=== PATIENT | male | born 1935 | race Caucasian/White ===

== ENCOUNTER 2019-08-18 08:14 | Outpatient (CLI) | payer MEDICARE, SELFPAY ==
[2019-08-18 08:49] LABS: Hematocrit 40.5 % (42.0-52.0); Hemoglobin 13.4 g/dL (14.0-18.0); Mean Corpuscular HGB Conc 33.1 g/dl (32-36); Mean Corpuscular Hemoglobin 30.9 pg (26-34); Mean Corpuscular Volume 93.3 fl (80-100); Mean Platelet Volume 9.8 fl (7.4-10.4); Platelet Count Result 173 k/mm3 (150-375); Red Blood Count 4.34 M/mm3 (4.6-6.20); Red Cell Distribution Width 12.5 % (11.5-14.5); White Blood Count 5.7 K/mm3 (4.5-10.0)
[2019-08-18 09:02] LABS: Alanine Aminotransferase 25 U/L (4-50); Albumin Level 4.2 g/dL (3.5-5.1); Alkaline Phosphatase 59 U/L (38-126); Aspartate Amino Transferase 33 U/L (17-59); Bilirubin,Total 1.5 mg/dL (0.2-1.3); Blood Urea Nitrogen 20 mg/dL (9-20); Calcium 8.8 mg/dL (8.4-10.2); Carbon Dioxide 26 mmol/L (22-30); Chloride 101 mmol/L (98-107); Cholesterol 141 mg/dL (0-200); Estimated Glomerular Filt Rate > 60; Glucose 104 mg/dL (75-110); HDL Direct 60 mg/dL; Potassium 4.1 mmol/L (3.4-5.0); Sodium 141 mmol/L (137-145); Triglycerides 92 mg/dL (<150)
[2019-08-18 09:12] LABS: LDL Cholesterol Direct 68 mg/dL
[2019-08-18 09:17] LABS: Iron 63 ug/dL (49-181)
[2019-08-18 09:27] LABS: Percent Iron Saturation 20 % (20-50)
== END 2019-08-18 08:15 | disposition home or self-care (01) ==
PROVIDERS: PCP Family Medicine; Visit Provider Family Medicine
DX: D50.9 Iron deficiency anemia, unspecified (principal); G25.81 Restless legs syndrome; I10 Essential (primary) hypertension; E78.5 Hyperlipidemia, unspecified
CPT/HCPCS: 36415; 80053; 80061; 82728; 83540; 83550; 85027

== ENCOUNTER 2020-05-15 09:40 | Outpatient (CLI) | payer MEDICARE, SELFPAY ==
--- NOTE | ~2020-05-15 | US_ITS ---
EXAMINATION: US venous doppler LE EXAM DATE: 05/15/2020 10:17 INDICATION: R60.0 - Localized edema. TECHNIQUE: Multiple grayscale, color flow and Doppler images of the lower extremity deep venous syste ms bilaterally were obtained and reviewed. There is no prior study for comparison. FINDINGS: Right side: The right common femoral, femoral and profunda veins demonstrate normal color flow, respi ratory variation, augmentation and compressibility. Compressibility, color flow confirmed within the right popliteal, posterior tibial, peroneal, and greater saphenous veins. Left side: The left common femoral, femoral and profunda veins demonstrate normal color flow, respira tory variation, augmentation and compressibility. Compressibility, color flow confirmed within the l eft popliteal, posterior tibial, peroneal, and greater saphenous veins. IMPRESSION: 1. No lower extremity deep venous thrombosis bilaterally. Reviewed, dictated and finalized at location A. NICAL ASSOCIATE
== END 2020-05-15 09:41 | disposition home or self-care (01) ==
PROVIDERS: PCP Family Medicine; Visit Provider Family Medicine
DX: R60.0 Localized edema (principal)
CPT/HCPCS: 93970

== ENCOUNTER 2021-02-02 02:13 | Day surgery (SDC) | payer MEDICARE, SELFPAY ==
[2021-02-01 14:40] VITALS: BMI 29.9
[2021-02-02] VITALS (18 sets, daily range): BP systolic 99–145; BP diastolic 58–76; PULSE 47–57; RESP 14–20; TEMP 36–36.4; O2SAT 92–96; BMI 29.4
--- NOTE | 2021-02-02 07:15 | SUR.PREOP ---
ARRIVES AMBULATORY TO [facility] W/ AT SIDE FOR SCHEDULED R/LHC W/ DR. MOSER. STEADY GAIT. DENIES CP OR SOB. ORIENTED TO ROOM, PLAN OF CARE, PROCEDURE, ORDERS. QUESTIONS ANSWERED. IV STARTED, LABS SENT, VS OBTAINED, SKIN PREPPED, PULSES MARKED, CONSENT OBTAINED. WILL CONTINUE TO MONITOR.
[2021-02-02 07:34] LABS: Basophils Percent Auto 0.6 % (0.2-1.2); Eosinophils Absolute Auto 0.3 K/mm3 (0-0.3); Eosinophils Percent Auto 3.9 % (0-4.4); Hematocrit 43.2 % (42.0-52.0); Hemoglobin 14.1 g/dL (14.0-18.0); Immature Granulocyte Absolute 0.03 K/mm3 (0.00-0.031); Immature Granulocyte Percent A 0.4 % (0-0.5); Lymphocytes Absolute Auto 2.54 K/mm3 (0.9-3.2); Mean Corpuscular HGB Conc 32.6 g/dl (32-36); Mean Platelet Volume 9.1 fl (7.4-10.4); Monocytes Absolute Auto 0.7 K/mm3 (0.1-0.6); Monocytes Percent Auto 9.8 % (2.6-8.5); Neutrophils Absolute Auto 3.3 K/mm3 (1.3-6.7); Neutrophils Percent Auto 48.3 % (45.5-73.1); Platelet Count Result 172 k/mm3 (150-375); Red Blood Count 4.41 M/mm3 (4.6-6.20); Red Cell Distribution Width 13.2 % (11.5-14.5); White Blood Count 6.9 K/mm3 (4.5-10.0)
[2021-02-02 07:47] LABS: INR 0.9; Prothrombin Time 11.9 Seconds (11.1-14.7)
[2021-02-02] MEDS: SODIUM CHLORIDE 0.9% IV 500 ML 100 ML IV CONT (07:50)
[2021-02-02 08:19] LABS: Anion Gap 5 mmol/L (8-16); Blood Urea Nitrogen 21 mg/dL (9-20); Calcium 9.1 mg/dL (8.4-10.2); Carbon Dioxide 29 mmol/L (22-30); Chloride 105 mmol/L (98-107); Estimated CRCL calculation 70 ml/min; Estimated Glomerular Filt Rate > 60; Glucose 93 mg/dL (65-110); Potassium 4.2 mmol/L (3.4-5.0); Sodium 139 mmol/L (137-145)
--- NOTE | 2021-02-02 09:14 | WPDMODSED ---
Moderate Sedation Note-Pt Data Patient Data Diagnosis: coronary artery disease with previous PCI symptomatic aortic stenosis Present Complaint: KENDRICK Procedure to be performed/Plan: right and left heart catheterization Allergies Allergy/AdvReac Type Severity Reaction Status Date / Time talc Allergy Intermediate rash Verified 02/02/21 08:18 latex Allergy Mild Hives Verified 02/02/21 08:18 Home Medications Medication Instructions Recorded Confirmed Type aspirin 81 mg tablet,delayed 81 mg PO DAILY 08/17/19 02/01/21 History release atenolol 25 mg tablet 12.5 mg PO DAILY tablet 08/17/19 02/01/21 History atorvastatin 80 mg tablet 40 mg PO DAILY tablet 08/17/19 02/01/21 History ezetimibe 10 mg tablet 10 mg PO DAILY 08/17/19 02/01/21 History ibuprofen 200 mg tablet 200 mg PO Q6H PRN 08/17/19 02/01/21 History lisinopril 5 mg tablet 5 mg PO DAILY 08/17/19 02/01/21 History tszjbwnxpxxv-fcz-adisn acid-vit 1 tablet PO DAILY 08/17/19 02/01/21 History K-lycop 400 mcg-20 mcg-370 mcg tablet omega-3 fatty acids-fish oil 360 1 cap PO DAILY 08/17/19 02/01/21 History mg-1,200 mg capsule saw palmetto 450 mg capsule 80 mg PO DAILY cap 08/17/19 02/01/21 History alendronate 70 mg tablet 70 mg PO WEEKLY #12 tablet 06/12/20 02/01/21 Rx pantoprazole 40 mg tablet,delayed 40 mg PO QAM #90 tablet 06/12/20 02/01/21 Rx release ropinirole 0.5 mg tablet 0.5 mg PO .1-3hrs prior to bed #90 06/12/20 02/01/21 Rx tablet loratadine 10 mg tablet 10 mg PO DAILY #90 tablet 10/05/20 02/01/21 Rx memantine 10 mg tablet 10 mg PO BID #60 tablet 12/15/20 02/01/21 Rx nitroglycerin 0.4 mg sublingual 0.4 mg SUBLINGUAL Q5M PRN 12/15/20 02/01/21 History tablet clotrimazole-betamethasone 1 1 applic TOPICAL BID 28 Days #45 g 01/17/21 02/01/21 Rx %-0.05 % topical cream fluoxetine 20 mg PO DAILY 02/01/21 02/01/21 History garlic 1 tablet PO DAILY 02/01/21 02/01/21 History Current Medications: Active Medications Sodium Chloride (Normal Saline Iv) 500 mls @ 100 mls/hr IV CONT .Q5H [facility] Last Admin: 02/02/21 07:50 Dose: 100 mls/hr Documented by: Sedation/Anesthesia: No previous sedation/anesthesia problems (including family history). [facility] Past Medical History Medical History Cardiac murmur Chronic depression Chronic knee pain Controlled restless legs syndrome GERD without esophagitis Hyperlipidemia Hypertension Microcytic anemia Normal colonoscopy Osteopenia Seasonal rhinitis Venous insufficiency (chronic) (peripheral) Surgical History Surgical History History of appendectomy History of cholecystectomy History of heart artery stent History of tonsillectomy History of total bilateral knee replacement (TKR) Family History Family History Father Patient's father is Acute myocardial infarction Mother Family history of atrial fibrillation Social History Social History (Updated 12/15/20 @ 09:58 by Jasmina Parikh) Social History: Smoking status: Former smoker Second hand tobacco smoke exposure: No Alcohol intake: current Drinks per week: 3 Alcohol use details: OCCASIONAL Substance use: never Substance use type: does not use Last use: 06/30/1960 Living arrangements: with family Gender identity (if verbalized by the patient): Male Sexual Orientation (if Verbalized by the Patient): Straight or Heterosexual Spiritual care concerns: No Agree to blood products: Yes Mod Sed Physical Exam Physical Exam Pre Procedural Exam: Normal: Appearance, Neck, Throat, Airway, Lungs, Heart Size, Heart Rate, Heart Rhythm, Neuro Exam and Extremities Hours since solid foods: 12 Hours since liquid intake: 12 Mallampati Classification: class II Internal Medicine - PN: Obj Da Vital Signs Vital Signs: Vital Signs - 24 hr
--- NOTE | 2021-02-02 10:28 | WPDCARDPROC ---
Cardiac Cath Procedure Note Date of procedure:: 02/02/21 Performing physician:: Ricardo Alegria MD Brief clinical history:: This is an 85-year-old man with coronary disease and previous percutaneous revascularization elsewhere. He also is known to have aortic valve stenosis which has been followed a as an outpatient. He is now reporting symptoms of worsening exertional dyspnea. Echocardiogram suggests that aortic valve stenosis has become severe. In this setting right and left heart catheterization has been recommended. Procedure Procedure performed:: Right and left heart catheterization Sedation/Medication given:: fentanyl 25 mg Versed 2 mg case start time 937 a.m. case end time 10:18 a.m. sedation provided by Dany Verdugo RN trained observer Access site:: right femoral artery, right femoral vein Estimated blood loss:: 20 cc Procedure note:: patient was brought to the cardiac catheterization lab in the postabsorptive state the right femoral triangle was prepared and draped in the normal fashion. Anesthesia was provided with 1% lidocaine infiltrated locally. Using the modified Seldinger technique a long 6 Nigerian 45 cm sheath was placed into the femoral artery and into the descending aorta. Following this a 7 Nigerian sheath was placed into the femoral vein. Right heart catheterization was then carried out using a balloon tip Armona-Brenna catheter measuring right-sided hemodynamics and sampling av O2 difference as well as measuring thermodilution cardiac outputs. Armona-Brenna catheter was then removed. Following this I used a 5 Nigerian angled pigtail catheter through the sheath and Simultaneous is pressures were measured in the aorta from the catheter at the side arm of the sheath. following this the stenotic aortic valve was probed using a straight wire and the left ventricle was entered. The catheter was advanced over the wire into the LV. Both catheters were flushed copiously and were reason a road and simultaneous pressure was measured across the stenotic aortic valve and aortic valve area was calculated. Following this a left ventriculogram was done in the DOS SANTOS projection using the same catheter. A pullback was then documented across the stenotic valve. The pigtail catheter was then withdrawn. I then used a 5 Nigerian FL4 coronary diagnostic catheter to engage and inject the left coronary artery in multiple projections. After this a 5 Nigerian JR4 catheter was used to engage and inject the right coronary artery in several projections. After this the case was terminated angiogram was done of the femoral artery through the sheath it was determined that the sheath should be removed tract manual compression. He left the labels molder in stable condition with no evidence of a groin hematoma and no other procedural complication. Findings:: Hemodynamics: Right atrial pressure is 8 mmHg right ventricle 26 over 5 end-diastolic pressure 12. Pulmonary artery 27 over 80 pulmonary capillary wedge pressure is 8. Left ventricle was 1 50 over 0 end-diastolic pressure 16 central aorta 118 over 58 thermodilution cardiac output was 4.5 liters/minute giving an index of 2.1. Aortic valve area calculates to 0.93 cm2. Mean aortic valve gradient is 34.7 mmHg. Left ventricle: The LV is mildly dilated there is moderate global systolic hypokinesia noted the ejection fraction visually estimated to be 35%. The left main coronary artery is medium in caliber there is mild plaquing at the left main ostium which is not flow-limiting. Remainder of the left main looks free of disease. Left anterior descending is a moderate caliber artery extending down to and around the apex. The proximal half of the LAD is covered by previously deployed stent material. There is very mild loss of lumen in the proximal area where the stent material is located in no view was there any lesion that appears to be flow limiting. Circumflex is a moderate caliber artery giving rise to margin
[2021-02-02] MEDS: SODIUM CHLORIDE 0.9% IV 1,000 ML 125 ML IV CONT (12:00)
--- NOTE | 2021-02-02 18:45 | SUR.PHASEII ---
REVIEWED ALL DISCHARGE INSTRUCTIONS WITH PT AND . QUESTIONS ANSWERED. VOICED UNDERSTANDING OF ALL INSTRUCTIONS. PROCEDURE DISK GIVEN TO TAKE TO FOLLOW UP APPOINTMENT. R. GROIN SITE REMAINS SOFT, NONTENDER. NO BLEEDING OR HEMATOMA NOTED. GAUZE AND TEGADERM DRESSING C/D/I. R. PEDAL PULSE PALP EASILY. DISCHARGED HOME, OUT VIA WC TO GRANDDAUGHTER'S WAITING CAR, WITH ALL PERSONAL BELONGINGS AND DISCHARGE PACKET. VOICES NO C/O. NO DISTRESS NOTED.
== END 2021-02-02 18:45 | disposition home or self-care (01) ==
PROVIDERS: PCP Family Medicine; Visit Provider Specialist
PROC: 4A023N8 Measurement of Cardiac Sampling and Pressure, Bilateral, Percutaneous Approach (ICD-10-PCS; CPT 93453; principal; 2021-02-02 08:30)
DX: I35.0 Nonrheumatic aortic (valve) stenosis (principal); R93.1 Abnormal findings on diagnostic imaging of heart and coronary circulation; R06.09 Other forms of dyspnea; I25.10 Atherosclerotic heart disease of native coronary artery without angina pectoris; Z95.5 Presence of coronary angioplasty implant and graft; I11.9 Hypertensive heart disease without heart failure; E78.5 Hyperlipidemia, unspecified; F32.9 Major depressive disorder, single episode, unspecified; K21.9 Gastro-esophageal reflux disease without esophagitis; D64.9 Anemia, unspecified; I87.2 Venous insufficiency (chronic) (peripheral); M85.80 Other specified disorders of bone density and structure, unspecified site; Z79.82 Long term (current) use of aspirin
CPT/HCPCS: 36415; 80048; 85025; 85610; 93460; C1769; C1887; C1894; J0461; J1644; J2250; J3010; J7030; J7040

== ENCOUNTER 2021-06-06 13:30 | Outpatient (RCR) | payer MEDICARE, SELFPAY ==
[2021-05-11 15:36] VITALS: PULSE 62
--- NOTE | 2021-06-04 10:37 | PCCPR ---
Absent due to illness Rich called states not feeling well and is congested.
--- NOTE | 2021-07-26 15:13 | PCCPR ---
Pt DC due to hip pains that do not allow him to tolerate exercise.
== END 2021-07-27 09:04 | disposition home or self-care (01) ==
LOC: ANHCPREHAB 13:30
PROVIDERS: PCP Family Medicine; Visit Provider Internal Medicine Cardiovascular Disease
DX: Z95.2 Presence of prosthetic heart valve (principal)
CPT/HCPCS: 93798

== ENCOUNTER 2021-07-30 09:09 | Outpatient (CLI) | payer MEDICARE, SELFPAY ==
--- NOTE | ~2021-07-30 | US_ITS ---
EXAMINATION: US renal BI DATE: 07/30/2021 09:56 INDICATION: Unspecified abdominal pain TECHNIQUE: Multiple grayscale and Doppler ultrasound images of the kidneys were obtained. COMPARISON: None. FINDINGS: The right kidney measures 10.8 x 5.5 x 5.5 cm. The left kidney measures 11.6 x 5.3 x 5.9 cm . The kidneys demonstrate normal parenchymal echogenicity. There is no hydronephrosis. The bladder is normal. IMPRESSION: 1. Normal kidneys without hydronephrosis. Reviewed, dictated and finalized at location B. TECHNICIAN
[2021-07-30 10:20] LABS: Add Urine Microscopic? NO; Appearance Urine Clear (Clear); Bilirubin Urine Negative (Negative); Blood Urine Negative (Negative); Color Urine Straw (Yellow); Glucose Urine UA Negative (Negative); Ketones Urine Negative (Negative); Leukocyte Esterase Ur Negative LEU/UL (Negative); Nitrate Urine Negative (Negative); Protein Urine Negative (Negative); Urobilinogen Urine Negative mg/dL (<2.0)
[2021-07-30 11:00] LABS: Specific Grav Ur 1.003 (1.001-1.035)
== END 2021-07-30 09:10 | disposition home or self-care (01) ==
PROVIDERS: PCP Family Medicine; Visit Provider Family Medicine
DX: R10.9 Unspecified abdominal pain (principal)
CPT/HCPCS: 76775; 81003

== ENCOUNTER 2022-05-28 13:16 | Emergency (ER) | payer MEDICARE, SELFPAY ==
[2022-05-28 13:44] VITALS: BP 109/66; PULSE 69; RESP 16; TEMP 37.3; O2SAT 97
--- NOTE | 2022-05-28 14:55 | ED.URI ---
HPI - URI/Sore Throat General Chief Complaint: Upper Respiratory Infection Stated Complaint: fever/sore throat Time Seen by Provider: 05/28/22 14:55 Source: patient and RN notes reviewed Mode of arrival: ambulatory Limitations: no limitations History of Present Illness HPI Narrative: 86 y/o male presented for c/o cough, sore throat, runny nose, temp 100.9. Endorses mild bodyaches and headache. Onset 2 days. Endorses exposure to sick contacts 5 days ago. Denies sob, wheezing, n/v/d. Took Tylenol today. Hx HTN, CAD, pacemaker (2020), s/p TAVR MD elicited complaint: cough Related Data Home Medications Medication Instructions Recorded Confirmed aspirin 81 mg tablet,delayed 81 mg PO DAILY 08/17/19 05/28/22 release (Adult Low Dose Aspirin) atorvastatin 80 mg tablet 40 mg PO DAILY 08/17/19 05/28/22 ezetimibe 10 mg tablet 10 mg PO DAILY 08/17/19 05/28/22 oohwhoqefkfu-hmx-wfexp acid-vit 1 tablet PO DAILY 08/17/19 05/28/22 K-lycop 400 mcg-20 mcg-370 mcg tablet (Men's 50 Plus Multivitamin) nitroglycerin 0.4 mg sublingual 0.4 mg sublingual Q5M PRN Chest 12/15/20 05/28/22 tablet (Nitrostat) Pain garlic 1 tablet PO DAILY 02/01/21 05/28/22 acetaminophen 325 mg tablet 650 mg PO Q4H PRN Cramps 03/27/21 05/28/22 (Tylenol) latanoprost 0.005 % eye drops 1 drp LEFT EYE QPM 03/27/21 05/28/22 Allergies Allergy/AdvReac Type Severity Reaction Status Date / Time talc Allergy Intermediate rash Verified 05/28/22 14:25 latex Allergy Mild Hives Verified 05/28/22 14:25 Review of Systems Review of Systems: ROS per HPI [facility] Past Medical History Medical History Cardiac murmur Chronic depression Chronic knee pain Controlled restless legs syndrome GERD without esophagitis Hyperlipidemia Hypertension Microcytic anemia Normal colonoscopy Osteopenia Seasonal rhinitis Venous insufficiency (chronic) (peripheral) Surgical History Surgical History History of appendectomy History of cholecystectomy History of heart artery stent History of tonsillectomy History of total bilateral knee replacement (TKR) Family History Family History Father Acute myocardial infarction Patient's father is Hypercholesteremia Hypertension Mother Family history of atrial fibrillation Sibling Hypercholesteremia Hypertension Social History Social History Social History: Smoking status: Never smoker Second hand tobacco smoke exposure: No Alcohol intake: current Alcohol use details: OCCASIONALLY Substance use: never Substance use type: does not use Last use: 06/30/1960 Gender identity (if verbalized by the patient): Male Sexual Orientation (if Verbalized by the Patient): Straight or Heterosexual Spiritual care concerns: No Agree to blood products: Yes Exam Narrative: GENERAL:well-appearing EYES: PERRLA, conjunctivae clear ENT: Mucous membranes moist. Right TM pearly ward with dull light reflex; no tragal tenderness. Oropharynx erythematous without lesions or exudate, no drooling, no hoarseness, no trismus, uvula midline. CHEST: Clear to auscultation, breath sounds equal. No wheezing, rhonchi, rales, or stridor. HEART: Regular rate and rhythm. No murmur heard. SKIN: Warm, dry, no rash. NEURO: Alert and oriented x3. PSYCH: Normal mood and affect Course Course Emergency Course: Patient is aware of diagnosis, understands and agrees to treatment plan. Anticipatory guidance given. Patient agrees to follow-up as directed and is aware of reasons to seek care at the emergency department. Portions of this record may have been created with voice recognition software Level of Care: Express Care Visit Vital Signs Vital signs: Vital Signs Temperature 99.2 F 05/28/22 1
== END 2022-05-28 15:15 | disposition home or self-care (01) ==
PROVIDERS: Emergency Provider Nurse Practitioner Family; PCP Family Medicine
DX: U07.1 COVID-19 (principal); I10 Essential (primary) hypertension; I25.10 Atherosclerotic heart disease of native coronary artery without angina pectoris; E78.5 Hyperlipidemia, unspecified; Z95.0 Presence of cardiac pacemaker
CPT/HCPCS: 87426; 87804; 99213; C9803; G0463

== ENCOUNTER 2022-09-01 13:44 | Emergency (ER) | payer MEDICARE, SELFPAY ==
[2022-09-01 14:07] VITALS: BP 130/82; PULSE 85; RESP 15; TEMP 36.6; O2SAT 98
--- NOTE | 2022-09-01 14:25 | ED.EAR ---
HPI - Ear Problem General Chief complaint: Ear Stated complaint: forgein body to ear Time Seen by Provider: 09/01/22 14:12 History of Present Illness HPI Narrative: 86-year-old male here for evaluation of foreign body to ear for the past week. Patient states that when he removed his hearing aid a piece of the hearing aid got stuck in the ear. Has been unable to remove it. Reports decreased hearing to the ear but no pain. Related Data Home Medications Medication Instructions Recorded Confirmed aspirin 81 mg tablet,delayed 81 mg PO DAILY 08/17/19 06/06/22 release (Adult Low Dose Aspirin) atorvastatin 80 mg tablet 40 mg PO DAILY 08/17/19 06/06/22 ezetimibe 10 mg tablet 10 mg PO DAILY 08/17/19 06/06/22 lmcaxlywqmbb-iuw-fyzag acid-vit 1 tablet PO DAILY 08/17/19 06/06/22 K-lycop 400 mcg-20 mcg-370 mcg tablet (Men's 50 Plus Multivitamin) nitroglycerin 0.4 mg sublingual 0.4 mg sublingual Q5M PRN Chest 12/15/20 06/06/22 tablet (Nitrostat) Pain garlic 1 tablet PO DAILY 02/01/21 06/06/22 acetaminophen 325 mg tablet 650 mg PO Q4H PRN Cramps 03/27/21 06/06/22 (Tylenol) latanoprost 0.005 % eye drops 1 drp LEFT EYE QPM 03/27/21 06/06/22 tiotropium bromide 2.5 2 inh inhalation QAM 06/06/22 06/06/22 mcg/actuation mist for inhalation (Spiriva Respimat) Allergies Allergy/AdvReac Type Severity Reaction Status Date / Time talc Allergy Intermediate rash Verified 09/01/22 14:09 latex Allergy Mild Hives Verified 09/01/22 14:09 Review of Systems Review of Systems: Gen.: Denies fevers or chills Eyes: Denies eye pain or visual change ENT: Reports foreign body to right ear Respiratory: Denies shortness of breath or cough CV: Denies chest pain or palpitations GI: Denies abdominal pain nausea, emesis or diarrhea denies burning, urgency, frequency or hematuria Musculoskeletal: Denies back pain or muscle pain Neuro: Denies numbness, tingling, weakness or focal weakness Skin: Denies rash Except as documented, all other systems reviewed and negative [facility] Past Medical History Medical History Cardiac murmur Chronic depression Chronic knee pain Controlled restless legs syndrome GERD without esophagitis Hyperlipidemia Hypertension Microcytic anemia Normal colonoscopy Osteopenia Seasonal rhinitis Venous insufficiency (chronic) (peripheral) Surgical History Surgical History History of appendectomy History of cholecystectomy History of heart artery stent History of tonsillectomy History of total bilateral knee replacement (TKR) Family History Family History Father Acute myocardial infarction Patient's father is Hypercholesteremia Hypertension Mother Family history of atrial fibrillation Sibling Hypercholesteremia Hypertension Social History Social History (Updated 06/06/22 @ 13:47 by Jasmina Parikh) Social History: Smoking status: Never smoker Second hand tobacco smoke exposure: No Alcohol intake: current Alcohol use details: OCCASIONALLY Substance use: never Substance use type: does not use Last use: 06/30/1961 Living arrangements: with family Occupation/Education: retired Gender identity (if verbalized by the patient): Male Sexual Orientation (if Verbalized by the Patient): Straight or Heterosexual Spiritual care concerns: No Agree to blood products: Yes Exam Narrative: Gen: Alert, oriented, no acute disease Eyes: EOMI, no icterus ENT: Foreign body obscures the right TM Pulm: Respirations even and unlabored, symmetric thorax expansion, no audible stridor or visible cyanosis CV: Regular rate per telemetry GI: No distension, no voluntary/involuntary guarding Neuro: AOx4, moves all extremities without apparent difficulty or weakness, follows commands Skin: No jaundice, no vis
[2022-09-01 14:32] VITALS: PULSE 80; RESP 14; O2SAT 100
== END 2022-09-01 14:33 | disposition home or self-care (01) ==
LOC: ANHED 14:26
PROVIDERS: Emergency Provider Physician Assistant; PCP Family Medicine
DX: T16.1XXA Foreign body in right ear, initial encounter (principal); K21.9 Gastro-esophageal reflux disease without esophagitis; G89.29 Other chronic pain; E78.5 Hyperlipidemia, unspecified; I10 Essential (primary) hypertension; F32.A Depression, unspecified; Y29.XXXA Contact with blunt object, undetermined intent, initial encounter
CPT/HCPCS: 69200; 99282

== ENCOUNTER 2023-06-25 08:54 | Outpatient (CLI) | payer MEDICARE, SELFPAY ==
[2023-06-25 10:19] LABS: Basophils Percent Auto 0.7 % (0.2-1.2); Eosinophils Absolute Auto 0.3 K/mm3 (0-0.3); Eosinophils Percent Auto 4.5 % (0-4.4); Hematocrit 43.9 % (42.0-52.0); Hemoglobin 14.2 g/dL (14.0-18.0); Immature Granulocyte Absolute 0.01 K/mm3 (0.00-0.031); Immature Granulocyte Percent A 0.2 % (0-0.5); Lymphocytes Absolute Auto 2.02 K/mm3 (0.9-3.2); Lymphocytes Percent Auto 35.1 % (18.3-44.2); Mean Corpuscular HGB Conc 32.3 g/dl (32-36); Mean Corpuscular Hemoglobin 30.9 pg (26-34); Mean Corpuscular Volume 95.6 fl (80-100); Monocytes Absolute Auto 0.5 K/mm3 (0.1-0.6); Monocytes Percent Auto 8.3 % (2.6-8.5); Neutrophils Absolute Auto 2.9 K/mm3 (1.3-6.7); Neutrophils Percent Auto 51.2 % (45.5-73.1); Platelet Count Result 167 k/mm3 (150-375); Red Blood Count 4.59 M/mm3 (4.6-6.20); Red Cell Distribution Width 13.2 % (11.5-14.5); White Blood Count 5.8 K/mm3 (4.5-10.0)
[2023-06-25 12:18] LABS: Alanine Aminotransferase 36 U/L (6-50); Alkaline Phosphatase 58 U/L (38-126); Anion Gap 9 mmol/L (8-16); Aspartate Amino Transferase 38 U/L (17-59); Bilirubin,Total 1.7 mg/dL (0.2-1.3); Blood Urea Nitrogen 24 mg/dL (9-20); Calcium 9.1 mg/dL (8.4-10.2); Carbon Dioxide 29 mmol/L (22-30); Chloride 103 mmol/L (98-107); Cholesterol 132 mg/dL (0-200); Estimated Glomerular Filt Rate > 60; Glucose 122 mg/dL (65-110); HDL Direct 59 mg/dL; Potassium 3.7 mmol/L (3.4-5.0); Sodium 141 mmol/L (137-145); Triglycerides 199 mg/dL (<150)
[2023-06-25 12:28] LABS: LDL Cholesterol Direct 51 mg/dL
== END 2023-06-25 08:55 | disposition home or self-care (01) ==
PROVIDERS: PCP Family Medicine; Visit Provider Physician Assistant
DX: E78.2 Mixed hyperlipidemia (principal); I10 Essential (primary) hypertension; I25.10 Atherosclerotic heart disease of native coronary artery without angina pectoris
CPT/HCPCS: 36415; 80053; 80061; 85025

== ENCOUNTER 2023-07-30 12:13 | Outpatient (CLI) | payer MEDICARE, SELFPAY ==
[2023-07-30 13:06] LABS: Alanine Aminotransferase 39 U/L (6-50); Albumin Level 3.9 g/dL (3.5-5.1); Alkaline Phosphatase 57 U/L (38-126); Anion Gap 6 mmol/L (8-16); Aspartate Amino Transferase 40 U/L (17-59); Bilirubin,Total 1.6 mg/dL (0.2-1.3); Blood Urea Nitrogen 27 mg/dL (9-20); Calcium 8.9 mg/dL (8.4-10.2); Carbon Dioxide 30 mmol/L (22-30); Chloride 102 mmol/L (98-107); Estimated Glomerular Filt Rate > 60; Glucose 104 mg/dL (65-110); Potassium 4.1 mmol/L (3.4-5.0); Sodium 138 mmol/L (137-145)
== END 2023-07-30 12:14 | disposition home or self-care (01) ==
PROVIDERS: PCP Family Medicine; Visit Provider Physician Assistant
DX: R17 Unspecified jaundice (principal)
CPT/HCPCS: 36415; 80053

== ENCOUNTER 2024-02-26 13:54 | Emergency (ER) | payer MEDICARE, SELFPAY ==
--- NOTE | ~2024-02-26 | XR_ITS ---
EXAMINATION: XR wrist RT min 3V DATE: 02/26/2024 15:19 INDICATION: Right wrist pain post fall TECHNIQUE: Posteroanterior, ulnar deviation, oblique, and lateral views of the right wrist were obtai capo. COMPARISON: none FINDINGS: Alignment is normal. No fracture. 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 Polyarticular osteoarthritis, severe at the triscaphe and first and second metaca rpophalangeal joints, moderate severity at the distal radioulnar, first and second carpometacarpal, t hird metacarpophalangeal and first interphalangeal joints and mild at the wrist, midcarpal and fifth metacarpophalangeal joints. IMPRESSION: 1. 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 No acute osseous dimitry opathy. Reviewed, dictated and finalized at location A. IMPRESSION: 1. 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 No acute osseous adenopathy.
--- NOTE | ~2024-02-26 | XR_ITS ---
EXAMINATION: XR chest 2V DATE: 02/26/2024 14:59 INDICATION: Fall. TECHNIQUE: Frontal and lateral views of the chest were obtained. COMPARISON: Chest 2 views 06/16/2013 FINDINGS: There is mild atelectasis at right lung base. Calcified left lung nodule and calcified left hilar lymph nodes are consistent with old granulomatous disease. There is mild scarring at the lung apices. No pleural effusion or pneumothorax. Cardiomegaly is noted. There are changes of aortic valve replacement. There is a left chest wall pacer with leads in the right atrium and right ventricle. Stone rgical clips in the right upper quadrant are likely from cholecystectomy. IMPRESSION: 1. Mild atelectasis at right lung base and mild scarring at the lung apices. 2. Cardiomegaly. Reviewed, dictated and finalized at location A.
--- NOTE | ~2024-02-26 | CT_ITS ---
EXAMINATION: CT facial & cervical spine wo DATE: 02/26/2024 14:48 INDICATION: Head injury. TECHNIQUE: Computed tomography (CT) of the maxillofacial region and cervical spine was performed with out intravenous contrast. Automated exposure control and iterative reconstruction technique were empl oyed. The dose-length product was 472.74 mGy-cm. COMPARISON: CT 06/01/2018 FINDINGS: MAXILLOFACIAL CT: There is right-sided scalp soft tissue swelling. There are likely changes of ocular lens replacement surgeries. There is leftward deviation of the nasal septum. There is mucosal thickening in the parana jimena sinuses and right nasal cavity. CERVICAL SPINE CT: There is mild scarring at the lung apices. There is mild kyphosis of cervical spine. There is 2 mm an terolisthesis of C7 on T1. Vertebral body heights are normal. There is moderately decreased disc heig ht at C3-C4 and severely decreased disc height from C4-C5 through C6-C7. The following disc levels ar e specifically discussed: C2-C3: There is mild right and severe left uncovertebral joint osteoarthritis. There is severe bilate ral facet joint osteoarthritis. There is mild right and moderate left neural foraminal stenosis. Ther e is mild central canal stenosis. C3-C4: There is severe bilateral uncovertebral joint osteoarthritis. There is moderate right and loraine re left facet joint osteoarthritis. There is mild right and severe left neural foraminal stenosis. Th ere is mild central canal stenosis. C4-C5: There is severe bilateral uncovertebral joint osteoarthritis. There is severe right and mild l eft facet joint osteoarthritis. There is moderate right and mild left neural foraminal stenosis. Ther e is mild central canal stenosis. C5-C6: There is severe bilateral uncovertebral joint osteoarthritis. There is moderate right and loraine re left facet joint osteoarthritis. There is moderate bilateral neural foraminal stenosis. There is m oderate central canal stenosis. C6-C7: There is severe bilateral uncovertebral joint osteoarthritis. There is severe bilateral facet joint osteoarthritis. There is moderate bilateral neural foraminal stenosis. There is moderate centra l canal stenosis. C7-T1: There is mild bilateral uncovertebral joint osteoarthritis. There is severe bilateral facet nevaeh int osteoarthritis. There is mild right and moderate left neural foraminal stenosis. There is no cent ral canal stenosis. IMPRESSION: 1. No fracture 2. Severe cervical spondylosis. Reviewed, dictated and finalized at location A.
--- NOTE | ~2024-02-26 | CT_ITS ---
EXAMINATION: CT brain wo con DATE: 02/26/2024 14:48 INDICATION: Head injury TECHNIQUE: Computed tomography (CT) of the head was performed without intravenous contrast. Sagittal and coronal reconstructions were performed. The mA was adjusted according to patient size. Iterative reconstruction technique was employed. The dose-length product was 605.33 mGy-cm. COMPARISON: head CT dated 05/02/2018 FINDINGS: Moderate-sized right frontal scalp hematoma. No calvarial fracture. No acute intracranial hemorrhage, acute infarction or abnormal extra axial fluid collection. There is mild scattered white matter hypo attenuation consistent with chronic small vessel ischemic disease. Symmetric prominence of the sulci consistent with mild age-appropriate diffuse cerebral volume loss. Ventricles are normal and symmetri c. No mass/mass effect. There is a nodular soft tissue density, possibly a nasal polyp at the anterio r aspect of the right nasal cavity. The orbits, paranasal sinuses and mastoid air cells are normal. IMPRESSION: 1. Normal aging brain. No fracture or acute intracranial process. 2. Nodular soft tissue density, possibly a nasal polyp at the anterior aspect of the right nasal cavi ty. Reviewed, dictated and finalized at location A. IMPRESSION: 1. Normal aging brain. No fracture or acute intracranial process. 2. Nodular soft tissue density, possibly a nasal polyp at the anterior aspect o f the right nasal cavity.
--- NOTE | ~2024-02-26 | XR_ITS ---
EXAMINATION: XR pelvis 1-2V DATE: 02/26/2024 14:59 INDICATION: Fall. TECHNIQUE: An anteroposterior view of the pelvis was obtained on 2 radiographs. COMPARISON: None. FINDINGS: Alignment is normal. No fracture. There is mild osteoarthritis of the hips. There is severe lumbar spondylosis. IMPRESSION: 1. Mild osteoarthritis of the hips. Reviewed, dictated and finalized at location A.
[2024-02-26 13:59] VITALS: BP 128/69; PULSE 88; RESP 18; TEMP 36.6; O2SAT 98
--- NOTE | 2024-02-26 14:10 | ED.FALL ---
HPI - Fall General Chief Complaint: Fall Stated Complaint: fall, head injury Time Seen by Provider: 02/26/24 14:10 Source: patient Mode of arrival: wheelchair Limitations: no limitations History of Present Illness HPI Narrative: this is an 88-year-old male that presents to the emergency department after a fall today with head injury. Reports he was using the leaf blower. Accidentally tripped over it. Hit his head. He does not believe he lost consciousness. He does take a blood thinner. Denies vomiting, focal numbness or weakness. Related Data Home Medications Medication Instructions Recorded Confirmed aspirin 81 mg tablet,delayed 81 mg PO DAILY 08/17/19 02/04/23 release (Adult Low Dose Aspirin) ezetimibe 10 mg tablet 10 mg PO DAILY 08/17/19 02/04/23 lwtjanpvtdyt-imm-kbcbj acid-vit 1 tablet PO DAILY 08/17/19 02/04/23 K-lycop 400 mcg-20 mcg-370 mcg tablet (Men's 50 Plus Multivitamin) nitroglycerin 0.4 mg sublingual 0.4 mg sublingual Q5M PRN Chest 12/15/20 02/04/23 tablet (Nitrostat) Pain garlic 1 tablet PO DAILY 02/01/21 02/04/23 acetaminophen 325 mg tablet 650 mg PO Q4H PRN Cramps 03/27/21 02/04/23 (Tylenol) latanoprost 0.005 % eye drops 1 drp LEFT EYE QPM 03/27/21 02/04/23 tiotropium bromide 2.5 2 inh inhalation QAM 06/06/22 02/04/23 mcg/actuation mist for inhalation (Spiriva Respimat) Allergies Allergy/AdvReac Type Severity Reaction Status Date / Time talc Allergy Intermediate rash Verified 02/04/23 13:51 latex Allergy Mild Hives Verified 02/04/23 13:51 Review of Systems Review of Systems: CONSTITUTIONAL: Denies fever EYES: Denies visual changes GASTROINTESTINAL: Denies vomiting NEUROLOGIC: Denies numbness, or weakness. All systems reviewed & are unremarkable except as noted in HPI and below [facility] Past Medical History Medical History (Updated 02/26/24 @ 17:10 by Norma Duque PA-C) Acute sore throat Cardiac murmur Chronic depression Chronic knee pain Controlled restless legs syndrome COVID-19 Flank pain Flank pain GERD without esophagitis Hyperlipidemia Hypertension Microcytic anemia Normal colonoscopy Osteopenia Pneumonia due to 2019 novel coronavirus Seasonal rhinitis Tinea cruris Trochanteric bursitis of both hips Venous insufficiency (chronic) (peripheral) Wheezing Surgical History Surgical History (Updated 02/09/23 @ 01:42 by Montserrat Sal MD) History of appendectomy History of cholecystectomy History of heart artery stent History of tonsillectomy 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) Family History Family History Father Acute myocardial infarction Patient's father is Hypercholesteremia Hypertension Mother Family history of atrial fibrillation Sibling Hypercholesteremia Hypertension Social History Social History Social History: Smoking status: Never smoker Second hand tobacco smoke exposure: No Alcohol intake: current Alcohol use details: OCCASIONALLY Substance use: never Substance use type: does not use Last use: 06/30/1960 Lack of Transportation: No Lack of Food: Never True Current Housing: I Have Housing Concerned About Future Housing: No Difficulty Paying Gas/Electric Bills: No Difficulty Paying for Meds: No Currently Unemployed: YES Education: Decline to Answer Difficulty w/ Childcare or Family Care: No Living arrangements: with family Occupation/Education: retired Gender identity (if verbalized by the patient): Male Sexual Orientation (if Verbalized by the Patient): Straight or Heterosexual Spiritual care concerns: No Agree to blood products: Yes Exam Narrative: GENERAL: Well-appearing, well-nourished, and in no acute distress. HEAD: Normocephalic. Hematoma to the right forehead EYES:
[2024-02-26 14:31] VITALS: BP 113/75; PULSE 84; RESP 23; O2SAT 92
[2024-02-26 15:27] VITALS: BP 121/81; O2SAT 95
[2024-02-26 15:31] VITALS: BP 113/72; O2SAT 93
[2024-02-26 17:29] VITALS: BP 127/69; PULSE 85; RESP 16; O2SAT 95
== END 2024-02-26 17:32 | disposition home or self-care (01) ==
PROVIDERS: Emergency Provider Physician Assistant; PCP Family Medicine
DX: S00.83XA Contusion of other part of head, initial encounter (principal); J33.9 Nasal polyp, unspecified; I10 Essential (primary) hypertension; I87.2 Venous insufficiency (chronic) (peripheral); E78.5 Hyperlipidemia, unspecified; D50.9 Iron deficiency anemia, unspecified; K21.9 Gastro-esophageal reflux disease without esophagitis; M85.80 Other specified disorders of bone density and structure, unspecified site; G25.81 Restless legs syndrome; Z86.16 Personal history of COVID-19; Z87.01 Personal history of pneumonia (recurrent); Y93.H2 Activity, gardening and landscaping; M47.812 Spondylosis without myelopathy or radiculopathy, cervical region; M16.0 Bilateral primary osteoarthritis of hip; M19.031 Primary osteoarthritis, right wrist; M18.9 Osteoarthritis of first carpometacarpal joint, unspecified; M19.041 Primary osteoarthritis, right hand; W18.09XA Striking against other object with subsequent fall, initial encounter
CPT/HCPCS: 70450; 70486; 71046; 72125; 72170; 73110; 99284

== ENCOUNTER 2024-10-08 11:40 | Outpatient (CLI) | payer MEDICARE, SELFPAY ==
--- NOTE | ~2024-10-08 | XR_ITS ---
XR ribs BI 3V w CXR 2V Ordering provider: Jasmina Wyatt PA-C History: 88 years Male with . W19.XXXA - Unspecified fall, initial encounter X YESTERDAY . Comparison: None. FINDINGS: MEDIASTINUM: The cardiac silhouette is not enlarged. Left bipolar pacemaker. Valve prosthesis is seen in the aorta. Highly suggestive fracture of the right seventh rib LUNGS: No infiltrates, effusions or pneumothorax. OTHER: No free air under the diaphragm. Air is seen adjacent to the ribs in the lower thoracic area Degenerative changes of the spine. IMPRESSION: Fracture of the right seventh rib. Right apical pneumothorax of about 20% is seen Subcutaneous Air seen adjacent to the lower thoracic area. I called the office of the physician high school assistant principal Jasmina with no success and cold also been number of t he physician event specialist food demonstrator and it was disconnected. I called the technologist of radiology to handle the is kerry. Reviewed, dictated and finalized at location A. IMPRESSION: Fracture of the right seventh rib. Right apical pneumothorax of about 20% is seen Subcutaneous Air seen adjacent to the lower thoracic area. I called the office of the physician high school assistant principal Jasmina with no success and cold also been number of the physician event specialist food demonstrator and it was disconnected. I called [facility] technologist of radiology to handle the issue.
--- NOTE | ~2024-10-08 | XR_ITS ---
EXAM/ PROCEDURE: XR shoulder LT min 2V - 10/08/2024 12:00 CDT HISTORY: 88 years old Male with W19.XXXA - Unspecified fall, initial encounter X YESTERDAY COMPARISON: None available TECHNIQUE: Four view(s) FINDINGS/ IMPRESSION: There are no fractures or dislocations.Joint space narrowing, subchondral sclerosis, subchondral cyst formation and osteophyte formation, compatible with moderate osteoarthritis. Battery of the AICD/pacemaker is seen obscuring some subjacent anatomy. Reviewed, dictated and finalized at location A.
--- NOTE | ~2024-10-08 | XR_ITS ---
EXAM/ PROCEDURE: XR humerus LT - 10/08/2024 12:00 CDT HISTORY: 88 years old Male with W19.XXXA - Unspecified fall, initial encounter X YESTERDAY COMPARISON: None available TECHNIQUE: Three view(s) FINDINGS/ IMPRESSION: There are no fractures or dislocations.Joint space narrowing, subchondral sclerosis, subchondral cyst formation and osteophyte formation, compatible with moderate osteoarthritis. Reviewed, dictated and finalized at location A.
--- NOTE | ~2024-10-08 | XR_ITS ---
EXAM/ PROCEDURE: XR shoulder RT min 2V - 10/08/2024 12:00 CDT HISTORY: 88 years old Male with W19.XXXA - Unspecified fall, initial encounter X YESTERDAY COMPARISON: None available TECHNIQUE: Four view(s) FINDINGS/ IMPRESSION: There are no fractures or dislocations.Joint space narrowing, subchondral sclerosis, subchondral cyst formation and osteophyte formation, compatible with moderate osteoarthritis. Reviewed, dictated and finalized at location A.
== END 2024-10-08 11:41 | disposition home or self-care (01) ==
PROVIDERS: PCP Family Medicine; Visit Provider Physician Assistant Medical
DX: M25.511 Pain in right shoulder (principal); M25.512 Pain in left shoulder; M54.6 Pain in thoracic spine; R07.81 Pleurodynia; M79.622 Pain in left upper arm; J93.9 Pneumothorax, unspecified; S22.41XA Multiple fractures of ribs, right side, initial encounter for closed fracture; X58.XXXA Exposure to other specified factors, initial encounter
CPT/HCPCS: 71046; 71110; 73030; 73060

== ENCOUNTER 2024-10-08 22:18 | Emergency (ER) | payer MEDICARE, SELFPAY ==
[2024-10-08] VITALS (10 sets, daily range): BP systolic 133–161; BP diastolic 73–95; PULSE 82–98; RESP 17–22; TEMP 36.6; O2SAT 91–99
--- NOTE | ~2024-10-08 | CT_ITS ---
EXAM: CT chest abdomen pelvis w con - 10/08/2024 23:30 CDT HISTORY: 88 years old Male with Chest trauma TECHNIQUE: Multidetector CT of the chest, abdomen and pelvis was performed with intravenous contrast Coronal and sagittal reformats were also provided for review. Automatic exposure control was used for this study. CONTRAST: 100 cc of Optiray 350 was used for this study COMPARISON: None available FINDINGS: CHEST: VISUALIZED LOWER NECK: Thyroid gland appears normal. No supraclavicular lymphadenopathy. AIRWAYS: Patent centrally. LUNGS and PLEURA: Mild to moderate right pneumothorax. Trace right pleural effusion. Bibasilar atelec tasis. MEDIASTINUM and RAJINDER: No evidence of mediastinal hematoma. No lymphadenopathy. HEART AND PERICARDIUM: Mild cardiomegaly and severe coronary calcification. No pericardial effusion. CHEST WALL: No axillary lymphadenopathy. Chest wall appears normal. Pacing device in place. VASCULATURE: Mildly calcified and nondilated aorta. Transcatheter aortic valvoplasty. AICD in place. No aneurysm or dissection. ABDOMEN and PELVIS: LIVER: Within normal limits. GALLBLADDER: Postcholecystectomy. BILE DUCTS: Normal caliber. SPLEEN: Within normal limits. PANCREAS: Within normal limits. ADRENAL GLANDS: Within normal limits. KIDNEYS and URETERS: No hydronephrosis or hydroureter. No evidence for nephroureterolithiasis. URINARY BLADDER: Within normal limits. STOMACH and BOWEL: Mild to moderate stool burden, likely constipation. REPRODUCTIVE ORGANS: Within normal limits. MESENTERY/PERITONEAL CAVITY: No free fluid or pneumoperitoneum. LYMPH NODES: No abdominal or pelvic lymphadenopathy. ABDOMINAL WALL: Subcutaneous emphysema and edema over the right flank. VASCULATURE: Within normal limits. MUSCULOSKELETAL, THORACIC AND LUMBAR SPINE: Fractures of right posterior ninth and 10th ribs. Multile tomy degenerative changes are seen in the spine. IMPRESSION: 1. No evidence of solid organ injury or pneumoperitoneum in abdomen or pelvis. 2. Pfzr-cj-nsapbuti right pneumothorax. 3. Right ninth and 10th rib fractures with overlying soft tissue injury and right flank. Reviewed, dictated and finalized at location A. IMPRESSION: 1. No evidence of solid organ injury or pneumoperitoneum in abdomen or pelvis. 2. Gjfj-cy-wtwmphmi right pneumothorax. 3. Right ninth and 10th rib fractures with overlying soft tissue injury and ri ght flank.
--- NOTE | ~2024-10-08 | CT_ITS ---
CT brain wo con Ordering provider: Flako Stevens MD History: 88 years Male with . Head injury . Comparison: None. Technique: CT of the head without contrast. Radiation reduction technique utilized.The dose-length pr oduct was 681 mGy-cm. FINDINGS: BRAIN PARENCHYMA AND CSF SPACES: Mild leukoaraiosis and diffuse cortical atrophy. Mild atheromatous d isease. 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 No midline shift, mass effect or hemorrhage. The brain pa renchyma and CSF spaces are otherwise normal. VISUALIZED PARANASAL SINUSES: Left maxillary sinus disease. Right nasal polyp is noted. Clinical stephy elation advised. Otherwise, Well aerated. MASTOIDS: Well aerated. BONES: The bones appear intact. SOFT TISSUES: Visualized nasopharynx is normal. Superficial soft tissues are normal. IMPRESSION: No acute intracranial findings. Reviewed, dictated and finalized at location A.
--- NOTE | ~2024-10-08 | CT_ITS ---
EXAM: CT cervical spine wo con - 10/08/2024 23:30 CDT History: 88 years old Male with Neck pain status post fall COMPARISON: None available. PROCEDURE: CT of the cervical spine without contrast. Axial, sagittal and coronal reformatted plane s were evaluated. Automatic exposure control was used for this study. FINDINGS: No acute fracture or subluxation. Straightening of cervical lordosis, likely positional or may be rel ated to muscle spasm. Multilevel moderate to severe degenerative changes of the cervical spine includ e varying degrees of disk space narrowing, endplate osteophytosis as well as facet and uncal arthropa thy. Erosive changes at C1-2 level.Prevertebral soft tissues are within normal limits. Right apical pneumothorax and subcutaneous emphysema seen. IMPRESSION: 1. No evidence for cervical spine fracture or traumatic subluxation. 2. Multilevel degenerative changes of the cervical spine. 3. Right apical pneumothorax and subcutaneous emphysema. Reviewed, dictated and finalized at location A.
--- NOTE | 2024-10-08 22:38 | ECG_ITS ---
Test Date: 2024-10-08 22:50:52 Measurements Intervals [place] Rate: 83 P: 51 NV: 229 QRS: -52 QRSD: 148 T: 54 QT: 425 QTc: 501 Interpretive Statements SINUS RHYTHM WITH FIRST DEGREE AV BLOCK RIGHT BUNDLE BRANCH BLOCK LEFT ANTERIOR FASCICULAR BLOCK BASELINE ARTIFACT- I, III ABNORMAL ECG No previous ECG available for comparison Electronically Signed On 10-09-2024 06:44:13 CDT by Eze Zuleta D.O.
--- OUTSIDE RECORDS SUMMARY | 2024-10-08 22:47 | XMS_ITS | Clinical Summary ---
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 Medications multivitamin tablet tablet take 1 tablet by oral route every day with food 0 2 Active Additional Information Patient taking differently: 1 tablet oral Every morning, Indications: Vitamin Deficiency Prevention, Reported on 09/15/2024 alendronate (FOSAMAX) 70 mg tablet take 1 tablet by oral route every week in the morning, at least 30 min before first food, beverage, or medication of day 0 0 4 Active Additional Information Patient taking differently:70 mgoral Every 7 days, Every morning., Reported on 09/15/2024 nitroglycerin (NITROSTAT) 0.[address] 1 tablet by buccal route at the first sign of an attack; no more than 3 tabs are recommended within a 15 minute period. 25 1 2 Active rOPINIRole (REQUIP) 0.5 mg tablet take 1 tablet by oral route every day [address] (PROTONIX) 40 mg EC tablet take 1 tablet by oral route every day 0 0 6 Active garlic capsuleIndicati ons:supplement Take 1 capsule by mouth every morning Active loratadine (CLARITIN) 10 mg tabletIndicatio ns:Allergic Rhinitis Take 1 tablet (10 mg total) by mouth every morning 3 9 Active FLUoxetine (PROzac) 10 mg tablet/capsuleI ndications:Anxi ety with Depression Take 2 tablet/capsule (20 mg total) by mouth nightly Active clotrimazole-be tamethasone (LOTRISONE) creamIndication s:rash Apply 1 application topically 2 (two) times a day 1 Active memantine (NAMENDA) 10 mg tabletIndicatio ns:Moderate to Severe Alzheimer's Type Dementia Take 1 tablet (10 mg total) by mouth 2 (two) times a day 1 Active latanoprost (XALATAN) 0.005 % ophthalmic solutionIndicat ions:open angle glaucoma Administer 1 drop into the left eye nightly 1 Active acetaminophen (TYLENOL) 325 mg tabletIndicatio ns:Fever,Pain Take 2 tablets (650 mg total) by mouth every 4 (four) hours as needed for pain 30 tablet 1 Active aspirin 81 mg chewable tabletIndicatio ns:prevention of thrombosis Take 1 tablet (81 mg total) by mouth nightly 0 1 Active UNABLE TO FIND Med Name: Apoaequorin Active atorvastatin (LIPITOR) 80 mg tablet TAKE ONE-HALF TABLET BY MOUTH DAILY 45 tablet 1 2 Active Eliquis 5 mg tablet TAKE 1 TABLET BY MOUTH EVERY 12 HOURS 180 tablet 3 4 Active ezetimibe (ZETIA) 10 mg tablet TAKE 1 TABLET BY MOUTH DAILY 90 tablet 3 4 Active Active Problems Problem Noted Date Diagnosed Date Pacemaker 10/25/2021 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 Complete heart block 03/19/2021 Overview (03/19/2021): Added automatically from request for surgery [id number] Dementia 03/15/2021 Assessment & Plan (03/15/2021 11:05 AM CDT): Continue home namenda BID -delirium precautions -promote sleep hygiene HTN (hypertension) 03/15/2021 Assessment & Plan (03/15/2021 11:05 AM CDT): Home medications regimen: lisinopril 5mg, atenolol 12.5mg -keep SBP < 160 post-operatively -no beta blockers due to risk of CHB post-TAVR -hold RAHEEM and ARBs due to renal toxicity following TAVR during which contrast is given -currently BP well controlled -> will use hydralazine for BP control if needed Chronic diastolic heart failure 02/26/2021 Assessment & Plan (03/15/2021 11:02 AM CDT): EF 58%, mild MR -holding lasix for immediate post-operative period -holding betablocker for immediate post-operative period given risk of CHB -holding RAHEEM/ARBs for immediate post-operative period given contrast load and renal toxicity -monitor fluid volume status Obesity 02/26/2021 Assessment & Plan (03/15/2021 11:04 AM CDT): BMI 29.27 Coronary artery disease invo lving kas[place] coronary artery of [place] heart without angina pectoris 04/09/2017 Assessment & Plan (03/15/2021 11:04 AM CDT): Hx of Bare metal stents placed to the RCA and LAD in [place] in 1999 in the setting of [place] followed by re-intervention to the LAD in 2012 at [place], [place] -continue asa -continue statin and zetia -start plavix for TAVR History of coronary artery stent placement 04/09 Aortic stenosis 04/09/2017 Assessment & Plan (03/15/2021 11:00 AM CDT): TTE: Mild AR, moderate-severe , AV Area: 0.9 cm2 AV Pressure Gradient (mmHg): Mean: 27, Peak:46 -groin precautions -start asa and plavix -telemetry -PT/OT Heart murmur 04/09/2016 Overview (10/05/2016): Murmur Encounters Date Type Department Care Team Description 09/15/2024 1:00 PM CDT Office Visit [facility] Cardiology [address] [place] [address] 8th [place] [address] [place] [address] Sheron Madden NP S/P TAVR (transcatheter aortic valve replacement) (Primary Dx); Pacemaker; Complete heart block (HCC) 09/15/2024 12:30 PM CDT Ancillary Procedure [address] [place] [address] [place] [address] Complete heart block (HCC) (Primary Dx); Fitting or adjustment of cardiac pacemaker 08/16/2024 Orders Only [address] [place] [address] [place] [address] Eddie James MD 07/12/2024 2:45 PM SITE IDENTIFICATION SPECIALIST Office Visit [facility] Cardiology [address] [facility] [address] [place] [address] Ricardo Alegria MD S/P TAVR (transcatheter aortic valve replacement) (Primary Dx); Pacemaker; History of coronary artery stent placement from Last 3 Months Immunizations Immunization Administration Dates Next Due Moderna SARS-CoV-2 Monovalent Vaccination (12+ Y RS) 08/29/2020 Medical History Medical History Date Comments Hypertension Hypertension Hx Other Medical dyslipidemia Family History Medical History Relation Name Comments Heart attack Father Myocardial Infa rction; Heart disease Mother Heart disease Sister Heart disease Son Relation Name Status Comments Father Alive Mother Sister Son Social History Tobacco Use Types Packs/Day Years Used Date Smoking Tobacco: Never Smokeless Tobacco: Never Tobacco Cessation:Counseling Given: Not Answered Alcohol Use Standard Drinks/Week Comments Yes 0 (1 standard drink = 0.6 oz pur e alcohol) AUDIT-C Answer Date Recorded Q1: How often do you have a drink containing alcohol? 4 or more times a week 03/08/2021 Q2: How many drinks containi ng alcohol do you have on a typical day when you are drinking? 1 or 2 Q3: How often do you have si x or more drinks on one occasion? Never 03/08/2021 Sex and Gender Information Value Date Recorded Sex Assigned at Not on file Legal Sex Male 2:03 AM SITE IDENTIFICATION SPECIALIST Gender Identity Male 02/27/2021 9:36 AM CDT Sexual Orientation Not on file Obstetrics History Last Filed Vital Signs Vital Sign Reading Time Taken Comments Blood Pressure 113/71 09/15/2024 12:25 PM CDT Pulse 66 09/15/2024 12:25 PM CDT Temperature 36.8 C (98.3 F) 04/23/2021 2:51 PM CDT Respiratory Rate 16 03/21/2021 12:30 PM CDT Oxygen Saturation 94% 09/15/2024 12:25 PM CDT Inhaled Oxygen Concentration - - Weight 94.8 kg (209 lb) 09/15/2024 12:25 PM CDT Height 177.8 cm (5' 10 ) 09/15/2024 12:25 PM CDT Body Mass Index 29.99 09/15/2024 12:25 PM CDT Plan of Treatment Health Maintenance Due Date Last Done Comments Depression Screening 1935 Hepatitis B Screening 1953 Well Visit 65+ 12/15/1999 Zoster Vaccine (2 of 2) 07/18/2018 05/23/2018 Fall Risk Assessment 03/21/2022 03/21/2021 DTaP/Tdap/Td Vaccine (2 - Td or Tdap) 08/29/2023 08/28/2013, 03/15/2009, 06/30/1999 Covid-19 Vaccine (3 - 2023-2 5 season) 2024 08/29/2020, 07/27/2020 Influenza Vaccine (#1) 2024 0, 04/07/2019, 03/15/2018, Additional history exists Pneumococcal vaccine 65+ Completed 03/17/2015, 06/2002 Medical Devices Implanted Type Area Medical Field Representative Device Identifier Shelf Expiration Date Model / Serial / Lot [employer] Shira 7842 Lead 7842 Endocardial Pacing Mr Is-1 Bipolar Connection - [id number] - [id number] Implanted:Qty: 1 on 03/20/2021 by Eddie James MD at [facility] Lead Left: Heart [employer] Shira 01/09/2023 [id number] / [id number] / [employer] Shira 4470 Fineline Ii Sterox Ez 1.7mm 52cm Bipolar Active Fixation Screw - [id number] - [id number] Implanted:Qty: 1 on 03/20/2021 by Eddie James MD at [facility] Lead Left: Heart [employer] Shira 12/20/2022 4470 / [id number] / [employer] [id number] Perclose 6fr Suture Mediate Knot Push Vascular Device Closure - [id number] Implanted:Qty: 1 on 03/15/2021 by Peng Lozada MD at [facility] Other - see comments Right: Arterial [employer] [id number] / / Description:Perclose for rig ht femoral artery [employer] C.R.M. L111 Essentio 4.45x5.02cm 2 Chamber Is1 Connector .75cm Pacemaker 13.7 - [id number] - [id number] Implanted:Qty: 1 on 03/20/2021 by Eddie James MD at [facility] Pacemaker Left: Heart [employer] C.R.M. 02/05/2023 [id number] / [id number] / Stent N/A: Heart [employer] [id number] Valve Heart 26mm Chace 3 Transcatheter - [id number] - [id number] Implanted:Qty: 1 on 03/15/2021 by Peng Lozada MD at [facility] N/A: Heart [employer] 11/20/2022 [id number] / [id number] / Daig Shira/[employer] [id number] Angio-Seal Evolution 6fr .035in Guidewire Bypass Tube Suture - [id number] Implanted:Qty: 1 on 03/15/2021 by Peng Lozada MD at [facility] Right: Arterial [employer] Shira 09/27/2021 [id number] / / [id number] Procedures Procedure Name Priority Date/Time Associated Diagnosis Comments DEVICE CHECK - IN OFFICE Routine 09/15/2024 12:11 PM CDT Fitting or adjustment of cardiac pacemaker Complete heart block (HCC) DEVICE CHECK - REMOTE Routine 08/16/2024 6:11 AM SITE IDENTIFICATION SPECIALIST from Last 3 Months Results * DEVICE CHECK - IN OFFICE (09/15/2024 12:11 PM CDT) Anatomical Region Laterality Modality Other 09/15/2024 2:00 AM CDT Narrative 09/19/2024 8:20 PM CDT Interpretation Summary: Battery and Leads (BL) Normal parameters noted on battery and lead(s) --- Estimated battery longevity 5.5 years Presenting Rhythm (MA) Atrial Sensing-Ventricular Sensing (-VS) --- NSR 70 bpm. Anticoagulation (AC) Patient prescribed Apixaban (Eliquis) Patient on anticoagulant therapy Transmission Information (TI) Device Summary Report Procedure Note Duran Chase MD PhD - 09/19/2024 Interpretation Summary: Battery and Leads (BL) Normal parameters noted on battery and lead(s) --- Estimated batterylongevity 5.5 years Presenting Rhythm (MA) Atrial Sensing-Ventricular Sensing (-VS) --- NSR 70 bpm. Anticoagulation (AC) Patient prescribed Apixaban (Eliquis) Patient on anticoagulant therapy Transmission Information (TI) Device Summary Report Eddie James MD [facility] PROCEDURES Final Result * DEVICE CHECK - REMOTE (08/16/2024 6:11 AM SITE IDENTIFICATION SPECIALIST) Anatomical Region Laterality Modality Other 08/16/2024 6:11 AM SITE IDENTIFICATION SPECIALIST Narrative 08/17/2024 9:27 PM SITE IDENTIFICATION SPECIALIST Interpretation Summary: Battery and Leads (BL) Normal parameters noted on battery and lead(s) --- 5.5 years remaining (this is an estimate based on prior usage) Presenting Rhythm (MA) Atrial Pacing-Ventricular Sensing (AP-VS) --- rate 60 Arrhythmic events (AE) 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 Longest: 94 seconds Anticoagulation (AC) Patient on anticoagulant therapy Patient prescribed Apixaban (Eliquis) Transmission Information (TI) Device Summary Report Procedure Note Eddie James MD - 08/17/2024 Interpretation Summary: Battery and Leads (BL) Normal parameters noted on battery and lead(s) --- 5.5 years remaining(this is an estimate based on prior usage) Presenting Rhythm (MA) Atrial Pacing-Ventricular Sensing (AP-VS) --- rate 60 Arrhythmic events (AE) 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 Longest: 94seconds Anticoagulation (AC) Patient on anticoagulant therapy Patient prescribed Apixaban (Eliquis) Transmission Information (TI) Device Summary Report Eddie James MD [facility] PROCEDURES Final Result from Last 3 Months Insurance UHC MEDICARE ADVANTAGE [facility] MEDICARE ADVANTAGE Advance Directives For more information, please contact: [phone] * Full Code (Latest Code Status on File) Date Activated Date Inactivated Comments 03/19/2021 2:35 PM 03/21/2021 8:52 PM * Full Code Date Activated Date Inactivated Comments 03/15/2021 9:47 AM 03/16/2021 7:41 PM Care Teams Order Editor Relationship Specialty Start Date End Date Montserrat Sal MD [address] [facility] [address] [place] [address] PCP - General Family Medicine 10/19/20 Ricardo Alegria MD [address] [place] [address] Referring Physician Cardiology 02/02/21 Peng Lozada MD [address] [facility] [id number] [place] [address] Consulting Physician Cardiothoracic Surgery 03/16/21 Alphonso Tran MD [address] [facility] [id number] [place] [address] Referring Physician Cardiology 03/16/21
--- OUTSIDE RECORDS SUMMARY | 2024-10-08 22:47 | XMS_ITS | Encounter Summary ---
Author Organization [facility] Address [address] [place] [address] Phone Care Team Providers Care Embossing Machine Operator Name Role Phone Montserrat Sal MD Primary Care Provider Ricardo Alegria MD Unavailable [phone] Peng Lozada MD Unavailable Alphonso Tran MD Unavailable [phone] Encounter Details Date Type Department Care Team (Late st Contact Info) Description 03/31/2023 Telephone [facility] Cardiology [address] [facility] 8th [place] [address] [place] [address] Alphonso Tran MD [address] [facility] [address] [place] [address] Social History Tobacco Use Types Packs/Day Years Used Date Smoking Tobacco: Never Smokeless Tobacco: Never Alcohol Use Standard Drinks/Week Comments Yes 0 [...] on file Legal Sex Male 2:03 AM APPIAN BPM DEVELOPER Gender Identity Male 02/27/2021 9:36 AM CDT Sexual Orientation Not on file documented as of this encounter Plan of Treatment Not on file documented as of this encounter Visit Diagnoses Not on filedocumented in this encounter Care Teams Embossing Machine Operator Relationship Specialty Start Date End Date Montserrat Sal MD [address] [place] [address] PCP - General Family Medicine 10/19/20 Ricardo Alegria MD [address] [place] [address] Referring Physician Cardiology 02/02/21 Peng Lozada MD [address] [facility] [id number] [place] [address] Consulting Physician Cardiothoracic Surgery 03/16/21 Alphonso Tran MD [address] [facility] [id number] [place] [address] Referring Physician Cardiology 03/16/21 documented as of this encounter
--- OUTSIDE RECORDS SUMMARY | 2024-10-08 22:47 | XMS_ITS | Referral Summary ---
Author Organization [facility] [place] [address] [place] [address] [address] [place] [address] Care Team Providers Care Panel Gluer Name Role Phone Montserrat Sal MD Primary Care Provider Ricardo Alegria MD Unavailable [phone] Peng Lozada MD Unavailable [phone] Alphonso Tran MD Unavailable [phone] Encounters Date Type Department Care Team Description 09/15/2024 1:00 PM CDT Office Visit [facility] Cardiology [address] [place] [address] 8th [place] [address] [place] [address] Sheron Madden NP S/P TAVR (transcatheter aortic valve replacement) (Primary Dx); Pacemaker; Complete heart block (HCC) 09/15/2024 12:30 PM CDT Ancillary Procedure [facility] Cardiology [address] [place] [address] 8th [place] [address] [place] [address] Complete heart block (HCC) (Primary Dx); Fitting or adjustment of cardiac pacemaker 08/16/2024 Orders Only [facility] Cardiology [address] [place] [address] 8th [place] [address] [place] [address] Eddie James MD 07/12/2024 2:45 PM CABIN SERVICE AGENT Office Visit [facility] Cardiology [address] [place] [address] Ricardo Alegria MD S/P TAVR (transcatheter aortic valve replacement) (Primary Dx); Pacemaker; History of coronary artery stent placement from Last 3 Months Allergies Active Allergy Reactions Criticality Noted Date [...] (03/19/2021): Added automatically from request for surgery [id number] Dementia 03/15/2021 Assessment & Plan (03/15/2021 11:05 [...] BMI 29.27 Coronary artery disease invo lving hamilton coronary artery of hamilton heart without angina pectoris 04/09/2017 Assessment & Plan (03/15/2021 11:04 AM CDT): Hx of Bare metal stents placed to the RCA and LAD in [place] in 1998 in the setting of [place] followed by re-intervention to the LAD in 2012 at [place], [place] -continue asa -continue statin and zetia -start plavix for TAVR History of coronary artery stent placement 04/09 Aortic stenosis 04/09/2017 Assessment & Plan (03/15/2021 11:00 AM CDT): TTE: Mild AR, moderate-severe , AV Area: 0.9 cm2 AV Pressure Gradient (mmHg): Mean: 27, Peak:46 -groin precautions -start asa and plavix -telemetry -PT/OT Heart murmur 04/09/2016 Overview (10/05/2016): Murmur Immunizations Immunization Administration Dates Next Due Moderna SARS-CoV-2 Monovalent Vaccination (12+ Y RS) 08/29/2020 Social History Tobacco Use Types Packs/Day Years [...] on file Legal Sex Male 2:03 AM CABIN SERVICE AGENT Gender Identity Male 02/27/2021 9:36 AM CDT Sexual Orientation Not on file Last Filed Vital Signs Vital Sign Reading [...] 09/15/2024 12:25 PM CDT Plan of Treatment Not on file Medical Devices Implanted Type Area Merchant Miller Device Identifier Shelf Expiration Date Model / Serial / Lot [employer] Shira 7842 Lead 7842 Endocardial Pacing Mr Is-1 Bipolar Connection - [id number] - [id number] Implanted:Qty: 1 on 03/20/2021 by Eddie James MD at [facility] Lead Left: Heart [employer] Shira 01/09/2023 7842 / [id number] / [employer] Shira 4470 Fineline Ii Sterox Ez 1.7mm 52cm Bipolar Active Fixation Screw - [id number] - [id number] Implanted:Qty: 1 on 03/20/2021 by Eddie James MD at [facility] Lead Left: Heart [employer] Shira 12/20/2022 4470 / [id number] / [employer] 36030-16 Perclose 6fr Suture Mediate Knot Push Vascular Device Closure - [id number] Implanted:Qty: 1 on 03/15/2021 by Peng Lozada MD at [facility] Other - see comments Right: Arterial [employer] [id number] / / Description:Perclose for rig ht femoral artery [employer] C.R.M. L111 Essentio 4.45x5.02cm 2 Chamber Is1 Connector .75cm Pacemaker 13.7 - [id number] - [id number] Implanted:Qty: 1 on 03/20/2021 by Eddie James MD at [facility] Pacemaker Left: Heart [employer] C.R.M. 02/05/2023 L111 / [id number] / Stent N/A: Heart May [employer] [id number] Valve Heart 26mm Chcae 3 Transcatheter - [id number] - [id number] Implanted:Qty: 1 on 03/15/2021 by Peng Lozada MD at [facility] N/A: Heart [employer] 11/20/2022 [id number] / [id number] / Daig Shira/[employer] [id number] Angio-Seal Evolution 6fr .035in Guidewire Bypass Tube Suture - [id number] Implanted:Qty: 1 on 03/15/2021 by Peng Lozada MD at [facility] Right: Arterial [employer] Shira 09/27/2021 [id number] / / [id number] Procedures Procedure Name Priority Date/Time Associated Diagnosis Comments DEVICE CHECK - IN OFFICE Routine 09/15/2024 12:11 PM CDT Fitting or adjustment of cardiac pacemaker Complete heart block (HCC) DEVICE CHECK - REMOTE Routine 08/16/2024 6:11 AM CABIN SERVICE AGENT from Last 3 Months Results * DEVICE CHECK - IN OFFICE (09/15/2024 12:11 PM CDT) Anatomical Region Laterality Modality Other 09/15/2024 2:00 AM CDT Narrative 09/19/2024 8:20 PM CDT Interpretation Summary: Battery and Leads (BL) Normal parameters noted on battery and lead(s) --- Estimated battery longevity 5.5 years Presenting Rhythm (VA) Atrial Sensing-Ventricular Sensing (-VS) --- NSR 70 bpm. Anticoagulation (AC) Patient prescribed Apixaban (Eliquis) Patient on anticoagulant therapy Transmission Information (TI) Device Summary Report Procedure Note Duran Chase MD PhD - 09/19/2024 Interpretation Summary: Battery and Leads (BL) Normal parameters noted on battery and lead(s) --- Estimated batterylongevity 5.5 years Presenting Rhythm (VA) Atrial Sensing-Ventricular Sensing (-VS) --- NSR 70 bpm. Anticoagulation (AC) Patient prescribed Apixaban (Eliquis) Patient on anticoagulant therapy Transmission Information (TI) Device Summary Report Eddie James MD [facility] PROCEDURES Final Result * DEVICE CHECK - REMOTE (08/16/2024 6:11 AM CABIN SERVICE AGENT) Anatomical Region Laterality Modality Other 08/16/2024 6:11 AM CABIN SERVICE AGENT Narrative 08/17/2024 9:27 PM CABIN SERVICE AGENT Interpretation Summary: Battery and Leads (BL) Normal parameters noted on battery and lead(s) --- 5.5 years remaining (this is an estimate based on prior usage) Presenting Rhythm (VA) Atrial Pacing-Ventricular Sensing (AP-VS) --- rate 60 [...] estimate based on prior usage) Presenting Rhythm (VA) Atrial Pacing-Ventricular Sensing (AP-VS) --- rate 60 Arrhythmic events (AE) 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 Longest: 94seconds Anticoagulation (AC) Patient on anticoagulant therapy Patient prescribed Apixaban (Eliquis) Transmission Information (TI) Device Summary Report Eddie James MD [facility] PROCEDURES Final Result from Last 3 Months Insurance [facility] ADV[facility]AGE [facility] Address: [address] [place] [phone] [facility] Address: [address] [address] [employer] MEDICARE ADVANTAGE [facility] Address: [address] [address] Advance Directives For more information, please contact: [phone] * Full Code (Latest Code Status on File) Date Activated Date Inactivated Comments 03/19/2021 2:35 PM 03/21/2021 8:52 PM * Full Code Date Activated Date Inactivated Comments 03/15/2021 9:47 AM 03/16/2021 7:41 PM Care Teams Panel Gluer Relationship Specialty Start Date End Date Montserrat Sal MD [address] [place] [address] PCP - General Family Medicine 10/19/20 Ricardo Alegria MD [address] [place] [address] Referring Physician Cardiology 02/02/21 Peng Lozada MD [id number] [place] [address] Consulting Physician Cardiothoracic Surgery 03/16/21 Alphonso Tran MD [id number] [place] [address] Referring Physician Cardiology 03/16/21
[2024-10-08 22:49] LABS: Basophils Percent Auto 0.4 % (0.2-1.2); Eosinophils Absolute Auto 0.2 K/mm3 (0-0.3); Eosinophils Percent Auto 1.7 % (0-4.4); Hematocrit 38.2 % (42.0-52.0); Hemoglobin 12.4 g/dL (14.0-18.0); Immature Granulocyte Absolute 0.02 K/mm3 (0.00-0.031); Immature Granulocyte Percent A 0.2 % (0-0.5); Lymphocytes Absolute Auto 2.33 K/mm3 (0.9-3.2); Lymphocytes Percent Auto 25.5 % (18.3-44.2); Mean Corpuscular HGB Conc 32.5 g/dl (32-36); Mean Corpuscular Hemoglobin 31.2 pg (26-34); Mean Platelet Volume 9.8 fl (7.4-10.4); Monocytes Percent Auto 11.4 % (2.6-8.5); Neutrophils Absolute Auto 5.6 K/mm3 (1.3-6.7); Neutrophils Percent Auto 60.8 % (45.5-73.1); Platelet Count Result 141 k/mm3 (150-375); Red Blood Count 3.98 M/mm3 (4.6-6.20); Red Cell Distribution Width 13.2 % (11.5-14.5); White Blood Count 9.2 K/mm3 (4.5-10.0)
[2024-10-08] MEDS: MORPHINE SULFATE (*CRX) 4 MG/ML INJ IV PUSH (22:59)
[2024-10-08 23:02] LABS: INR 1.3; Partial Thromboplastin Time 30.3 Seconds (22.3-36.8); Prothrombin Time 16.3 Seconds (11.1-14.7)
[2024-10-08 23:05] LABS: Alanine Aminotransferase 39 U/L (6-50); Albumin Level 4.2 g/dL (3.5-5.1); Alkaline Phosphatase 55 U/L (38-126); Anion Gap 9 mmol/L (4-12); Aspartate Amino Transferase 41 U/L (17-59); Bilirubin,Total 2.5 mg/dL (0.2-1.3); Blood Urea Nitrogen 30 mg/dL (9-20); Calcium 9.1 mg/dL (8.4-10.2); Carbon Dioxide 27 mmol/L (22-30); Chloride 102 mmol/L (98-107); Estimated CRCL calculation 74 ml/min; Estimated Glomerular Filt Rate > 60; Glucose 132 mg/dL (65-110); Potassium 4.2 mmol/L (3.4-5.0); Sodium 138 mmol/L (137-145)
[2024-10-09] VITALS (22 sets, daily range): BP systolic 112–128; BP diastolic 69–80; PULSE 78–85; RESP 15–20; TEMP 36.5; O2SAT 90–100
--- NOTE | 2024-10-09 00:35 | ED_ITS ---
HPI - General Adult General Chief complaint: Shortness of Breath/Dyspnea Stated complaint: Fx rib, shortness of breath Time Seen by Provider: 10/08/24 22:31 History of Present Illness HPI narrative: Patient is a 88-year-old gentleman who presents emergency department with chief complaint of rib fracture and pneumothorax. Patient reports that yesterday he was in his workshop lost his balance fell backwards and struck his back against the wall the patient is on a blood thinner reports that he has bruising present to his right flank area patient had outpatient x-rays ordered by his primary care provider that showed him to have approximately 20% pneumothorax and a 7th rib fracture. Related Data Home Medications ?Medication ?Instructions ?Recorded ?Confirmed ?Last Taken ?Type aspirin 81 mg tablet,delayed 81 mg PO DAILY 08/17/19 10/08/24 02/01/21 History release (Adult Low Dose Aspirin) nitroglycerin 0.4 mg sublingual 0.4 mg sublingual Q5M PRN Chest 12/15/20 10/08/24 Unknown History tablet (Nitrostat) Pain garlic 1 tablet PO DAILY 02/01/21 10/08/24 02/01/21 History latanoprost 0.005 % eye drops 1 drp EACH EYE QPM 09/07/24 10/08/24 Unknown History Allergies Allergy/AdvReac Type Severity Reaction Status Date / Time talc Allergy Intermediate rash Verified 10/08/24 10:49 latex Allergy Mild Hives Verified 10/08/24 10:49 Review of Systems 2 Review of Systems: A 10 system review of systems was completed on the patient and is negative except for what is stated in the HPI. Nursing and ancillary documentation was reviewed. 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) History of tonsillectomy History of cholecystectomy History of appendectomy History of heart artery stent Family History Family History Father Acute myocardial infarction Patient's father is Hypercholesteremia Hypertension Mother Family history of atrial fibrillation Sibling Hypercholesteremia Hypertension Social History Social History Social History: Smoking status: Never smoker Second hand tobacco smoke exposure: No Alcohol intake: current Alcohol use details: OCCASIONALLY Substance use: never Substance use type: does not use Last use: 06/30/1960 Lack of Transportation: No Lack of Food: Never True Current Housing: I Have Housing Concerned About Future Housing: No Difficulty Paying Gas/Electric Bills: No Difficulty Paying for Meds: No Currently Unemployed: YES Education: Decline to Answer Difficulty w/ Childcare or Family Care: No Living arrangements: with family Occupation/Education: retired Gender identity (if verbalized by the patient): Male Sexual Orientation (if Verbalized by the Patient): Straight or Heterosexual Spiritual care concerns: No Agree to blood products: Yes Exam 2 Narrative: GENERAL: Well-appearing, well-nourished, and in no acute distress. HEAD: Normocephalic, atraumatic. EYES: PERRLA and EOMI. ENT: Nares clear, no rhinorrhea or epistaxis. Mucous membranes moist. NECK: Supple. CHEST: Clear to auscultation. No respiratory distress. There is bruising present to the right posterior thorax HEART: Regular rate and rhythm. No murmur heard. Normal peripheral pulses. ABDOMEN: Soft, nontender, nondistended, normal active bowel sounds. EXTREMITIES: Normal range of motion. No edema. SKIN: Warm, dry, no rash. NEURO: No focal deficits. Alert and oriented x3. GCS 15 PSYCH: Normal mood and affect. Course Vital Signs Vital signs: Vital Signs Temperature 36.6 C 10/08/24 22:22 Pulse Rate 89 10/08/24 22:22 Respiratory Rate 18 10/08/24 22:22 Blood Pressure 147/88 H 10/08/24 22:22 Pulse Oximetry 97 10/08/24 22:22 Oxygen Delivery Room Air 10/08/24 22:22 Temperature 36.5 C 10/09/24 01:47 Pulse Rate 80 10/09/24 03:31 Respiratory Rate 20 10/09/24 03:31 Blood Pressure 120/77 10/09/24 03:30 Pulse Oximetry 95 10/09/24 03:31 Oxygen Delivery Room Air 10/08/24 22:33 Medical Decision Making MDM Narrative Medical decision making narrative: The patient was found to have posterior 9th and 10th rib fractures with subcu emphysema and a 20% pneumothorax. Since the patient's injury occurred yesterday and the pneumothorax is only 20% at this time a chest tube was not placed. Given the patient is on anticoagulants and has multiple posterior rib fractures the case was discussed with the trauma center at [place] and the patient was accepted the [place] ER by Dr. Quesada Vital Signs Vital Signs: Vital Signs Temperature 36.6 C 10/08/24 22:22 Pulse Rate 89 10/08/24 22:22 Respiratory Rate 18 10/08/24 22:22 Blood Pressure 147/88 H 10/08/24 22:22 Pulse Oximetry 97 10/08/24 22:22 Oxygen Delivery Room Air 10/08/24 22:22 Temperature 36.5 C 10/09/24 01:47 Pulse Rate 80 10/09/24 03:31 Respiratory Rate 20 10/09/24 03:31 Blood Pressure 120/77 10/09/24 03:30 Pulse Oximetry 95 10/09/24 03:31 Oxygen Delivery Room Air 10/08/24 22:33 Lab Data 10/08/24 22:39 10/08/24 22:39 Labs: Lab Results 10/08/24 10/08/24 Range/Units 22:39 22:58 WBC 9.2 (4.5-10.0) K/mm3 RBC 3.98 L (4.6-6.20) M/mm3 Hgb 12.4 L (14.0-18.0) g/dL Hct 38.2 L (42.0-52.0) % MCV 96.0 (80-100) fl MCH 31.2 (26-34) pg MCHC 32.5 (32-36) g/dl RDW 13.2 (11.5-14.5) % Plt Count 141 L (150-375) k/mm3 MPV 9.8 (7.4-10.4) fl Immature Gran % (Auto) 0.2 (0-0.5) % Neut % (Auto) 60.8 (45.5-73.1) % Lymph % (Auto) 25.5 (18.3-44.2) % [place] % (Auto) 11.4 H (2.6-8.5) % Eos % (Auto) 1.7 (0-4.4) % Baso % (Auto) 0.4 (0.2-1.2) % Lymph # (Auto) 2.33 (0.9-3.2) K/mm3 [place] # (Auto) 1.0 H (0.1-0.6) K/mm3 Eos # (Auto) 0.2 (0-0.3) K/mm3 Baso # (Auto) 0.0 (0.0-0.1) K/mm3 Abs Immat Gran (auto) 0.02 (0.00-0.031) K/mm3 Absolute Neuts (auto) 5.6 (1.3-6.7) K/mm3 Absolute Nucleated RBC 0.000 (0.0-0.012) K/mm3 Nucleated RBC % 0.0 (0.0-0.2) % PT 16.3 H (11.1-14.7) Seconds INR 1.3 APTT 30.3 (22.3-36.8) Seconds Sodium 138 (137-145) mmol/L Potassium 4.2 (3.4-5.0) mmol/L Chloride 102 (98-107) mmol/L Carbon Dioxide 27 (22-30) mmol/L Anion Gap 9 (4-12) mmol/L BUN 30 H (9-20) mg/dL Creatinine 0.67 L (0.7-1.3) mg/dL Estim Creat Clear Calc 74 ml/min Estimated GFR > 60 (59 - ) Glucose 132 H (65-110) mg/dL Calcium 9.1 (8.4-10.2) mg/dL Total Bilirubin 2.5 H (0.2-1.3) mg/dL AST 41 (17-59) U/L ALT 39 (6-50) U/L Alkaline Phosphatase 55 (38-126) U/L Total Protein 7.0 (6.3-8.2) g/dL Albumin 4.2 (3.5-5.1) g/dL Blood Type A Positive Antibody Screen Negative Critical Care Time Critical Care Time Critical Care Time: Yes Total Critical Care Time: 35 Discharge Plan Discharge Clinical Impression: Pneumothorax, Closed rib fracture, Fall from ground level Patient Disposition: Acute Care Hospital Condition: Stable Patient Language: Maltese Prescriptions: No Action nitroglycerin [Nitrostat] 0.4 mg tablet, sublingual 0.4 mg sublingual Q5M PRN (Reason: Chest Pain) Rx Instructions: do not exceed 3 doses per episode meclizine 25 mg tablet 25 mg PO TID PRN (Reason: dizziness) Qty: 90 2RF fluticasone propionate 50 mcg/actuation spray,suspension 2 spray intranasal DAILY Qty: 16 3RF Rx Instructions: administer into each nostril diclofenac sodium [Voltaren Arthritis Pain] 1 % gel 2 g topical QID Qty: 100 2RF Rx Instructions: apply to single elbow, wrist or hand; for hand includes palm/fingers/back of hand acetaminophen [Tylenol Arthritis Pain] 650 mg tablet extended release 650 mg PO Q8H Qty: 90 0RF aspirin [Adult Low Dose Aspirin] 81 mg tablet,delayed release (DR/EC) 81 mg PO DAILY garlic Tablet 1 tablet PO DAILY Eliquis 5 mg tablet 5 mg PO BID Qty: 60 4RF clotrimazole-betamethasone 1-0.05 % cream See Rx Instructions .ROUTE .COMPLEX Qty: 45 0RF Dose Instruction: APPLY TOPICALLY TO THE AFFECTED AREA TWICE DAILY FOR 4 WEEKS Rx Instructions: APPLY TOPICALLY TO THE AFFECTED AREA TWICE DAILY FOR 4 WEEKS pantoprazole 40 mg tablet,delayed release (DR/EC) See Rx Instructions .ROUTE .COMPLEX Qty: 90 1RF Dose Instruction: TAKE 1 TABLET BY MOUTH IN THE MORNING Rx Instructions: TAKE 1 TABLET BY MOUTH IN THE MORNING fluoxetine 20 mg capsule See Rx Instructions .ROUTE .COMPLEX Qty: 90 3RF Dose Instruction: TAKE 1 CAPSULE BY MOUTH DAILY Rx Instructions: TAKE 1 CAPSULE BY MOUTH DAILY alendronate 70 mg tablet See Rx Instructions .ROUTE .COMPLEX Qty: 12 3RF Dose Instruction: TAKE 1 TABLET BY MOUTH WEEKLY WITH 8 OZ OF PLAIN WATER 30 MINUTES BEFORE FIRST FOOD, DRINK OR MEDS. STAY UPRIGHT FOR 30 MINS Rx Instructions: TAKE 1 TABLET BY MOUTH WEEKLY WITH 8 OZ OF PLAIN WATER 30 MINUTES BEFORE FIRST FOOD, DRINK OR MEDS. STAY UPRIGHT FOR 30 MINS memantine 10 mg tablet See Rx Instructions .ROUTE .COMPLEX Qty: 180 3RF Dose Instruction: TAKE 1 TABLET BY MOUTH TWICE DAILY Rx Instructions: TAKE 1 TABLET BY MOUTH TWICE DAILY latanoprost 0.005 % drops 1 drp EACH EYE QPM ropinirole 1 mg tablet See Rx Instructions .ROUTE .COMPLEX Qty: 90 1RF Dose Instruction: TAKE 1 TABLET BY MOUTH EVERY DAY AT BEDTIME Rx Instructions: TAKE 1 TABLET BY MOUTH EVERY DAY AT BEDTIME atorvastatin 80 mg tablet See Rx Instructions .ROUTE .COMPLEX Qty: 45 3RF Dose Instruction: TAKE ONE-HALF TABLET BY MOUTH DAILY Rx Instructions: TAKE ONE-HALF TABLET BY MOUTH DAILY Follow-up/Referrals: Jony Sepulveda MD [Primary Care Provider] -
--- NOTE | 2024-10-09 03:34 | PC.NURSE ---
4mg morphine aiden cat prior to ems ride.
[2024-10-09] MEDS: MORPHINE SULFATE (*CRX) 4 MG/ML INJ IV PUSH (03:35)
== END 2024-10-09 03:47 | disposition short-term general hospital (02) ==
LOC: ANHED 22:45
PROVIDERS: Emergency Provider Emergency Medicine; PCP Family Medicine
DX: S22.41XA Multiple fractures of ribs, right side, initial encounter for closed fracture (principal); S27.0XXA Traumatic pneumothorax, initial encounter; I87.2 Venous insufficiency (chronic) (peripheral); I10 Essential (primary) hypertension; E78.5 Hyperlipidemia, unspecified; D50.9 Iron deficiency anemia, unspecified; K21.9 Gastro-esophageal reflux disease without esophagitis; M85.80 Other specified disorders of bone density and structure, unspecified site; G25.81 Restless legs syndrome; F32.A Depression, unspecified; Z95.5 Presence of coronary angioplasty implant and graft; Z95.2 Presence of prosthetic heart valve; Z96.653 Presence of artificial knee joint, bilateral; Z87.01 Personal history of pneumonia (recurrent); Z86.16 Personal history of COVID-19; Z90.49 Acquired absence of other specified parts of digestive tract; Z79.82 Long term (current) use of aspirin; Z79.899 Other long term (current) drug therapy; Z79.01 Long term (current) use of anticoagulants; T79.7XXA Traumatic subcutaneous emphysema, initial encounter; I44.0 Atrioventricular block, first degree; I45.2 Bifascicular block; W01.198A Fall on same level from slipping, tripping and stumbling with subsequent striking against other object, initial encounter
CPT/HCPCS: 36415; 70450; 71260; 72125; 74177; 80053; 85025; 85610; 85730; 86850; 86900; 86901; 93005; 96374; 96376; 99291; J2270; Q9967

== ENCOUNTER 2024-10-18 12:04 | Outpatient (CLI) | payer MEDICARE, SELFPAY ==
--- NOTE | ~2024-10-18 | XR_ITS ---
Clinical Indication: Pneumothorax PA and lateral views of the chest: Comparison: 10/08/2024 Findings: Small right pleural effusion present. Left lung clear. No definite pneumothorax seen. Card iomediastinal silhouette is stable, with pacemaker device. Bones and soft tissues are unremarkable. Impression: No definite pneumothorax evident. Small right pleural effusion. Reviewed, dictated and finalized at [facility]. Impression: No definite pneumothorax evident. Small right pleural effusion.
--- OUTSIDE RECORDS SUMMARY | 2024-10-18 13:42 | XMS_ITS | Referral Summary ---
Author Organization [facility] [address] Address [address] [place] [address] Care Team Providers Care Payroll Representative Name Role Phone Montserrat Sal MD Primary Care Provider Ricardo Alegria MD Unavailable [phone] Peng Lozada MD Unavailable Alphonso Tran MD Unavailable [phone] Encounters Date Type Department Care Team Description 10/09/2024 4:21 AM CDT - 10/11/2024 2:25 PM CDT Hospital Encounter [facility] [address] [place] [address] Karl Quesada MD Staszak, Jessica Kathryn, MD Eswaran, Vidya, MD Traumatic pneumothorax, initial encounter (Primary Dx); Closed fracture of multiple ribs of right side, initial encounter; Fall, subsequent encounter Discharge Disposition: Discharge to home or self care 09/15/2024 1:00 PM CDT Office Visit [facility] [address] [place] [address] 8th [place] [address] [place] [phone] Sheron Madden NP S/P TAVR (transcatheter aortic valve replacement) (Primary Dx); Pacemaker; Complete heart block (HCC) 09/15/2024 12:30 PM CDT Ancillary Procedure [facility] [address] [place] [address] 8th [place] [address] [place] [address] Complete heart block (HCC) (Primary Dx); Fitting or adjustment of cardiac pacemaker 08/16/2024 Orders Only [facility] [address] [facility] 8th [place] [address] [place] [phone] Eddie James MD from Last 3 Months Allergies Active Allergy [...] MOUTH DAILY 90 tablet 3 4 Active lidocaine (LIDODERM) 5 % Place 2 patches on the skin daily for 12 hours Remove & discard patch within 12 hours or as directed by MD. 5 patch 5 11/12/19 25 Active oxyCODONE (ROXICODONE) 5 mg immediate release tabletIndicatio ns:Pain Take 0.5 tablets (2.5 mg total) by mouth every 4 (four) hours as needed for pain 10 tablet 5 Active polyethylene glycol (MIRALAX) 17 gram/dose bulk powderIndicatio ns:constipation Take 17 g by mouth daily 238 g 5 Active Active Problems Problem Noted Date Diagnosed Date Acute pain 10/10/2024 Assessment & Plan (10/10/2024 2:22 PM CDT): Current regimen: APAP scheduled, oxycodone 5mg q4 PRN, lidocaine patches Dementia 10/10/2024 Assessment & Plan (10/10/2024 2:22 PM CDT): -Will continue home memantine, ropinirole -Delirium precautions MDD (major depressive disorder) 10/10/2024 Assessment & Plan (10/10/2024 2:23 PM CDT): Continue home fluoxetine 20mg Osteoporosis 10/10/2024 Assessment & Plan (10/10/2024 2:24 PM CDT): - Hold home alendronate Discharge planning issues 10/10/2024 Assessment & Plan (10/11/2024 1:50 PM CDT): 10/10 transferred to floor 10/11 PT/OT cleared for DC home, will establish outpatient therapy through PCP Traumatic pneumothorax, initial encounter 2024 Assessment & Plan (10/11/2024 1:52 PM CDT): R 9th and 10th rib fx, R PTX - Weaned off O2 10/11 AM - pulm toilet - IS 1500 10/11 - Multimodal pain control - PA and lateral CXR this AM with stable PTX - Plan outpatient CXR in 2w at f/u Pacemaker 10/25/2021 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 Per patient, manages medications. Believes last took medications yesterday. - Hold home ASA/Eliquis - OK to restart eliquis on DC Complete heart block 03/19/2021 Overview (03/19/2021): Added automatically from request for surgery [id number] Dementia 03/15/2021 Assessment & Plan (03/15/2021 11:05 [...] BMI 29.27 Coronary artery disease invo lving ruby coronary artery of ruby heart without angina pectoris 04/09/2017 Assessment & Plan (03/15/2021 11:04 AM CDT): Hx of Bare metal stents placed to the RCA and LAD in [place] in 1998 in the setting of [place] followed by re-intervention to the LAD in 2012 at [place], [place] -continue asa -continue statin and zetia [...] more drinks on one occasion? Never 03/08/2021 Personal Safety Answer Date Recorded Have you ever been in or are you currently in a harmful physical or emotional relationship or is someone making you feel afraid or unsafe? 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 Gender Identity Male 02/27/2021 9:36 AM CDT Sexual Orientation Not on file Last Filed Vital Signs Vital Sign Reading Time Taken Comments Blood Pressure 114/75 10/11/2024 12:38 PM CDT Pulse 76 10/11/2024 12:38 PM CDT Temperature 36.5 C (97.7 F) 10/11/2024 9:13 AM CDT Respiratory Rate 20 10/11/2024 12:38 PM CDT Oxygen Saturation 95% 10/11/2024 12:38 PM CDT Inhaled Oxygen Concentration - - Weight 94.8 kg (209 lb) 09/15/2024 12:25 PM CDT Height 177.8 cm (5' 10 ) 09/15/2024 12:25 PM CDT Body Mass Index 29.99 09/15/2024 12:25 PM CDT Plan of Treatment Not on file Medical Devices Implanted Type Area Quencher Operator Device Identifier Shelf Expiration Date Model / Serial / Lot [employer] Shira [id number] Lead 7842 Endocardial Pacing Mr Is-1 Bipolar Connection - [id number] - [id number] Implanted:Qty: 1 on 03/20/2021 by Eddie James MD at [facility] Lead Left: Heart [employer] Shira 01/09/2023 [id number] / [id number] / [employer] Shira 4470 Fineline Ii Sterox Ez 1.7mm 52cm Bipolar Active Fixation Screw - [id number] - [id number] Implanted:Qty: 1 on 03/20/2021 by Eddie James MD at [facility] Lead Left: Heart [employer] Shira 12/20/2022 4470 / [id number] / [employer] [id number] Perclose 6fr Suture Mediate Knot Push Vascular Device Closure - [id number] Implanted:Qty: 1 on 03/15/2021 by Peng Lozada MD at [facility] Other - see comments Right: Arterial [employer] [id number] / / Description:Perclose for rig ht femoral artery [employer] C[employer]M. L111 Essentio 4.45x5.02cm 2 Chamber Is1 Connector .75cm Pacemaker 13.7 - [id number] - [id number] Implanted:Qty: 1 on 03/20/2021 by Eddie James MD at [facility] Pacemaker Left: Heart [employer] C.R.M. 02/05/2023 [id number] / [id number] / Stent N/A: Heart [employer] [id number] Valve Heart 26mm Chace 3 Transcatheter - [id number] - [id number] Implanted:Qty: 1 on 03/15/2021 by Peng Lozada MD at [facility] N/A: Heart [employer] 11/20/2022 [id number] / [id number] / Daig Shira[employer] [id number] Angio-Seal Evolution 6fr .035in Guidewire Bypass Tube Suture - [id number] Implanted:Qty: 1 on 03/15/2021 by Peng Lozada MD at [facility] Right: Arterial [employer] Shira 09/27/2021 [id number] / / [id number] Procedures Procedure Name Priority Date/Time Associated Diagnosis Comments XR CHEST PA LATERAL 2 VIEWS Timed 10/11/2024 9:01 AM CDT EGFR Timed 10/10/2024 7:46 PM CDT BASIC METABOLIC PANEL Timed 10/10/2024 7:46 PM CDT PHOSPHORUS Timed 10/10/2024 7:46 PM CDT MAGNESIUM Timed 10/10/2024 7:46 PM CDT CBC WITHOUT DIFFERENTIAL Timed 10/10/2024 7:46 PM CDT CRITICAL CARE Routine 10/10/2024 7:12 PM CDT Traumatic pneumothorax, initial encounter CRITICAL CARE Routine 10/10/2024 6:25 PM CDT Traumatic pneumothorax, initial encounter POCT GLUCOSE DEVICE Routine 10/10/2024 6 :00 PM CDT POCT GLUCOSE DEVICE Routine 10/10/2024 1 1:39 AM CDT POCT GLUCOSE DEVICE Routine 10/10/2024 7 :34 AM CDT XR CHEST 1 VIEW ED Urgent/IP Urgent 10/10/2024 7:08 AM CDT POCT GLUCOSE DEVICE Routine 10/09/2024 8 :54 PM CDT LIPID PANEL Timed 10/09/2024 8:54 PM CDT EGFR Timed 10/09/2024 8:54 PM CDT PHOSPHORUS Timed 10/09/2024 8:54 PM CDT MAGNESIUM Timed 10/09/2024 8:54 PM CDT COMPREHENSIVE METABOLIC PANEL Timed 10/09/2024 8:54 PM CDT CBC WITHOUT DIFFERENTIAL Timed 10/09/2024 8:54 PM CDT CRITICAL CARE Routine 10/09/2024 7:53 PM CDT Traumatic pneumothorax, initial encounter POCT GLUCOSE DEVICE Routine 10/09/2024 6 :09 PM CDT CRITICAL CARE Routine 10/09/2024 5:49 PM CDT Traumatic pneumothorax, initial encounter XR CHEST 1 VIEW IP Routine 10/09/2024 5:44 PM CDT POCT GLUCOSE DEVICE Routine 10/09/2024 2 :58 PM CDT POCT GLUCOSE DEVICE Routine 10/09/2024 1 1:21 AM CDT POCT GLUCOSE DEVICE Routine 10/09/2024 8 :23 AM CDT XR TRANSFER OF OUTSIDE FILMS Routine 10/09/2024 4:56 AM CDT XR TRANSFER OF OUTSIDE FILMS Routine 10/09/2024 4:[address] OUTSIDE CONSULT Routine 10/09/2024 4:52 AM CDT EGFR Routine 10/09/2024 4:51 AM CDT DIFFERENTIAL AUTO STAT 10/09/2024 4:5 1 AM CDT PROTIME-INR Routine 10/09/2024 4:51 AM CDT APTT Routine 10/09/2024 4:51 AM CDT BASIC METABOLIC PANEL Routine 10/09/2024 4:51 AM CDT CBC WITH AUTO DIFFERENTIAL STAT 10/09/2024 4:[address] OUTSIDE CONSULT Routine 10/09/2024 4:49 AM CDT XR CHEST 1 VIEW ED 10/09/2024 4:[address] BODY OUTSIDE CONSULT Routine 10/09/2024 4:46 AM CDT XR TRANSFER OF OUTSIDE FILMS Routine 10/09/2024 4:44 AM CDT NV CRITICAL CARE ILL/INJURED PATIENT INIT 30-74 MIN Routine 10/09/2024 4:42 AM CDT XR TRANSFER OF OUTSIDE FILMS Routine 10/09/2024 4:41 AM CDT DEVICE CHECK - IN OFFICE Routine 09/15/2024 12:11 PM CDT Fitting or adjustment of cardiac pacemaker Complete heart block (HCC) DEVICE CHECK - REMOTE Routine 08/16/2024 6:11 AM 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 A pacemaker is unchanged in position. There is replaced aortic valve. There is a small right hydropneumothorax, not substantially changed in size compared to the prior examination. Trace left effusion with left basilar atelectasis. Unchanged right-sided subcutaneous gas. Stable heart size. Electronically signed by: Miguel A Adkins M.D. Narrative 10/11/2024 9:37 AM CDT EXAMINATION: 2 view chest radiograph Procedure Note Miguel A Adkins MD - 10/11/2024 EXAMINATION: 2 view chest radiograph IMPRESSION: Comparison is made to 10/10/2024. A pacemaker is unchanged in position. There is replaced aortic valve. There is a small right hydropneumothorax, not substantially changed in size compared to the prior examination. Trace left effusion with left basilar atelectasis. Unchanged right-sided subcutaneous gas. Stable heart size. Electronically signed by: Miguel A Adkins M.D. Jasmina Mendoza MD IMG XR PROCEDURES Fin al Result * eGFR (10/10/2024 7:46 PM CDT) [facility] eGFR 90 >=60 mL/min/1. 73 m2 Comment: Interpretive Data Reference Interval Normal >/= 90 mL/min/1.73m2 Mildly decreased* 60 - 89 mL/min/1.73m2 Mildly to moderately decreased 45 - 59 mL/min/1.73m2 Moderately to severely decreased 30 - 44 mL/min/1.73m2 Severely decreased 15 - 29 mL/min/1.73m2 Kidney Failure < 15 mL/min/1.73m2 *Relative to young adult level Estimated glomerular filtration rate is determined by the 2020 CKD-EPI equation recommended by the National Kidney Foundation (A Unifying Approach to GFR Estimation: Recommendations of the NKF-ASK Task Force on Reassessing the Inclusion of Race in Diagnosing Kidney Disease, JASN 2020). The CKD-EPI equation should not be used for patients with unstable renal function and has not been validated in children and those over 70. Current interpretive data was last reviewed 2021. Blood 10/10/2024 7:46 PM CDT 10/10/2024 8:58 PM CDT us Jasmina Mendoza MD LAB BLOOD ORDERABLES Final Result [facility] Department [place] [address] * (ABNORMAL) CBC without differential (10/10/2024 7:46 PM CDT) [facility] WBC 7.44 3.80 - 9.90 K/cumm Hgb 11.2(L) 13.0 - 17.5 g/dL [facility] Hct 34.3(L) 38.9 - 50.3 % [facility] Plt 161 150 - 400 K/cumm [facility] MPV 10.4 9.1 - 12.3 fL [facility] RBC 3.67(L) 4.30 - 5.80 M/cumm [facility] MCV 93.5 81.3 - 96.4 fL [facility] MCH 30.5 27.1 - 33.3 pg [facility] MCHC 32.7 32.3 - 35.7 g/dL [facility] RDW CV 13.1 11.1 - 14.9 % [facility] RDW SD 45.1 35.7 - 48.1 fL [facility] NRBC abs 0.00 0.00 - 0.01 K/cumm [facility] Blood 10/10/2024 7:46 PM CDT 10/10/2024 9:03 PM CDT Clarice Pepe MD LAB BLOOD ORDERABLES Final Resu lt Performing Organization Address City/[facility]/ZIP Co de Phone Number [facility] [place] [address] * Phosphorus (10/10/2024 7:46 PM CDT) Phosphorus, pl 3.0 2.3 - 4.5 mg/dL Blood 10/10/2024 7:46 PM CDT 10/10/2024 8:50 PM CDT Clarice Pepe MD LAB BLOOD ORDERABLES Final Resu lt Performing Organization Address [facility] Co de Phone Number [facility] [place] [address] * Magnesium (10/10/2024 7:46 PM CDT) Magnesium 2.2 1.4 - 2.5 mg/dL Blood 10/10/2024 7:46 PM CDT 10/10/2024 8:50 PM CDT us Clarice Pepe MD LAB BLOOD ORDERABLES Final Resu lt [facility] [place] [address] * (ABNORMAL) Basic metabolic panel (10/10/2024 7:46 PM CDT) Sodium 135 135 - 145 mmol/L Potassium, pl 3.8 3.3 - 4.9 mmol/L [facility] Chloride 98 97 - 110 mmol/L [facility] CO2 29 22 - 32 mmol/L [facility] Anion gap 8 2 - 15 mmol/L [facility] BUN 17 6 - 25 mg/dL [facility] Creatinine 0.66(L) 0.80 - 1.30 mg/dL [facility] Glucose 151 70 - 199 mg/dL [facility] Comment: Interpretive Data Fasting glucose >/= 126 mg/dl is diagnostic for diabetes. Fasting is defined as no caloric intake for at least 8 hours. Fasting glucose between 100 mg/dl to 125 mg/dl is diagnostic of prediabetes. In a patient with classic symptoms of hyperglycemia or hyperglycemic crisis, a random glucose >/= 200 mg/dl is diagnostic for diabetes. In the absence of unequivocal hyperglycemia, results should be confirmed by repeat testing. The classification and Diagnosis of Diabetes Diabetes Care 2021; 46: S19-S40. Current interpretive data was last revised 2022. Calcium 8.6 8.5 - 10.3 mg/dL [facility] Blood 10/10/2024 7:46 PM CDT 10/10/2024 8:50 PM CDT us Jasmina Mendoza MD LAB BLOOD ORDERABLES Final Result [facility] Department [place] [address] * Critical Care (10/10/2024 7:12 PM CDT) Narrative Santiago Lambert MD - 10/10/2024 7:12 PM CDT Santiago Lambert MD 10/11/2024 7:28 PM Critical Care Performed by: Santiago Lambert MD Authorized by: Santiago Lambert MD CRITICAL CARE: Team: SICU BLUE Shift: PM Level of Billing: Critical Care My time spent with this patient was 30 minutes: Critical Provider Statement: I have seen and examined the patient on this day of service. I have reviewed and confirmed the history, physical exam, laboratory and radiologic data as documented in the signed ICU note. I have reviewed and discussed my treatment plan with the ICU team and other medical/life skills consultant staff, making frequent assessments and decisions regarding this patient's complex medical care. Critical Care time was exclusive of time spent performing separately billed procedures, treating other patients, and teaching. This time was in addition to and separate from critical care provided by other practitioners in my group on this day of service. Critical Care was necessary to treat or prevent imminent or life-threatening deterioration of the following conditions: us Santiago Lambert MD IN CLINIC/BEDSIDE BAKARI LORENZO Final Result * Critical Care (10/10/2024 6:25 PM CDT) Narrative Jamison Qureshi MD PhD - 10/10/2024 6:25 PM CDT Jamison Qureshi MD PhD 10/10/2024 6:25 PM Critical Care Performed by: Jamison Qureshi MD PhD Authorized by: Jamison Qureshi MD PhD CRITICAL CARE: Team: SICU BLUE Shift: AM Level of Billing: Critical Care My time spent with this patient was 35 minutes: Critical Provider Statement: I have seen and examined the patient on this day of service. I have reviewed and confirmed the history, physical exam, laboratory and radiologic data as documented in the signed ICU note. I have reviewed and discussed my treatment plan with the ICU team and other medical/life skills consultant staff, making frequent assessments and decisions regarding this patient's complex medical care. Critical Care time was exclusive of time spent performing separately billed procedures, treating other patients, and teaching. This time was in addition to and separate from critical care provided by other practitioners in my group on this day of service. Critical Care was necessary to treat or prevent imminent or life-threatening deterioration of the following conditions: us Jamison Qureshi MD PhD IN CLINIC/BEDSIDE ORDERABLES Final Result * POCT glucose (10/10/2024 6:00 PM CDT) Glucose, POC 128 70 - 199 mg/dL Blood 10/10/2024 6:00 PM CDT 10/10/2024 6:00 PM CDT Jasmina Mendoza MD LAB POCT ORDERABLES - DEVICE Final Result Performing Organization Address [facility] de Phone Number [facility] [place] [address] * POCT glucose (10/10/2024 11:39 AM CDT) Glucose, POC 124 70 - 199 mg/dL Blood 10/10/2024 11:3 9 AM CDT 10/10/2024 11:39 AM CDT Jasmina Mendoza MD LAB POCT ORDERABLES - DEVICE Final Result Performing Organization Address [facility] de Phone Number [facility] [place] [address] * POCT glucose (10/10/2024 7:34 AM CDT) Glucose, POC 103 70 - 199 mg/dL Blood 10/10/2024 7:34 AM CDT 10/10/2024 7:34 AM CDT Jasmina Mendoza MD LAB POCT ORDERABLES - DEVICE Final Result Performing Organization Address [facility] [place] [address] * XR Chest 1 View (10/10/2024 7:08 AM CDT) Anatomical Region Laterality Modality Body, Chest N/A Computed Radiogr aphy 10/10/2024 9:49 AM CDT Impressions 10/10/2024 9:49 AM CDT The current study is compared with the prior radiograph dated 10/09/2024. Transcatheter aortic valve replacement is noted. Left chest wall subclavian approach pacemaker with right atrial and right ventricular leads. Stable mild bibasilar atelectasis. Trace right pleural effusion is unchanged. Slightly decreased size of the small right apical pneumothorax. No left pneumothorax. Stable cardiomegaly. Electronically signed by: Yuri Almodovar MD, PHD Narrative 10/10/2024 9:49 AM CDT EXAMINATION: 1 view chest radiograph Procedure Note Yuri Almodovar MD PhD - 10/10/2024 EXAMINATION: 1 view chest radiograph IMPRESSION: The current study is compared with the prior radiograph dated 10/09/2024. Transcatheter aortic valve replacement is noted. Left chest wall subclavian approach pacemaker with right atrial and right ventricular leads. Stable mild bibasilar atelectasis. Trace right pleural effusion is unchanged. Slightly decreased size of the small right apical pneumothorax. No left pneumothorax. Stable cardiomegaly. Electronically signed by: Yuri Almodovar MD, PHD us Jasmina Mendoza MD IMG XR PROCEDURES Fin al Result * eGFR (10/09/2024 8:54 PM CDT) eGFR 86 >=60 mL/min/1. 73 m2 Comment: Interpretive Data Reference Interval Normal >/= 90 mL/min/1.73m2 Mildly decreased* 60 - 89 mL/min/1.73m2 Mildly to moderately decreased 45 - 59 mL/min/1.73m2 Moderately to severely decreased 30 - 44 mL/min/1.73m2 Severely decreased 15 - 29 mL/min/1.73m2 Kidney Failure < 15 mL/min/1.73m2 *Relative to young adult level Estimated glomerular filtration rate is determined by the 2020 CKD-EPI equation recommended by the National Kidney Foundation (A Unifying Approach to GFR Estimation: Recommendations of the NKF-ASK Task Force on Reassessing the Inclusion of Race in Diagnosing Kidney Disease, JASN 2020). The CKD-EPI equation should not be used for patients with unstable renal function and has not been validated in children and those over 70. Current interpretive data was last reviewed 2021. Blood 10/09/2024 8:54 PM CDT 10/09/2024 9:07 PM CDT us Clarice Pepe MD LAB BLOOD ORDERABLES Final Resu lt Performing Organization Address City/[facility]/ZIP Co de Phone Number [facility] [place] [address] * POCT glucose (10/09/2024 8:54 PM CDT) [facility] Glucose, POC 127 70 - 199 mg/dL Blood 10/09/2024 8:54 PM CDT 10/09/2024 8:54 PM CDT us Jasmina Mendoza MD LAB POCT ORDERABLES - DEVICE Final Result Performing Organization Address [facility] Co de Phone Number [facility] Department [place] [address] * (ABNORMAL) CBC without differential (10/09/2024 8:54 PM CDT) [facility] WBC 7.25 3.80 - 9.90 K/cumm Hgb 10.9(L) 13.0 - 17.5 g/dL [facility] Hct 32.9(L) 38.9 - 50.3 % [facility] Plt 122(L) 150 - 400 K/cumm [facility] MPV 9.7 9.1 - 12.3 fL [facility] RBC 3.46(L) 4.30 - 5.80 M/cumm [facility] MCV 95.1 81.3 - 96.4 fL [facility] MCH 31.5 27.1 - 33.3 pg [facility] MCHC 33.1 32.3 - 35.7 g/dL [facility] RDW CV 13.4 11.1 - 14.9 % [facility] RDW SD 46.7 35.7 - 48.1 fL [facility] NRBC abs 0.00 0.00 - 0.01 K/cumm [facility] Blood 10/09/2024 8:54 PM CDT 10/09/2024 9:07 PM CDT us Clarice Pepe MD LAB BLOOD ORDERABLES Final Resu lt Performing Organization Address [facility] Co de Phone Number [facility] [place] [address] * Phosphorus (10/09/2024 8:54 PM CDT) Pathologist [facility] Phosphorus, pl 2.9 2.3 - 4.5 mg/dL Blood 10/09/2024 8:54 PM CDT 10/09/2024 9:07 PM CDT Clarice Pepe MD LAB BLOOD ORDERABLES Final Resu lt Performing Organization Address [facility] de Phone Number [facility] Department [place] [address] * Magnesium (10/09/2024 8:54 PM CDT) Pathologist [facility] Magnesium 2.1 1.4 - 2.5 mg/dL Blood 10/09/2024 8:54 PM CDT 10/09/2024 9:07 PM CDT Clarice Pepe MD LAB BLOOD ORDERABLES Final Resu lt Performing Organization Address [facility] de Phone Number [facility] [place] [address] * Lipid panel (10/09/2024 8:54 PM CDT) Pathologist [facility] Cholesterol 98 30 - 199 mg/dL Comment: Interpretive Data Ages < or = 19 years Acceptable: <170 mg/dL Borderline high: 170-199 mg/dL High: >or= 200 mg/dL Ages > or = 20 years Desirable: <200 mg/dL Borderline high: 200-239 mg/dL High: >or= 240 mg/dL Literature References: 1. Expert Panel on Integrated Guidelines for Cardiovascular Health and Risk Reduction in Children and Adolescents. Pediatrics 2011;128:S213 2. NCEP Expert Panel. Circulation 2004;110:227 Current Interpretive Data was last revised on 2018. Triglycerides 122 <=149 mg/dL [facility] Comment: Interpretive Data Ages < or = 9 years Acceptable: <75 mg/dL Borderline high: 75-99 mg/dL High: >or= 100 mg/dL Ages 10 to 20 years Acceptable: <90 mg/dL Borderline high: 90-129 mg/dL High: >or= 130 mg/dL Ages > or = 20 years Desirable: <150 mg/dL Borderline high: 150-199 mg/dL High: 200-499 mg/dL Very high: >or= 499 mg/dL Literature References: 1. Expert Panel on Integrated Guidelines for Cardiovascular Health and Risk Reduction in Children and Adolescents. Pediatrics 2011;128:S213 2. NCEP Expert Panel. Circulation 2004;110:227 Current Interpretive Data was last revised on 2018. HDL 52 >=40 mg/dL [facility] Comment: Interpretive Data Ages < or = 19 years Acceptable: >45 mg/dL Borderline low: 40-45 mg/dL Low: <40 mg/dL Ages > or = 20 years Desirable: >or= 60 mg/dL Low: <40 mg/dL Literature References: 1. Expert Panel on Integrated Guidelines for Cardiovascular Health and Risk Reduction in Children and Adolescents. Pediatrics 2011;128:S213 2. NCEP Expert Panel. Circulation 2004;110:227 Current Interpretive Data was last revised on 2018. LDL, calculated 24 <=129 mg/dL [facility] Comment: Interpretive Data Ages < or = 19 years Acceptable: <110 mg/dL Borderline high: 110-129 mg/dL High: >or= 130 mg/dL Ages > or = 20 years Optimal: <100 mg/dL Near optimal: 100-129 mg/dL Borderline high: 130-159 mg/dL High: >160 mg/dL Calculated using the Pichardo LDL-C estimating equation. This equation was implemented on 2024. Prior to this date LDL-C was estimated using the Friedewald equation. Literature References: 1. Expert Panel on Integrated Guidelines for Cardiovascular Health and Risk Reduction in Children and Adolescents. Pediatrics 2011;128:S213 2. NCEP Expert Panel. Circulation 2004;110:227 3. Marino M et al. CELESTE Cardiol. 2020 October 28;5(5):540-548. doi: 10.1001/[email or web address] Current Interpretive Data was last revised on 2024. Non-HDL Cholesterol 46 mg/dL [facility] Comment: Interpretive Data Ages < or = 19 years Acceptable: <120 mg/dL Borderline high: 120-144 mg/dL High: >145 mg/dL Ages > or = 20 years When triglycerides are >200 mg/dL, Non-HDL cholesterol is a secondary target of therapy with treatment goals that are 30 mg/dL greater than the LDL cholesterol target. Literature References: 1. Expert Panel on Integrated Guidelines for Cardiovascular Health and Risk Reduction in Children and Adolescents. Pediatrics 2011;128:S213 2. NCEP Expert Panel. Circulation 2004;110:227 Current Interpretive Data was last revised on 2018. Chol/HDL ratio 2 [facility] Blood 10/09/2024 8:54 PM CDT 10/09/2024 9:07 PM CDT Jasmina Mendoza MD LAB BLOOD ORDERABLES Final Result [facility] Department [place] [address] * (ABNORMAL) Comprehensive metabolic panel (10/09/2024 8:54 PM CDT) Sodium 139 135 - 145 mmol/L Potassium, pl 4.3 3.3 - 4.9 mmol/L [facility] Chloride 105 97 - 110 mmol/L [facility] CO2 28 22 - 32 mmol/L [facility] Anion gap 6 2 - 15 mmol/L [facility] BUN 21 6 - 25 mg/dL [facility] Creatinine 0.75(L) 0.80 - 1.30 mg/dL [facility] Glucose 122 70 - 199 mg/dL [facility] Comment: Interpretive Data Fasting glucose >/= 126 mg/dl is diagnostic for diabetes. Fasting is defined as no caloric intake for at least 8 hours. Fasting glucose between 100 mg/dl to 125 mg/dl is diagnostic of prediabetes. In a patient with classic symptoms of hyperglycemia or hyperglycemic crisis, a random glucose >/= 200 mg/dl is diagnostic for diabetes. In the absence of unequivocal hyperglycemia, results should be confirmed by repeat testing. The classification and Diagnosis of Diabetes Diabetes Care 2021; 46: S19-S40. Current interpretive data was last revised 2022. Calcium 8.5 8.5 - 10.3 mg/dL [facility] Bilirubin, total 1.8(H) 0.1 - 1.2 mg/dL [facility] Protein, pl 6.1(L) 6.5 - 8.5 g/dL [facility] Albumin 3.5 3.5 - 5.0 g/dL [facility] Alk phos 52 40 - 130 Units/L [facility] ALT 33 7 - 55 Units/L [facility] AST 40 10 - 50 Units/L [facility] Blood 10/09/2024 8:54 PM CDT 10/09/2024 9:07 PM CDT us Clarice Pepe MD LAB BLOOD ORDERABLES Final Resu lt [facility] Department [place] [address] * Critical Care (10/09/2024 7:53 PM CDT) Narrative Santiago Lambert MD - 10/09/2024 7:53 PM CDT Santiago Lambert MD 10/10/2024 6:21 AM Critical Care Performed by: Santiago Lambert MD Authorized by: Santiago Lambert MD CRITICAL CARE: Team: SICU BLUE Shift: PM Level of Billing: Critical Care My time spent with this patient was 30 minutes: Critical Provider Statement: I have seen and examined the patient on this day of service. I have reviewed and confirmed the history, physical exam, laboratory and radiologic data as documented in the signed ICU note. I have reviewed and discussed my treatment plan with the ICU team and other medical/life skills consultant staff, making frequent assessments and decisions regarding this patient's complex medical care. Critical Care time was exclusive of time spent performing separately billed procedures, treating other patients, and teaching. This time was in addition to and separate from critical care provided by other practitioners in my group on this day of service. Critical Care was necessary to treat or prevent imminent or life-threatening deterioration of the following conditions: us Santiago Lambert MD IN CLINIC/BEDSIDE [facility]I LORENZO Final Result * POCT glucose (10/09/2024 6:09 PM CDT) Glucose, POC 116 70 - 199 mg/dL Blood 10/09/2024 6:09 PM CDT 10/09/2024 6:09 PM CDT us Jasmina Mendoza MD LAB POCT ORDERABLES - DEVICE Final Result [facility] Department [place] [address] * Critical Care (10/09/2024 5:49 PM CDT) Narrative Jamison Qureshi MD PhD - 10/09/2024 5:49 PM CDT Jamison Qureshi MD PhD 10/09/2024 5:50 PM Critical Care Performed by: Jamison Qureshi MD PhD Authorized by: Jamison Qureshi MD PhD CRITICAL CARE: Team: SICU BLUE Shift: AM Level of Billing: Critical Care My time spent with this patient was 45 minutes: Critical Provider Statement: I have seen and examined the patient on this day of service. I have reviewed and confirmed the history, physical exam, laboratory and radiologic data as documented in the signed ICU note. I have reviewed and discussed my treatment plan with the ICU team and other medical/life skills consultant staff, making frequent assessments and decisions regarding this patient's complex medical care. Critical Care time was exclusive of time spent performing separately billed procedures, treating other patients, and teaching. This time was in addition to and separate from critical care provided by other practitioners in my group on this day of service. Critical Care was necessary to treat or prevent imminent or life-threatening deterioration of the following conditions: Acute pain/acute postoperative pain Acute respiratory insufficiency Multiple rib fractures This time was spent by me doing the following: Acute pain control and Epidural catheter management Active and frequent reassessment of respiratory status and oxygen requirements and Incentive spirometry, pulmonary toilet Active and frequent monitoring of intake/output and volumen status I spent time reviewing and interpreting data from bedside monitors, laboratory results, and imaging, I spent time discussing the management of this critically ill patient with consultants and the medical staff and I spent time documenting in the medical record us Jamison Qureshi MD PhD IN CLINIC/BEDSIDE ORDERABLES Final Result * XR Chest 1 View (10/09/2024 5:44 PM CDT) Anatomical Region Laterality Modality Body, Chest N/A Computed Radiogr aphy 10/09/2024 10:2 1 PM CDT Impressions 10/09/2024 10:21 PM CDT Comparison is made to prior examination from 10/09/2024. There is a small right pneumothorax which is increase in size in the interval. There is a tiny amount of right-sided pleural fluid. Mild left basilar and retrocardiac atelectasis is noted. The heart size is stable. The pacemaker device is unchanged in position. Electronically signed by: Miguel A Adkins M.D. Narrative 10/09/2024 10:21 PM CDT EXAMINATION: 1 view chest radiograph Procedure Note Miguel A Adkins MD - 10/09/2024 EXAMINATION: 1 view chest radiograph IMPRESSION: Comparison is made to prior examination from 10/09/2024. There is a small right pneumothorax which is increase in size in the interval. There is a tiny amount of right-sided pleural fluid. Mild left basilar and retrocardiac atelectasis is noted. The heart size is stable. The pacemaker device is unchanged in position. Electronically signed by: Miguel A Adkins M.D. us Clarice Pepe MD IMG XR PROCEDURES Final Result * POCT glucose (10/09/2024 2:58 PM CDT) Glucose, POC 146 70 - 199 mg/dL Blood 10/09/2024 2:58 PM CDT 10/09/2024 2:58 PM CDT us Jasmina Mendoza MD LAB POCT ORDERABLES - DEVICE Final Result [facility] [place] [address] * POCT glucose (10/09/2024 11:21 AM CDT) Glucose, POC 108 70 - 199 mg/dL Blood 10/09/2024 11:2 1 AM CDT 10/09/2024 11:21 AM CDT Jasmina Mendoza MD LAB POCT ORDERABLES - DEVICE Final Result Performing Organization Address City/[facility]/ZIP Co de Phone Number [facility] [place] [address] * POCT glucose (10/09/2024 8:23 AM CDT) Glucose, POC 105 70 - 199 mg/dL Blood 10/09/2024 8:23 AM CDT 10/09/2024 8:23 AM CDT Clarice Pepe MD LAB POCT ORDERABLES - DEVICE Fi nal Result Performing Organization Address City/[facility]/ZIP Co de Phone Number [facility] [place] [address] * XR Outside Reference (10/09/2024 4:56 AM CDT) Impressions [facility] - 10/09/2024 4:56 AM CDT These images are for Reference purposes only and have not been reviewed by [facility]. There will be no report generated by a [facility] Radiologist. Narrative [facility]_PACS[facility] - 10/09/2024 4:56 AM CDT EXAMINATION: Images For Reference Purposes Only Debo Sweeney MD IMG XR PROCEDURES Fi nal Result Performing Organization Address [facility] Co de Phone Number [email or web address] * XR Outside Reference (10/09/2024 4:54 AM CDT) Impressions [facility] - 10/09/2024 4:54 AM CDT These images are for Reference purposes only and have not been reviewed by [facility]. There will be no report generated by a [facility] Radiologist. Narrative [facility] - 10/09/2024 4:54 AM CDT EXAMINATION: Images For Reference Purposes Only Debo Sweeney MD IMG XR PROCEDURES Fi nal Result Performing Organization Address [facility] de Phone Number [email or web address] * Neuro CT Outside Consult (10/09/2024 4:52 AM CDT) Anatomical Region Laterality Modality N/A Computed Tomogra phy 10/09/2024 5:09 AM CDT Impressions 10/09/2024 8:20 AM CDT 1. No acute intracranial process. 2. No evidence of acute fracture in the cervical spine. 3. Severe degenerative changes in the cervical spine detail above. 4. Small right apical pneumothorax and soft tissue gas throughout the right neck which is tracking superiorly from the right chest wall and better evaluated on same-day CT chest. The findings, conclusions and recommendations within this report do not replace the initial findings, conclusions and recommendations made at the facility where the study was performed based upon the imaging and clinical condition at that time. Comparison with the prior report and clinical history is necessary. The provided images may or may not represent the ruby source data set and thus may contain changes that may lower the accuracy of this second-opinion interpretation. Dictated by: Abelardo Fatima MD The radiology attending physician has personally reviewed this study, and had reviewed and/or edited this written report and agrees with it. Electronically signed by: Elroy Stinson M.D. Narrative 10/09/2024 8:20 AM CDT EXAMINATION: RADIOLOGY CONSULTATION ON OUTSIDE IMAGING STUDY STUDY INITIALLY PERFORMED: 10/08/2024 at [facility]. TYPE OF STUDY: Multiple CT images of the head and cervical spine without contrast are provided at the time of this interpretation. CONTRAST ROUTE: No contrast was administered. The protocol was adequate to address the clinical question. The outside final report was not available at the time of this second opinion interpretation. TYPE OF CONSULTATION: Consult on outside imaging study with images submitted through Outside Image Sharing Service DATE OF CONSULTATION: 10/09/2024 5:00 AM HISTORY: Fall COMPARISON: None available. FINDINGS: HEAD: There is no acute intracranial hemorrhage. Ventricles are of normal size and morphology. No mass effect or midline shift is present. The ward-white matter differentiation is normal. Scattered ill-defined hypodensities in the periventricular and subcortical white matter are nonspecific, likely on the basis of chronic small vessel ischemic change. There is parenchymal volume loss with mild ex vacuo dilation of the ventricles. There are atherosclerotic calcifications of the intracranial vessels. Bilateral lens replacements. The visualized portions of the mastoids are normal. Mucus retention cyst in the bilateral maxillary sinuses. Polypoid density in the right anterior nasal cavity may represent sinonasal polyp. No fractures are identified. CERVICAL SPINE: Straightening of the normal cervical lordosis. No cervical spine listhesis. There is no acute fracture. Vertebral bodies are normal in height without compression fractures. 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 Severe degenerative changes at C1-C2 with degenerative pannus at the craniocervical junction and erosions of the dens. Limited views of the skull base appear normal. The sphenoid sinus is well aerated. Carotid vascular calcifications. Small right apical pneumothorax and soft tissue gas throughout the right neck which is tracking superiorly from the right chest wall and better evaluated on same-day CT chest. Small multilevel posterior disc osteophyte complexes. There is severe multilevel facet arthropathy. 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 There is severe neuroforaminal stenosis bilaterally, more pronounced on the left, from C2-C7. There is varying degrees of spinal canal stenosis which is most pronounced and moderate at C5-C6 and C6-C7. Procedure Note Elroy Stinson MD - 10/09/2024 EXAMINATION: RADIOLOGY CONSULTATION ON OUTSIDE IMAGING STUDY STUDY INITIALLY PERFORMED: 10/08/2024 at [facility]. TYPE OF STUDY: Multiple CT images of the head and cervical spine without contrast are provided at the time of this interpretation. CONTRAST ROUTE: No contrast was administered. The protocol was adequate to address the clinical question. The outside final report was not available at the time of this second opinion interpretation. TYPE OF CONSULTATION: Consult on outside imaging study with images submitted through Outside Image Sharing [facility] DATE OF CONSULTATION: 10/09/2024 5:00 AM HISTORY: Fall COMPARISON: None available. FINDINGS: HEAD: There is no acute intracranial hemorrhage. Ventricles are of normal size and morphology. No mass effect or midline shift is present. The ward-white matter differentiation is normal. Scattered ill-defined hypodensities in the periventricular and subcortical white matter are nonspecific, likely on the basis of chronic small vessel ischemic change. There is parenchymal volume loss with mild ex vacuo dilation of the ventricles. There are atherosclerotic calcifications of the intracranial vessels. Bilateral lens replacements. The visualized portions of the mastoids are normal. Mucus retention cyst in the bilateral maxillary sinuses. Polypoid density in the right anterior nasal cavity may represent sinonasal polyp. No fractures are identified. CERVICAL SPINE: Straightening of the normal cervical lordosis. No cervical spine listhesis. There is no acute fracture. Vertebral bodies are normal in height without compression fractures. 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 Severe degenerative changes at C1-C2 with degenerative pannus at the craniocervical junction and erosions of the dens. Limited views of the skull base appear normal. The sphenoid sinus is well aerated. Carotid vascular calcifications. Small right apical pneumothorax and soft tissue gas throughout the right neck which is tracking superiorly from the right chest wall and better evaluated on same-day CT chest. Small multilevel posterior disc osteophyte complexes. There is severe multilevel facet arthropathy. 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 There is severe neuroforaminal stenosis bilaterally, more pronounced on the left, from C2-C7. There is varying degrees of spinal canal stenosis which is most pronounced and moderate at C5-C6 and C6-C7. IMPRESSION: 1. No acute intracranial process. 2. No evidence of acute fracture in the cervical spine. 3. Severe degenerative changes in the cervical spine detail above. 4. Small right apical pneumothorax and soft tissue gas throughout the right neck which is tracking superiorly from the right chest wall and better evaluated on same-day CT chest. The findings, conclusions and recommendations within this report do not replace the initial findings, conclusions and recommendations made at the facility where the study was performed based upon the imaging and clinical condition at that time. Comparison with the prior report and clinical history is necessary. The provided images may or may not represent the ruby source data set and thus may contain changes that may lower the accuracy of this second-opinion interpretation. Dictated by: Abelardo Fatima MD The radiology attending physician has personally reviewed this study, and had reviewed and/or edited this written report and agrees with it. Electronically signed by: Elroy Stinson M.D. Debo Sweeney MD IMG CT PROCEDURES Fi nal Result * eGFR (10/09/2024 4:51 AM CDT) eGFR >90 >=60 mL/min/1. 73 m2 Comment: Interpretive Data Reference Interval Normal >/= 90 mL/min/1.73m2 Mildly decreased* 60 - 89 mL/min/1.73m2 Mildly to moderately decreased 45 - 59 mL/min/1.73m2 Moderately to severely decreased 30 - 44 mL/min/1.73m2 Severely decreased 15 - 29 mL/min/1.73m2 Kidney Failure < 15 mL/min/1.73m2 *Relative to young adult level Estimated glomerular filtration rate is determined by the 2020 CKD-EPI equation recommended by the National Kidney Foundation (A Unifying Approach to GFR Estimation: Recommendations of the NKF-ASK Task Force on Reassessing the Inclusion of Race in Diagnosing Kidney Disease, JASN 202). The CKD-EPI equation should not be used for patients with unstable renal function and has not been validated in children and those over 70. Current interpretive data was last reviewed 2021. Blood 10/09/2024 4:51 AM CDT 10/09/2024 5:00 AM CDT us Debo Sweeney MD LAB BLOOD ORDERABLES Final Result [facility] Department [place] [address] * Differential, auto (10/09/2024 4:51 AM CDT) Neutrophil abs 4.47 1.50 - 6.50 K/cumm Imm gran abs 0.03 0.00 - 0.10 K/cumm [facility] Lymphocyte abs 1.82 0.80 - 3.30 K/cumm [facility] Monocyte abs 0.73 0.20 - 0.80 K/cumm [facility] Eosinophil abs 0.19 0.00 - 0.50 K/cumm [facility] Basophil abs 0.02 0.00 - 0.10 K/cumm [facility] Neutrophil pct 61.5 % [facility] Comment: Interpretive Data Percent cell count reference ranges are not reported, since discordance with absolute values may lead to misinterpretation of CBC data. Current Interpretive Data was last revised on 2017. Imm gran pct 0.4 % [facility] Comment: Interpretive Data Percent cell count reference ranges are not reported, since discordance with absolute values may lead to misinterpretation of CBC data. Current Interpretive Data was last revised on 2017. Lymphocyte pct 25.1 % [facility] Comment: Interpretive Data Percent cell count reference ranges are not reported, since discordance with absolute values may lead to misinterpretation of CBC data. Current Interpretive Data was last revised on 2017. Monocyte pct 10.1 % [facility] Comment: Interpretive Data Percent cell count reference ranges are not reported, since discordance with absolute values may lead to misinterpretation of CBC data. Current Interpretive Data was last revised on 2017. Eosinophil pct 2.6 % [facility] Comment: Interpretive Data Percent cell count reference ranges are not reported, since discordance with absolute values may lead to misinterpretation of CBC data. Current Interpretive Data was last revised on 2017. Basophil pct 0.3 % [facility] Comment: Interpretive Data Percent cell count reference ranges are not reported, since discordance with absolute values may lead to misinterpretation of CBC data. Current Interpretive Data was last revised on 2017. Blood 10/09/2024 4:51 AM CDT 10/09/2024 5:00 AM CDT Debo Sweeney MD LAB BLOOD ORDERABLES Final Result Performing Organization Address [facility]/ZIP Co de Phone Number [facility] Department [place] [address] * (ABNORMAL) CBC with auto differential (10/09/2024 4:51 AM CDT) WBC 7.26 3.80 - 9.90 K/cumm Hgb 11.8(L) 13.0 - 17.5 g/dL [facility] Hct 35.1(L) 38.9 - 50.3 % [facility] Plt 119(L) 150 - 400 K/cumm [facility] MPV 9.8 9.1 - 12.3 fL [facility] RBC 3.75(L) 4.30 - 5.80 M/cumm [facility] MCV 93.6 81.3 - 96.4 fL [facility] MCH 31.5 27.1 - 33.3 pg [facility] MCHC 33.6 32.3 - 35.7 g/dL [facility] RDW CV 13.3 11.1 - 14.9 % [facility] RDW SD 45.4 35.7 - 48.1 fL [facility] NRBC abs 0.00 0.00 - 0.01 K/cumm [facility] Blood 10/09/2024 4:51 AM CDT 10/09/2024 5:00 AM CDT Debo Sweeney MD LAB BLOOD ORDERABLES Final Result Performing Organization Address [facility]/ZIP Co de Phone Number [facility] [place] [address] * (ABNORMAL) aPTT (10/09/2024 4:51 AM CDT) aPTT 27(L) 28 - 38 sec Comment: Interpretive Data Heparin therapeutic range: 66.0 - 100.0 seconds. Range based on correlation with therapeutic heparin activity range of 0.3 - 0.7 Units/mL. Current interpretive data was last revised on 2023. Blood 10/09/2024 4:51 AM CDT 10/09/2024 5:06 AM CDT Debo Sweeney MD LAB BLOOD ORDERABLES Final Result Performing Organization Address City/[facility] Co de Phone Number [facility] [place] [address] * (ABNORMAL) Protime-INR (10/09/2024 4:51 AM CDT) Pathologist [facility] PT 14.9(H) 9.7 - 13.0 sec INR 1.37(H) 0.90 - 1.20 [facility] Comment: Interpretive data Oral anticoagulant therapeutic ranges: Venous thromboembolism prophylaxis or treatment: 2.0-3.0 CARDIOLOGY Standard range: 2.0-3.0 High-intensity range: 2.5-3.5 Refer to indication-specific guidelines for appropriate target ranges for prosthetic heart valve replacement. Current interpretive data was last revised on 2019. Blood 10/09/2024 4:51 AM CDT 10/09/2024 5:06 AM CDT Debo Sweeney MD LAB BLOOD ORDERABLES Final Result [facility] [place] [address] * (ABNORMAL) Basic metabolic panel (10/09/2024 4:51 AM CDT) Sodium 141 135 - 145 mmol/L Potassium, pl 4.1 3.3 - 4.9 mmol/L [facility] Chloride 105 97 - 110 mmol/L [facility] CO2 29 22 - 32 mmol/L [facility] Anion gap 7 2 - 15 mmol/L [facility] BUN 22 6 - 25 mg/dL [facility] Creatinine 0.62(L) 0.80 - 1.30 mg/dL [facility] Glucose 118 70 - 199 mg/dL [facility] Comment: Interpretive Data Fasting glucose >/= 126 mg/dl is diagnostic for diabetes. Fasting is defined as no caloric intake for at least 8 hours. Fasting glucose between 100 mg/dl to 125 mg/dl is diagnostic of prediabetes. In a patient with classic symptoms of hyperglycemia or hyperglycemic crisis, a random glucose >/= 200 mg/dl is diagnostic for diabetes. In the absence of unequivocal hyperglycemia, results should be confirmed by repeat testing. The classification and Diagnosis of Diabetes Diabetes Care 2021; 46: S19-S40. Current interpretive data was last revised 2022. Calcium 8.5 8.5 - 10.3 mg/dL [facility] Blood 10/09/2024 4:51 AM CDT 10/09/2024 5:00 AM CDT Debo Sweeney MD LAB BLOOD ORDERABLES Final Result Performing Organization Address City/State/[facility] Co de Phone Number [facility] Department [place] [address] * Neuro CT Outside Consult (10/09/2024 4:49 AM CDT) Anatomical Region Laterality Modality N/A Computed Tomogra phy 10/09/2024 5:09 AM CDT Impressions 10/09/2024 8:20 AM CDT 1. No acute intracranial process. 2. No evidence of acute fracture in the cervical spine. 3. Severe degenerative changes in the cervical spine detail above. 4. Small right apical pneumothorax and soft tissue gas throughout the right neck which is tracking superiorly from the right chest wall and better evaluated on same-day CT chest. The findings, conclusions and recommendations within this report do not replace the initial findings, conclusions and recommendations made at the facility where the study was performed based upon the imaging and clinical condition at that time. Comparison with the prior report and clinical history is necessary. The provided images may or may not represent the ruby source data set and thus may contain changes that may lower the accuracy of this second-opinion interpretation. Dictated by: Abelardo Fatima MD The radiology attending physician has personally reviewed this study, and had reviewed and/or edited this written report and agrees with it. Electronically signed by: Elroy Stinson M.D. Narrative 10/09/2024 8:20 AM CDT EXAMINATION: RADIOLOGY CONSULTATION ON OUTSIDE IMAGING STUDY STUDY INITIALLY PERFORMED: 10/08/2024 at [facility]. TYPE OF STUDY: Multiple CT images of the head and cervical spine without contrast are provided at the time of this interpretation. CONTRAST ROUTE: No contrast was administered. The protocol was adequate to address the clinical question. The outside final report was not available at the time of this second opinion interpretation. TYPE OF CONSULTATION: Consult on outside imaging study with images submitted through Outside Image Sharing Service DATE OF CONSULTATION: 10/09/2024 5:00 AM HISTORY: Fall COMPARISON: None available. FINDINGS: HEAD: There is no acute intracranial hemorrhage. Ventricles are of normal size and morphology. No mass effect or midline shift is present. The ward-white matter differentiation is normal. Scattered ill-defined hypodensities in the periventricular and subcortical white matter are nonspecific, likely on the basis of chronic small vessel ischemic change. There is parenchymal volume loss with mild ex vacuo dilation of the ventricles. There are atherosclerotic calcifications of the intracranial vessels. Bilateral lens replacements. The visualized portions of the mastoids are normal. Mucus retention cyst in the bilateral maxillary sinuses. Polypoid density in the right anterior nasal cavity may represent sinonasal polyp. No fractures are identified. CERVICAL SPINE: Straightening of the normal cervical lordosis. No cervical spine listhesis. There is no acute fracture. Vertebral bodies are normal in height without compression fractures. 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 Severe degenerative changes at C1-C2 with degenerative pannus at the craniocervical junction and erosions of the dens. Limited views of the skull base appear normal. The sphenoid sinus is well aerated. Carotid vascular calcifications. Small right apical pneumothorax and soft tissue gas throughout the right neck which is tracking superiorly from the right chest wall and better evaluated on same-day CT chest. Small multilevel posterior disc osteophyte complexes. There is severe multilevel facet arthropathy. 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 There is severe neuroforaminal stenosis bilaterally, more pronounced on the left, from C2-C7. There is varying degrees of spinal canal stenosis which is most pronounced and moderate at C5-C6 and C6-C7. Procedure Note Elroy Stinson MD - 10/09/2024 EXAMINATION: RADIOLOGY CONSULTATION ON OUTSIDE IMAGING STUDY STUDY INITIALLY PERFORMED: 10/08/2024 at [facility]. TYPE OF STUDY: Multiple CT images of the head and cervical spine without contrast are provided at the time of this interpretation. CONTRAST ROUTE: No contrast was administered. The protocol was adequate to address the clinical question. The outside final report was not available at the time of this second opinion interpretation. TYPE OF CONSULTATION: Consult on outside imaging study with images submitted through Outside Image Sharing Service DATE OF CONSULTATION: 10/09/2024 5:00 AM HISTORY: Fall COMPARISON: None available. FINDINGS: HEAD: There is no acute intracranial hemorrhage. Ventricles are of normal size and morphology. No mass effect or midline shift is present. The ward-white matter differentiation is normal. Scattered ill-defined hypodensities in the periventricular and subcortical white matter are nonspecific, likely on the basis of chronic small vessel ischemic change. There is parenchymal volume loss with mild ex vacuo dilation of the ventricles. There are atherosclerotic calcifications of the intracranial vessels. Bilateral lens replacements. The visualized portions of the mastoids are normal. Mucus retention cyst in the bilateral maxillary sinuses. Polypoid density in the right anterior nasal cavity may represent sinonasal polyp. No fractures are identified. CERVICAL SPINE: Straightening of the normal cervical lordosis. No cervical spine listhesis. There is no acute fracture. Vertebral bodies are normal in height without compression fractures. 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 Severe degenerative changes at C1-C2 with degenerative pannus at the craniocervical junction and erosions of the dens. Limited views of the skull base appear normal. The sphenoid sinus is well aerated. Carotid vascular calcifications. Small right apical pneumothorax and soft tissue gas throughout the right neck which is tracking superiorly from the right chest wall and better evaluated on same-day CT chest. Small multilevel posterior disc osteophyte complexes. There is severe multilevel facet arthropathy. 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 There is severe neuroforaminal stenosis bilaterally, more pronounced on the left, from C2-C7. There is varying degrees of spinal canal stenosis which is most pronounced and moderate at C5-C6 and C6-C7. IMPRESSION: 1. No acute intracranial process. 2. No evidence of acute fracture in the cervical spine. 3. Severe degenerative changes in the cervical spine detail above. 4. Small right apical pneumothorax and soft tissue gas throughout the right neck which is tracking superiorly from the right chest wall and better evaluated on same-day CT chest. The findings, conclusions and recommendations within this report do not replace the initial findings, conclusions and recommendations made at the facility where the study was performed based upon the imaging and clinical condition at that time. Comparison with the prior report and clinical history is necessary. The provided images may or may not represent the ruby source data set and thus may contain changes that may lower the accuracy of this second-opinion interpretation. Dictated by: Abelardo Fatima MD The radiology attending physician has personally reviewed this study, and had reviewed and/or edited this written report and agrees with it. Electronically signed by: Elroy Stinson M.D. Debo Sweeney MD IMG CT PROCEDURES Fi nal Result * XR Chest 1 View (10/09/2024 4:47 AM CDT) Anatomical Region Laterality Modality Body, Chest N/A Computed Radiogr aphy 10/09/2024 5:45 AM CDT Impressions 10/09/2024 9:31 AM CDT Comparison is made to same day CT Left subclavian approach pacemaker leads overlie the right atrium and right ventricle. Transcatheter aortic valve replacement. Small lung volumes with basilar predominant opacities which compared to prior CT is favored to represent atelectasis and/or contusion. Cardiomediastinal silhouette is normal. Small right pneumothorax. No left pneumothorax. Subcutaneous gas along the right chest wall. Dictated by: Tushar Mota MD The radiology attending physician has personally reviewed this study, and had reviewed and/or edited this written report and agrees with it. Electronically signed by: Karl Costello MD Narrative 10/09/2024 9:31 AM CDT EXAMINATION: 1 view chest radiograph Procedure Note Karl Costello MD - 10/09/2024 EXAMINATION: 1 view chest radiograph IMPRESSION: Comparison is made to same day CT Left subclavian approach pacemaker leads overlie the right atrium and right ventricle. Transcatheter aortic valve replacement. Small lung volumes with basilar predominant opacities which compared to prior CT is favored to represent atelectasis and/or contusion. Cardiomediastinal silhouette is normal. Small right pneumothorax. No left pneumothorax. Subcutaneous gas along the right chest wall. Dictated by: Tushar Mota MD The radiology attending physician has personally reviewed this study, and had reviewed and/or edited this written report and agrees with it. Electronically signed by: Karl Costello MD Debo Sweeney MD IMG XR PROCEDURES Fi nal Result * CT Body Outside Consult (10/09/2024 4:46 AM CDT) Anatomical Region Laterality Modality Body N/A Computed Tomogra phy 10/09/2024 5:37 AM CDT Impressions 10/09/2024 9:32 AM CDT 1. Mildly displaced right 9th and 10th posterior rib fractures with associated small right hemopneumothorax. Extensive subcutaneous gas throughout the right back and flank which extends superiorly into the right neck outside the [id number]. 2. Bilateral basilar predominant groundglass and consolidation which is favored to represent a combination of atelectasis and/or pulmonary contusion. 3. No acute finding in the abdomen or pelvis. The findings, conclusions and recommendations within this report do not replace the initial findings, conclusions and recommendations made at the facility where the study was performed based upon the imaging and clinical condition at that time. Comparison with the prior report and clinical history is necessary. The provided images may or may not represent the ruby source data set and thus may contain changes that may lower the accuracy of this second-opinion interpretation. Dictated by: Tushar Mota MD The radiology attending physician has personally reviewed this study, and had reviewed and/or edited this written report and agrees with it. Electronically signed by: Karl Costello MD Narrative 10/09/2024 9:32 AM CDT EXAMINATION: RADIOLOGY CONSULTATION ON OUTSIDE IMAGING STUDY STUDY INITIALLY PERFORMED: 10/08/2024 at [facility]. TYPE OF STUDY: Multiple CT images of the chest, abdomen, and pelvis with intravenous contrast are provided at the time of this interpretation. CONTRAST ROUTE: Contrast was administered via the intravenous route. The protocol was adequate to address the clinical question. The outside final report was not available at the time of this second opinion interpretation. TYPE OF CONSULTATION: Consult on outside imaging study with images submitted through Outside Image Sharing Service DATE OF CONSULTATION: 10/09/2024 5:24 AM HISTORY: Ground-level fall, right pneumothorax and rib fractures COMPARISON: CT from 02/26/2021 FINDINGS: Small right pneumothorax. No left pneumothorax. Groundglass opacities and consolidation in the bilateral lower lungs, right greater than left. Small right pleural effusion which is higher attenuation than simple fluid. No pulmonary nodule. There is extensive subcutaneous gas throughout the right flank and back which extends into the right neck and outside the field of view. Mildly displaced fractures of the right posterior 9th and 10th ribs. Left subclavian approach pacemaker leads terminate in the right atrium and right ventricle. Aortic valve replacement. Multivessel coronary artery calculus. Heart size is mildly enlarged. No pericardial effusion. Thoracic aorta and main pulmonary artery normal in caliber. No suspicious thoracic lymphadenopathy. No suspicious hepatic lesion. Status post cholecystectomy. Spleen, pancreas, and adrenal glands are normal. Kidneys enhance symmetrically with multiple bilateral simple renal cysts. Urinary bladder is normal. No thickened or distended loops of small or large bowel. No free fluid or gas. Abdominal aorta is normal in caliber with moderate atherosclerotic calcifications. No abdominal or pelvic lymphadenopathy. No suspicious osseous lesion. Procedure Note Karl Costello MD - 10/09/2024 EXAMINATION: RADIOLOGY CONSULTATION ON OUTSIDE IMAGING STUDY STUDY INITIALLY PERFORMED: 10/08/2024 at [facility]. TYPE OF STUDY: Multiple CT images of the chest, abdomen, and pelvis with intravenous contrast are provided at the time of this interpretation. CONTRAST ROUTE: Contrast was administered via the intravenous route. The protocol was adequate to address the clinical question. The outside final report was not available at the time of this second opinion interpretation. TYPE OF CONSULTATION: Consult on outside imaging study with images submitted through Outside Image Sharing Service DATE OF CONSULTATION: 10/09/2024 5:24 AM HISTORY: Ground-level fall, right pneumothorax and rib fractures COMPARISON: CT from 02/26/2021 FINDINGS: Small right pneumothorax. No left pneumothorax. Groundglass opacities and consolidation in the bilateral lower lungs, right greater than left. Small right pleural effusion which is higher attenuation than simple fluid. No pulmonary nodule. There is extensive subcutaneous gas throughout the right flank and back which extends into the right neck and outside the field of view. Mildly displaced fractures of the right posterior 9th and 10th ribs. Left subclavian approach pacemaker leads terminate in the right atrium and right ventricle. Aortic valve replacement. Multivessel coronary artery calculus. Heart size is mildly enlarged. No pericardial effusion. Thoracic aorta and main pulmonary artery normal in caliber. No suspicious thoracic lymphadenopathy. No suspicious hepatic lesion. Status post cholecystectomy. Spleen, pancreas, and adrenal glands are normal. Kidneys enhance symmetrically with multiple bilateral simple renal cysts. Urinary bladder is normal. No thickened or distended loops of small or large bowel. No free fluid or gas. Abdominal aorta is normal in caliber with moderate atherosclerotic calcifications. No abdominal or pelvic lymphadenopathy. No suspicious osseous lesion. IMPRESSION: 1. Mildly displaced right 9th and 10th posterior rib fractures with associated small right hemopneumothorax. Extensive subcutaneous gas throughout the right back and flank which extends superiorly into the right neck outside the [id number]. 2. Bilateral basilar predominant groundglass and consolidation which is favored to represent a combination of atelectasis and/or pulmonary contusion. 3. No acute finding in the abdomen or pelvis. The findings, conclusions and recommendations within this report do not replace the initial findings, conclusions and recommendations made at the facility where the study was performed based upon the imaging and clinical condition at that time. Comparison with the prior report and clinical history is necessary. The provided images may or may not represent the ruby source data set and thus may contain changes that may lower the accuracy of this second-opinion interpretation. Dictated by: Tushar Mota MD The radiology attending physician has personally reviewed this study, and had reviewed and/or edited this written report and agrees with it. Electronically signed by: Karl Costello MD Debo Sweeney MD IMG CT PROCEDURES Fi nal Result * XR Outside Reference (10/09/2024 4:44 AM CDT) Impressions [facility] - 10/09/2024 4:44 AM CDT These images are for Reference purposes only and have not been reviewed by [facility]. There will be no report generated by a [facility]iologist. Narrative [facility] - 10/09/2024 4:44 AM CDT EXAMINATION: Images For Reference Purposes Only us Debo Sweeney MD IMG XR PROCEDURES Fi nal Result [facility] * NV CRITICAL CARE ILL/INJURED PATIENT INIT 30-74 MIN (10/09/2024 4:42 AM CDT) Narrative Karl Quesada MD - 10/09/2024 4:42 AM CDT Karl Quesada MD 10/09/2024 5:30 AM Critical Care Performed by: Karl Quesada MD Authorized by: Karl Quesada MD Critical care provider statement: As reflected in the history, physical exam, orders, notes, and/or MDM, I was personally present while the patient was critically ill and provided critical care services for 35 minutes, excluding time involved in separately billable procedures. Critical care was necessary to treat or prevent imminent or life-threatening deterioration of the following condition(s): hypoxic respiratory failure hemo/pneumothorax, multiple rib fractures and severe traumatic condition Critical care was time spent by me providing the following: continuous telemetry, continuous pulse oximetry and serial bedside patient exams supplemental oxygen initiation, monitoring, and/or titration of anticoagulants acute pain control I provided emergent necessary critical care medicine services to this patient. I ordered and reviewed test results and/or imaging studies. I spent time discussing the management of this critically ill patient with consultants and the medical staff. I spent time discussing the management and therapeutic options for this critically ill patient with the patient themselves or with the appropriate designated surrogate decision-maker. I spent time documenting in the medical record. I admitted this patient to an Intensive Care unit (ICU) and discussed management with the admitting team. I admitted this patient to a continuous cardiac monitored bed. us Karl Quesada MD IN CLINIC/BEDSIDE ORDERAB LES Final Result * XR Outside Reference (10/09/2024 4:41 AM CDT) Impressions [facility] - 10/09/2024 4:41 AM CDT These images are for Reference purposes only and have not been reviewed by [facility]. There will be no report generated by a [facility] Radiologist. Narrative [facility] - 10/09/2024 4:41 AM CDT EXAMINATION: Images For Reference Purposes Only Debo Sweeney MD IMG XR PROCEDURES Fi nal Result [facility] * DEVICE CHECK - IN OFFICE (09/15/2024 12:11 PM CDT) Anatomical Region Laterality Modality Other 09/15/2024 2:00 AM CDT Narrative 09/19/2024 8:20 PM CDT Interpretation Summary: Battery and Leads (BL) Normal parameters noted on battery and lead(s) --- Estimated battery longevity 5.5 years Presenting Rhythm (NV) Atrial Sensing-Ventricular Sensing (-VS) --- NSR 70 bpm. Anticoagulation (AC) Patient prescribed Apixaban (Eliquis) Patient on anticoagulant therapy Transmission Information (TI) Device Summary Report Procedure Note Duran Chase MD PhD - 09/19/2024 Interpretation Summary: Battery and Leads (BL) Normal parameters noted on battery and lead(s) --- Estimated batterylongevity 5.5 years Presenting Rhythm (NV) Atrial Sensing-Ventricular Sensing (-VS) --- NSR 70 bpm. Anticoagulation (AC) Patient prescribed Apixaban (Eliquis) Patient on anticoagulant therapy Transmission Information (TI) Device Summary Report Result [facility] Eddie James MD CV CARDIAC SERVICES PROCEDURES Final Result * DEVICE CHECK - REMOTE (08/16/2024 6:11 AM FURNACE OPERATOR) Anatomical Region Laterality Modality Other 08/16/2024 6:11 AM FURNACE OPERATOR Narrative 08/17/2024 9:27 PM FURNACE OPERATOR Interpretation Summary: Battery and Leads (BL) Normal parameters noted on battery and lead(s) --- 5.5 years remaining (this is an estimate based on prior usage) Presenting Rhythm (NV) Atrial Pacing-Ventricular Sensing (AP-VS) --- rate 60 [...] estimate based on prior usage) Presenting Rhythm (NV) Atrial Pacing-Ventricular Sensing (AP-VS) --- rate 60 Arrhythmic events (AE) 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 Longest: 94seconds Anticoagulation (AC) Patient on anticoagulant therapy Patient prescribed Apixaban (Eliquis) Transmission Information (TI) Device Summary Report Eddie James MD CV CARDIAC SERVICES PROCEDURES Final Result from Last 3 Months Insurance [facility] MEDICARE ADVANTAGE [facility] MEDICARE Address: [facility] [address] [place] [address] [facility] MEDICARE ADVANTAGE [facility] MEDICARE ADVANTAGE [facility] MEDICARE Address: [address] [address] [place] [address] Advance Directives For more information, please contact: [phone] * Full Code (Latest Code Status on File) Date Activated Date Inactivated Comments 10/09/2024 8:37 AM 10/11/2024 6:34 PM * Full Code Date Activated Date Inactivated Comments 03/19/2021 2:35 PM 03/21/2021 8:52 PM * Full Code Date Activated Date Inactivated Comments 03/15/2021 9:47 AM 03/16/2021 7:41 PM Care Teams Payroll Representative Relationship Specialty Start Date End Date Motnserrat Sal MD [address] [facility] [address] [place] [address] PCP - General Family Medicine 10/19/20 Ricardo Alegria MD [address] [facility] [address] [place] [address] Referring Physician Cardiology 02/02/21 Peng Lozada MD [id number] [place] [address] Consulting Physician Cardiothoracic Surgery 03/16/21 Alphonso Tran MD [id number] [place] [address] Referring Physician Cardiology 03/16/21
--- OUTSIDE RECORDS SUMMARY | 2024-10-18 13:42 | XMS_ITS | Encounter Summary ---
Author Organization [facility] Address [address] [place] [address] Phone Care Team Providers Care Bow Tacker Name Role Phone Montserrat Sal MD Primary Care Provider Ricardo Alegria MD Unavailable [phone] Peng Lozada MD Unavailable [phone] Alphonso Tran MD Unavailable [phone] Encounter Details Date Type Department Care Team (Late st Contact Info) Description 03/31/2023 Telephone [facility] Cardiology [address] [facility] Advanced Medicine 8th [place] [address] [place] [address] Alphonso Tran MD [address] [facility] [address] [place], [place] [id number] Social History Tobacco Use Types Packs/Day Years [...] on file 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 Gender Identity Male 02/27/2021 9:36 AM CDT Sexual Orientation Not on file documented as of this encounter Plan of Treatment Not on file documented as of this encounter Visit Diagnoses Not on filedocumented in this encounter Care Teams Bow Tacker Relationship Specialty Start Date End Date Montserrat Sal MD [address] [place] [address] PCP - General Family Medicine 10/19/20 Ricardo Alegria MD [address] [place] [address] Referring Physician Cardiology 02/02/21 Peng Lozada MD [id number] [place] [address] Consulting Physician Cardiothoracic Surgery 03/16/21 Alphonso Tran MD [address] [facility] [id number] [place] [address] Referring Physician Cardiology 03/16/21 documented as of this encounter
--- OUTSIDE RECORDS SUMMARY | 2024-10-18 13:42 | XMS_ITS | Clinical Summary ---
Author Organization [facility] [address] [place] [address] Care Team Providers Care Filament Shaper Name Role Phone Montserrat Sal MD Primary Care Provider Ricardo Alegria MD Unavailable [phone] Peng Lozada MD Unavailable [phone] Alphonso Tran MD Unavailable [phone] Allergies Active Allergy Reactions Criticality Noted [...] within 12 hours or as directed by . 5 patch 5 11/12/19 25 Active oxyCODONE (ROXICODONE) 5 mg immediate release tabletIndicatio ns:Pain Take 0.5 tablets (2.5 mg total) by mouth every 4 (four) hours as needed for pain 10 tablet 5 Active polyethylene glycol (MIRALAX) 17 gram/dose bulk powderIndicatio ns:constipation Take 17 g by mouth daily 238 g Active Active Problems Problem Noted Date Diagnosed [...] block s/p pacemaker - [facility] On [facility]/Eliquis. Per patient, manages medications. Believes last took medications yesterday. 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 04/09/2017 Assessment & Plan (03/15/2021 11:04 AM CDT): Hx of Bare metal stents placed to the RCA and LAD in [place] in 1998 in the setting of [place] followed by re-intervention to the LAD in 2012 at [place], [place] -continue asa -continue statin and zetia [...] - 10/11/2024 2:25 PM CDT Hospital Encounter [facility] [address] [place] [address] Karl Quesada MD Staszak, MD Afshin Porter Vidya, MD Traumatic pneumothorax, initial encounter (Primary Dx); Closed fracture of multiple ribs of right side, initial encounter; Fall, subsequent encounter Discharge Disposition: Discharge to home or self care 09/15/2024 1:00 PM CDT Office Visit [facility] [address] [place] [address] 8th [place] [address] [place] [address] Sheron Madden NP S/P TAVR (transcatheter aortic valve replacement) (Primary Dx); Pacemaker; Complete heart block (HCC) 09/15/2024 12:30 PM CDT Ancillary Procedure [facility] [address] [place] [address] 8th [place] [address] [place] [address] Complete heart block (HCC) (Primary Dx); Fitting or adjustment of cardiac pacemaker 08/16/2024 Orders Only [facility] [address] [place] [address] 8th [place] [address] [place] [address] Eddie James MD from Last 3 Months Immunizations Immunization Administration [...] on file Legal Sex Male 2:03 AM RENEWALS REPRESENTATIVE Gender Identity Male 02/27/2021 9:36 AM CDT [...] Zoster Vaccine (2 of 2) 07/18/2018 05/23/2018 DTaP/Tdap/Td Vaccine (2 - Td or Tdap) 08/29/2023 08/28/2013, 03/15/2009, 06/30/1999 Covid-19 Vaccine (3 - 2023-2 5 season) 2024 08/29/2020, 07/27/2020 Influenza Vaccine (Season Ended) 2025 03/15/2020, 04/07/2019, 03/15/2018, Additional history exists Fall Risk Assessment 10/11/2025 10/11/2024 Pneumococcal vaccine 65+ Completed 03/17/2015, 06/2002 Medical Devices Implanted Type Area Stock Hanger Device Identifier Shelf Expiration Date Model / Serial / Lot [employer] Shira 7842 Lead 7842 Endocardial Pacing Mr Is-1 Bipolar Connection - [id number] - [id number] Implanted:Qty: 1 on 03/20/2021 by Eddie James MD at [facility] Lead Left: Heart [employer] Shira 01/09/2023 [id number] / [id number] / [employer] Shira 4470 Fineline Ii Sterox Ez 1.7mm 52cm Bipolar Active Fixation Screw - [id number] - [id number] Implanted:Qty: 1 on 03/20/2021 by Eddie James MD at [facility] Lead Left: Heart [employer] Shira 12/20/2022 4470 / [id number] / [employer] [id number] Perclose 6fr Suture Mediate Knot Push Vascular Device Closure - [id number] Implanted:Qty: 1 on 03/15/2021 by Peng Lozada MD at [facility] Other - see comments Right: Arterial [employer] [id number] / / Description:Perclose for rig ht femoral artery [employer] C.R.M. L111 Essentio 4.45x5.02cm 2 Chamber Is1 Connector .75cm Pacemaker 13.7 - [id number] - [id number] Implanted:Qty: 1 on 03/20/2021 by Eddie James MD at [facility] Pacemaker Left: Heart [employer] C.R.M. 02/05/2023 [id number] / [id number] / Stent N/A: Heart May [employer] [id number] Valve Heart 26mm Chace 3 Transcatheter - [id number] - [id number] Implanted:Qty: 1 on 03/15/2021 by Peng Lozada MD at [facility] N/A: Heart May [employer] 11/20/2022 [id number] / [id number] / Daig Shira/[employer] [id number] Angio-Seal Evolution 6fr .035in Guidewire Bypass Tube Suture - [id number] Implanted:Qty: 1 on 03/15/2021 by Peng Lozada MD at [facility] Right: Arterial [employer] Shira 09/27/2021 [id number] / / [id number] Procedures Procedure Name Priority Date/Time Associated Diagnosis [...] OUTSIDE FILMS Routine 10/09/2024 4:44 AM CDT [place] CRITICAL CARE ILL/INJURED PATIENT INIT 30-74 MIN Routine 10/09/2024 4:42 AM CDT XR TRANSFER OF OUTSIDE FILMS Routine 10/09/2024 4:41 AM CDT DEVICE CHECK - IN OFFICE Routine 09/15/2024 12:11 PM CDT Fitting or adjustment of cardiac pacemaker Complete heart block (HCC) DEVICE CHECK - REMOTE Routine 08/16/2024 6:11 AM RENEWALS REPRESENTATIVE from Last 3 Months Results * XR [...] signed by: Miguel A Adkins M.D. us Jasmina Mendoza MD IMG XR PROCEDURES Fin al Result * eGFR (10/10/2024 7:46 PM CDT) eGFR 90 >=60 mL/min/1. 73 m2 Comment: [...] Mendoza MD LAB BLOOD ORDERABLES Final Result Performing Organization Address City/[facility]/ZIP Co de Phone Number [facility] Department [place] [address] * (ABNORMAL) CBC without differential (10/10/2024 7:46 PM CDT) [facility] WBC 7.44 3.80 - 9.90 K/cumm Hgb 11.2(L) 13.0 - 17.5 g/dL [facility] Hct 34.3(L) 38.9 - 50.3 % [facility] Plt 161 150 - 400 K/cumm [facility] MPV 10.4 9.1 - 12.3 fL [facility] RBC 3.67(L) 4.30 - 5.80 M/cumm [facility] MCV 93.5 81.3 - 96.4 fL [facility] MCH 30.5 27.1 - 33.3 pg [facility] MCHC 32.7 32.3 - 35.7 g/dL [facility] RDW CV 13.1 11.1 - 14.9 % [facility] RDW SD 45.1 35.7 - 48.1 fL [facility] NRBC abs 0.00 0.00 - 0.01 K/cumm [facility] Blood 10/10/2024 7:46 PM CDT 10/10/2024 9:03 PM CDT Clarice Pepe MD LAB BLOOD ORDERABLES Final Resu lt [facility] Department [place] [address] * Phosphorus (10/10/2024 7:46 PM CDT) Pathologist [facility] Phosphorus, pl 3.0 2.3 - 4.5 mg/dL Blood 10/10/2024 7:46 PM CDT 10/10/2024 8:50 PM CDT Clarice Pepe MD LAB BLOOD ORDERABLES Final Resu lt [facility] Department [place] [address] * Magnesium (10/10/2024 7:46 PM CDT) Pathologist [facility] Magnesium 2.2 1.4 - 2.5 mg/dL Blood 10/10/2024 7:46 PM CDT 10/10/2024 8:50 PM CDT Clarice Pepe MD LAB BLOOD ORDERABLES Final Resu lt Performing Organization Address [facility] Co de Phone Number [facility] Department [place] [address] * (ABNORMAL) Basic metabolic panel (10/10/2024 7:46 PM CDT) [facility] Sodium 135 135 - 145 mmol/L Potassium, pl 3.8 3.3 - 4.9 mmol/L [facility] Chloride 98 97 - 110 mmol/L [facility] CO2 29 22 - 32 mmol/L [facility] Anion gap 8 2 - 15 mmol/L [facility] BUN 17 6 - 25 mg/dL [facility] Creatinine 0.66(L) 0.80 - 1.30 mg/dL [facility] Glucose 151 70 - 199 mg/dL [facility] Comment: Interpretive Data Fasting glucose >/= 126 [...] 2022. Calcium 8.6 8.5 - 10.3 mg/dL [facility] Blood 10/10/2024 7:46 PM CDT 10/10/2024 8:50 PM CDT Jasmina Mendoza MD LAB BLOOD ORDERABLES Final Result [facility] Department [place] [address] * Critical Care (10/10/2024 7:12 PM CDT) [...] plan with the ICU team and other medical/physician practice consultant staff, making frequent assessments and decisions [...] plan with the ICU team and other medical/physician practice consultant staff, making frequent assessments and decisions [...] or life-threatening deterioration of the following conditions: Result [facility] Jamison Qureshi MD PhD IN CLINIC/BEDSIDE ORDERABLES Final Result * POCT glucose (10/10/2024 6:00 PM CDT) Glucose, POC 128 70 - 199 mg/dL Blood 10/10/2024 6:00 PM CDT 10/10/2024 6:00 PM CDT Result [facility] Jasmina Mendoza MD LAB POCT ORDERABLES - DEVICE Final Result Performing Organization Address City/[facility]/ZIP Co de Phone Number [facility] [place] [address] * POCT glucose (10/10/2024 11:39 AM CDT) Glucose, POC 124 70 - 199 mg/dL Blood 10/10/2024 11:3 9 AM CDT 10/10/2024 11:39 AM CDT Result [facility] Jasmina Mendoza MD LAB POCT ORDERABLES - DEVICE Final Result Performing Organization Address [facility]/ZIP Co de Phone Number [facility] Department [place] [address] * POCT glucose (10/10/2024 7:34 AM CDT) Glucose, POC 103 70 - 199 mg/dL Blood 10/10/2024 7:34 AM CDT 10/10/2024 7:34 AM CDT us Jasmina Mendoza MD LAB POCT ORDERABLES - DEVICE Final Result Performing Organization Address City/State/[facility] Co de Phone Number [facility] Department [place] [address] * XR Chest 1 View (10/10/2024 7:08 [...] ORDERABLES Final Resu lt Performing Organization Address City/[facility]/ZIP Co de Phone Number [facility] [place] [address] * POCT glucose (10/09/2024 8:54 PM CDT) Glucose, POC 127 70 - 199 mg/dL Blood 10/09/2024 8:54 PM CDT 10/09/2024 8:54 PM CDT us Jasmina Mendoza MD LAB POCT ORDERABLES - DEVICE Final Result Performing Organization Address [facility] Co de Phone Number [facility] Department [place] [address] * (ABNORMAL) CBC without differential (10/09/2024 8:54 PM CDT) [facility] WBC 7.25 3.80 - 9.90 K/cumm Hgb 10.9(L) 13.0 - 17.5 g/dL [facility] Hct 32.9(L) 38.9 - 50.3 % [facility] Plt 122(L) 150 - 400 K/cumm [facility] MPV 9.7 9.1 - 12.3 fL [facility] RBC 3.46(L) 4.30 - 5.80 M/cumm [facility] MCV 95.1 81.3 - 96.4 fL [facility] MCH 31.5 27.1 - 33.3 pg [facility] MCHC 33.1 32.3 - 35.7 g/dL [facility] RDW CV 13.4 11.1 - 14.9 % [facility] RDW SD 46.7 35.7 - 48.1 fL [facility] NRBC abs 0.00 0.00 - 0.01 K/cumm [facility] Blood 10/09/2024 8:54 PM CDT 10/09/2024 9:07 PM CDT Clarice Pepe MD LAB BLOOD ORDERABLES Final Resu lt Performing Organization Address City/[facility] Co de Phone Number [facility] [place] [address] * Phosphorus (10/09/2024 8:54 PM CDT) [facility] Phosphorus, pl 2.9 2.3 - 4.5 mg/dL Blood 10/09/2024 8:54 PM CDT 10/09/2024 9:07 PM CDT Clarice Pepe MD LAB BLOOD ORDERABLES Final Resu lt Performing Organization Address [facility] Co de Phone Number [facility] [place] [address] * Magnesium (10/09/2024 8:54 PM CDT) Magnesium 2.1 1.4 - 2.5 mg/dL Blood 10/09/2024 8:54 PM CDT 10/09/2024 9:07 PM CDT us Clarice Pepe MD LAB BLOOD ORDERABLES Final Resu lt [facility] Department [place] [address] * Lipid panel (10/09/2024 8:54 PM CDT) Cholesterol 98 30 - 199 mg/dL Comment: [...] revised on 2018. Triglycerides 122 <=149 mg/dL [facility] Comment: Interpretive Data Ages < or = [...] revised on 2018. HDL 52 >=40 mg/dL [facility] Comment: Interpretive Data Ages < or = [...] on 2018. LDL, calculated 24 <=129 mg/dL [facility] Comment: Interpretive Data Ages < or = 19 years Acceptable: <110 mg/dL Borderline high: 110-129 mg/dL High: >or= 130 mg/dL Ages > or = 20 years Optimal: <100 mg/dL Near optimal: 100-129 mg/dL Borderline high: 130-159 mg/dL High: >160 mg/dL Calculated using the Marino LDL-C estimating equation. This equation was implemented on 2024. Prior to this date LDL-C was estimated using the Friedewald equation. Literature References: 1. Expert Panel on Integrated Guidelines for Cardiovascular Health and Risk Reduction in Children and Adolescents. Pediatrics 2011;128:S213 2. NCEP Expert Panel. Circulation 2004;110:227 3. Marino M et al. CELESTE Cardiol. 2019October 28;5(5):540-548. doi: 10.1001/jamacardio.2020.0013 Current Interpretive Data was last revised on 2024. Non-HDL Cholesterol 46 mg/dL [facility] Comment: Interpretive Data Ages < or = [...] last revised on 2018. Chol/HDL ratio 2 [facility] Blood 10/09/2024 8:54 PM CDT 10/09/2024 9:07 PM CDT us Jasmina Mendoza MD LAB BLOOD ORDERABLES Final Result [facility] Department [place] [address] * (ABNORMAL) Comprehensive metabolic panel (10/09/2024 8:54 PM CDT) Sodium 139 135 - 145 mmol/L Potassium, pl 4.3 3.3 - 4.9 mmol/L [facility] Chloride 105 97 - 110 mmol/L [facility] CO2 28 22 - 32 mmol/L [facility] Anion gap 6 2 - 15 mmol/L [facility] BUN 21 6 - 25 mg/dL [facility] Creatinine 0.75(L) 0.80 - 1.30 mg/dL [facility] Glucose 122 70 - 199 mg/dL [facility] Comment: Interpretive Data Fasting glucose >/= 126 [...] Calcium 8.5 8.5 - 10.3 mg/dL [facility] Bilirubin, total 1.8(H) 0.1 - 1.2 mg/dL [facility] Protein, pl 6.1(L) 6.5 - 8.5 g/dL [facility] Albumin 3.5 3.5 - 5.0 g/dL [facility] Alk phos 52 40 - 130 Units/L [facility] ALT 33 7 - 55 Units/L [facility] AST 40 10 - 50 Units/L [facility] Blood 10/09/2024 8:54 PM CDT 10/09/2024 9:07 PM CDT us Clarice Pepe MD LAB BLOOD ORDERABLES Final Resu lt [facility] [place] [address] * Critical Care (10/09/2024 7:53 PM CDT) [...] plan with the ICU team and other medical/physician practice consultant staff, making frequent assessments and decisions [...] - DEVICE Final Result Performing Organization Address City/[facility]/ZIP Co de Phone Number [facility] Department [place] [address] * Critical Care (10/09/2024 5:49 PM CDT) [...] plan with the ICU team and other medical/physician practice consultant staff, making frequent assessments and decisions [...] Electronically signed by: Miguel A Adkins M.D. Clarice Pepe MD IMG XR PROCEDURES Final Result * POCT glucose (10/09/2024 2:58 PM CDT) Glucose, POC 146 70 - 199 mg/dL Blood 10/09/2024 2:58 PM CDT 10/09/2024 2:58 PM CDT Jasmina Mendoza MD LAB POCT ORDERABLES - DEVICE Final Result Performing Organization Address City/State/[facility] Co de Phone Number [facility] [place] [address] * POCT glucose (10/09/2024 11:21 AM CDT) Glucose, POC 108 70 - 199 mg/dL Blood 10/09/2024 11:2 1 AM CDT 10/09/2024 11:21 AM CDT Jasmina Mendoza MD LAB POCT ORDERABLES - DEVICE Final Result Performing Organization Address [facility] Co de Phone Number [facility] Department [place] [address] * POCT glucose (10/09/2024 8:23 AM CDT) Glucose, POC 105 70 - 199 mg/dL Blood 10/09/2024 8:23 AM CDT 10/09/2024 8:23 AM CDT Clarice Pepe MD LAB POCT ORDERABLES - DEVICE Fi nal Result Performing Organization Address [facility] de Phone Number [facility] [place] [address] * XR Outside Reference (10/09/2024 4:56 AM CDT) Impressions [facility] - 10/09/2024 4:56 AM CDT These images are for Reference purposes only and have not been reviewed by [facility]. There will be no report generated by a [facility] Radiologist. Narrative RAD_PACS[facility] - 10/09/2024 4:56 AM CDT EXAMINATION: Images For Reference Purposes Only Debo Sweeney MD IMG XR PROCEDURES Fi nal Result Performing Organization Address [facility] Co de Phone Number [email or web address] * XR Outside Reference (10/09/2024 4:54 AM CDT) Impressions [facility] - 10/09/2024 4:54 AM CDT These images are for Reference purposes only and have not been reviewed by [facility]. There will be no report generated by a [facility] Radiologist. Narrative [facility]_P[facility] - 10/09/2024 4:54 AM CDT EXAMINATION: Images For Reference Purposes Only Debo Sweeney MD IMG XR PROCEDURES Fi nal Result [email or web address] * Neuro CT Outside Consult (10/09/2024 [...] images may or may not represent the [place] source data set and thus may contain [...] IMAGING STUDY STUDY INITIALLY PERFORMED: 10/08/2024 at [facility]. TYPE OF STUDY: Multiple CT images of [...] IMAGING STUDY STUDY INITIALLY PERFORMED: 10/08/2024 at [facility]. TYPE OF STUDY: Multiple CT images of [...] images may or may not represent the [place] source data set and thus may contain [...] Sweeney MD LAB BLOOD ORDERABLES Final Result [facility] Department [place] [address] * Differential, auto (10/09/2024 4:51 AM CDT) Neutrophil abs 4.47 1.50 - 6.50 K/cumm Imm gran abs 0.03 0.00 - 0.10 K/cumm [facility] Lymphocyte abs 1.82 0.80 - 3.30 K/cumm [facility] Monocyte abs 0.73 0.20 - 0.80 K/cumm [facility] Eosinophil abs 0.19 0.00 - 0.50 K/cumm [facility] Basophil abs 0.02 0.00 - 0.10 K/cumm [facility] Neutrophil pct 61.5 % [facility] Comment: Interpretive Data Percent cell count reference ranges are not reported, since discordance with absolute values may lead to misinterpretation of CBC data. Current Interpretive Data was last revised on 2017. Imm gran pct 0.4 % [facility] Comment: Interpretive Data Percent cell count reference ranges are not reported, since discordance with absolute values may lead to misinterpretation of CBC data. Current Interpretive Data was last revised on 2017. Lymphocyte pct 25.1 % [facility] Comment: Interpretive Data Percent cell count reference ranges are not reported, since discordance with absolute values may lead to misinterpretation of CBC data. Current Interpretive Data was last revised on 2017. Monocyte pct 10.1 % [facility] Comment: Interpretive Data Percent cell count reference ranges are not reported, since discordance with absolute values may lead to misinterpretation of CBC data. Current Interpretive Data was last revised on 2017. Eosinophil pct 2.6 % [facility] Comment: Interpretive Data Percent cell count reference ranges are not reported, since discordance with absolute values may lead to misinterpretation of CBC data. Current Interpretive Data was last revised on 2017. Basophil pct 0.3 % [facility] Comment: Interpretive Data Percent cell count reference ranges are not reported, since discordance with absolute values may lead to misinterpretation of CBC data. Current Interpretive Data was last revised on 2017. Blood 10/09/2024 4:51 AM CDT 10/09/2024 5:00 AM CDT us Debo Sweeney MD LAB BLOOD ORDERABLES Final Result [facility] Department [place] [address] * (ABNORMAL) CBC with auto differential (10/09/2024 4:51 AM CDT) WBC 7.26 3.80 - 9.90 K/cumm Hgb 11.8(L) 13.0 - 17.5 g/dL [facility] Hct 35.1(L) 38.9 - 50.3 % [facility] Plt 119(L) 150 - 400 K/cumm [facility] MPV 9.8 9.1 - 12.3 fL [facility] RBC 3.75(L) 4.30 - 5.80 M/cumm [facility] MCV 93.6 81.3 - 96.4 fL [facility] MCH 31.5 27.1 - 33.3 pg [facility] MCHC 33.6 32.3 - 35.7 g/dL [facility] RDW CV 13.3 11.1 - 14.9 % [facility] RDW SD 45.4 35.7 - 48.1 fL [facility] NRBC abs 0.00 0.00 - 0.01 K/cumm [facility] Blood 10/09/2024 4:51 AM CDT 10/09/2024 5:00 AM CDT Debo Sweeney MD LAB BLOOD ORDERABLES Final Result Performing Organization Address [facility] Co de Phone Number [facility] [place] [address] * (ABNORMAL) aPTT (10/09/2024 4:51 AM CDT) [...] BLOOD ORDERABLES Final Result Performing Organization Address City/[facility]/ZIP Co de Phone Number [facility] [place] [address] * (ABNORMAL) Protime-INR (10/09/2024 4:51 AM CDT) PT 14.9(H) 9.7 - 13.0 sec INR 1.37(H) 0.90 - 1.20 [facility] Comment: Interpretive data Oral anticoagulant therapeutic ranges: Venous thromboembolism prophylaxis or treatment: 2.0-3.0 CARDIOLOGY Standard range: 2.0-3.0 High-intensity range: 2.5-3.5 Refer to indication-specific guidelines for appropriate target ranges for prosthetic heart valve replacement. Current interpretive data was last revised on 2019. Blood 10/09/2024 4:51 AM CDT 10/09/2024 5:06 AM CDT Deob Sweeney MD LAB BLOOD ORDERABLES Final Result [facility] Department [place] [address] * (ABNORMAL) Basic metabolic panel (10/09/2024 4:51 AM CDT) Sodium 141 135 - 145 mmol/L Potassium, pl 4.1 3.3 - 4.9 mmol/L [facility] Chloride 105 97 - 110 mmol/L [facility] CO2 29 22 - 32 mmol/L [facility] Anion gap 7 2 - 15 mmol/L [facility] BUN 22 6 - 25 mg/dL [facility] Creatinine 0.62(L) 0.80 - 1.30 mg/dL [facility] Glucose 118 70 - 199 mg/dL [facility] Comment: Interpretive Data Fasting glucose >/= 126 [...] 2022. Calcium 8.5 8.5 - 10.3 mg/dL [facility] Blood 10/09/2024 4:51 AM CDT 10/09/2024 5:00 AM CDT Debo Sweeney MD LAB BLOOD ORDERABLES Final Result [facility] Department [place] [address] * Neuro CT Outside Consult (10/09/2024 4:49 [...] images may or may not represent the [place] source data set and thus may contain [...] IMAGING STUDY STUDY INITIALLY PERFORMED: 10/08/2024 at [facility]. TYPE OF STUDY: Multiple CT images of [...] IMAGING STUDY STUDY INITIALLY PERFORMED: 10/08/2024 at [facility]. TYPE OF STUDY: Multiple CT images of [...] images may or may not represent the [place] source data set and thus may contain [...] superiorly into the right neck outside the [id number]. 2. Bilateral basilar predominant groundglass and consolidation [...] images may or may not represent the [place] source data set and thus may contain changes that may lower the accuracy of this second-opinion interpretation. Dictated by: Tushar Mota MD The radiology attending physician has personally reviewed this study, and had reviewed and/or edited this written report and agrees with it. Electronically signed by: MD Anika Riddle 10/09/2024 9:32 AM CDT EXAMINATION: RADIOLOGY CONSULTATION ON OUTSIDE IMAGING STUDY STUDY INITIALLY PERFORMED: 10/08/2024 at [facility]. TYPE OF STUDY: Multiple CT images of [...] IMAGING STUDY STUDY INITIALLY PERFORMED: 10/08/2024 at [facility]. TYPE OF STUDY: Multiple CT images of [...] superiorly into the right neck outside the [id number]. 2. Bilateral basilar predominant groundglass and consolidation [...] images may or may not represent the [place] source data set and thus may contain [...] only and have not been reviewed by [facility]. There will be no report generated by a [facility]iologist. Narrative [facility] - 10/09/2024 4:44 AM CDT EXAMINATION: Images For Reference Purposes Only Debo Sweeney MD IMG XR PROCEDURES Fi nal Result [facility] * AL CRITICAL CARE ILL/INJURED PATIENT INIT 30-74 MIN [...] Outside Reference (10/09/2024 4:41 AM CDT) Impressions [facility] - 10/09/2024 4:41 AM CDT These images are for Reference purposes only and have not been reviewed by [facility]. There will be no report generated by a [facility] Radiologist. Narrative [facility] - 10/09/2024 4:41 AM [...] Estimated battery longevity 5.5 years Presenting Rhythm (AL) Atrial Sensing-Ventricular Sensing (-VS) --- NSR 70 bpm. Anticoagulation (AC) Patient prescribed Apixaban (Eliquis) Patient on anticoagulant therapy Transmission Information (TI) Device Summary Report Procedure Note Duran Chase MD PhD - 09/19/2024 Interpretation Summary: Battery and Leads (BL) Normal parameters noted on battery and lead(s) --- Estimated batterylongevity 5.5 years Presenting Rhythm (AL) Atrial Sensing-Ventricular Sensing (-VS) --- NSR 70 bpm. Anticoagulation (AC) Patient prescribed Apixaban (Eliquis) Patient on anticoagulant therapy Transmission Information (TI) Device Summary Report Eddie James MD [facility] PROCEDURES Final Result * DEVICE CHECK - REMOTE (08/16/2024 6:11 AM RENEWALS REPRESENTATIVE) Anatomical Region Laterality Modality Other 08/16/2024 6:11 AM RENEWALS REPRESENTATIVE Narrative 08/17/2024 9:27 PM RENEWALS REPRESENTATIVE Interpretation Summary: Battery and Leads (BL) Normal parameters noted on battery and lead(s) --- 5.5 years remaining (this is an estimate based on prior usage) Presenting Rhythm (AL) Atrial Pacing-Ventricular Sensing (AP-VS) --- rate 60 [...] estimate based on prior usage) Presenting Rhythm (AL) Atrial Pacing-Ventricular Sensing (AP-VS) --- rate 60 Arrhythmic events (AE) 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 Longest: 94seconds Anticoagulation (AC) Patient on anticoagulant therapy Patient prescribed Apixaban (Eliquis) Transmission Information (TI) Device Summary Report Eddie James MD [facility] PROCEDURES Final Result from Last 3 Months Insurance [facility] MEDIC[facility] Address: [place] [id number] [facility] MED[facility] ADVANTAGE [facility] Address: [place] [address] [facility] MEDICARE ADVANTAGE [facility] Address: [facility] [address] [place] [address] Advance Directives For more information, please contact: [phone] * Full Code (Latest Code Status on File) Date Activated Date Inactivated Comments 10/09/2024 8:37 AM 10/11/2024 6:34 PM * Full Code Date Activated Date Inactivated Comments 03/19/2021 2:35 PM 03/21/2021 8:52 PM * Full Code Date Activated Date Inactivated Comments 03/15/2021 9:47 AM 03/16/2021 7:41 PM Care Teams Filament Shaper Relationship Specialty Start Date End Date Montserrat Sal MD [address] [facility] [address] [place] [address] PCP - General Family Medicine 10/19/20 iRcardo Alegria MD [address] [facility] [address] [place] [address] Referring Physician Cardiology 02/02/21 Peng Lozada MD [address] [facility] [id number] [place] [address] Consulting Physician Cardiothoracic Surgery 03/16/21 Alphonso Tran MD [address] [facility] [id number] [place] [address] Referring Physician Cardiology 03/16/21
== END 2024-10-18 12:05 | disposition home or self-care (01) ==
LOC: ANHIMG 12:06
PROVIDERS: PCP Family Medicine; Visit Provider Family Medicine
DX: J90 Pleural effusion, not elsewhere classified (principal); J93.9 Pneumothorax, unspecified
CPT/HCPCS: 71046

== ENCOUNTER 2024-11-25 13:04 | Emergency (ER) | payer MEDICARE, SELFPAY ==
[2024-11-25] VITALS (22 sets, daily range): BP systolic 115–178; BP diastolic 76–114; PULSE 82–149; RESP 13–29; TEMP 36.8–36.9; O2SAT 93–100
--- NOTE | ~2024-11-25 | CT_ITS ---
CLINICAL INDICATION: Fall. Back pain COMPARISON: 10/08/2024. TECHNIQUE: Multiple contiguous axial images of the chest, abdomen and pelvis were performed without t he administration of intravenous contrast The dose-length product (DLP) was 579.44 mGy-cm. Automated exposure control and iterative reconstruction technique were employed. FINDINGS/OBSERVATIONS: LUNG: Large right-sided pleural effusion of increased attenuation for which hemothorax is suspected. No evidence of pulmonary contusion or residual/recurrent pneumothorax. MEDIASTINUM: Limited evaluation without intravenous contrast. HEART: The heart is enlarged, without pericardial effusion. Prosthetic valve in the aortic position. SOFT TISSUES OF THE CHEST: Unremarkable. BONES OF THE CHEST: Subacute minimally displaced fractures of the posterior lateral margin of the rig ht ninth and 10th ribs. Liver: The liver demonstrates homogeneous attenuation and is borderline enlarged measuring 18 cm in longitud inal dimension. No perihepatic fluid to suggest acute traumatic injury. Gallbladder and biliary system: The gallbladder is surgically absent. Pancreas: Limited evaluation of the pancreas secondary to the lack of intravenous contrast. No peripancreatic fluid is identified to suggest acute traumatic injury. Spleen: The spleen demonstrates homogeneous attenuation and is enlarged measuring 14 cm in longitudinal dimen nahid. No perisplenic fluid is identified to suggest acute traumatic injury. Kidneys: The bilateral kidneys are unremarkable, without hydronephrosis or renal calculi. No perirenal fluid is identified to suggest acute traumatic injury. Adrenal glands: Unremarkable. Gastrointestinal tract: Fecal stasis within the colon. No free fluid within the abdomen or pelvis. Vasculature: Densely calcified atherosclerotic disease. Lymph nodes: Limited evaluation without intravenous contrast. Pelvic structures: The bladder is distended, and otherwise unremarkable. The prostate gland is minimally enlarged although not for patient of this age. Body wall and musculoskeletal: No umbilical hernia. Acute compression fracture of the superior endplate of the L1 is identified, an interval change from previous examination. This possibly represents a burst fracture with the fracture lines traversing both the anterior and po sterior columns. No retropulsion of fracture fragments into the spinal canal is appreciated. The T12 vertebral body is preserved. The superior segment of the L2 vertebral body demonstrates an acute fracture of the lateral margin of the L2 vertebral body. No additional acute fractures are appreciated. No acute rib fractures. No acute sternal fracture. IMPRESSION: Acute burst fracture of the L1 vertebral body without retropulsion of fracture fragments into the spi nal canal. Fracture of the lateral margin of the L2 vertebral body is also noted. Interval development of a moderate right-sided pleural effusion of increased density for which a larg e pneumothorax is suspected. Redemonstration of the minimally displaced fractures of the posterior lateral margin of the left nint h and 10th ribs, likely the source of the right-sided hemothorax. Reviewed, dictated and finalized at location A. IMPRESSION: Acute burst fracture of the L1 vertebral body without retropulsion of fracture fragments into the spinal canal. Fracture of the lateral margin of the L2 verte bral body is also noted. Interval development of a moderate right-sided pleural effusion of increased de nsity for which a large pneumothorax is suspected. Redemonstration of the minimally displaced fractures of the posterior lateral m argin of the left ninth and 10th ribs, likely the source of the right-sided hem othorax.
--- NOTE | ~2024-11-25 | CT_ITS ---
Noncontrast CT scan of the cervical spine Technique: Multiple contiguous axial [address] images of the cervical spine were obtained and rec onstructed in 2D sagittal and coronal planes on the acquisition scanner. Dose reduction technique was used on this scan by utilizing automated exposure control, adjustment of the mA and/or kV according to patient size. The dose-length product (DLP) was 396.25 mGy-cm. Clinical History: Pain COMPARISON: 10/08/2024 Findings: No fractures or dislocations. Stable osseous alignment from prior exam. Stable advanced de generative disc disease and extensive facet arthropathy throughout the cervical spine. Multilevel sev ere neural foraminal narrowing is stable from prior exam. There is moderate to severe canal stenosis at C5-C6. There is moderate to severe canal stenosis at C6-C7. Large right pleural effusion partially imaged. No prevertebral soft tissue swelling. Impression: No fracture or subluxation of the cervical spine. Stable severe degenerative spondylosis. Large right pleural effusion partially imaged. Reviewed, dictated and finalized at [facility]. Impression: No fracture or subluxation of the cervical spine. Stable severe degenerative spondylosis. Large right pleural effusion partially imaged.
--- NOTE | ~2024-11-25 | CT_ITS ---
Non-contrast Head CT History: Status post fall COMPARISON: 10/08/2024 Technique: Axial non-contrast imaging of the brain was performed. Dose reduction technique was used on this scan by utilizing automated exposure control and iterative reconstruction technique. The dose -length product (DLP) was 605.33 mGy-cm. Findings: There is no evidence of intracranial hemorrhage, mass lesion, or acute infarct. Brain par enchyma appears normal. The ventricles and subarachnoid spaces are normal in size. The calvarium ap pears normal. The visualized paranasal sinuses and mastoid air cells are clear. Impression: No significant abnormality seen. Reviewed, dictated and finalized at location . Impression: No significant abnormality seen.
--- NOTE | ~2024-11-25 | XR_ITS ---
CHEST RADIOGRAPH, PA AND LATERAL CLINICAL HISTORY: recent punctured lung . COMPARISON: 10/18/2024 TECHNIQUE: PA and lateral views of the chest. FINDINGS The left mid lung is partially obscured due to pacemaker generator. Wires project over the right atrium and right ventricle. The remainder of the cardiomediastinal silhouette is otherwise unremarkable. No pneumothorax is identified. Interval increase in the right-sided pleural effusion, now large in quantity. The remainder of the lungs are clear. IMPRESSION: Large right-sided pleural effusion. No pneumothorax is appreciated. Reviewed, dictated and finalized at location A.
--- NOTE | ~2024-11-25 | XR_ITS ---
XR chest-chest tube insert/pos Ordering provider: Darnell Lira MD History: 88 years Male with . chest tube placement . Comparison: November 25, 2024 FINDINGS: MEDIASTINUM: The cardiac silhouette is moderately enlarged. Congestive ghazal. Left bipolar pacemaker. Valve Prosthesis is seen. Right chest tube is noted. LUNGS: No pneumothorax. Bilateral basal opacification. bilateral interstitial opacification suggestiv e of pulmonary edema versus pneumonitis. Possible minimal right pleural effusion. OTHER: No free air under the diaphragm. IMPRESSION: Cardiomegaly with cardiac decompensation and pulmonary edema. Bibasilar atelectasis versus pneumonia. Possible minimal right pleural effusion. Reviewed, dictated and finalized at location A. IMPRESSION: Cardiomegaly with cardiac decompensation and pulmonary edema. Bibasilar atelectasis versus pneumonia. Possible minimal right pleural effusion .
--- NOTE | ~2024-11-25 | XR_ITS ---
EXAMINATION: XR elbow LT min 3V DATE: 11/25/2024 13:34 INDICATION: Left elbow injury post fall TECHNIQUE: Anteroposterior, two oblique and lateral views of the left elbow were obtained. COMPARISON: None. FINDINGS: Alignment is normal. No fracture or joint effusion. Mild osteoarthritis at the left elbow with mild n onuniform joint space narrowing and tiny marginal osteophytes. Small olecranon spur. Soft tissues are unremarkable. IMPRESSION: 1. Mild osteoarthritis at the left elbow. No joint effusion or acute osseous abnormality. Reviewed, dictated and finalized at location A. IMPRESSION: 1. Mild osteoarthritis at the left elbow. No joint effusion or acute osseous ab normality.
--- OUTSIDE RECORDS SUMMARY | 2024-11-25 13:07 | XMS_ITS | Clinical Summary ---
Author Organization [facility] [address] Address [address] [place] [address] Care Team Providers Care Loom Overhauler Name Role Phone Montserrat Sal MD Primary Care Provider Ricardo Alegria MD Unavailable [phone] Neville Orellana MD, Peng [facility] Unavailable [phone] Alphonso Tran MD Unavailable [phone] Allergies Active Allergy Reactions Criticality Noted [...] as directed by MD. 5 patch 5 Active oxyCODONE (ROXICODONE) 5 mg immediate release [...] block s/p pacemaker - Patient follows with [facility] cardiology - On ASA/Eliquis. Per patient, manages medications. Believes last took medications yesterday. - Hold home ASA/Eliquis - OK to restart eliquis on DC Complete heart block 03/19/2021 Overview (03/19/2021): Added automatically from request for surgery [id number] Dementia 03/15/2021 Assessment & Plan (03/15/2021 11:05 [...] BMI 29.27 Coronary artery disease invo lving [place] tribe coronary artery of um[place] tribe heart without angina pectoris 04/09/2017 Assessment & Plan (03/15/2021 11:04 AM CDT): Hx of Bare metal stents placed to the RCA and LAD in [place] in 1998 in the setting of [place] followed by re-intervention to the LAD in 2012 at [place], [place] -continue asa -continue statin and zetia [...] Encounters Date Type Department Care Team Description 11/15/2024 Orders Only [facility] Cardiology [address] [place] [address] 8th [place] [address] [place] [address] Eddie James MD 10/09/2024 4:21 AM CDT - 10/11/2024 2:25 PM CDT Hospital Encounter [facility] [address] [place] [address] Karl Quesada MD Staszak, MD Afshin Porter Vidya, MD Traumatic pneumothorax, initial encounter (Primary Dx); Closed fracture of multiple ribs of right side, initial encounter; Fall, subsequent encounter Discharge Disposition: Discharge to home or self care 09/15/2024 1:00 PM CDT Office Visit [facility] Cardiology [address] [place] [address] 8th [place] [address] [place] [address] Sheron Madden NP S/P TAVR (transcatheter aortic valve replacement) (Primary Dx); Pacemaker; Complete heart block (HCC) 09/15/2024 12:30 PM CDT Ancillary Procedure [facility] Cardiology [address] [place] [address] 8th [place] [address] [place] [address] Complete heart block (HCC) (Primary Dx); Fitting or adjustment of cardiac pacemaker from Last 3 Months Immunizations Immunization Administration [...] on file 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 Gender Identity Male 02/27/2021 9:36 AM CDT [...] 03/17/2015, 06/2002 Medical Devices Implanted Type Area Packaging Mechanic Device Identifier Shelf Expiration Date Model / Serial / Lot [employer] Shira 7842 Lead 7842 Endocardial Pacing Mr Is-1 Bipolar Connection - [id number] - [id number] Implanted:Qty: 1 on 03/20/2021 by Eddie James MD at [facility] Lead Left: Heart [employer] Shira 01/09/2023 7842 / [id number] / [employer] Shira 4470 Fineline Ii Sterox Ez 1.7mm 52cm Bipolar Active Fixation Screw - [id number] - [id number] Implanted:Qty: 1 on 03/20/2021 by Eddie James MD at [facility] Lead Left: Heart [employer] Shira 12/20/2022 4470 / [id number] / [employer] [id number] Perclose 6fr Suture Mediate Knot Push Vascular Device Closure - [id number] Implanted:Qty: 1 on 03/15/2021 by Peng Lozada Jr., MD at [facility] Other - see comments Right: Arterial [employer] [id number] / / Description:Perclose for rig ht femoral artery [employer] C.R.M. L111 Essentio 4.45x5.02cm 2 Chamber Is1 Connector .75cm Pacemaker 13.7 - [id number] - [id number] Implanted:Qty: 1 on 03/20/2021 by Eddie James MD at [facility] Pacemaker Left: Heart [employer] C.R.M. 02/05/2023 [id number] / [id number] / Stent N/A: Heart [employer] [id number] Valve Heart 26mm Chace 3 Transcatheter - [id number] - [id number] Implanted:Qty: 1 on 03/15/2021 by Peng Lozada Jr., MD at [facility] N/A: Heart [employer] 11/20/2022 [id number] / [id number] / [employer] Shira/[employer] [id number] Angio-Seal Evolution 6fr .035in Guidewire Bypass Tube Suture - [id number] Implanted:Qty: 1 on 03/15/2021 by Peng Lozada Jr., MD at [facility] Right: Arterial [employer] Shira 09/27/2021 [id number] / / [id number] Procedures Procedure Name Priority Date/Time Associated Diagnosis Comments DEVICE CHECK - REMOTE Routine 11/15/2024 6:11 AM CDT XR CHEST PA LATERAL 2 VIEWS Timed [...] OUTSIDE FILMS Routine 10/09/2024 4:44 AM CDT SD CRITICAL CARE ILL/INJURED PATIENT INIT 30-74 MIN Routine 10/09/2024 4:42 AM CDT XR TRANSFER OF OUTSIDE FILMS Routine 10/09/2024 4:41 AM CDT DEVICE CHECK - IN OFFICE Routine 09/15/2024 12:11 PM CDT Fitting or adjustment of cardiac pacemaker Complete heart block (HCC) from Last 3 Months Results * DEVICE CHECK - REMOTE (11/15/2024 6:11 AM CDT) Anatomical Region Laterality Modality Other 11/15/2024 6:11 AM CDT Narrative 11/15/2024 11:49 AM CDT Interpretation Summary: Battery and Leads (BL) Normal parameters noted on battery and lead(s) --- 5.5 years remaining (this is an estimate based on prior usage) Presenting Rhythm (SD) Atrial Pacing-Ventricular Sensing (AP-VS) --- rate 60 Arrhythmic events (AE) Nonsustained SVT event(s) identified --- Three NS-SVT episodes. Fastest: 170. Longest: 15 seconds Paroxysmal atrial fibrillation and/or flutter --- Nine AT/AF episodes. Longest: 3hrs 53min. V rates 60-110 during AF Anticoagulation (AC) Patient prescribed Apixaban (Eliquis) Patient on anticoagulant therapy Transmission Information (TI) Device Summary Report Procedure Note Eddie James MD - 11/15/2024 Interpretation Summary: Battery and Leads (BL) Normal parameters noted on battery and lead(s) --- 5.5 years remaining(this is an estimate based on prior usage) Presenting Rhythm (SD) Atrial Pacing-Ventricular Sensing (AP-VS) --- rate 60 Arrhythmic events (AE) Nonsustained SVT event(s) identified --- Three NS-SVT episodes. Fastest:170. Longest: 15 seconds Paroxysmal atrial fibrillation and/or flutter --- Nine AT/AF episodes.Longest: 3hrs 53min. V rates 60-110 during AF Anticoagulation (AC) Patient prescribed Apixaban (Eliquis) Patient on anticoagulant therapy Transmission Information (TI) Device Summary Report Eddie James MD [facility] PROCEDURES Final Result * XR Chest Pa Lateral 2 Views [...] data was last reviewed 2021. Blood 10/10/2024 7:4 6 PM CDT 10/10/2024 8:58 PM CDT us Jasmina Mendoza MD LAB BLOOD ORDERABLES Final Result [facility] Department [place] [address] * (ABNORMAL) CBC without differential (10/10/2024 7:46 PM CDT) [facility] WBC 7.44 3.80 - 9.90 K/cumm Hgb 11.2(L) 13.0 - 17.5 g/dL [facility] Hct 34.3(L) 38.9 - 50.3 % [facility] Plt 161 150 - 400 K/cumm [facility] MPV 10.4 9.1 - 12.3 fL [facility] RBC 3.67(L) 4.30 - 5.80 M/cumm [facility] MCV 93.5 81.3 - 96.4 fL [facility] MCH 30.5 27.1 - 33.3 pg [facility] MCHC 32.7 32.3 - 35.7 g/dL [facility] RDW CV 13.1 11.1 - 14.9 % [facility] RDW SD 45.1 35.7 - 48.1 fL [facility] NRBC abs 0.00 0.00 - 0.01 K/cumm [facility] Blood 10/10/2024 7:46 PM CDT 10/10/2024 9:03 PM CDT Clarice Pepe MD LAB BLOOD ORDERABLES Final Resu lt Performing Organization Address City/[facility] Co de Phone Number [facility] [place] [address] * Phosphorus (10/10/2024 7:46 PM CDT) [facility] Phosphorus, pl 3.0 2.3 - 4.5 mg/dL Blood 10/10/2024 7:46 PM CDT 10/10/2024 8:50 PM CDT Clarice Pepe MD LAB BLOOD ORDERABLES Final Resu lt [facility] [place] [address] * Magnesium (10/10/2024 7:46 PM CDT) Pathologist [facility] Magnesium 2.2 1.4 - 2.5 mg/dL Blood 10/10/2024 7:46 PM CDT 10/10/2024 8:50 PM CDT Clarice Pepe MD LAB BLOOD ORDERABLES Final Resu lt [facility] Department [place] [address] * (ABNORMAL) Basic metabolic panel (10/10/2024 7:46 PM CDT) Pathologist [facility] Sodium 135 135 - 145 mmol/L Potassium, pl 3.8 3.3 - 4.9 mmol/L [facility] Chloride 98 97 - 110 mmol/L [facility] CO2 29 22 - 32 mmol/L [facility] Anion gap 8 2 - 15 mmol/L [facility] BUN 17 6 - 25 mg/dL [facility] Creatinine 0.66(L) 0.80 - 1.30 mg/dL [facility] Glucose 151 70 - 199 mg/dL [facility] Comment: Interpretive Data Fasting glucose >/= [...] classification and Diagnosis of Diabetes Diabetes Care 202; 46: S19-S40. Current interpretive data was last revised 2022. Calcium 8.6 8.5 - 10.3 mg/dL [facility] Blood 10/10/2024 7:46 PM CDT 10/10/2024 8:50 PM CDT Jasmina Mendoza MD LAB BLOOD ORDERABLES Final Result [facility] Department [place] [address] * Critical Care (10/10/2024 7:12 PM CDT) Santiago Morales MD - 10/10/2024 7:12 PM CDT Santiago [...] plan with the ICU team and other medical/hospice consultant staff, making frequent assessments and decisions [...] * Critical Care (10/10/2024 6:25 PM CDT) Jamison Munson MD PhD - 10/10/2024 6:25 PM CDT [...] plan with the ICU team and other medical/hospice consultant staff, making frequent assessments and decisions [...] or life-threatening deterioration of the following conditions: Jamison Qureshi MD PhD IN CLINIC/BEDSIDE ORDERABLES Final Result * POCT glucose (10/10/2024 6:00 PM CDT) Glucose, POC 128 70 - 199 mg/dL Blood 10/10/2024 6:00 PM CDT 10/10/2024 6:00 PM CDT Result [facility] Jasmina Mendoza MD LAB POCT ORDERABLES - DEVICE Final Result Performing Organization Address City/[facility]/ZIP Co de Phone Number [facility] [place] [address] * POCT glucose (10/10/2024 11:39 AM CDT) Glucose, POC 124 70 - 199 mg/dL Blood 10/10/2024 11:3 9 AM CDT 10/10/2024 11:39 AM CDT Jasmina Mendoza MD LAB POCT ORDERABLES - DEVICE Final Result [facility] [place] [address] * POCT glucose (10/10/2024 7:34 AM CDT) Glucose, POC 103 70 - 199 mg/dL Blood 10/10/2024 7:34 AM CDT 10/10/2024 7:34 AM CDT us Jasmina Mendoza MD LAB POCT ORDERABLES - DEVICE Final Result [facility] [place] [address] * XR Chest 1 View (10/10/2024 7:08 [...] ORDERABLES Final Resu lt Performing Organization Address City/[facility]/ZIP Co de Phone Number [facility] [place] [address] * POCT glucose (10/09/2024 8:54 PM CDT) [facility] Glucose, POC 127 70 - 199 mg/dL Blood 10/09/2024 8:54 PM CDT 10/09/2024 8:54 PM CDT Jasmina Mendoza MD LAB POCT ORDERABLES - DEVICE Final Result Performing Organization Address City/[facility]/ZIP Co de Phone Number [facility] [place] [address] * (ABNORMAL) CBC without differential (10/09/2024 8:54 PM CDT) [facility] WBC 7.25 3.80 - 9.90 K/cumm Hgb 10.9(L) 13.0 - 17.5 g/dL [facility] Hct 32.9(L) 38.9 - 50.3 % [facility] Plt 122(L) 150 - 400 K/cumm [facility] MPV 9.7 9.1 - 12.3 fL [facility] RBC 3.46(L) 4.30 - 5.80 M/cumm [facility] MCV 95.1 81.3 - 96.4 fL [facility] MCH 31.5 27.1 - 33.3 pg [facility] MCHC 33.1 32.3 - 35.7 g/dL [facility] RDW CV 13.4 11.1 - 14.9 % [facility] RDW SD 46.7 35.7 - 48.1 fL [facility] NRBC abs 0.00 0.00 - 0.01 K/cumm [facility] Blood 10/09/2024 8:54 PM CDT 10/09/2024 9:07 PM CDT Clarice Pepe MD LAB BLOOD ORDERABLES Final Resu lt [facility] [place] [address] * Phosphorus (10/09/2024 8:54 PM CDT) Phosphorus, pl 2.9 2.3 - 4.5 mg/dL Blood 10/09/2024 8:54 PM CDT 10/09/2024 9:07 PM CDT Clarice Pepe MD LAB BLOOD ORDERABLES Final Resu lt [facility] [place] [address] * Magnesium (10/09/2024 8:54 PM CDT) Magnesium 2.1 1.4 - 2.5 mg/dL Blood 10/09/2024 8:54 PM CDT 10/09/2024 9:07 PM CDT us Clarice Pepe MD LAB BLOOD ORDERABLES Final Resu lt [facility] Department [place] [address] * Lipid panel (10/09/2024 8:54 PM CDT) [...] revised on 2018. Triglycerides 122 <=149 mg/dL [facility] Comment: Interpretive Data Ages < or = [...] on 2018. HDL 52 >=40 mg/dL [facility] Comment: Interpretive Data Ages < or = [...] 2018. LDL, calculated 24 <=129 mg/dL [facility] Comment: Interpretive Data Ages < or = [...] NCEP Expert Panel. Circulation 2004;110:227 3. Marino Mendiola et al. CELESTE Cardiol. 2019October 28;5(5):540-548. doi: 10.1001/jamacardio.2020.0013 Current Interpretive Data was last revised on 2024. Non-HDL Cholesterol 46 mg/dL [facility] Comment: Interpretive Data Ages < or = [...] last revised on 2018. Chol/HDL ratio 2 [facility] Blood 10/09/2024 8:54 PM CDT 10/09/2024 9:07 PM CDT Jasmina Mendoza MD LAB BLOOD ORDERABLES Final Result [facility] Department [place] [address] * (ABNORMAL) Comprehensive metabolic panel (10/09/2024 8:54 PM CDT) Sodium 139 135 - 145 mmol/L Potassium, pl 4.3 3.3 - 4.9 mmol/L [facility] Chloride 105 97 - 110 mmol/L [facility] CO2 28 22 - 32 mmol/L [facility] Anion gap 6 2 - 15 mmol/L [facility] BUN 21 6 - 25 mg/dL [facility] Creatinine 0.75(L) 0.80 - 1.30 mg/dL [facility] Glucose 122 70 - 199 mg/dL [facility] Comment: Interpretive Data Fasting glucose >/= [...] 2022. Calcium 8.5 8.5 - 10.3 mg/dL [facility] Bilirubin, total 1.8(H) 0.1 - 1.2 mg/dL [facility] Protein, pl 6.1(L) 6.5 - 8.5 g/dL [facility] Albumin 3.5 3.5 - 5.0 g/dL [facility] Alk phos 52 40 - 130 Units/L [facility] ALT 33 7 - 55 Units/L [facility] AST 40 10 - 50 Units/L [facility] Blood 10/09/2024 8:54 PM CDT 10/09/2024 9:07 PM CDT us Clarice Pepe MD LAB BLOOD ORDERABLES Final Resu lt [facility] Department [place] [address] * Critical Care (10/09/2024 7:53 PM CDT) [...] plan with the ICU team and other medical/hospice consultant staff, making frequent assessments and decisions [...] LAB POCT ORDERABLES - DEVICE Final Result [facility] Department [place] [address] * Critical Care (10/09/2024 5:49 PM CDT) [...] plan with the ICU team and other medical/hospice consultant staff, making frequent assessments and decisions [...] spent time documenting in the medical record Jamison Qureshi MD PhD IN CLINIC/BEDSIDE ORDERABLES [...] - DEVICE Final Result Performing Organization Address City/[facility]/ZIP Co de Phone Number [facility] [place] [address] * POCT glucose (10/09/2024 11:21 AM CDT) Glucose, POC 108 70 - 199 mg/dL Blood 10/09/2024 11:2 1 AM CDT 10/09/2024 11:21 AM CDT Jasmina Mendoza MD LAB POCT ORDERABLES - DEVICE Final Result Performing Organization Address [facility] Co de Phone Number [facility] Department [place] [address] * POCT glucose (10/09/2024 8:23 AM CDT) Glucose, POC 105 70 - 199 mg/dL Blood 10/09/2024 8:23 AM CDT 10/09/2024 8:23 AM CDT Clarice Pepe MD LAB POCT ORDERABLES - DEVICE Fi nal Result Performing Organization Address [facility] Co de Phone Number [facility] Department [place] [address] * XR Outside Reference (10/09/2024 4:56 AM CDT) Impressions [facility] - 10/09/2024 4:56 AM CDT These images are for Reference purposes only and have not been reviewed by [facility] Radiology. There will be no report generated by a [facility] Radiologist. Narrative [facility] - 10/09/2024 4:56 AM CDT EXAMINATION: Images For Reference Purposes Only Debo Sweeney MD IMG XR PROCEDURES Fi nal Result Performing Organization Address [facility] de Phone Number [email or web address] * XR Outside Reference (10/09/2024 4:54 AM CDT) Impressions [email or web address] - 10/09/2024 4:54 AM CDT These images are for Reference purposes only and have not been reviewed by [facility] Radiology. There will be no report generated by a [facility] Radiologist. Narrative [facility] - 10/09/2024 4:54 AM CDT EXAMINATION: Images For Reference Purposes Only Debo Sweeney MD IMG XR PROCEDURES Fi nal Result Performing Organization Address [facility] Co de Phone Number [email or web address] * Neuro CT [...] images may or may not represent the [place] source data set and thus may contain [...] IMAGING STUDY STUDY INITIALLY PERFORMED: 10/08/2024 at [facility]. TYPE OF STUDY: Multiple CT images [...] IMAGING STUDY STUDY INITIALLY PERFORMED: 10/08/2024 at [facility]. TYPE OF STUDY: Multiple CT images [...] images may or may not represent the [place] source data set and thus may contain changes that may lower the accuracy of this second-opinion interpretation. Dictated by: Abelardo Fatima MD The radiology attending physician has personally reviewed this study, and had reviewed and/or edited this written report and agrees with it. Electronically signed by: Elroy Stinson M.D. us Debo Sweeney MD IMG CT PROCEDURES Fi [...] Sweeney MD LAB BLOOD ORDERABLES Final Result [facility] Department [place] [address] * Differential, auto (10/09/2024 4:51 AM CDT) Neutrophil abs 4.47 1.50 - 6.50 K/cumm Imm gran abs 0.03 0.00 - 0.10 K/cumm [facility] Lymphocyte abs 1.82 0.80 - 3.30 K/cumm [facility] Monocyte abs 0.73 0.20 - 0.80 K/cumm [facility] Eosinophil abs 0.19 0.00 - 0.50 K/cumm [facility] Basophil abs 0.02 0.00 - 0.10 K/cumm [facility] Neutrophil pct 61.5 % [facility] Comment: Interpretive Data Percent cell count reference ranges are not reported, since discordance with absolute values may lead to misinterpretation of CBC data. Current Interpretive Data was last revised on 2017. Imm gran pct 0.4 % [facility] Comment: Interpretive Data Percent cell count reference ranges are not reported, since discordance with absolute values may lead to misinterpretation of CBC data. Current Interpretive Data was last revised on 2017. Lymphocyte pct 25.1 % [facility] Comment: Interpretive Data Percent cell count reference ranges are not reported, since discordance with absolute values may lead to misinterpretation of CBC data. Current Interpretive Data was last revised on 2017. Monocyte pct 10.1 % [facility] Comment: Interpretive Data Percent cell count reference ranges are not reported, since discordance with absolute values may lead to misinterpretation of CBC data. Current Interpretive Data was last revised on 2017. Eosinophil pct 2.6 % [facility] Comment: Interpretive Data Percent cell count reference ranges are not reported, since discordance with absolute values may lead to misinterpretation of CBC data. Current Interpretive Data was last revised on 2017. Basophil pct 0.3 % [facility] Comment: Interpretive Data Percent cell count reference ranges are not reported, since discordance with absolute values may lead to misinterpretation of CBC data. Current Interpretive Data was last revised on 2017. Blood 10/09/2024 4:51 AM CDT 10/09/2024 5:00 AM CDT us Debo Sweeney MD LAB BLOOD ORDERABLES Final Result [facility] Department [place] [address] * (ABNORMAL) CBC with auto differential (10/09/2024 4:51 AM CDT) WBC 7.26 3.80 - 9.90 K/cumm Hgb 11.8(L) 13.0 - 17.5 g/dL [facility] Hct 35.1(L) 38.9 - 50.3 % [facility] Plt 119(L) 150 - 400 K/cumm [facility] MPV 9.8 9.1 - 12.3 fL [facility] RBC 3.75(L) 4.30 - 5.80 M/cumm [facility] MCV 93.6 81.3 - 96.4 fL [facility] MCH 31.5 27.1 - 33.3 pg [facility] MCHC 33.6 32.3 - 35.7 g/dL [facility] RDW CV 13.3 11.1 - 14.9 % [facility] RDW SD 45.4 35.7 - 48.1 fL [facility] NRBC abs 0.00 0.00 - 0.01 K/cumm [facility] Blood 10/09/2024 4:51 AM CDT 10/09/2024 5:00 AM CDT Debo Sweeney MD LAB BLOOD ORDERABLES Final Result Performing Organization Address [facility] de Phone Number [facility] [place] [address] * (ABNORMAL) aPTT (10/09/2024 4:51 AM CDT) [...] BLOOD ORDERABLES Final Result Performing Organization Address [facility] de Phone Number [facility] [place] [address] * (ABNORMAL) Protime-INR (10/09/2024 4:51 AM CDT) PT 14.9(H) 9.7 - 13.0 sec INR 1.37(H) 0.90 - 1.20 [facility] Comment: Interpretive data Oral anticoagulant therapeutic ranges: Venous thromboembolism prophylaxis or treatment: 2.0-3.0 CARDIOLOGY Standard range: 2.0-3.0 High-intensity range: 2.5-3.5 Refer to indication-specific guidelines for appropriate target ranges for prosthetic heart valve replacement. Current interpretive data was last revised on 2019. Blood 10/09/2024 4:51 AM CDT 10/09/2024 5:06 AM CDT Debo Sweeney MD LAB BLOOD ORDERABLES Final Result [facility] Department [place] [address] * (ABNORMAL) Basic metabolic panel (10/09/2024 4:51 AM CDT) Pathologist [facility] Sodium 141 135 - 145 mmol/L Potassium, pl 4.1 3.3 - 4.9 mmol/L [facility] Chloride 105 97 - 110 mmol/L [facility] CO2 29 22 - 32 mmol/L [facility] Anion gap 7 2 - 15 mmol/L [facility] BUN 22 6 - 25 mg/dL [facility] Creatinine 0.62(L) 0.80 - 1.30 mg/dL [facility] Glucose 118 70 - 199 mg/dL [facility] Comment: Interpretive Data Fasting glucose >/= [...] 2022. Calcium 8.5 8.5 - 10.3 mg/dL [facility] Blood 10/09/2024 4:51 AM CDT 10/09/2024 5:00 AM CDT Debo Sweeney MD LAB BLOOD ORDERABLES Final Result Performing Organization Address City/[facility]/ZIP Co de Phone Number [facility] Department [place] [address] * Neuro CT Outside Consult (10/09/2024 4:49 [...] images may or may not represent the [place] tribe source data set and thus may contain [...] IMAGING STUDY STUDY INITIALLY PERFORMED: 10/08/2024 at [facility]. TYPE OF STUDY: Multiple CT images [...] IMAGING STUDY STUDY INITIALLY PERFORMED: 10/08/2024 at [facility]. TYPE OF STUDY: Multiple CT images [...] images may or may not represent the umatilla tribe source data set and thus may contain [...] superiorly into the right neck outside the [id number]-[id number]. 2. Bilateral basilar predominant groundglass and consolidation [...] images may or may not represent the umatilla tribe source data set and thus may contain [...] IMAGING STUDY STUDY INITIALLY PERFORMED: 10/08/2024 at [facility]. TYPE OF STUDY: Multiple CT [...] IMAGING STUDY STUDY INITIALLY PERFORMED: 10/08/2024 at [facility]. TYPE OF STUDY: Multiple CT [...] superiorly into the right neck outside the kuhib-ms-ibci. 2. Bilateral basilar predominant groundglass and consolidation [...] images may or may not represent the umatilla tribe source data set and thus may contain [...] Outside Reference (10/09/2024 4:44 AM CDT) Impressions [facility] - 10/09/2024 4:44 AM CDT These images are for Reference purposes only and have not been reviewed by [facility]iology. There will be no report generated by a [facility] Radiologist. Narrative [facility] - 10/09/2024 4:44 AM CDT EXAMINATION: Images For Reference Purposes Only Debo Sweeney MD IMG XR PROCEDURES Fi nal Result [facility] * SD CRITICAL CARE ILL/INJURED PATIENT INIT 30-74 MIN [...] only and have not been reviewed by [facility]. There will be no report generated by a [facility] Radiologist. Narrative [facility] - 10/09/2024 4:41 [...] Estimated battery longevity 5.5 years Presenting Rhythm (SD) Atrial Sensing-Ventricular Sensing (-VS) --- NSR 70 bpm. Anticoagulation (AC) Patient prescribed Apixaban (Eliquis) Patient on anticoagulant therapy Transmission Information (TI) Device Summary Report Procedure Note Duran Chase MD PhD - 09/19/2024 Interpretation Summary: Battery and Leads (BL) Normal parameters noted on battery and lead(s) --- Estimated batterylongevity 5.5 years Presenting Rhythm (SD) Atrial Sensing-Ventricular Sensing (-VS) --- NSR 70 bpm. Anticoagulation (AC) Patient prescribed Apixaban (Eliquis) Patient on anticoagulant therapy Transmission Information (TI) Device Summary Report Eddie James MD CV CARDIAC SERVICES PROCEDURES Final Result from Last 3 Months Insurance [employer] MEDICARE [facility] Address: [address] [address] [employer] MED[employer]ARE [employer] Address: [address] [address] [facility] Address: [facility] [address] [place] [address] Advance Directives For more information, please contact: [phone] * Full Code (Latest Code Status on File) Date Activated Date Inactivated Comments 10/09/2024 8:37 AM 10/11/2024 6:34 PM * Full Code Date Activated Date Inactivated Comments 03/19/2021 2:35 PM 03/21/2021 8:52 PM * Full Code Date Activated Date Inactivated Comments 03/15/2021 9:47 AM 03/16/2021 7:41 PM Care Teams Loom Overhauler Relationship Specialty Start Date End Date Montserrat Sal MD [address] [facility] [address] [place] [address] PCP - General Family Medicine 10/19/20 Ricardo Alegria MD [address] [address] Referring Physician Cardiology 02/02/21 Peng Lozada Jr., MD [address] [address] Consulting Physician Cardiothoracic Surgery 03/16/21 Alphonso Tran MD [address] [facility] [address] [place] [address] Referring Physician Cardiology 03/16/21
--- OUTSIDE RECORDS SUMMARY | 2024-11-25 13:07 | XMS_ITS | Encounter Summary ---
Author Organization [facility] Address [address] [place] [address] Phone Care Team Providers Care Procurement Consultant Name Role Phone Montserrat Sal MD Primary Care Provider Ricarod Alegria MD Unavailable [phone] Neville Orellana MD, Peng Gene Unavailable [phone] Alphonso Tran MD Unavailable [phone] Encounter Details Date Type Department Care Team (Late st Contact Info) Description 03/31/2023 Telephone [facility] Cardiology [address] [facility] Medicine 8th [place] [address] [place] [address] Alphonso Tran MD [address] [place] [address] Social History Tobacco Use Types [...] on file 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 Gender Identity Male 02/27/2021 9:36 AM CDT Sexual Orientation Not on file documented as of this encounter Plan of Treatment Not on file documented as of this encounter Visit Diagnoses Not on filedocumented in this encounter Care Teams Procurement Consultant Relationship Specialty Start Date End Date Montserrat Sal MD [address] [place] [address] PCP - General Family Medicine 10/19/20 Ricardo Alegria MD [address] [place] [address] Referring Physician Cardiology 02/02/21 Peng Lozada Jr., MD [address] [place] [address] Consulting Physician Cardiothoracic Surgery 03/16/21 Alphonso Tran MD [address] [place] [address] Referring Physician Cardiology 03/16/21 documented as of this encounter
--- OUTSIDE RECORDS SUMMARY | 2024-11-25 13:07 | XMS_ITS | Referral Summary ---
Author Organization [facility] [address] Address [address] [place] [address] Care Team Providers Care Assembler Handbags Name Role Phone Montserrat Sal MD Primary Care Provider Ricardo Alegria MD Unavailable [phone] Neville Orellana MD, Peng Gibbons Unavailable [phone] Alphonso Tran MD Unavailable [phone] Encounters Date Type Department Care Team Description 11/15/2024 Orders Only [facility] Cardiology [address] [place] [address] Advanced Medicine 8th [place] [address] [place] [address] Eddie James MD 10/09/2024 4:21 AM CDT - 10/11/2024 2:25 PM CDT Hospital Encounter [facility] [address] [place] [address] Karl Quesada MD Staszak, Jessica Kathryn, MD Eswaran, Vidya, MD Traumatic pneumothorax, initial encounter (Primary Dx); Closed fracture of multiple ribs of right side, initial encounter; Fall, subsequent encounter Discharge Disposition: Discharge to home or self care 09/15/2024 1:00 PM CDT Office Visit [facility] Cardiology [address] [place] [address] Advanced Medicine 8th [place] [address] [place] [address] Sheron Madden NP S/P TAVR (transcatheter aortic valve replacement) (Primary Dx); Pacemaker; Complete heart block (HCC) 09/15/2024 12:30 PM CDT Ancillary Procedure [facility] Cardiology [address] [facility] 8th [place] [address] [place] [address] Complete heart block (HCC) (Primary Dx); Fitting or adjustment of cardiac pacemaker from Last 3 Months Allergies Active Allergy [...] block s/p pacemaker - [facility]. Per patient, manages medications. Believes last took medications yesterday. - Hold home ASA/Eliquis - OK to restart eliquis on DC Complete heart block 03/19/2021 Overview (03/19/2021): Added automatically from request for surgery [id number] Dementia 03/15/2021 Assessment & Plan (03/15/2021 11:05 [...] BMI 29.27 Coronary artery disease invo lving [place] coronary artery of [place] heart without angina pectoris 04/09/2017 Assessment & Plan (03/15/2021 11:04 AM CDT): Hx of Bare metal stents placed to the RCA and LAD in [place] in 1998 in the setting of [place] followed by re-intervention to the LAD in 2012 at [place], [place] -continue asa -continue statin and zetia [...] on file 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 Gender Identity Male 02/27/2021 9:36 AM CDT [...] on file Medical Devices Implanted Type Area Psychological Operations Officer Device Identifier Shelf Expiration Date Model / Serial / Lot [employer] Shira 7842 Lead 7842 Endocardial Pacing Mr Is-1 Bipolar Connection - [id number] - [id number] Implanted:Qty: 1 on 03/20/2021 by Eddie James MD at [facility] Lead Left: Heart [employer] Shira 01/09/2023 7842 / [id number] / [employer] Shira 4470 Fineline Ii Sterox Ez 1.7mm 52cm Bipolar Active Fixation Screw - [id number] - [id number] Implanted:Qty: 1 on 03/20/2021 by Eddie James MD at [facility] Lead Left: Heart [employer] Shira 12/20/2022 4470 / [id number] / [employer] [id number] Perclose 6fr Suture Mediate Knot Push Vascular Device Closure - [id number] Implanted:Qty: 1 on 03/15/2021 by Peng Lozada Jr., MD at [facility] Other - see comments Right: Arterial [employer] [id number] / / Description:Perclose for rig ht femoral artery [employer] C.R.M. L111 Essentio 4.45x5.02cm 2 Chamber Is1 Connector .75cm Pacemaker 13.7 - [id number] - [id number] Implanted:Qty: 1 on 03/20/2021 by Eddie James MD at [facility] Pacemaker Left: Heart [employer] C.R.M. 02/05/2023 L111 / [id number] / Stent N/A: Heart [employer] [id number] Valve Heart 26mm Chace 3 Transcatheter - [id number] - [id number] Implanted:Qty: 1 on 03/15/2021 by Peng Lozada Jr., MD at [facility] N/A: Heart [employer] 11/20/2022 [id number] / [id number] / Daig Shira/[employer] [id number] Angio-Seal Evolution 6fr .035in Guidewire Bypass Tube Suture - [id number] Implanted:Qty: 1 on 03/15/2021 by Peng Lozada Jr., MD at [facility] Right: Arterial [employer] Shira 09/27/2021 [id number] / / [id number] Procedures Procedure Name Priority Date/Time Associated Diagnosis [...] OUTSIDE FILMS Routine 10/09/2024 4:44 AM CDT [facility] CRITICAL CARE ILL/INJURED PATIENT INIT 30-74 MIN [...] estimate based on prior usage) Presenting Rhythm (NH) Atrial Pacing-Ventricular Sensing (AP-VS) --- rate 60 [...] estimate based on prior usage) Presenting Rhythm (NH) Atrial Pacing-Ventricular Sensing (AP-VS) --- rate 60 [...] Mendoza MD LAB BLOOD ORDERABLES Final Result [facility] [place] [address] * (ABNORMAL) CBC without differential (10/10/2024 7:46 PM CDT) WBC 7.44 3.80 - 9.90 K/cumm Hgb 11.2(L) 13.0 - 17.5 g/dL [facility] Hct 34.3(L) 38.9 - 50.3 % [facility] Plt 161 150 - 400 K/cumm [facility] MPV 10.4 9.1 - 12.3 fL [facility] RBC 3.67(L) 4.30 - 5.80 M/cumm [facility] MCV 93.5 81.3 - 96.4 fL [facility] MCH 30.5 27.1 - 33.3 pg [facility] MCHC 32.7 32.3 - 35.7 g/dL [facility] RDW CV 13.1 11.1 - 14.9 % [facility] RDW SD 45.1 35.7 - 48.1 fL [facility] NRBC abs 0.00 0.00 - 0.01 K/cumm [facility] Blood 10/10/2024 7:46 PM CDT 10/10/2024 9:03 PM CDT Clarice Pepe MD LAB BLOOD ORDERABLES Final Resu lt Performing Organization Address City/[facility]/ZIP Co de Phone Number [facility] [place] [employer] [place] [address] * Phosphorus (10/10/2024 7:46 PM CDT) [facility] Phosphorus, pl 3.0 2.3 - 4.5 mg/dL Blood 10/10/2024 7:46 PM CDT 10/10/2024 8:50 PM CDT Clarice Pepe MD LAB BLOOD ORDERABLES Final Resu lt Performing Organization Address [facility] Co de Phone Number [facility] [place] [place] [address] * Magnesium (10/10/2024 7:46 PM CDT) [facility] Magnesium 2.2 1.4 - 2.5 mg/dL Blood 10/10/2024 7:46 PM CDT 10/10/2024 8:50 PM CDT Clarice Pepe MD LAB BLOOD ORDERABLES Final Resu lt Performing Organization Address City/[facility] [place] [address] * (ABNORMAL) Basic metabolic panel (10/10/2024 7:46 PM CDT) [facility] Sodium 135 135 - 145 mmol/L Potassium, pl 3.8 3.3 - 4.9 mmol/L [facility] Chloride 98 97 - 110 mmol/L [facility] CO2 29 22 - 32 mmol/L [facility] Anion gap 8 2 - 15 mmol/L [facility] BUN 17 6 - 25 mg/dL [facility] Creatinine 0.66(L) 0.80 - 1.30 mg/dL [facility] Glucose 151 70 - 199 mg/dL [facility] Comment: Interpretive Data Fasting glucose >/= 126 [...] 2022. Calcium 8.6 8.5 - 10.3 mg/dL [facility] Blood 10/10/2024 7:46 PM CDT 10/10/2024 8:50 PM CDT us Jasmina Mendoza MD LAB BLOOD ORDERABLES Final Result [facility] One [facility] [place] [address] * Critical Care (10/10/2024 7:12 PM CDT) [...] plan with the ICU team and other medical/spa consultant staff, making frequent assessments and decisions [...] or life-threatening deterioration of the following conditions: Santiago Lambert MD IN CLINIC/BEDSIDE JACINTORaquel MAURA Final Result * Critical Care (10/10/2024 6:25 [...] plan with the ICU team and other medical/spa consultant staff, making frequent assessments and decisions [...] POCT ORDERABLES - DEVICE Final Result [facility] Department [place] [address] * POCT glucose (10/10/2024 11:39 AM CDT) Glucose, POC 124 70 - 199 mg/dL Blood 10/10/2024 11:3 9 AM CDT 10/10/2024 11:39 AM CDT us Jasmina Mendoza MD LAB POCT ORDERABLES - DEVICE Final Result Performing Organization Address [facility] Co de Phone Number [facility] [place] [address] * POCT glucose (10/10/2024 7:34 AM CDT) Glucose, POC 103 70 - 199 mg/dL Blood 10/10/2024 7:34 AM CDT 10/10/2024 7:34 AM CDT us Jasmina Mendoza MD LAB POCT ORDERABLES - DEVICE Final Result Performing Organization Address [facility] de Phone Number [facility] Department [place] [address] * XR Chest 1 View (10/10/2024 7:08 [...] ORDERABLES Final Resu lt Performing Organization Address City/[facility]/ZIP Co de Phone Number [facility] [place] [address] * POCT glucose (10/09/2024 8:54 PM CDT) [facility] Glucose, POC 127 70 - 199 mg/dL Blood 10/09/2024 8:54 PM CDT 10/09/2024 8:54 PM CDT us Jasmina Mendoza MD LAB POCT ORDERABLES - DEVICE Final Result Performing Organization Address [facility] Co de Phone Number [facility] [place] [address] * (ABNORMAL) CBC without differential (10/09/2024 8:54 PM CDT) [facility] WBC 7.25 3.80 - 9.90 K/cumm Hgb 10.9(L) 13.0 - 17.5 g/dL [facility] Hct 32.9(L) 38.9 - 50.3 % [facility] Plt 122(L) 150 - 400 K/cumm [facility] MPV 9.7 9.1 - 12.3 fL [facility] RBC 3.46(L) 4.30 - 5.80 M/cumm [facility] MCV 95.1 81.3 - 96.4 fL [facility] MCH 31.5 27.1 - 33.3 pg [facility] MCHC 33.1 32.3 - 35.7 g/dL [facility] RDW CV 13.4 11.1 - 14.9 % [facility] RDW SD 46.7 35.7 - 48.1 fL [facility] NRBC abs 0.00 0.00 - 0.01 K/cumm [facility] Blood 10/09/2024 8:54 PM CDT 10/09/2024 9:07 PM CDT us Clarice Pepe MD LAB BLOOD ORDERABLES Final Resu lt Performing Organization Address [facility] Co de Phone Number [facility] [employer] [place] [address] * Phosphorus (10/09/2024 8:54 PM CDT) Phosphorus, pl 2.9 2.3 - 4.5 mg/dL Blood 10/09/2024 8:54 PM CDT 10/09/2024 9:07 PM CDT Clarice Pepe MD LAB BLOOD ORDERABLES Final Resu lt Performing Organization Address [facility] Co de Phone Number [facility] [place] [place] [address] * Magnesium (10/09/2024 8:54 PM CDT) Magnesium 2.1 1.4 - 2.5 mg/dL Blood 10/09/2024 8:54 PM CDT 10/09/2024 9:07 PM CDT Clarice Pepe MD LAB BLOOD ORDERABLES Final Resu lt Performing Organization Address [facility] Co de Phone Number [facility] [place] [address] * Lipid panel (10/09/2024 8:54 PM CDT) [...] revised on 2018. Triglycerides 122 <=149 mg/dL [facility] Comment: Interpretive Data Ages < or = [...] revised on 2018. HDL 52 >=40 mg/dL [facility] Comment: Interpretive Data Ages < or = [...] on 2018. LDL, calculated 24 <=129 mg/dL [facility] Comment: Interpretive Data Ages < or = [...] 3. Marino Mendiola et al. CELESTE Cardiol. 2020 October 28;5(5):540-548. doi: 10.1001/jamacardio.2020.0013 Current Interpretive Data was last revised on 2024. Non-HDL Cholesterol 46 mg/dL [facility] Comment: Interpretive Data Ages < or = [...] last revised on 2018. Chol/HDL ratio 2 [facility] Blood 10/09/2024 8:54 PM CDT 10/09/2024 9:07 PM CDT Jasmina Mendoza MD LAB BLOOD ORDERABLES Final Result [facility] One [facility] [place] [address] * (ABNORMAL) Comprehensive metabolic panel (10/09/2024 8:54 PM CDT) Sodium 139 135 - 145 mmol/L Potassium, pl 4.3 3.3 - 4.9 mmol/L [facility] Chloride 105 97 - 110 mmol/L [facility] CO2 28 22 - 32 mmol/L [facility] Anion gap 6 2 - 15 mmol/L [facility] BUN 21 6 - 25 mg/dL [facility] Creatinine 0.75(L) 0.80 - 1.30 mg/dL [facility] Glucose 122 70 - 199 mg/dL [facility] Comment: Interpretive Data Fasting glucose >/= 126 [...] Calcium 8.5 8.5 - 10.3 mg/dL [facility] Bilirubin, total 1.8(H) 0.1 - 1.2 mg/dL [facility] Protein, pl 6.1(L) 6.5 - 8.5 g/dL [facility] Albumin 3.5 3.5 - 5.0 g/dL [facility] Alk phos 52 40 - 130 Units/L [facility] ALT 33 7 - 55 Units/L [facility] AST 40 10 - 50 Units/L [facility] Blood 10/09/2024 8:54 PM CDT 10/09/2024 9:07 PM CDT us Clarice Ppee MD LAB BLOOD ORDERABLES Final Resu lt [facility] One [facility] [place] [address] * Critical Care (10/09/2024 7:53 PM CDT) [...] plan with the ICU team and other medical/spa consultant staff, making frequent assessments and decisions [...] LAB POCT ORDERABLES - DEVICE Final Result [facility] One [facility] [place] [address] * Critical Care (10/09/2024 5:49 PM CDT) [...] plan with the ICU team and other medical/spa consultant staff, making frequent assessments and decisions [...] - DEVICE Final Result Performing Organization Address [facility] de Phone Number [facility] [employer] [address] * POCT glucose (10/09/2024 11:21 AM CDT) Glucose, POC 108 70 - 199 mg/dL Blood 10/09/2024 11:2 1 AM CDT 10/09/2024 11:21 AM CDT Jasmina Mendoza MD LAB POCT ORDERABLES - DEVICE Final Result Performing Organization Address [facility] de Phone Number [facility] [place] [address] * POCT glucose (10/09/2024 8:23 AM CDT) Glucose, POC 105 70 - 199 mg/dL Blood 10/09/2024 8:23 AM CDT 10/09/2024 8:23 AM CDT Clarice Pepe MD LAB POCT ORDERABLES - DEVICE Fi nal Result Performing Organization Address [facility] [place] [address] * XR Outside Reference (10/09/2024 4:56 AM CDT) Impressions RAD_PACS_[facility] - 10/09/2024 4:56 AM CDT These images are for Reference purposes only and have not been reviewed by [facility] Radiology. There will be no report generated by a [facility] Radiologist. Narrative RAD_PACS_[facility] - 10/09/2024 4:56 AM CDT EXAMINATION: Images For Reference Purposes Only Debo Sweeney MD IMG XR PROCEDURES Fi nal Result Performing Organization Address City/[facility] Co de Phone Number [email or web address] * XR Outside Reference (10/09/2024 4:54 AM CDT) Impressions [facility] - 10/09/2024 4:54 AM CDT These images are for Reference purposes only and have not been reviewed by [facility] Radiology. There will be no report generated by a [facility] Radiologist. Narrative [facility] - 10/09/2024 4:54 AM CDT EXAMINATION: Images For Reference Purposes Only Debo Sweeney MD IMG XR PROCEDURES Fi nal Result Performing Organization Address [facility] de Phone Number [email or web address] * Neuro CT [...] images may or may not represent the [place] source data set and thus may contain [...] IMAGING STUDY STUDY INITIALLY PERFORMED: 10/08/2024 at [facility]. TYPE OF STUDY: Multiple [...] IMAGING STUDY STUDY INITIALLY PERFORMED: 10/08/2024 at [facility]. TYPE OF STUDY: Multiple [...] images may or may not represent the [place] source data set and thus may contain [...] Sweeney MD LAB BLOOD ORDERABLES Final Result [facility] One [facility] [address] * Differential, auto (10/09/2024 4:51 AM CDT) Neutrophil abs 4.47 1.50 - 6.50 K/cumm Imm gran abs 0.03 0.00 - 0.10 K/cumm [facility] Lymphocyte abs 1.82 0.80 - 3.30 K/cumm [facility] Monocyte abs 0.73 0.20 - 0.80 K/cumm [facility] Eosinophil abs 0.19 0.00 - 0.50 K/cumm [facility] Basophil abs 0.02 0.00 - 0.10 K/cumm [facility] Neutrophil pct 61.5 % [facility] Comment: Interpretive Data Percent cell count reference ranges are not reported, since discordance with absolute values may lead to misinterpretation of CBC data. Current Interpretive Data was last revised on 2017. Imm gran pct 0.4 % [facility] Comment: Interpretive Data Percent cell count reference ranges are not reported, since discordance with absolute values may lead to misinterpretation of CBC data. Current Interpretive Data was last revised on 2017. Lymphocyte pct 25.1 % [facility] Comment: Interpretive Data Percent cell count reference ranges are not reported, since discordance with absolute values may lead to misinterpretation of CBC data. Current Interpretive Data was last revised on 2017. Monocyte pct 10.1 % [facility] Comment: Interpretive Data Percent cell count reference ranges are not reported, since discordance with absolute values may lead to misinterpretation of CBC data. Current Interpretive Data was last revised on 2017. Eosinophil pct 2.6 % [facility] Comment: Interpretive Data Percent cell count reference ranges are not reported, since discordance with absolute values may lead to misinterpretation of CBC data. Current Interpretive Data was last revised on 2017. Basophil pct 0.3 % [facility] Comment: Interpretive Data Percent cell count reference ranges are not reported, since discordance with absolute values may lead to misinterpretation of CBC data. Current Interpretive Data was last revised on 2017. Blood 10/09/2024 4:51 AM CDT 10/09/2024 5:00 AM CDT Debo Sweeney MD LAB BLOOD ORDERABLES Final Result Performing Organization Address City/[facility]/ZIP Co de Phone Number [facility] Department [place] [address] * (ABNORMAL) CBC with auto differential (10/09/2024 4:51 AM CDT) [facility] WBC 7.26 3.80 - 9.90 K/cumm Hgb 11.8(L) 13.0 - 17.5 g/dL [facility] Hct 35.1(L) 38.9 - 50.3 % [facility] Plt 119(L) 150 - 400 K/cumm [facility] MPV 9.8 9.1 - 12.3 fL [facility] RBC 3.75(L) 4.30 - 5.80 M/cumm [facility] MCV 93.6 81.3 - 96.4 fL [facility] MCH 31.5 27.1 - 33.3 pg [facility] MCHC 33.6 32.3 - 35.7 g/dL [facility] RDW CV 13.3 11.1 - 14.9 % [facility] RDW SD 45.4 35.7 - 48.1 fL [facility] NRBC abs 0.00 0.00 - 0.01 K/cumm [facility] Blood 10/09/2024 4:51 AM CDT 10/09/2024 5:00 AM CDT Debo Sweeney MD LAB BLOOD ORDERABLES Final Result [facility] Department [place] [address] * (ABNORMAL) aPTT (10/09/2024 4:51 AM CDT) [facility] aPTT 27(L) 28 - 38 sec Comment: Interpretive Data Heparin therapeutic range: 66.0 - 100.0 seconds. Range based on correlation with therapeutic heparin activity range of 0.3 - 0.7 Units/mL. Current interpretive data was last revised on 2023. Blood 10/09/2024 4:51 AM CDT 10/09/2024 5:06 AM CDT Debo Sweeney MD LAB BLOOD ORDERABLES Final Result Performing Organization Address [facility] de Phone Number [facility] [place] [address] * (ABNORMAL) Protime-INR (10/09/2024 4:51 AM CDT) Pathologist [facility] PT 14.9(H) 9.7 - 13.0 sec INR 1.37(H) 0.90 - 1.20 [facility] Comment: Interpretive data Oral anticoagulant therapeutic ranges: Venous thromboembolism prophylaxis or treatment: 2.0-3.0 CARDIOLOGY Standard range: 2.0-3.0 High-intensity range: 2.5-3.5 Refer to indication-specific guidelines for appropriate target ranges for prosthetic heart valve replacement. Current interpretive data was last revised on 2019. Blood 10/09/2024 4:51 AM CDT 10/09/2024 5:06 AM CDT Debo Sweeney MD LAB BLOOD ORDERABLES Final Result Performing Organization Address [facility] de Phone Number [facility] [place] [address] * (ABNORMAL) Basic metabolic panel (10/09/2024 4:51 AM CDT) Pathologist [facility] Sodium 141 135 - 145 mmol/L Potassium, pl 4.1 3.3 - 4.9 mmol/L [facility] Chloride 105 97 - 110 mmol/L [facility] CO2 29 22 - 32 mmol/L [facility] Anion gap 7 2 - 15 mmol/L [facility] BUN 22 6 - 25 mg/dL [facility] Creatinine 0.62(L) 0.80 - 1.30 mg/dL [facility] Glucose 118 70 - 199 mg/dL [facility] Comment: Interpretive Data Fasting glucose >/= 126 [...] 2022. Calcium 8.5 8.5 - 10.3 mg/dL [facility] Blood 10/09/2024 4:51 AM CDT 10/09/2024 5:00 AM CDT Debo Sweeney MD LAB BLOOD ORDERABLES Final Result [facility] One [facility] [place] [address] * Neuro CT Outside Consult (10/09/2024 4:49 [...] images may or may not represent the [place] source data set and thus may contain [...] IMAGING STUDY STUDY INITIALLY PERFORMED: 10/08/2024 at [facility]. TYPE OF STUDY: Multiple [...] IMAGING STUDY STUDY INITIALLY PERFORMED: 10/08/2024 at [facility]. TYPE OF STUDY: Multiple [...] images may or may not represent the [place] source data set and thus may contain [...] superiorly into the right neck outside the [id number]. 2. Bilateral basilar predominant groundglass and consolidation [...] images may or may not represent the [place] source data set and thus may contain [...] IMAGING STUDY STUDY INITIALLY PERFORMED: 10/08/2024 at [facility]. TYPE OF STUDY: Multiple CT images [...] IMAGING STUDY STUDY INITIALLY PERFORMED: 10/08/2024 at [facility]. TYPE OF STUDY: Multiple CT images [...] superiorly into the right neck outside the [id number]. 2. Bilateral basilar predominant groundglass and consolidation [...] images may or may not represent the [place] source data set and thus may contain [...] only and have not been reviewed by [facility] Radiology. There will be no report generated by a [facility] Radiologist. Narrative [facility] - 10/09/2024 4:44 AM CDT EXAMINATION: Images For Reference Purposes Only Debo Sweeney MD IMG XR PROCEDURES Fi nal Result [facility] * [place] CRITICAL CARE ILL/INJURED PATIENT INIT 30-74 MIN [...] only and have not been reviewed by [facility] Radiology. There will be no report generated by a [facility] Radiologist. Narrative [facility] - 10/09/2024 4:41 [...] Estimated battery longevity 5.5 years Presenting Rhythm (NH) Atrial Sensing-Ventricular Sensing (-VS) --- NSR 70 bpm. Anticoagulation (AC) Patient prescribed Apixaban (Eliquis) Patient on anticoagulant therapy Transmission Information (TI) Device Summary Report Procedure Note Duran Chase MD PhD - 09/19/2024 Interpretation Summary: Battery and Leads (BL) Normal parameters noted on battery and lead(s) --- Estimated batterylongevity 5.5 years Presenting Rhythm (NH) Atrial Sensing-Ventricular Sensing (-VS) --- NSR 70 bpm. Anticoagulation (AC) Patient prescribed Apixaban (Eliquis) Patient on anticoagulant therapy Transmission Information (TI) Device Summary Report Eddie James MD [facility] CARDIAC SERVICES PROCEDURES Final Result from Last 3 Months Insurance [facility] MEDICARE ADVANTAGE [employer] MEDICARE ADVANTAGE Advance Directives For more information, please contact: [phone] * Full Code (Latest Code Status on File) Date Activated Date Inactivated Comments 10/09/2024 8:37 AM 10/11/2024 6:34 PM * Full Code Date Activated Date Inactivated Comments 03/19/2021 2:35 PM 03/21/2021 8:52 PM * Full Code Date Activated Date Inactivated Comments 03/15/2021 9:47 AM 03/16/2021 7:41 PM Care Teams Assembler Handbags Relationship Specialty Start Date End Date Montserrat Sal MD [address] [facility] [address] [place] [address] PCP - General Family Medicine 10/19/20 Ricardo Alegria MD [address] [facility] [address] [place] [address] Referring Physician Cardiology 02/02/21 Peng Lozada Jr., MD [address] [facility] [address] [place] [id number] Consulting Physician Cardiothoracic Surgery 03/16/21 Alphonso Tran MD [address] [facility] [address] [place] [address] [address] [place] [address] Referring Physician Cardiology 03/16/21
[2024-11-25 14:19] LABS: Fractional Inspired Oxygen 21 %; HCO3 VBG 25.2 mEq/l (24.0-30.0); pH VBG 7.396 (7.300-7.400)
[2024-11-25 14:20] LABS: Device ROOM AIR; PO2 VBG < 27.0 mmHg (35.0-45.0)
[2024-11-25 14:30] LABS: Basophils Percent Auto 0.3 % (0.2-1.2); Eosinophils Absolute Auto 0.1 K/mm3 (0-0.3); Eosinophils Percent Auto 1.1 % (0-4.4); Hematocrit 39.7 % (42.0-52.0); Hemoglobin 12.3 g/dL (14.0-18.0); Immature Granulocyte Absolute 0.08 K/mm3 (0.00-0.031); Immature Granulocyte Percent A 0.8 % (0-0.5); Lymphocytes Absolute Auto 1.09 K/mm3 (0.9-3.2); Lymphocytes Percent Auto 11.4 % (18.3-44.2); Mean Corpuscular Hemoglobin 30.2 pg (26-34); Mean Corpuscular Volume 97.5 fl (80-100); Monocytes Absolute Auto 0.7 K/mm3 (0.1-0.6); Monocytes Percent Auto 7.2 % (2.6-8.5); Neutrophils Absolute Auto 7.6 K/mm3 (1.3-6.7); Neutrophils Percent Auto 79.2 % (45.5-73.1); Platelet Count Result 225 k/mm3 (150-375); Red Blood Count 4.07 M/mm3 (4.6-6.20); Red Cell Distribution Width 14.3 % (11.5-14.5); White Blood Count 9.6 K/mm3 (4.5-10.0)
[2024-11-25 14:41] LABS: Alanine Aminotransferase 34 U/L (6-50); Alkaline Phosphatase 64 U/L (38-126); Anion Gap 7 mmol/L (4-12); Aspartate Amino Transferase 58 U/L (17-59); Bilirubin,Total 1.6 mg/dL (0.2-1.3); Blood Urea Nitrogen 26 mg/dL (9-20); Calcium 9.3 mg/dL (8.4-10.2); Carbon Dioxide 28 mmol/L (22-30); Chloride 101 mmol/L (98-107); Estimated CRCL calculation 67 ml/min; Estimated Glomerular Filt Rate > 60; Glucose 156 mg/dL (65-110); Lipase 51 U/L (23-300); Magnesium 2.3 mg/dL (1.6-2.3); Phosphorus 3.9 mg/dL (2.5-4.5); Potassium 4.4 mmol/L (3.4-5.0); Sodium 136 mmol/L (137-145)
[2024-11-25 14:42] LABS: INR 1.2; Prothrombin Time 15.4 Seconds (11.1-14.7)
[2024-11-25 14:43] LABS: Partial Thromboplastin Time 27.8 Seconds (22.3-36.8)
--- NOTE | 2024-11-25 14:43 | ED_ITS ---
HPI - General Adult General Chief complaint: Fall Stated complaint: fall, hit head, takes blood thinners Time Seen by Provider: 11/25/24 13:40 History of Present Illness HPI narrative: This is an 88-year-old male presenting after ground level fall. patient was doing his physical therapy when he fell backwards landing on his back And striking his head. He did not lose consciousness, patient is on Eliquis. He now has pain in the thoracic and lumbar region. patient appears winded. Related Data Home Medications ?Medication ?Instructions ?Recorded ?Confirmed ?Last Taken ?Type aspirin 81 mg tablet,delayed 81 mg PO DAILY 08/17/19 10/18/24 02/01/21 History release (Adult Low Dose Aspirin) nitroglycerin 0.4 mg sublingual 0.4 mg sublingual Q5M PRN Chest 12/15/20 10/18/24 Unknown History tablet (Nitrostat) Pain garlic 1 tablet PO DAILY 02/01/21 10/18/24 02/01/21 History latanoprost 0.005 % eye drops 1 drp EACH EYE QPM 09/07/24 10/18/24 Unknown History Allergies Allergy/AdvReac Type Severity Reaction Status Date / Time talc Allergy Intermediate rash Verified 10/18/24 11:04 latex Allergy Mild Hives Verified 10/18/24 11:04 [facility] Past Medical History Medical History Acute sore throat Wheezing Pneumonia due to 2019 novel coronavirus COVID-19 Flank pain Flank pain Trochanteric bursitis of both hips Venous insufficiency (chronic) (peripheral) Tinea cruris Osteopenia Controlled restless legs syndrome Chronic knee pain Seasonal rhinitis GERD without esophagitis Chronic depression Hyperlipidemia Hypertension Microcytic anemia Normal colonoscopy Cardiac murmur Surgical History Surgical History 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) History of tonsillectomy History of cholecystectomy History of appendectomy History of heart artery stent Family History Family History Father Acute myocardial infarction Patient's father is Hypercholesteremia Hypertension Mother Family history of atrial fibrillation Sibling Hypercholesteremia Hypertension Social History Social History Social History: Smoking status: Never smoker Second hand tobacco smoke exposure: No Alcohol intake: current Alcohol use details: OCCASIONALLY Substance use: never Substance use type: does not use Last use: 06/30/1960 Lack of Transportation: No Lack of Food: Never True Current Housing: I Have Housing Concerned About Future Housing: No Difficulty Paying Gas/Electric Bills: No Difficulty Paying for Meds: No Currently Unemployed: YES Education: Decline to Answer Difficulty w/ Childcare or Family Care: No Living arrangements: with family Occupation/Education: retired Gender identity (if verbalized by the patient): Male Sexual Orientation (if Verbalized by the Patient): Straight or Heterosexual Spiritual care concerns: No Agree to blood products: Yes Exam 2 Narrative: APPEARANCE: No apparent distress. Head: atraumatic. EYES: EOMI, NOSE: Atraumatic NECK /back: point tenderness over the lower T upper L-spine RESPIRATORY: Tachypneic, 88% on room air, decreased lung sounds on the right CARDIOVASCULAR: RRR, pitting edema of the ankles ABDOMINAL: Non-distended soft nontender MUSCULOSKELETAl: No obvious deformities NEURO: Alert. Moving 4/4 extremities SKIN:: Warm, dry. Normal color PSYCHIATRIC: Normal affect Course Vital Signs Vital signs: Vital Signs Temperature 98.3 F 11/25/24 13:36 Pulse Rate 95 11/25/24 13:36 Respiratory Rate 16 11/25/24 13:36 Blood Pressure 178/100 H 11/25/24 13:36 Pulse Oximetry 98 11/25/24 13:36 Temperature 98.3 F 11/25/24 13:36 Pulse Rate 97 11/25/24 14:23 Respiratory Rate 24 H 11/25/24 14:23 Blood Pressure 169/103 H 11/25/24 14:23 Pulse Oximetry 94 11/25/24 14:25 Oxygen Delivery Nasal Cannula 11/25/24 14:25 Oxygen Flow Rate 2 11/25/24 14:25 Procedures Chest Tube Chest Tube 1: Chest Tube Date: 11/25/24 Chest Tube Location: right and anterior axillary line Tube Type: standard Size of Tube (cm): 36 (36french) Chest Tube Prep: Yes betadine prep and sterile drapes applied Anesthetic: bupivacaine 0.25% Amount of anesthesia used (mL): 10 Incision Made With: #11 blade Procedure: incision/open Post Procedure: sutured to skin, sterile dressing applied and connected to Pluero Vac Tube Drainage: blood Amount of initial drainage (mL): 1,500 Post Procedure CXR?: Yes Post Procedure: post CXR reviewed and placement appropriate Patient Tolerated Procedure: Yes Progress: 600 CC EBL to floor during procedure. 900 immediate return to atrium. Medical Decision Making MDM Narrative Medical decision making narrative: -Course:88-year-old male on Eliquis presenting after ground level fall. Chest x-ray showed a large right-sided pleural effusion. CT chest abdomen pelvis showed posterior rib fractures on the right and a moderate to large hemothorax. Patient is requiring 2 L nasal cannula. Patient's Eliquis has been reversed due to mod/large hemothorax. case was discussed with Dr. Magaña (ED physician) [facility] as well as their trauma surgeon. Trauma surgeon stated to place the chest tube immediately. 36 [place] chest tube was placed on the Right side. 500- 600 cc estimated blood loss on the bed/floor. Immediate return of 900 cc into the atrium. Patient was transfused 2 units of emergent packed red blood cells. Given 2 g Ancef. Patient will be transferred to [facility] for further management. [facility] were updated on the patient's condition. Family updated. CT also showed L 1 burst fracture w/o retropulsion. no neurologic deficits. -DDX includes but is not limited to: rib fracture, hemothorax, pneumothorax, intracranial hemorrhage Vital Signs Vital Signs: Vital Signs Temperature 98.3 F 11/25/24 13:36 Pulse Rate 95 11/25/24 13:36 Respiratory Rate 16 11/25/24 13:36 Blood Pressure 178/100 H 11/25/24 13:36 Pulse Oximetry 98 11/25/24 13:36 Temperature 98.3 F 11/25/24 13:36 Pulse Rate 97 11/25/24 14:23 Respiratory Rate 24 H 11/25/24 14:23 Blood Pressure 169/103 H 11/25/24 14:23 Pulse Oximetry 94 11/25/24 14:25 Oxygen Delivery Nasal Cannula 11/25/24 14:25 Oxygen Flow Rate 2 11/25/24 14:25 Lab Data 11/25/24 14:21 11/25/24 14:21 Labs: Lab Results 11/25/24 Range/Units 14:21 WBC 9.6 (4.5-10.0) K/mm3 RBC 4.07 L (4.6-6.20) M/mm3 Hgb 12.3 L (14.0-18.0) g/dL Hct 39.7 L (42.0-52.0) % MCV 97.5 (80-100) fl MCH 30.2 (26-34) pg MCHC 31.0 L (32-36) g/dl RDW 14.3 (11.5-14.5) % Plt Count 225 D (150-375) k/mm3 MPV 9.0 (7.4-10.4) fl Immature Gran % (Auto) 0.8 H (0-0.5) % Neut % (Auto) 79.2 H (45.5-73.1) % Lymph % (Auto) 11.4 L (18.3-44.2) % [place] % (Auto) 7.2 (2.6-8.5) % Eos % (Auto) 1.1 (0-4.4) % Baso % (Auto) 0.3 (0.2-1.2) % Lymph # (Auto) 1.09 (0.9-3.2) K/mm3 [place] # (Auto) 0.7 H (0.1-0.6) K/mm3 Eos # (Auto) 0.1 (0-0.3) K/mm3 Baso # (Auto) 0.0 (0.0-0.1) K/mm3 Abs Immat Gran (auto) 0.08 H (0.00-0.031) K/mm3 Absolute Neuts (auto) 7.6 H (1.3-6.7) K/mm3 Absolute Nucleated RBC 0.000 (0.0-0.012) K/mm3 Nucleated RBC % 0.0 (0.0-0.2) % PT Pending INR Pending APTT Pending Sodium 136 L (137-145) mmol/L Potassium 4.4 (3.4-5.0) mmol/L Chloride 101 (98-107) mmol/L Carbon Dioxide 28 (22-30) mmol/L Anion Gap 7 (4-12) mmol/L BUN 26 H (9-20) mg/dL Creatinine 0.66 L (0.7-1.3) mg/dL Estim Creat Clear Calc 67 ml/min Estimated GFR > 60 (59 - ) Glucose 156 H (65-110) mg/dL Calcium 9.3 (8.4-10.2) mg/dL Phosphorus 3.9 (2.5-4.5) mg/dL Magnesium 2.3 (1.6-2.3) mg/dL Total Bilirubin 1.6 H (0.2-1.3) mg/dL AST 58 (17-59) U/L ALT 34 (6-50) U/L Alkaline Phosphatase 64 (38-126) U/L NT-Pro-B Natriuret Pep Pending Total Protein 7.0 (6.3-8.2) g/dL Albumin 4.0 (3.5-5.1) g/dL Lipase 51 (23-300) U/L ABG Data ABG results: 11/25/24 14:15 VBG pH 7.396 VBG pCO2 42.0 VBG pO2 < 27.0 L VBG HCO3 25.2 O2 Delivery Device Room air O2 Liters/Min Not Reportable FiO2 21 Discharge Plan Discharge Clinical Impression: Hemothorax, Fracture, ribs Patient Disposition: Acute Care Hospital Condition: Stable Patient Language: Slovenian Prescriptions: No Action nitroglycerin [Nitrostat] 0.4 mg tablet, sublingual 0.4 mg sublingual Q5M PRN (Reason: Chest Pain) Rx Instructions: do not exceed 3 doses per episode meclizine 25 mg tablet 25 mg PO TID PRN (Reason: dizziness) Qty: 90 2RF fluticasone propionate 50 mcg/actuation spray,suspension 2 spray intranasal DAILY Qty: 16 3RF Rx Instructions: administer into each nostril diclofenac sodium [Voltaren Arthritis Pain] 1 % gel 2 g topical QID Qty: 100 2RF Rx Instructions: apply to single elbow, wrist or hand; for hand includes palm/fingers/back of hand acetaminophen [Tylenol Arthritis Pain] 650 mg tablet extended release 650 mg PO Q8H Qty: 90 0RF aspirin [Adult Low Dose Aspirin] 81 mg tablet,delayed release (DR/EC) 81 mg PO DAILY garlic Tablet 1 tablet PO DAILY Eliquis 5 mg tablet 5 mg PO BID Qty: 60 4RF clotrimazole-betamethasone 1-0.05 % cream See Rx Instructions .ROUTE .COMPLEX Qty: 45 0RF Dose Instruction: APPLY TOPICALLY TO THE AFFECTED AREA TWICE DAILY FOR 4 WEEKS Rx Instructions: APPLY TOPICALLY TO THE AFFECTED AREA TWICE DAILY FOR 4 WEEKS pantoprazole 40 mg tablet,delayed release (DR/EC) See Rx Instructions .ROUTE .COMPLEX Qty: 90 1RF Dose Instruction: TAKE 1 TABLET BY MOUTH IN THE MORNING Rx Instructions: TAKE 1 TABLET BY MOUTH IN THE MORNING fluoxetine 20 mg capsule See Rx Instructions .ROUTE .COMPLEX Qty: 90 3RF Dose Instruction: TAKE 1 CAPSULE BY MOUTH DAILY Rx Instructions: TAKE 1 CAPSULE BY MOUTH DAILY alendronate 70 mg tablet See Rx Instructions .ROUTE .COMPLEX Qty: 12 3RF Dose Instruction: TAKE 1 TABLET BY MOUTH WEEKLY WITH 8 OZ OF PLAIN WATER 30 MINUTES BEFORE FIRST FOOD, DRINK OR MEDS. STAY UPRIGHT FOR 30 MINS Rx Instructions: TAKE 1 TABLET BY MOUTH WEEKLY WITH 8 OZ OF PLAIN WATER 30 MINUTES BEFORE FIRST FOOD, DRINK OR MEDS. STAY UPRIGHT FOR 30 MINS memantine 10 mg tablet See Rx Instructions .ROUTE .COMPLEX Qty: 180 3RF Dose Instruction: TAKE 1 TABLET BY MOUTH TWICE DAILY Rx Instructions: TAKE 1 TABLET BY MOUTH TWICE DAILY latanoprost 0.005 % drops 1 drp EACH EYE QPM ropinirole 1 mg tablet See Rx Instructions .ROUTE .COMPLEX Qty: 90 1RF Dose Instruction: TAKE 1 TABLET BY MOUTH EVERY DAY AT BEDTIME Rx Instructions: TAKE 1 TABLET BY MOUTH EVERY DAY AT BEDTIME atorvastatin 80 mg tablet See Rx Instructions .ROUTE .COMPLEX Qty: 45 3RF Dose Instruction: TAKE ONE-HALF TABLET BY MOUTH DAILY Rx Instructions: TAKE ONE-HALF TABLET BY MOUTH DAILY Follow-up/Referrals: Jony Sepulveda MD [Primary Care Provider] -
[2024-11-25 14:50] LABS: NT Pro B Type Natriuretic Pept 702 pg/mL (19.9-100)
[2024-11-25 14:59] LABS: Add Urine Microscopic? YES; Appearance Urine Clear (Clear); Bacteria Urine None Seen /hpf; Bilirubin Urine Negative (Negative); Blood Urine Negative (Negative); Color Urine Yellow (Yellow); Glucose Urine UA Negative (Negative); Ketones Urine Negative (Negative); Leukocyte Esterase Ur Negative LEU/UL (Negative); Nitrate Urine Negative (Negative); Non Pathogenic Casts 0-2; Protein Urine Trace mg/dL (Negative); Specific Grav Ur 1.022 (1.001-1.035); Squamous Epithelial Cell Urine None Seen /hpf (Few); WBC Urine 0-5 /hpf (0-3); pH Urine 5.5 (5.0-9.0)
[2024-11-25] MEDS: HUMAN PROTHROMBIN COMPLEX(PCC) 500 UNITS, HUMAN PROTHROMBIN COMPLEX(PCC) 2,000 UNITS in... 504 UNITS IV CONT (15:42)
[2024-11-25] MEDS: MIDAZOLAM HCL (*CRX) 2 MG/2 ML VIAL IV PUSH (16:20)
--- NOTE | 2024-11-25 16:59 | PC.NURSE ---
2 units emergent release blood products initiated at this time. EDP Dr Lira at bedside. Ordered due to blood loss during procedure. Pt is alert and aware of POC. 2 nurse verification process. Consent signed by EDP.
[2024-11-25] MEDS: TUBING, BLOOD SET 1 EACH XX ×2 (17:07)
[2024-11-25] MEDS: SODIUM CHLORIDE 0.9% IV 250 ML 999 ML ×2 (17:07→17:09)
[2024-11-25] MEDS: ceFAZolin 2 GM/D5W 50 ML 2 GM/50 ML BAG IVPB (17:28)
--- NOTE | 2024-11-25 17:51 | PC.NURSE ---
2 units PRBC transfused as ordered per massive transfusion by EDP Dr Lira completed at this time, full volume given with 0 MLS left in container. VSS. No noted reaction.
--- NOTE | 2024-11-25 18:15 | ECG_ITS ---
Test Date: 2024-11-25 18:21:35 Measurements Intervals [place] Rate: 94 P: 44 [place]: 218 QRS: -59 QRSD: 153 T: 16 QT: 415 QTc: 519 Interpretive Statements SINUS RHYTHM WITH FIRST DEGREE AV BLOCK WITH FREQUENT VENTRICULAR PREMATURE COMPLEXES RIGHT BUNDLE BRANCH BLOCK [120+ ms QRS DURATION, UPRIGHT V1, 40+ ms S IN I/aVL/V4/V5/V6] LEFT ANTERIOR FASCICULAR BLOCK [QRS AXIS <= -45, QR IN I, RS IN II] INTERPRETATION BASED ON A DEFAULT AGE OF 40 YEARS Compared to ECG 10/08/2024 22:50:52 Ventricular premature complex(es) now present Electronically Signed On 11-26-2024 11:10:36 CDT by Clive Meléndez M.D.
[2024-11-25] MEDS: HYDROmorphone HCL INJ (*CRX) 2 MG/ML VIAL (18:22)
== END 2024-11-25 18:58 | disposition short-term general hospital (02) ==
PROVIDERS: Emergency Provider Emergency Medicine; PCP Family Medicine
DX: S22.42XA Multiple fractures of ribs, left side, initial encounter for closed fracture (principal); S32.011A Stable burst fracture of first lumbar vertebra, initial encounter for closed fracture; S32.028A Other fracture of second lumbar vertebra, initial encounter for closed fracture; S27.1XXA Traumatic hemothorax, initial encounter; I10 Essential (primary) hypertension; I87.2 Venous insufficiency (chronic) (peripheral); E78.5 Hyperlipidemia, unspecified; D64.9 Anemia, unspecified; M85.80 Other specified disorders of bone density and structure, unspecified site; K21.9 Gastro-esophageal reflux disease without esophagitis; G25.81 Restless legs syndrome; F32.A Depression, unspecified; Z95.2 Presence of prosthetic heart valve; Z96.653 Presence of artificial knee joint, bilateral; Z95.5 Presence of coronary angioplasty implant and graft; Z86.16 Personal history of COVID-19; Z87.01 Personal history of pneumonia (recurrent); Z90.49 Acquired absence of other specified parts of digestive tract; Z79.82 Long term (current) use of aspirin; Z79.01 Long term (current) use of anticoagulants; Z79.899 Other long term (current) drug therapy; M19.022 Primary osteoarthritis, left elbow; I51.7 Cardiomegaly; J81.1 Chronic pulmonary edema; J90 Pleural effusion, not elsewhere classified; M47.812 Spondylosis without myelopathy or radiculopathy, cervical region; I44.0 Atrioventricular block, first degree; I45.2 Bifascicular block; R94.31 Abnormal electrocardiogram [ECG] [EKG]; W18.39XA Other fall on same level, initial encounter
CPT/HCPCS: 32551; 36415; 36430; 70450; 71046; 71250; 72125; 73080; 74176; 80053; 81001; 82803; 83690; 83735; 83880; 84100; 85025; 85610; 85730; 86850; 86900; 86901; 86920; 93005; 96361; 96365; 96375; 99285; C1729; J0690; J1171; J2250; J7050; J7168; P9016

== ENCOUNTER 2024-12-06 15:56 | Outpatient (CLI) | payer MEDICARE, SELFPAY ==
[2024-12-06 16:29] LABS: Hemoglobin 13.5 g/dL (14.0-18.0); Mean Corpuscular HGB Conc 31.4 g/dl (32-36); Mean Corpuscular Hemoglobin 29.1 pg (26-34); Mean Corpuscular Volume 92.7 fl (80-100); Mean Platelet Volume 8.9 fl (7.4-10.4); Platelet Count Result 313 k/mm3 (150-375); Red Blood Count 4.64 M/mm3 (4.6-6.20); Red Cell Distribution Width 15.6 % (11.5-14.5); White Blood Count 6.9 K/mm3 (4.5-10.0)
--- OUTSIDE RECORDS SUMMARY | 2024-12-06 16:35 | XMS_ITS | Referral Summary ---
Author Organization [facility] [address] [facility] [address] [place] [address] Care Team Providers Care Environmental Services Supervisor Name Role Phone Ricardo Alegria MD Unavailable [phone] Peng Lozada MD Unavailable Alphonso Tran MD Unavailable [phone] Jony Sepulveda MD Primary Care Provider Encounters Date Type Department Care Team Description 12/01/2024 Telephone [facility] Cardiology [address] [place] [address] Ricardo Alegria MD 11/25/2024 7:28 PM CDT - 12/01/2024 1:28 PM CDT Hospital Encounter [facility] [address] [place] [address] Shahla Winn MD [place], MD Suman Bales, Savannah Crowell MD Fall, initial encounter (Primary Dx); Closed stable burst fracture of second lumbar vertebra, initial encounter (HCC); Hemothorax on right; Closed burst fracture of lumbar vertebra, initial encounter (HCC) Discharge Disposition: Discharge to home or self care 11/15/2024 Orders Only [facility] Cardiology [address] [facility] 8th [place] [address] [place] [address] Eddie James MD 10/09/2024 4:21 AM CDT - 10/11/2024 2:25 PM CDT Hospital Encounter [facility] [address] [facility] [place] [address] Karl Quesada MD Staszak, MD Afshin Porter, MD Clarice Traumatic pneumothorax, initial encounter (Primary Dx); Closed fracture of multiple ribs of right side, initial encounter; Fall, subsequent encounter Discharge Disposition: Discharge to home or self care 09/15/2024 1:00 PM CDT Office Visit [facility] Cardiology [address] [place] [address] 8th [place] [address] [place] [address] Sheron Madden NP S/P TAVR (transcatheter aortic valve replacement) (Primary Dx); Pacemaker; Complete heart block (HCC) 09/15/2024 12:30 PM CDT Ancillary Procedure 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 Medications multivitamin tablet tablet take 1 tablet by oral route every day with food 0 04/15/20 12 Active Additional Information Patient taking differently: 1 tablet oral Every morning, Indications: Vitamin Deficiency Prevention, Reported on 09/15/2024 alendronate (FOSAMAX) 70 mg tablet take 1 tablet by oral route every week in the morning, at least 30 min before first food, beverage, or medication of day 0 0 02/08/20 14 Active nitroglycerin (NITROSTAT) 0.[address] 1 tablet by buccal route at the first sign of an attack; no more than 3 tabs are recommended within a 15 minute period. 25 1 04/15/[address] (PROTONIX) 40 mg EC tablet take 1 tablet by oral route every day 0 0 04/09/20 16 Active garlic capsuleIndicat ions:supplemen t Take 1 capsule by mouth every morning Active loratadine (CLARITIN) 10 mg tabletIndicati ons:Allergic Rhinitis Take 1 tablet (10 mg total) by mouth every morning 3 12/07/19 19 Active clotrimazole-b etamethasone (LOTRISONE) creamIndicatio ns:rash Apply 1 application topically 2 (two) times a day 11/30/19 21 Active memantine (NAMENDA) 10 mg tabletIndicati ons:Moderate to Severe Alzheimer's Type Dementia Take 1 tablet (10 mg total) by mouth 2 (two) times a day 02/10/20 21 Active latanoprost (XALATAN) 0.005 % ophthalmic solutionIndica tions:open angle glaucoma Administer 1 drop into the left eye nightly 02/22/20 21 Active aspirin 81 mg chewable tabletIndicati ons:prevention of thrombosis Take 1 tablet (81 mg total) by mouth nightly 0 03/21/20 21 Active UNABLE TO FIND Med Name: Apoaequorin Active atorvastatin (LIPITOR) 80 mg tablet TAKE ONE-HALF TABLET BY MOUTH DAILY 45 tablet 1 04/08/20 22 Active ezetimibe (ZETIA) 10 mg tablet TAKE 1 TABLET BY MOUTH DAILY 90 tablet 3 03/03/20 24 Active lidocaine (LIDODERM) 5 % Place 2 patches on the skin daily for 12 hours Remove & discard patch within 12 hours or as directed by MD. 5 patch 10/13/19 25 Active oxyCODONE (ROXICODONE) 5 mg immediate release tabletIndicati ons:Pain Take 0.5 tablets (2.5 mg total) by mouth every 4 (four) hours as needed for pain 10 tablet 10/12/19 25 Active polyethylene glycol (MIRALAX) 17 gram/dose bulk powderIndicati ons:constipati on Take 17 g by mouth daily 238 g 10/12/19 25 Active benzonatate (TESSALON) 100 mg capsule Take 1 capsule (100 mg total) by mouth 3 (three) times a day as needed for cough 10/19/19 25 Active chlorhexidine (PERIDEX) 0.12 % oral rinse Apply 15 mL to the mouth or throat daily 09/14/19 25 Active FLUoxetine (PROzac) 20 mg capsule Take 1 capsule (20 mg total) by mouth daily 09/22/19 25 Active rOPINIRole (REQUIP) 1 mg tablet Take 1 tablet (1 mg total) by mouth nightly at bedtime 09/30/19 25 Active apixaban (Eliquis) 5 mg tablet TAKE 1 TABLET BY MOUTH EVERY 12 HOURS 180 tablet 1 12/02/19 25 Active traMADoL (ULTRAM) 50 mg tablet Take 1 tablet (50 mg total) by mouth every 6 (six) hours as needed for pain 10 tablet 12/02/19 25 Active acetaminophen 500 mg capsuleIndicat ions:Pain Take 2 capsules (1,000 mg total) by mouth every 6 (six) hours 60 tablet 12/02/19 25 Active methocarbamoL (ROBAXIN) 500 mg tablet Take 1 tablet (500 mg total) by mouth 3 (three) times a day 20 tablet 12/02/19 25 Active senna-docusate (PERICOLACE) 8.6-50 mg Take 2 tablets by mouth 2 (two) times a day 27 tablet 12/02/19 25 Active FLUoxetine (PROzac) 10 mg tablet/capsule Indications:An xiety with Depression Take 2 tablet/capsule (20 mg total) by mouth nightly 60 tablet/caps ule 12/02/19 25 Active rOPINIRole (REQUIP) 0.5 mg tablet Take 1 tablet (0.5 mg total) by mouth nightly 30 tablet 12/02/19 25 Active rOPINIRole (REQUIP) 0.5 mg tablet take 1 tablet by oral route every day 0 0 04/09/20 16 025 Discontinued FLUoxetine (PROzac) 10 mg tablet/capsule Indications:An xiety with Depression Take 2 tablet/capsule (20 mg total) by mouth nightly 025 Discontinued acetaminophen (TYLENOL) 325 mg tabletIndicati ons:Fever,Pain Take 2 tablets (650 mg total) by mouth every 4 (four) hours as needed for pain 30 tablet 03/16/20 21 025 Discontinued Eliquis 5 mg tablet TAKE 1 TABLET BY MOUTH EVERY 12 HOURS 180 tablet 3 01/29/20 24 025 Discontinued Active Problems Problem Noted Date Diagnosed Date Fall, initial encounter 11/26/2024 Lumbar burst fracture 11/26/2024 Assessment & Plan (12/01/2024 11:38 AM CDT): - CT chest/abdomen/pelvis (11/25): Acute compression fracture of the L1 superior endplate - Orthopedic Spine consult - MRI total spine (11/26): pending; EP consulted to evaluate patient with pacemaker - MRI compatible-> done - TLSO brace - Upright T/L spine xr (11/26): done - lumbar spine precautions, no deep bending/twisting/lifting heavy objects - PVR - PT/OT - 12/01 NSGY spine read the MRI and non-op, will continue TLSO brace on dishcarge Neurosurgery spine will have the clinic reach out to schedule follow up for repeat radiographs in 2-3 weeks. Hemothorax, right 11/26/2024 Assessment & Plan (12/01/2024 11:49 AM CDT): - CT chest/abdomen/pelvis (11/25): Moderate to large volume simple right pleural effusion with adjacent atelectasis - Right chest tube placed at OSH with ~1200cc output - R chest tube to suction - IS, pep treatments - continue to trend chest xr 11/27: CT to water seal, output 182cc/24hrs 11/29: output 50cc/24hr, CXR reviewed, pulled CT out, will have 6hr CXR around 6:44 pm. Follow up with ACCS team on 12/17/2024 with chest x-ray. Discharge planning issues 11/26/2024 Assessment & Plan (12/01/2024 11:48 AM CDT): - 11/26: R CT to suction, awaiting MRI total spine, TLSO brace, PT/OT - 11/27: R CT to water seal, awaiting MRI total spine and spine Xrays. Awaiting PT/OT evaluation - 11/29: pending MRI/spine final note, PT home with int assist, pending OT. - 11/30: PT/OT rec home, pending MRI/spine final note - 12/01: Patient is medically stable for discharge, SW/CM updated. Discharge to home today. Treatment plan note [x] Acute pain 10/10/2024 Assessment & Plan (12/01/2024 11:47 AM CDT): - Tylenol 1g q6h - Robaxin 500mg TID - Lidocaine patch - Oxycodone 2.5mg q4h PRN-> switched to Tramadol 50mg Q6h PRN on 11/26. - continue PO regimens on discharge Assessment & Plan (10/10/2024 2:22 PM CDT): Current regimen: APAP scheduled, oxycodone 5mg q4 PRN, lidocaine patches Dementia 10/10/2024 Assessment & Plan (12/01/2024 11:47 AM CDT): - Continue Prozac 20mg HS - Continue Namenda 10mg BID - Continue Ropinirole - Sleep hygiene Follow up with previously established provider for ongoing evaluation. Assessment & Plan (10/10/2024 2:22 PM CDT): -Will continue home memantine, ropinirole -Delirium precautions MDD (major depressive disorder) 10/10/2024 Assessment & Plan (10/10/2024 2:23 PM CDT): Continue home fluoxetine 20mg Osteoporosis 10/10/2024 Assessment & Plan (12/01/2024 11:47 AM CDT): - Hold Alendronate Follow up with previously established provider for ongoing evaluation. Assessment & Plan (10/10/2024 2:24 PM CDT): [...] #CAD w/ stents to LAD and RCA (2017) #Complete heart block s/p pacemaker - Patient follows with [facility] cardiology - On ASA/Eliquis. Per patient, manages medications. Believes last took medications yesterday. - Hold home ASA/Eliquis - OK to restart eliquis on DC Complete heart block 03/19/2021 Overview (03/19/2021): Added automatically from request for surgery [id number] Assessment & Plan (12/01/2024 11:46 AM CDT): - Dr. Campos - Dual chamber pacer for CHB with return of conduction post TAVR. Device shows normal function. Battery good and leads are stable. We will follow remotelly and RTO in 1 year. Follow up with previously established provider for ongoing evaluation. 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 Assessment & Plan (03/15/2021 11:00 AM CDT): TTE: Mild AR, moderate-severe , AV Area: 0.9 cm2 AV Pressure Gradient (mmHg): Mean: 27, Peak:46 -groin precautions -start asa and plavix -telemetry -PT/OT Heart murmur 04/09/2016 Overview (10/05/2016): Murmur Immunizations Immunization Administration Dates Next Due Moderna SARS-CoV-2 Monovalen t Vaccination (12+ YRS) 08/29/2020 Tdap 11/25/2024(Deferred: Other) Social History Tobacco Use Types Packs/Day Years [...] more drinks on one occasion? Never 03/08/2021 PHQ-2 Answer Date Recorded PHQ-2 Total Score (If total score is 3 or more points, staff should administer the PHQ-9) 0 11/26/2024 PHQ-9 Answer Date Recorded PHQ-9 Total Score 1 11/26/2024 Personal Safety Answer Date Recorded Have you ever been in or are you currently in a harmful physical or emotional relationship or is someone making you feel afraid or unsafe? 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 Gender Identity Male 02/27/2021 9:36 AM CDT Sexual Orientation Not on file Last Filed Vital Signs Vital Sign Reading Time Taken Comments Blood Pressure 115/69 12/01/2024 11:14 AM CDT Pulse 67 12/01/2024 11:14 AM CDT Temperature 36.4 C (97.5 F) 12/01/2024 11:14 AM CDT Respiratory Rate 18 12/01/2024 11:14 AM CDT Oxygen Saturation 94% 12/01/2024 11:14 AM CDT Inhaled Oxygen Concentration - - Weight 93.4 kg (206 lb) 11/26/2024 11:18 AM CDT Height 177.8 cm (5' 10) 11/26/2024 11:18 AM CDT Body Mass Index 29.56 11/26/2024 11:18 AM CDT Plan of Treatment Not on file Medical Devices Implanted Type Area Biometry Teacher Device Identifier Shelf Expiration Date Model / Serial / Lot [employer] Shira [id number] Lead 7842 Endocardial Pacing Mr Is-1 Bipolar Connection - [id number] - [id number] Implanted:Qty: 1 on 03/20/2021 by Eddie James MD at [facility] Lead Left: Heart [employer] Shira 01/09/2023 [id number] / [id number] / [employer] Shira 4470 Fineline Ii Sterox Ez 1.7mm 52cm Bipolar Active Fixation Screw - [id number] - [id number] Implanted:Qty: 1 on 03/20/2021 by Eddie James MD at [facility] Lead Left: Heart [employer] Shira 12/20/2022 4470 / [id number] / [employer] [id number] Perclose 6fr Suture Mediate Knot Push Vascular Device Closure - [id number] Implanted:Qty: 1 on 03/15/2021 by Peng Lozada MD at [facility] Other - see comments Right: Arterial [employer] [id number] / / Description:Perclose for rig ht femoral artery [employer] C.R.M. L111 Essentio 4.45x5.02cm 2 Chamber Is1 Connector .75cm Pacemaker 13.7 - [id number] - [id number] Implanted:Qty: 1 on 03/20/2021 by Eddie James MD at [facility] Pacemaker Left: Heart [employer] C.R.M. 02/05/2023 [id number] / [id number] / Stent N/A: Heart [employer] [id number] Valve Heart 26mm Chace 3 Transcatheter - [id number] - [id number] Implanted:Qty: 1 on 03/15/2021 by Peng Lozada MD at [facility] N/A: Heart [employer] 11/20/2022 [id number] / [id number] / Daig Shira/[employer] [id number] Angio-Seal Evolution 6fr .035in Guidewire Bypass Tube Suture - [id number] Implanted:Qty: 1 on 03/15/2021 by Peng Lozada MD at [facility] Right: Arterial [employer] Shira 09/27/2021 [id number] / / [id number] Procedures Procedure Name Priority Date/Time Associated Diagnosis Comments XR CHEST 1 VIEW ED Urgent/IP Urgent 12/01/2024 6:24 AM CDT PEP THERAPY Routine 11/30/2024 1:00 PM CDT MRI SPINE TOTAL COMPLETE WO CONTRAST IP Routine 11/30/2024 12:58 PM CDT PEP THERAPY Routine 11/30/2024 8:01 AM CDT XR CHEST 1 VIEW IP Routine 11/30/2024 5:31 AM CDT XR CHEST PA LATERAL 2 VIEWS IP Routine 11/29/2024 7:54 PM CDT PEP THERAPY Routine 11/29/2024 6:00 PM CDT PEP THERAPY Routine 11/29/2024 1:00 PM CDT PEP THERAPY Routine 11/29/2024 8:01 AM CDT XR CHEST 1 VIEW IP Routine 11/29/2024 6:35 AM CDT PEP THERAPY Routine 11/28/2024 6:00 PM CDT PEP THERAPY Routine 11/28/2024 1:00 PM CDT PEP THERAPY Routine 11/28/2024 8:00 AM CDT XR CHEST 1 VIEW IP Routine 11/28/2024 7:55 AM CDT XR SPINE THORACIC 3 VIEWS IP Routine 11/27/2024 12:25 PM CDT XR SPINE LUMBAR 2 OR 3 VIEWS IP Routine 11/27/2024 12:24 PM CDT XR CHEST 1 VIEW IP Routine 11/27/2024 6:13 AM CDT EGFR Routine 11/26/2024 9:15 PM CDT PHOSPHORUS Routine 11/26/2024 9:15 PM CDT MAGNESIUM Routine 11/26/2024 9:15 PM CDT BASIC METABOLIC PANEL Routine 11/26/2024 9:15 PM CDT CBC WITHOUT DIFFERENTIAL Routine 025 9:15 PM CDT PEP THERAPY Routine 11/26/2024 5:08 PM CDT XR SCOLIOSIS AP LAT ED Urgent/IP Urgent 11/26/2024 2:55 PM CDT XR SPINE LUMBAR 2 OR 3 VIEWS ED Urgent/IP Urgent 11/25/2024 10:14 PM CDT DRUGS OF ABUSE SCREEN, URINE WITH REFLEX CONFIRMATION Routine 11/25/2024 9:[address] BODY OUTSIDE CONSULT ED 11/26/19 8:[address] OUTSIDE CONSULT ED 025 8:[address] OUTSIDE CONSULT Routine 025 8:30 PM CDT XR TRANSFER OF OUTSIDE FILMS Routine 11/25/2024 8:28 PM CDT XR TRANSFER OF OUTSIDE FILMS Routine 11/25/2024 8:27 PM CDT XR TRANSFER OF OUTSIDE FILMS Routine 11/25/2024 8:25 PM CDT TN CRITICAL CARE ILL/INJURED PATIENT INIT 30-74 MIN Routine 11/25/2024 8:09 PM CDT XR CHEST 1 VIEW ED 11/25/2024 7:46 PM CDT POC BLOOD GAS AND CHEMISTRIES, VENOUS Routine 11/25/2024 7:40 PM CDT THROMBOELASTOMETRY PANEL - INTRINSIC Routine 11/25/2024 7:35 PM CDT THROMBOELASTOMETRY PANEL - HEPARIN Routine 11/25/2024 7:35 PM CDT THROMBOELASTOMETRY PANEL - EXTRINSIC Routine 11/25/2024 7:35 PM CDT THROMBOELASTOMETRY PANEL - FIBRINOGEN Routine 11/25/2024 7:35 PM CDT COMPREHENSIVE METABOLIC PANEL Routine 11/25/2024 7:35 PM CDT EGFR Routine 11/25/2024 7:35 PM CDT DIFFERENTIAL AUTO Routine 11/25/2024 7:3 5 PM CDT THROMBOELASTOMETRY PANEL Routine 025 7:35 PM CDT PROTIME-INR Routine 11/25/2024 7:35 PM CDT APTT Routine 11/25/2024 7:35 PM CDT ETHANOL Routine 11/25/2024 7:35 PM CDT CBC WITH AUTO DIFFERENTIAL Routine 11/25/2024 7:35 PM CDT TYPE AND SCREEN Timed 11/25/2024 7:35 PM CDT DEVICE CHECK - REMOTE Routine 11/15/2024 6:11 AM CDT XR CHEST PA LATERAL 2 VIEWS Timed 10/11/2024 9:01 AM CDT EGFR Timed 10/10/2024 7:46 PM CDT BASIC METABOLIC PANEL Timed 10/10/2024 7:46 PM CDT PHOSPHORUS Timed 10/10/2024 7:46 PM CDT MAGNESIUM Timed 10/10/2024 7:46 PM CDT CBC WITHOUT DIFFERENTIAL Timed 025 7:46 PM CDT CRITICAL CARE Routine 10/10/2024 7:12 PM CDT Traumatic pneumothorax, initial encounter CRITICAL CARE Routine 10/10/2024 6:25 PM CDT Traumatic pneumothorax, initial encounter POCT GLUCOSE DEVICE Routine 10/10/2024 6 :00 PM CDT POCT GLUCOSE DEVICE Routine 10/10/2024 11:39 AM CDT POCT GLUCOSE DEVICE Routine 10/10/2024 [...] 8:54 PM CDT CBC WITHOUT DIFFERENTIAL Timed 025 8:54 PM CDT CRITICAL CARE Routine 10/09/2024 7:53 PM CDT Traumatic pneumothorax, initial encounter POCT GLUCOSE DEVICE Routine 10/09/2024 6 :09 PM CDT CRITICAL CARE Routine 10/09/2024 5:49 PM CDT Traumatic pneumothorax, initial encounter XR CHEST 1 VIEW IP Routine 10/09/2024 5:44 PM CDT POCT GLUCOSE DEVICE Routine 10/09/2024 2 :58 PM CDT POCT GLUCOSE DEVICE Routine 10/09/2024 11:21 AM CDT POCT GLUCOSE DEVICE Routine 10/09/2024 8 :23 AM CDT XR TRANSFER OF OUTSIDE FILMS Routine 10/09/2024 4:56 AM CDT XR TRANSFER OF OUTSIDE FILMS Routine 10/09/2024 4:[address] OUTSIDE CONSULT Routine 025 4:52 AM CDT EGFR Routine 10/09/2024 4:51 AM CDT DIFFERENTIAL AUTO STAT 10/09/2024 4:5 1 AM CDT PROTIME-INR Routine 10/09/2024 4:51 AM CDT APTT Routine 10/09/2024 4:51 AM CDT BASIC METABOLIC PANEL Routine 10/09/2024 4:51 AM CDT CBC WITH AUTO DIFFERENTIAL STAT 10/09/2024 4:[address] OUTSIDE CONSULT Routine 025 4:49 AM CDT XR CHEST 1 VIEW ED 10/09/2024 4:[address] BODY OUTSIDE CONSULT Routine 10/10/19 25 4:46 AM CDT XR TRANSFER OF OUTSIDE FILMS Routine 10/09/2024 4:44 AM CDT TN CRITICAL CARE ILL/INJURED PATIENT INIT 30-74 MIN Routine 10/09/2024 4:42 AM CDT XR TRANSFER OF OUTSIDE FILMS Routine 10/09/2024 4:41 AM CDT DEVICE CHECK - IN OFFICE Routine 025 12:11 PM CDT Fitting or adjustment of cardiac pacemaker Complete heart block (HCC) from Last 3 Months Results * XR Chest 1 View (12/01/2024 6:24 AM CDT) Anatomical Region Laterality Modality Body, Chest N/A Digital Radiogra phy 12/01/2024 10:0 7 AM CDT Impressions 12/01/2024 10:07 AM CDT Comparison exam is dated 12/27/2024. The patient is status post transaortic valve replacement. Dual-lead pacemaker pack is in place, distal leads in the right atrium and right ventricle. No broken or abandoned leads are seen. Small lung volumes. There is a small right apical pneumothorax, similar to the prior exam from the day before. Tiny right pleural effusion. Atherosclerotic aorta. Electronically signed by: Lai Cruz M.D. Narrative 12/01/2024 10:07 AM CDT EXAMINATION: 1 view chest radiograph Procedure Note Lai Cruz MD - 12/01/2024 EXAMINATION: 1 view chest radiograph IMPRESSION: Comparison exam is dated 12/27/2024. The patient is status post transaortic valve replacement. Dual-lead pacemaker pack is in place, distal leads in the right atrium and right ventricle. No broken or abandoned leads are seen. Small lung volumes. There is a small right apical pneumothorax, similar to the prior exam from the day before. Tiny right pleural effusion. Atherosclerotic aorta. Electronically signed by: Lai Cruz M.D. Estevan Swan PhD IMG XR PROCEDURES Final Result * MRI Spine Total Complete WO Contrast (11/30/2024 12:58 PM CDT) Anatomical Region Laterality Modality Spine N/A Magnetic Resonan ce 11/30/2024 1:53 PM CDT Impressions 11/30/2024 6:21 PM CDT 1. Acute burst fracture of L1 with involvement of the anterior and posterior elements (posterior osseous/ligamentous tension band disruption) including the anterior longitudinal ligament, widening of the T12-L1 disc space, and extension along the posterior ligamentous complex at T12-L1 including fracture of the T12 spinous process with injuries to the intraspinous and supraspinous ligaments, injury of the ligamentum flavum at T12-L1 and additional posterior ligamentous injury L1-L2. While there is 3 mm of retropulsion and possible tiny dorsal epidural hematoma at L1, there is no significant spinal canal stenosis. 2. Linear marrow edema involving the superior T1 endplate which may represent marrow contusion/microtrabecular fracture without significant height loss or listhesis. 3. Small loculated right hydropneumothorax and additional multilevel posterior rib fractures better appreciated on dedicated chest imaging. 4. Multilevel degenerative changes of the cervical spine, most prominent at C5-C6. Dictated by: Gurinder Wright MD The radiology attending physician has personally reviewed this study, and had reviewed and/or edited this written report and agrees with it. Electronically signed by: Mario Naranjo M.D. Narrative 11/30/2024 6:21 PM CDT EXAMINATION: 1. Magnetic resonance imaging (MRI) of the cervical spine without contrast 2. Magnetic resonance imaging (MRI) of the thoracic spine without contrast 3. Magnetic resonance imaging (MRI) of the lumbar spine without contrast HISTORY: Trauma with burst fracture TECHNIQUE: Multiplanar multi-weighted MRI of the cervical spine was performed without intravenous contrast using the standard protocol. Multiplanar multi-weighted MRI of the thoracic spine was performed without intravenous contrast using the standard protocol. Multiplanar multi-weighted MRI of the lumbar spine was performed without intravenous contrast using the standard protocol. COMPARISON: CT 11/25/2024, 10/08/2024 FINDINGS: This exam is partially limited due to early termination and incomplete acquisition of multiple T1 and T2 sequences. CERVICAL SPINE: Straightening of the normal cervical lordosis with mild anterolisthesis of C4 on C5 and C7 on T1 and mild retrolisthesis of C6 on C7. No acute cervical fracture is noted or abnormal marrow edema. No cord signal abnormality is noted. There is multilevel disc desiccation and height loss with advanced degenerative changes of the cervical spine most prominent at C5-C6 with severe bilateral neural foraminal stenosis and moderate spinal canal stenosis. THORACIC SPINE: There is minimal linear T2 hyperintensity on STIR imaging (series 31 image 7) along the superior endplate of T1 which may represent a marrow contusion versus microtrabecular fracture. No significant height loss is noted. There is no abnormal thoracic listhesis. No significant spinal canal stenosis. Vertebral body hemangiomas are noted most prominent at T7. LUMBAR SPINE: There is a burst fracture at L1 with 3 mm of retropulsion without significant spinal canal stenosis. The fracture line extends to involve the anterior bridging osteophytes of T12-L1 with likely injury of the anterior longitudinal ligament. There is widening of the T12-L1 disc space with disc edema and extension of the fracture into the posterior elements including a nondisplaced fracture of the T12 spinous process (series 38 image 12), disruption of the ligamentum flavum at T12-L1 and likely posterior ligamentous injury at the L1-L2 level. There is associated involvement of the interspinous and supraspinous ligaments at T12-L1. Focal disruption of the ligamentum flavum at T11-T12. There is a possible tiny dorsal epidural hematoma without significant spinal canal stenosis. There are multilevel degenerative changes of the lumbar spine with disc bulges and ligamentum flavum infolding causing up to severe canal stenosis most prominent at L4-L5. There is also mild to moderate multilevel neural foraminal stenosis most prominent at L4-L5. Body findings: Small loculated right hydropneumothorax. Multiple posterior rib fractures are noted, better detailed on prior CT. Renal cysts are noted when compared to CT 10/08/2024. Procedure Note Mario Naranjo MD - 11/30/2024 EXAMINATION: 1. Magnetic resonance imaging (MRI) of the cervical spine without contrast 2. Magnetic resonance imaging (MRI) of the thoracic spine without contrast 3. Magnetic resonance imaging (MRI) of the lumbar spine without contrast HISTORY: Trauma with burst fracture TECHNIQUE: Multiplanar multi-weighted MRI of the cervical spine was performed without intravenous contrast using the standard protocol. Multiplanar multi-weighted MRI of the thoracic spine was performed without intravenous contrast using the standard protocol. Multiplanar multi-weighted MRI of the lumbar spine was performed without intravenous contrast using the standard protocol. COMPARISON: CT 11/25/2024, 10/08/2024 FINDINGS: This exam is partially limited due to early termination and incomplete acquisition of multiple T1 and T2 sequences. CERVICAL SPINE: Straightening of the normal cervical lordosis with mild anterolisthesis of C4 on C5 and C7 on T1 and mild retrolisthesis of C6 on C7. No acute cervical fracture is noted or abnormal marrow edema. No cord signal abnormality is noted. There is multilevel disc desiccation and height loss with advanced degenerative changes of the cervical spine most prominent at C5-C6 with severe bilateral neural foraminal stenosis and moderate spinal canal stenosis. THORACIC SPINE: There is minimal linear T2 hyperintensity on STIR imaging (series 31 image 7) along the superior endplate of T1 which may represent a marrow contusion versus microtrabecular fracture. No significant height loss is noted. There is no abnormal thoracic listhesis. No significant spinal canal stenosis. Vertebral body hemangiomas are noted most prominent at T7. LUMBAR SPINE: There is a burst fracture at L1 with 3 mm of retropulsion without significant spinal canal stenosis. The fracture line extends to involve the anterior bridging osteophytes of T12-L1 with likely injury of the anterior longitudinal ligament. There is widening of the T12-L1 disc space with disc edema and extension of the fracture into the posterior elements including a nondisplaced fracture of the T12 spinous process (series 38 image 12), disruption of the ligamentum flavum at T12-L1 and likely posterior ligamentous injury at the L1-L2 level. There is associated involvement of the interspinous and supraspinous ligaments at T12-L1. Focal disruption of the ligamentum flavum at T11-T12. There is a possible tiny dorsal epidural hematoma without significant spinal canal stenosis. There are multilevel degenerative changes of the lumbar spine with disc bulges and ligamentum flavum infolding causing up to severe canal stenosis most prominent at L4-L5. There is also mild to moderate multilevel neural foraminal stenosis most prominent at L4-L5. Body findings: Small loculated right hydropneumothorax. Multiple posterior rib fractures are noted, better detailed on prior CT. Renal cysts are noted when compared to CT 10/08/2024. IMPRESSION: 1. Acute burst fracture of L1 with involvement of the anterior and posterior elements (posterior osseous/ligamentous tension band disruption) including the anterior longitudinal ligament, widening of the T12-L1 disc space, and extension along the posterior ligamentous complex at T12-L1 including fracture of the T12 spinous process with injuries to the intraspinous and supraspinous ligaments, injury of the ligamentum flavum at T12-L1 and additional posterior ligamentous injury L1-L2. While there is 3 mm of retropulsion and possible tiny dorsal epidural hematoma at L1, there is no significant spinal canal stenosis. 2. Linear marrow edema involving the superior T1 endplate which may represent marrow contusion/microtrabecular fracture without significant height loss or listhesis. 3. Small loculated right hydropneumothorax and additional multilevel posterior rib fractures better appreciated on dedicated chest imaging. 4. Multilevel degenerative changes of the cervical spine, most prominent at C5-C6. Dictated by: Gurinder Wright MD The radiology attending physician has personally reviewed this study, and had reviewed and/or edited this written report and agrees with it. Electronically signed by: Mario Naranjo M.D. Savannah iWll MD IMG MRI PROCEDURES Fi nal Result * XR Chest 1 View (11/30/2024 5:31 AM CDT) Anatomical Region Laterality Modality Body, Chest N/A Computed Radiogr aphy 11/30/2024 9:15 AM CDT Impressions 11/30/2024 1:50 PM CDT First exam: Left subclavian pacer device with leads in the right atrium and right ventricle. Transcatheter aortic valve replacement. Interval removal right thoracostomy tube. Previously noted small right apical pneumothorax is not well seen on this exam. Mild bibasilar atelectasis. Stable small right pleural effusion. Stable enlarged cardiomediastinal silhouette. Redemonstrated subacute L1 compression fracture. Second exam: Small right apical pneumothorax, present but not well seen on the 1st exam. Increased bibasilar atelectasis. Dictated by: Tiffany Baird MD The radiology attending physician has personally reviewed this study, and had reviewed and/or edited this written report and agrees with it. Electronically signed by: Yuri Almodovar MD, PHD Narrative 11/30/2024 1:50 PM CDT Examination: 1. Chest two views 11/29/2024 7:26 PM 2. Chest one view 11/30/2024 5:24 AM COMPARISON: 11/29/2024 7:26 PM Procedure Note Yuri Almodovar MD PhD - 11/30/2024 Examination: 1. Chest two views 11/29/2024 7:26 PM 2. Chest one view 11/30/2024 5:24 AM COMPARISON: 11/29/2024 7:26 PM IMPRESSION: First exam: Left subclavian pacer device with leads in the right atrium and right ventricle. Transcatheter aortic valve replacement. Interval removal right thoracostomy tube. Previously noted small right apical pneumothorax is not well seen on this exam. Mild bibasilar atelectasis. Stable small right pleural effusion. Stable enlarged cardiomediastinal silhouette. Redemonstrated subacute L1 compression fracture. Second exam: Small right apical pneumothorax, present but not well seen on the 1st exam. Increased bibasilar atelectasis. Dictated by: Tiffany Baird MD The radiology attending physician has personally reviewed this study, and had reviewed and/or edited this written report and agrees with it. Electronically signed by: Yuri Almodovar MD, PHD Kathia Cortes NP IMG XR PROCEDURES Atiya l Result * XR Chest Pa Lateral 2 Views (11/29/2024 7:54 PM CDT) Anatomical Region Laterality Modality Body, Chest N/A Computed Radiogr aphy 11/30/2024 9:15 AM CDT Impressions 11/30/2024 1:50 PM CDT First exam: Left subclavian pacer device with leads in the right atrium and right ventricle. Transcatheter aortic valve replacement. Interval removal right thoracostomy tube. Previously noted small right apical pneumothorax is not well seen on this exam. Mild bibasilar atelectasis. Stable small right pleural effusion. Stable enlarged cardiomediastinal silhouette. Redemonstrated subacute L1 compression fracture. Second exam: Small right apical pneumothorax, present but not well seen on the 1st exam. Increased bibasilar atelectasis. Dictated by: Tiffany Baird MD The radiology attending physician has personally reviewed this study, and had reviewed and/or edited this written report and agrees with it. Electronically signed by: Yuri Almodovar MD, PHD Narrative 11/30/2024 1:50 PM CDT Examination: 1. Chest two views 11/29/2024 7:26 PM 2. Chest one view 11/30/2024 5:24 AM COMPARISON: 11/29/2024 7:26 PM Procedure Note Yuri Almodovar MD PhD - 11/30/2024 Examination: 1. Chest two views 11/29/2024 7:26 PM 2. Chest one view 11/30/2024 5:24 AM COMPARISON: 11/29/2024 7:26 PM IMPRESSION: First exam: Left subclavian pacer device with leads in the right atrium and right ventricle. Transcatheter aortic valve replacement. Interval removal right thoracostomy tube. Previously noted small right apical pneumothorax is not well seen on this exam. Mild bibasilar atelectasis. Stable small right pleural effusion. Stable enlarged cardiomediastinal silhouette. Redemonstrated subacute L1 compression fracture. Second exam: Small right apical pneumothorax, present but not well seen on the 1st exam. Increased bibasilar atelectasis. Dictated by: Tiffany Baird MD The radiology attending physician has personally reviewed this study, and had reviewed and/or edited this written report and agrees with it. Electronically signed by: Yuri Almodovar MD, PHD Estevan Swan PhD IMG XR PROCEDURES Final Result * XR Chest 1 View (11/29/2024 6:35 AM CDT) Anatomical Region Laterality Modality Body, Chest N/A Computed Radiogr aphy 11/29/2024 9:06 AM CDT Impressions 11/29/2024 9:20 AM CDT Comparison with 11/28/2024. Left subclavian pacer device with leads in the right atrium and right ventricle. Transcatheter aortic valve replacement. Right thoracostomy tube in unchanged position. Mildly decreased small right apical pneumothorax. Mild bibasilar atelectasis. Trace bilateral pleural effusions. Stable enlarged cardiomediastinal silhouette. Dictated by: Tiffany Baird MD The radiology attending physician has personally reviewed this study, and had reviewed and/or edited this written report and agrees with it. Electronically signed by: Tolu Valencia M.D. Narrative 11/29/2024 9:20 AM CDT EXAMINATION: 1 view chest radiograph Procedure Note Tolu Valencia MD - 11/29/2024 EXAMINATION: 1 view chest radiograph IMPRESSION: Comparison with 11/28/2024. Left subclavian pacer device with leads in the right atrium and right ventricle. Transcatheter aortic valve replacement. Right thoracostomy tube in unchanged position. Mildly decreased small right apical pneumothorax. Mild bibasilar atelectasis. Trace bilateral pleural effusions. Stable enlarged cardiomediastinal silhouette. Dictated by: Tiffany Baird MD The radiology attending physician has personally reviewed this study, and had reviewed and/or edited this written report and agrees with it. Electronically signed by: Tolu Valencia M.D. [facility] Agnieszka Sebastian BESSEMER REGULATOR IMG XR PROCEDURES Atiya l Result * XR Chest 1 View (11/28/2024 7:55 AM CDT) Anatomical Region Laterality Modality Body, Chest N/A Computed Radiogr aphy 11/28/2024 11:0 2 AM CDT Impressions 11/28/2024 11:02 AM CDT Comparison 11/27/2024 6:04 AM. Left subclavian transvenous pacemaker with right atrial and ventricular leads again seen. Single right chest tube remains in place. Cardiomediastinal silhouette stable. Transcatheter aortic valve replacement again noted. Small right apical pneumothorax and small right basilar pleural effusion again seen. No left pneumothorax seen. Patchy right basilar opacity most compatible with atelectasis, given the small right hemithorax compared to left hemithorax. No definite rib fracture seen. Electronically signed by: Quinn Stein M.D. Narrative 11/28/2024 11:02 AM CDT EXAMINATION: 1 view chest radiograph Procedure Note Quinn Stein MD - 11/28/2024 EXAMINATION: 1 view chest radiograph IMPRESSION: Comparison 11/27/2024 6:04 AM. Left subclavian transvenous pacemaker with right atrial and ventricular leads again seen. Single right chest tube remains in place. Cardiomediastinal silhouette stable. Transcatheter aortic valve replacement again noted. Small right apical pneumothorax and small right basilar pleural effusion again seen. No left pneumothorax seen. Patchy right basilar opacity most compatible with atelectasis, given the small right hemithorax compared to left hemithorax. No definite rib fracture seen. Electronically signed by: Quinn Stein M.D. Kathia Cortes NP IMG XR PROCEDURES Atiya l Result * XR Spine Thoracic 3 Vw (11/27/2024 12:25 PM CDT) Anatomical Region Laterality Modality Spine N/A Computed Radiogr aphy 11/27/2024 1:03 PM CDT Impressions 11/27/2024 1:03 PM CDT Unchanged moderate L1 superior endplate compression deformity. Electronically signed by: Ricardo Tang D.O. Narrative 11/27/2024 1:03 PM CDT EXAMINATION: XR SPINE LUMBAR 2 OR 3 VIEWS, XR SPINE THORACIC 3 VIEWS HISTORY: Upright spine xrays in TLSO brace COMPARISON: Radiographs 11/26/2024, CT 11/25/2024 FINDINGS: Patient is imaged in a brace. Unchanged moderate L1 superior endplate compression deformity. Multilevel overall moderate degenerative disc changes of the lumbar spine with moderate to severe changes at L5-S1. Severe lower lumbar facet arthropathy. Right pleural drain. Left chest wall AICD/pacer. Procedure Note Ricardo Tang, DO - 11/27/2024 EXAMINATION: XR SPINE LUMBAR 2 OR 3 VIEWS, XR SPINE THORACIC 3 VIEWS HISTORY: Upright spine xrays in TLSO brace COMPARISON: Radiographs 11/26/2024, CT 11/25/2024 FINDINGS: Patient is imaged in a brace. Unchanged moderate L1 superior endplate compression deformity. Multilevel overall moderate degenerative disc changes of the lumbar spine with moderate to severe changes at L5-S1. Severe lower lumbar facet arthropathy. Right pleural drain. Left chest wall AICD/pacer. IMPRESSION: Unchanged moderate L1 superior endplate compression deformity. Electronically signed by: Ricardo Tang D.O. Santiago Lambert MD IMG XR PROCEDURES Atiya l Result * XR Spine Lumbar 2 or 3 Views (11/27/2024 12:24 PM CDT) Anatomical Region Laterality Modality Spine N/A Computed Radiogr aphy 11/27/2024 1:03 PM CDT Impressions 11/27/2024 1:03 PM CDT Unchanged moderate L1 superior endplate compression deformity. Electronically signed by: Ricardo Tang D.O. Narrative 11/27/2024 1:03 PM CDT EXAMINATION: XR SPINE LUMBAR 2 OR 3 VIEWS, XR SPINE THORACIC 3 VIEWS HISTORY: Upright spine xrays in TLSO brace COMPARISON: Radiographs 11/26/2024, CT 11/25/2024 FINDINGS: Patient is imaged in a brace. Unchanged moderate L1 superior endplate compression deformity. Multilevel overall moderate degenerative disc changes of the lumbar spine with moderate to severe changes at L5-S1. Severe lower lumbar facet arthropathy. Right pleural drain. Left chest wall AICD/pacer. Procedure Note Ricardo Tang, - 11/27/2024 EXAMINATION: XR SPINE LUMBAR 2 OR 3 VIEWS, XR SPINE THORACIC 3 VIEWS HISTORY: Upright spine xrays in TLSO brace COMPARISON: Radiographs 11/26/2024, CT 11/25/2024 FINDINGS: Patient is imaged in a brace. Unchanged moderate L1 superior endplate compression deformity. Multilevel overall moderate degenerative disc changes of the lumbar spine with moderate to severe changes at L5-S1. Severe lower lumbar facet arthropathy. Right pleural drain. Left chest wall AICD/pacer. IMPRESSION: Unchanged moderate L1 superior endplate compression deformity. Electronically signed by: Ricardo Tang D.O. Santiago Lambert MD IMG XR PROCEDURES Atiya l Result * XR Chest 1 View (11/27/2024 6:13 AM CDT) Anatomical Region Laterality Modality Body, Chest N/A Digital Radiogra phy 11/27/2024 8:03 AM CDT Impressions 11/27/2024 8:23 AM CDT Comparison 11/25/2024. Left subclavian approach pacemaker with leads in the right atrium and right ventricle. Right thoracostomy tube. Transcatheter aortic valve replacement. Unchanged partial right lower lobe collapse. Mild left basilar atelectasis. Small right hydropneumothorax. No left effusion or pneumothorax. Stable cardiomediastinal silhouette. Dictated by: Pollo Snowden MD The radiology attending physician has personally reviewed this study, and had reviewed and/or edited this written report and agrees with it. Electronically signed by: Kayla Reza M.D. Narrative 11/27/2024 8:23 AM CDT EXAMINATION: 1 view chest radiograph Procedure Note Kayla Reza MD - 11/27/2024 EXAMINATION: 1 view chest radiograph IMPRESSION: Comparison 11/25/2024. Left subclavian approach pacemaker with leads in the right atrium and right ventricle. Right thoracostomy tube. Transcatheter aortic valve replacement. Unchanged partial right lower lobe collapse. Mild left basilar atelectasis. Small right hydropneumothorax. No left effusion or pneumothorax. Stable cardiomediastinal silhouette. Dictated by: Pollo Snowden MD The radiology attending physician has personally reviewed this study, and had reviewed and/or edited this written report and agrees with it. Electronically signed by: Kayla Reza M.D. Kathia Agnieszka [place] MICHELLE IMG XR PROCEDURES Atiya l Result * eGFR (11/26/2024 9:15 PM CDT) eGFR 87 >=60 mL/min/1. 73 m2 Comment: Interpretive Data [...] interpretive data was last reviewed 2021. Blood 11/26/2024 9:15 PM CDT 11/26/2024 10:06 PM CDT Santiago Lambert MD LAB BLOOD ORDERABLES F inal Result Performing Organization Address City/[facility]/ZIP Co de Phone Number [facility] [place] [address] * (ABNORMAL) CBC without differential (11/26/2024 9:15 PM CDT) WBC 8.21 3.80 - 9.90 K/cumm Hgb 13.0 13.0 - 17.5 g/dL [facility] Hct 38.7(L) 38.9 - 50.3 % [facility] Plt 184 150 - 400 K/cumm [facility] MPV 9.5 9.1 - 12.3 fL [facility] RBC 4.34 4.30 - 5.80 M/cumm [facility] MCV 89.2 81.3 - 96.4 fL [facility] MCH 30.0 27.1 - 33.3 pg [facility] MCHC 33.6 32.3 - 35.7 g/dL [facility] RDW CV 16.4(H) 11.1 - 14.9 % [facility] RDW SD 53.9(H) 35.7 - 48.1 fL [facility] NRBC abs 0.00 0.00 - 0.01 K/cumm [facility] Blood 11/26/2024 9:15 PM CDT 11/26/2024 10:07 PM CDT Santiago Lambert MD LAB BLOOD ORDERABLES F inal Result Performing Organization Address City/[facility]/ZIP Co de Phone Number [facility] [place] [address] * Phosphorus (11/26/2024 9:15 PM CDT) [facility] Phosphorus, pl 2.5 2.3 - 4.5 mg/dL Blood 11/26/2024 9:15 PM CDT 11/26/2024 10:06 PM CDT Santiago Lambert MD LAB BLOOD ORDERABLES F inal Result Performing Organization Address [place]/[facility] [place] [address] * Magnesium (11/26/2024 9:15 PM CDT) [facility] Magnesium 2.3 1.4 - 2.5 mg/dL Blood 11/26/2024 9:15 PM CDT 11/26/2024 10:06 PM CDT Santiago Lambert MD LAB BLOOD ORDERABLES F inal Result Performing Organization Address City/[facility] de Phone Number [facility] [place] [address] * (ABNORMAL) Basic metabolic panel (11/26/2024 9:15 PM CDT) [facility] Sodium 138 135 - 145 mmol/L Potassium, pl 4.0 3.3 - 4.9 mmol/L [facility] Comment:Repeated and Verifie d Chloride 102 97 - 110 mmol/L [facility] CO2 25 22 - 32 mmol/L [facility] Anion gap 11 2 - 15 mmol/L [facility] BUN 13 6 - 25 mg/dL [facility] Creatinine 0.74(L) 0.80 - 1.30 mg/dL [facility] Glucose 170 70 - 199 mg/dL [facility] Comment: Interpretive Data Fasting glucose >/= [...] Calcium 8.5 8.5 - 10.3 mg/dL [facility] Blood 11/26/2024 9:15 PM CDT 11/26/2024 10:06 PM CDT us Santiago Lambert MD LAB BLOOD ORDERABLES F inal Result [facility] [place] [address] * XR Scoliosis Ap and Lateral (11/26/2024 2:55 PM CDT) Anatomical Region Laterality Modality Spine N/A Computed Radiogr aphy 11/26/2024 3:02 PM CDT Impressions 11/26/2024 3:02 PM CDT 1. Unchanged mild to moderate L1 compression fracture managed with bracing. Electronically signed by: Caio Turner MD Narrative 11/26/2024 3:02 PM CDT EXAMINATION: XR SCOLIOSIS AP AND LATERAL HISTORY: Back pain. FINDINGS: Comparison to 11/25/2024. The patient is imaged in a brace, limiting detailed evaluation. Grossly unchanged mild to moderate compression fracture of L1 involving 20% height loss. Vertebral body heights are otherwise preserved. Severe multilevel lumbar degenerative disc disease. Sagittal alignment is normal Mild levoscoliosis of the thoracolumbar spine centered at T10. Minimal right coronal imbalance. Mild positive sagittal imbalance. Mild respiratory pelvic obliquity. Left chest wall pacemaker in expected position. Right chest tube, partially visualized. Procedure Note Caio Turner MD - 11/26/2024 EXAMINATION: XR SCOLIOSIS AP AND LATERAL HISTORY: Back pain. FINDINGS: Comparison to 11/25/2024. The patient is imaged in a brace, limiting detailed evaluation. Grossly unchanged mild to moderate compression fracture of L1 involving 20% height loss. Vertebral body heights are otherwise preserved. Severe multilevel lumbar degenerative disc disease. Sagittal alignment is normal Mild levoscoliosis of the thoracolumbar spine centered at T10. Minimal right coronal imbalance. Mild positive sagittal imbalance. Mild respiratory pelvic obliquity. Left chest wall pacemaker in expected position. Right chest tube, partially visualized. IMPRESSION: 1. Unchanged mild to moderate L1 compression fracture managed with bracing. Electronically signed by: Caio Turner MD Santiago Lambert MD IM XR PROCEDURES Atiya l Result * XR Spine Lumbar 2 or 3 Views (11/25/2024 10:14 PM CDT) Anatomical Region Laterality Modality Spine N/A Computed Radiogr aphy 11/25/2024 10:5 2 PM CDT Impressions 11/26/2024 9:13 AM CDT Compression fracture of the superior L1 endplate which is better seen on same-day CT. Abdominal aortic calcifications. Dictated by: Farhana Silverio MD The radiology attending physician has personally reviewed this study, and had reviewed and/or edited this written report and agrees with it. Electronically signed by: Lai Cruz M.D. Narrative 11/26/2024 9:13 AM CDT EXAMINATION: XR SPINE LUMBAR 2 OR 3 VIEWS HISTORY: upright/standing lumbar xrays COMPARISON:Same day outside CT Procedure Note Lai Cruz MD - 11/26/2024 EXAMINATION: XR SPINE LUMBAR 2 OR 3 VIEWS HISTORY: upright/standing lumbar xrays COMPARISON:Same day outside CT IMPRESSION: Compression fracture of the superior L1 endplate which is better seen on same-day CT. Abdominal aortic calcifications. Dictated by: Farhana Silverio MD The radiology attending physician has personally reviewed this study, and had reviewed and/or edited this written report and agrees with it. Electronically signed by: Lai Cruz M.D. us Shahla Winn MD IMG XR PROCEDURES Final Res ult * (ABNORMAL) Drugs of Abuse Screen, Urine with Reflex Confirmation (11/25/2024 9:10 PM CDT) Amphetamine, ur Not Detected CutOff 500ng/mL Comment: Interpretive Data - Amphetamines: Samples containing greater than 500 ng/mL d-methamphetamine or other cross-reacting amphetamine compounds are reported as positive. Amphetamine immunoassays are subject to significant false positive rates due to cross-reactivity of non-amphetamine drugs. Confirmatory testing required for definitive results. Current Interpretive Data was last reviewed 2023. Barbiturates, ur Not Detected CutOff 200ng/mL [facility] Comment: Interpretive Data - Barbiturates: Samples containing greater than 200 ng/mL secobarbital or other cross-reacting barbiturate compounds are reported as positive. False positive and false negative results are possible. Confirmatory testing required for definitive results. Current Interpretive Data was last reviewed 2023. Benzodiazepines, ur Screen Positive, presumptive (A) CutOff 100ng/mL [facility] Comment: Interpretive Data - Benzodiazepines: Samples containing greater than 100 ng/mL nordiazepam or other cross-reacting compounds are reported as positive. False positive and false negative results are possible. Confirmatory testing required for definitive results. Current Interpretive Data was last reviewed 2023. Cannabinoids, ur Not Detected CutOff 50 ng/mL [facility] Comment: Interpretive Data - Cannabinoids: Samples containing greater than 50 ng/mL delta-9 THC -COOH or other cross- reacting compounds are reported as positive. False positive and false negative results are possible. Confirmatory testing required for definitive results. Current Interpretive Data was last reviewed 2023. Cocaine, ur Not Detected CutOff 150ng/mL [facility] Comment: Interpretive Data - Cocaine: Samples containing greater than 150 ng/mL benzoylecgonine or other cross- reacting compounds are reported as positive. False positive and false negative results are possible. Confirmatory testing required for definitive results. Current Interpretive Data was last reviewed 2023. Fentanyl, Ur Not Detected CutOff 5 ng/mL [facility] Comment: Interpretive Data - Fentanyl: Samples containing greater than 5 ng/mL norfentanyl, fentanyl, or other cross-reacting fentanyl compounds are reported as positive. False positive and false negative results are possible. Confirmatory testing required for definitive results. Current Interpretive Data was last reviewed 2023. Methadone, ur Not Detected CutOff 300ng/mL [facility] Comment: Interpretive Data - Methadone: Samples containing greater than 300 ng/mL d,l-methadone or other cross-reacting compounds are reported as positive. False positive and false negative results are possible. Confirmatory testing required for definitive results. Current Interpretive Data was last reviewed 2023. Opiates, ur Not Detected CutOff 300ng/mL [facility] Comment: Interpretive Data - Opiates: Samples containing greater than 300 ng/mL morphine or other cross-reacting compounds are reported as positive. False positive and false negative results are possible. Confirmatory testing required for definitive results. Current Interpretive Data was last reviewed 2023. Oxycodone, ur Not Detected CutOff 100ng/mL [facility] Comment: Interpretive Data - Oxycodone: Samples containing greater than 100 ng/mL oxycodone or other cross-reacting compounds are reported as positive. False positive and false negative results are possible. Confirmatory testing required for definitive results. Current Interpretive Data was last reviewed 2023. Phencyclidine, ur Not Detected CutOff 25 ng/mL [facility] Comment: Interpretive Data - Phencyclidine: Samples containing greater than 25 ng/mL phencyclidine or other cross-reacting compounds are reported as positive. False positive and false negative results are possible. Confirmatory testing required for definitive results. Current Interpretive Data was last reviewed 2023. Urine Creatinine 54 mg/dL [facility] Comment: Interpretive Data Urine Creatinine: < 10 mg/dL is extremely dilute = or > 10 but < 20 mg/dL is dilute = or > 20 mg/dL is normal Current Interpretive Data was last revised on 2017. Urine 11/25/2024 9:10 PM CDT 11/25/2024 9:24 PM CDT Narrative [facility] - 11/25/2024 9:53 PM CDT Drug of Abuse screening is performed by immunoassay for medical purposes only. This is not to be used for Pain Management purposes. If Detected, confirmation testing will be performed for Amphetamines, Cocaine, Fentanyl, Methadone, Opiates, Oxycodone or Phencyclidine. us Shahla Winn MD LAB URINE ORDERABLES Final Result [facility] [place] [address] * CT Body Outside Consult (11/25/2024 8:35 PM CDT) Anatomical Region Laterality Modality Body N/A Computed Tomogra phy 11/25/2024 10:2 0 PM CDT Impressions 11/26/2024 8:15 AM CDT 1. Acute compression fracture of the L1 superior endplate. Multiple subacute rib fractures, without definite acute fractures. 2. Moderate to large volume simple right pleural effusion with adjacent atelectasis. No definite pneumonia. The findings, conclusions and recommendations within this report do not replace the initial findings, conclusions and recommendations made at the facility where the study was performed based upon the imaging and clinical condition at that time. Comparison with the prior report and clinical history is necessary. The provided images may or may not represent the [place] source data set and thus may contain changes that may lower the accuracy of this second-opinion interpretation. Dictated by: Farhana Silverio MD The radiology attending physician has personally reviewed this study, and had reviewed and/or edited this written report and agrees with it. Electronically signed by: Lai Cruz M.D. Narrative 11/26/2024 8:15 AM CDT EXAMINATION: RADIOLOGY CONSULTATION ON OUTSIDE IMAGING STUDY STUDY INITIALLY PERFORMED: 11/25/2024 at 2:08 PM at [facility] TYPE OF STUDY: Multiple CT images of chest abdomen pelvis are provided at the time of this interpretation. CONTRAST ROUTE: No contrast was administered. The protocol was adequate to address the clinical question. The outside final report was not available at the time of this second opinion interpretation. TYPE OF CONSULTATION: Consult on outside imaging study with images submitted through Outside Image Sharing Service DATE OF CONSULTATION: 11/25/2024 9:45 PM HISTORY: 88-year-old with ground-level fall COMPARISON: CT on 10/08/2024 FINDINGS: Interval increased moderate to large volume simple density right pleural effusion. Collapse of the right lower lobe atelectasis in the residual aerated right lung. No discrete consolidation. No pneumothorax. Cardiomegaly with tip of pacemaker leads in the right atrium and right ventricle. Aortic valve replacement. Three-vessel coronary artery disease. No pericardial effusion. Subacute right posterior rib fractures are noted. No definite acute rib fractures. Normal noncontrast appearance of the liver, spleen, bilateral adrenals and pancreas. Unchanged simple bilateral renal cysts. No suspicious solid renal lesion. No hydronephrosis. No evidence of bowel obstruction. Normal abdominal aorta. No abdominopelvic adenopathy. No free air or free fluid in the abdomen or pelvis. Acute compression fracture of the superior L1 endplate with approximately 30% height loss. No retropulsed segment. Severe degenerative changes in the lumbar spine. Procedure Note Lai Cruz MD - 11/26/2024 EXAMINATION: RADIOLOGY CONSULTATION ON OUTSIDE IMAGING STUDY STUDY INITIALLY PERFORMED: 11/25/2024 at 2:08 PM at [facility] TYPE OF STUDY: Multiple CT images of chest abdomen pelvis are provided at the time of this interpretation. CONTRAST ROUTE: No contrast was administered. The protocol was adequate to address the clinical question. The outside final report was not available at the time of this second opinion interpretation. TYPE OF CONSULTATION: Consult on outside imaging study with images submitted through Outside Image Sharing Service DATE OF CONSULTATION: 11/25/2024 9:45 PM HISTORY: 88-year-old with ground-level fall COMPARISON: CT on 10/08/2024 FINDINGS: Interval increased moderate to large volume simple density right pleural effusion. Collapse of the right lower lobe atelectasis in the residual aerated right lung. No discrete consolidation. No pneumothorax. Cardiomegaly with tip of pacemaker leads in the right atrium and right ventricle. Aortic valve replacement. Three-vessel coronary artery disease. No pericardial effusion. Subacute right posterior rib fractures are noted. No definite acute rib fractures. Normal noncontrast appearance of the liver, spleen, bilateral adrenals and pancreas. Unchanged simple bilateral renal cysts. No suspicious solid renal lesion. No hydronephrosis. No evidence of bowel obstruction. Normal abdominal aorta. No abdominopelvic adenopathy. No free air or free fluid in the abdomen or pelvis. Acute compression fracture of the superior L1 endplate with approximately 30% height loss. No retropulsed segment. Severe degenerative changes in the lumbar spine. IMPRESSION: 1. Acute compression fracture of the L1 superior endplate. Multiple subacute rib fractures, without definite acute fractures. 2. Moderate to large volume simple right pleural effusion with adjacent atelectasis. No definite pneumonia. The findings, conclusions and recommendations within this report do not replace the initial findings, conclusions and recommendations made at the facility where the study was performed based upon the imaging and clinical condition at that time. Comparison with the prior report and clinical history is necessary. The provided images may or may not represent the [place] source data set and thus may contain changes that may lower the accuracy of this second-opinion interpretation. Dictated by: Farhana Silverio MD The radiology attending physician has personally reviewed this study, and had reviewed and/or edited this written report and agrees with it. Electronically signed by: Lai Cruz M.D. Araceli Reina MD IMG CT PROCEDURES Final Result * Neuro CT Outside Consult (11/25/2024 8:32 PM CDT) Anatomical Region Laterality Modality N/A Computed Tomogra phy 11/25/2024 8:46 PM CDT Impressions 11/26/2024 12:11 PM CDT 1. No acute intracranial abnormality. 2. No acute fracture of the cervical spine. 3. 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 4. Partially imaged right pleural effusion. 5. Right anterior nasal cavity polypoid mass may represent a sinonasal polyp. Direct visualization is recommended. The findings, conclusions and recommendations within this report do not replace the initial findings, conclusions and recommendations made at the facility where the study was performed based upon the imaging and clinical condition at that time. Comparison with the prior report and clinical history is necessary. The provided images may or may not represent the [place] source data set and thus may contain changes that may lower the accuracy of this second-opinion interpretation. Dictated by: Tiffany Baird MD The radiology attending physician has personally reviewed this study, and had reviewed and/or edited this written report and agrees with it. Electronically signed by: Silvano Betancourt M.D. Narrative 11/26/2024 12:11 PM CDT EXAMINATION: RADIOLOGY CONSULTATION ON OUTSIDE IMAGING STUDY STUDY INITIALLY PERFORMED: 11/25/2024 at [facility]. TYPE OF STUDY: Multiple CT images of [...] Outside Image Sharing Service DATE OF CONSULTATION: 11/25/2024 8:34 PM HISTORY: Fall COMPARISON: None available. FINDINGS: HEAD: Scattered ill-defined hypodensities in the periventricular and subcortical white matter are nonspecific, and likely represent chronic small vessel ischemic change. There is parenchymal volume loss. There are atherosclerotic calcifications of the intracranial vessels. There is no acute intracranial hemorrhage. Ex vacuo dilatation of the ventricles. No mass effect or midline shift is present. The wrad-white matter differentiation is normal. Bilateral lens replacement. The visualized portions of the mastoids are normal. Right anterior nasal cavity sinonasal polyp. No fractures are identified. CERVICAL SPINE: Straightening of the normal cervical lordosis. There is no acute fracture. Vertebral bodies are normal in height without compression fractures. Intervertebral disk heights are normal. Redemonstrated severe degenerative changes of C1-C2 with pannus at the craniocervical junction and dens erosions. Limited views of the skull base appear normal. The sphenoid sinus is well aerated. Partially imaged right pleural effusion. Multilevel degenerative changes of the cervical spine, greatest and moderate to severe at C4-C5. Severe left greater than right neuroforaminal stenosis of C2-C7. Moderate spinal canal stenosis of C5-C7. Procedure Note Silvano Betancourt MD - 11/26/2024 EXAMINATION: RADIOLOGY CONSULTATION ON OUTSIDE IMAGING STUDY STUDY INITIALLY PERFORMED: 11/25/2024 at [facility]. TYPE OF STUDY: Multiple CT images of [...] Outside Image Sharing Service DATE OF CONSULTATION: 11/25/2024 8:34 PM HISTORY: Fall COMPARISON: None available. FINDINGS: HEAD: Scattered ill-defined hypodensities in the periventricular and subcortical white matter are nonspecific, and likely represent chronic small vessel ischemic change. There is parenchymal volume loss. There are atherosclerotic calcifications of the intracranial vessels. There is no acute intracranial hemorrhage. Ex vacuo dilatation of the ventricles. No mass effect or midline shift is present. The ward-white matter differentiation is normal. Bilateral lens replacement. The visualized portions of the mastoids are normal. Right anterior nasal cavity sinonasal polyp. No fractures are identified. CERVICAL SPINE: Straightening of the normal cervical lordosis. There is no acute fracture. Vertebral bodies are normal in height without compression fractures. Intervertebral disk heights are normal. Redemonstrated severe degenerative changes of C1-C2 with pannus at the craniocervical junction and dens erosions. Limited views of the skull base appear normal. The sphenoid sinus is well aerated. Partially imaged right pleural effusion. Multilevel degenerative changes of the cervical spine, greatest and moderate to severe at C4-C5. Severe left greater than right neuroforaminal stenosis of C2-C7. Moderate spinal canal stenosis of C5-C7. IMPRESSION: 1. No acute intracranial abnormality. 2. No acute fracture of the cervical spine. 3. 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 4. Partially imaged right pleural effusion. 5. Right anterior nasal cavity polypoid mass may represent a sinonasal polyp. Direct visualization is recommended. The findings, conclusions and recommendations within this report do not replace the initial findings, conclusions and recommendations made at the facility where the study was performed based upon the imaging and clinical condition at that time. Comparison with the prior report and clinical history is necessary. The provided images may or may not represent the [place] source data set and thus may contain changes that may lower the accuracy of this second-opinion interpretation. Dictated by: Tiffany Baird MD The radiology attending physician has personally reviewed this study, and had reviewed and/or edited this written report and agrees with it. Electronically signed by: Silvano Betancourt M.D. Araceli Reina MD IM CT PROCEDURES Final Result * Neuro CT Outside Consult (11/25/2024 8:30 PM CDT) Anatomical Region Laterality Modality N/A Computed Tomogra phy 11/25/2024 8:42 PM CDT Impressions 11/26/2024 12:11 PM CDT 1. No acute intracranial abnormality. 2. No acute fracture of the cervical spine. 3. 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 4. Partially imaged right pleural effusion. 5. Right anterior nasal cavity polypoid mass may represent a sinonasal polyp. Direct visualization is recommended. The findings, conclusions and recommendations within this report do not replace the initial findings, conclusions and recommendations made at the facility where the study was performed based upon the imaging and clinical condition at that time. Comparison with the prior report and clinical history is necessary. The provided images may or may not represent the [place] source data set and thus may contain changes that may lower the accuracy of this second-opinion interpretation. Dictated by: Tiffany Baird MD The radiology attending physician has personally reviewed this study, and had reviewed and/or edited this written report and agrees with it. Electronically signed by: Silvano Betancourt M.D. Narrative 11/26/2024 12:11 PM CDT EXAMINATION: RADIOLOGY CONSULTATION ON OUTSIDE IMAGING STUDY STUDY INITIALLY PERFORMED: 11/25/2024 at [facility]. TYPE OF STUDY: Multiple CT images of [...] Outside Image Sharing Service DATE OF CONSULTATION: 11/25/2024 8:34 PM HISTORY: Fall COMPARISON: None available. FINDINGS: HEAD: Scattered ill-defined hypodensities in the periventricular and subcortical white matter are nonspecific, and likely represent chronic small vessel ischemic change. There is parenchymal volume loss. There are atherosclerotic calcifications of the intracranial vessels. There is no acute intracranial hemorrhage. Ex vacuo dilatation of the ventricles. No mass effect or midline shift is present. The ward-white matter differentiation is normal. Bilateral lens replacement. The visualized portions of the mastoids are normal. Right anterior nasal cavity sinonasal polyp. No fractures are identified. CERVICAL SPINE: Straightening of the normal cervical lordosis. There is no acute fracture. Vertebral bodies are normal in height without compression fractures. Intervertebral disk heights are normal. Redemonstrated severe degenerative changes of C1-C2 with pannus at the craniocervical junction and dens erosions. Limited views of the skull base appear normal. The sphenoid sinus is well aerated. Partially imaged right pleural effusion. Multilevel degenerative changes of the cervical spine, greatest and moderate to severe at C4-C5. Severe left greater than right neuroforaminal stenosis of C2-C7. Moderate spinal canal stenosis of C5-C7. Procedure Note Silvano Betancourt MD - 11/26/2024 EXAMINATION: RADIOLOGY CONSULTATION ON OUTSIDE IMAGING STUDY STUDY INITIALLY PERFORMED: 11/25/2024 at [facility]. TYPE OF STUDY: Multiple CT images of [...] Outside Image Sharing Service DATE OF CONSULTATION: 11/25/2024 8:34 PM HISTORY: Fall COMPARISON: None available. FINDINGS: HEAD: Scattered ill-defined hypodensities in the periventricular and subcortical white matter are nonspecific, and likely represent chronic small vessel ischemic change. There is parenchymal volume loss. There are atherosclerotic calcifications of the intracranial vessels. There is no acute intracranial hemorrhage. Ex vacuo dilatation of the ventricles. No mass effect or midline shift is present. The ward-white matter differentiation is normal. Bilateral lens replacement. The visualized portions of the mastoids are normal. Right anterior nasal cavity sinonasal polyp. No fractures are identified. CERVICAL SPINE: Straightening of the normal cervical lordosis. There is no acute fracture. Vertebral bodies are normal in height without compression fractures. Intervertebral disk heights are normal. Redemonstrated severe degenerative changes of C1-C2 with pannus at the craniocervical junction and dens erosions. Limited views of the skull base appear normal. The sphenoid sinus is well aerated. Partially imaged right pleural effusion. Multilevel degenerative changes of the cervical spine, greatest and moderate to severe at C4-C5. Severe left greater than right neuroforaminal stenosis of C2-C7. Moderate spinal canal stenosis of C5-C7. IMPRESSION: 1. No acute intracranial abnormality. 2. No acute fracture of the cervical spine. 3. 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 4. Partially imaged right pleural effusion. 5. Right anterior nasal cavity polypoid mass may represent a sinonasal polyp. Direct visualization is recommended. The findings, conclusions and recommendations within this report do not replace the initial findings, conclusions and recommendations made at the facility where the study was performed based upon the imaging and clinical condition at that time. Comparison with the prior report and clinical history is necessary. The provided images may or may not represent the [place] source data set and thus may contain changes that may lower the accuracy of this second-opinion interpretation. Dictated by: Tiffany Baird MD The radiology attending physician has personally reviewed this study, and had reviewed and/or edited this written report and agrees with it. Electronically signed by: Silvano Betancourt M.D. Shahla Winn MD IMG CT PROCEDURES Final Res ult * XR Outside Reference (11/25/2024 8:28 PM CDT) Impressions [facility] - 11/25/2024 8:28 PM CDT These images are for Reference purposes only and have not been reviewed by [facility] Radiology. There will be no report generated by a [facility] Radiologist. Narrative [facility] - 11/25/2024 8:28 PM CDT EXAMINATION: Images For Reference Purposes Only Shahla Winn MD IMG XR PROCEDURES Final Res ult [facility] * XR Outside Reference (11/25/2024 8:27 PM CDT) Impressions [facility] - 11/25/2024 8:27 PM CDT These images are for Reference purposes only and have not been reviewed by [facility] Radiology. There will be no report generated by a [facility] Radiologist. Narrative [facility] - 11/25/2024 8:27 PM CDT EXAMINATION: Images For Reference Purposes Only us Shahla Winn MD IMG XR PROCEDURES Final Res ult Performing Organization Address [place] Co de Phone Number [email or web address] * XR Outside Reference (11/25/2024 8:25 PM CDT) Impressions [facility] - 11/25/2024 8:25 PM CDT These images are for Reference purposes only and have not been reviewed by [facility] Radiology. There will be no report generated by a [facility] Radiologist. Narrative [facility] - 11/25/2024 8:25 PM CDT EXAMINATION: Images For Reference Purposes Only us Shahla Winn MD IMG XR PROCEDURES Final Res ult Performing Organization Address [place] [place] de Phone Number [email or web address] * [place] CRITICAL CARE ILL/INJURED PATIENT INIT 30-74 MIN (11/25/2024 8:09 PM CDT) Narrative Shahla Winn MD - 11/25/2024 8:09 PM CDT Shahla Winn MD 11/29/2024 2:17 PM Critical Care Performed by: Shahla Winn MD Authorized by: Shahla Winn MD Critical care provider statement: As reflected in the history, physical exam, orders, notes, and/or MDM, I was personally present while the patient was critically ill and provided critical care services for 45 minutes, excluding time involved in separately billable procedures. Critical care was necessary to treat or prevent imminent or life-threatening deterioration of the following condition(s): level 1 trauma and hemo/pneumothorax Critical care was time spent by me providing the following: continuous telemetry, continuous pulse oximetry, interpretation of bedside monitors, imaging, and arterial/venous lab draws and serial bedside patient exams serial neurovascular exams I provided emergent necessary critical care medicine [...] spent time documenting in the medical record. us Shahla Winn MD IN CLINIC/BEDSIDE ORDERABLE S Final Result * Chest xray, 1 view, portable (11/25/2024 7:46 PM CDT) Anatomical Region Laterality Modality Body, Chest N/A Computed Radiogr aphy 11/25/2024 8:01 PM CDT Impressions 11/25/2024 8:10 PM CDT Again seen are post procedure changes of a transcatheter aortic valve replacement. There are cardiac stents in place. A cardiac pacemaker is in unchanged position. There is interval placement of a right apical approach thoracostomy tube. There is increased volume loss of the right lung with associated rightward tracheal deviation and partial collapse of the right lower lobe. There is mild left basilar atelectasis. Trace pulmonary edema. There is a small right pleural effusion. No left pleural effusion. No pneumothorax. Unchanged mild enlargement of the cardiac silhouette. There is gas within the subcutaneous tissues of the right chest wall. Dictated by: Anthony Gonzales MD The radiology attending physician has personally reviewed this study, and had reviewed and/or edited this written report and agrees with it. Electronically signed by: Joseluis Lemos M.D. Narrative 11/25/2024 8:10 PM CDT EXAMINATION: XR CHEST 1 VIEW HISTORY: Fall during therapy COMPARISON: 10/11/2024 Procedure Note Joseluis Lemos MD - 11/25/2024 EXAMINATION: XR CHEST 1 VIEW HISTORY: Fall during therapy COMPARISON: 10/11/2024 IMPRESSION: Again seen are post procedure changes of a transcatheter aortic valve replacement. There are cardiac stents in place. A cardiac pacemaker is in unchanged position. There is interval placement of a right apical approach thoracostomy tube. There is increased volume loss of the right lung with associated rightward tracheal deviation and partial collapse of the right lower lobe. There is mild left basilar atelectasis. Trace pulmonary edema. There is a small right pleural effusion. No left pleural effusion. No pneumothorax. Unchanged mild enlargement of the cardiac silhouette. There is gas within the subcutaneous tissues of the right chest wall. Dictated by: Anthony Gonzales MD The radiology attending physician has personally reviewed this study, and had reviewed and/or edited this written report and agrees with it. Electronically signed by: Joseluis Lemos M.D. us Shahla Winn MD IMG XR PROCEDURES Final Res ult * (ABNORMAL) POC Blood Gas and Chemistries, Venous - (11/25/2024 7:40 PM CDT) pH, Christopher POC 7.28(L) 7.32 - 7.43 pCO2, christopher POC 64(H) 40 - 50 mmHg [facility] pO2, christopher POC 49 mmHg [facility] Na, POC 135 135 - 145 mmol/L [facility] K POC 5.3(H) 3.3 - 4.9 mmol/L [facility] Comment: Hemolyzed;K+ value may be falsely elevated 0.6-1.0 Interpretive Data Not all point of care methods assess for hemolysis. Confirm with instrument and retest K+ if not consistent with clinical signs and symptoms. Current Interpretive Data was last revised on 2023. Cl, POC 105 97 - 110 mmol/L [facility] Ionized Ca, POC 4.77 4.50 - 5.10 mg/dL [facility] Glucose, POC 150 70 - 199 mg/dL [facility] Lactate POC 1.8 0.7 - 2.0 mmol/L [facility] MetHb, Christopher POC <0.1 0.0 - 1.9 % [facility] O2 Sat, Christopher POC (Anderson) 81 % [facility] Base excess, POC 1.8 mmol/L [facility] Hct, POC 39.0(L) 41.4 - 51.6 % [facility] Total Hb, POC 13.0(L) 13.8 - 17.2 g/dL [facility] Blood 11/25/2024 7:40 PM CDT 11/25/2024 7:40 PM CDT us Darnell Lira MD LAB POCT ORDERABLES - DEVICE Fin al Result [facility] [place] [address] * Thromboelastometry Panel - Heparin (11/25/2024 7:35 PM CDT) HEPTEM-CT 162 141 - 215 sec HEPTEM-A5 42 33 - 51 mm [facility] HEPTEM-A10 53 44 - 61 mm [facility] HEPTEM-A20 60 52 - 67 mm [facility] HEPTEM-MCF 61 54 - 69 mm [facility] Blood 11/25/2024 7:35 PM CDT 11/25/2024 7:41 PM CDT us Gelacio Perera MD LAB BLOOD ORDERABLES Edit ed Result - Final Performing Organization Address City/[facility]/ZIP Co de Phone Number [facility] [place] [address] * Thromboelastometry Panel - Intrinsic (11/25/2024 7:35 PM CDT) Pathologist [facility] INTEM-CT 174 139 - 205 sec INTEM-A5 44 36 - 54 mm [facility] INTEM-A10 55 46 - 63 mm [facility] INTEM-A20 61 53 - 68 mm [facility] INTEM-MCF 62 55 - 70 mm [facility] INTEM-LI60 96 93 - 100 % [facility] INTEM-ML 4 0 - 7 % [facility] Blood 11/25/2024 7:35 PM CDT 11/25/2024 7:41 PM CDT us Gelacio Perera MD LAB BLOOD ORDERABLES Edit ed Result - Final [facility] [place] [address] * (ABNORMAL) Thromboelastometry Panel - Fibrinogen (11/25/2024 7:35 PM CDT) Pathologist [facility] FIBTEM-A5 19(H) 5 - 16 mm FIBTEM-A10 20(H) 6 - 17 mm [facility] FIBTEM-A20 22(H) 6 - 18 mm [facility] FIBTEM-MCF 22(H) 9 - 19 mm [facility] Blood 11/25/2024 7:35 PM CDT 11/25/2024 7:41 PM CDT Gelacio Perera MD LAB BLOOD ORDERABLES Edit ed Result - Final [facility] [place] [address] * (ABNORMAL) Thromboelastometry Panel - Extrinsic (11/25/2024 7:35 PM CDT) [facility] EXTEM-CT 94(H) 51 - 73 sec EXTEM-A5 47 33 - 52 mm [facility] EXTEM-A10 58 45 - 62 mm [facility] EXTEM-A20 64 54 - 69 mm [facility] EXTEM-MCF 65 57 - 72 mm [facility] EXTEM-LI60 96 94 - 100 % [facility] EXTEM-ML 5 0 - 6 % [facility] Blood 11/25/2024 7:3 5 PM CDT 11/25/2024 7:41 PM CDT Gelacio Perera MD LAB BLOOD ORDERABLES Edit ed Result - Final [facility] [place] [address] * eGFR (11/25/2024 7:35 PM CDT) [facility] eGFR >90 >=60 mL/min/1. 73 m2 Comment: [...] interpretive data was last reviewed 2021. Blood 11/25/2024 7:35 PM CDT 11/25/2024 7:53 PM CDT us Shahla Winn MD LAB BLOOD ORDERABLES Final Result [facility] [place] [address] * (ABNORMAL) Differential, auto (11/25/2024 7:35 PM CDT) Neutrophil abs 6.60(H) 1.50 - 6.50 K/cumm Imm gran abs 0.02 0.00 - 0.10 K/cumm [facility] Lymphocyte abs 1.00 0.80 - 3.30 K/cumm [facility] Monocyte abs 0.70 0.20 - 0.80 K/cumm [facility] Eosinophil abs 0.05 0.00 - 0.50 K/cumm [facility] Basophil abs 0.02 0.00 - 0.10 K/cumm [facility] Neutrophil pct 78.8 % [facility] Comment: Interpretive Data Percent cell count reference ranges are not reported, since discordance with absolute values may lead to misinterpretation of CBC data. Current Interpretive Data was last revised on 2017. Imm gran pct 0.2 % [facility] Comment: Interpretive Data Percent cell count reference ranges are not reported, since discordance with absolute values may lead to misinterpretation of CBC data. Current Interpretive Data was last revised on 2017. Lymphocyte pct 11.9 % [facility] Comment: Interpretive Data Percent cell count reference ranges are not reported, since discordance with absolute values may lead to misinterpretation of CBC data. Current Interpretive Data was last revised on 2017. Monocyte pct 8.3 % [facility] Comment: Interpretive Data Percent cell count reference ranges are not reported, since discordance with absolute values may lead to misinterpretation of CBC data. Current Interpretive Data was last revised on 2017. Eosinophil pct 0.6 % [facility] Comment: Interpretive Data Percent cell count reference ranges are not reported, since discordance with absolute values may lead to misinterpretation of CBC data. Current Interpretive Data was last revised on 2017. Basophil pct 0.2 % [facility] Comment: Interpretive Data Percent cell count reference ranges are not reported, since discordance with absolute values may lead to misinterpretation of CBC data. Current Interpretive Data was last revised on 2017. Blood 11/25/2024 7:35 PM CDT 11/25/2024 7:53 PM CDT us Gelacio Perera MD LAB BLOOD ORDERABLES Atiya marquis Result [facility] [place] [address] * (ABNORMAL) CBC with auto differential (11/25/2024 7:35 PM CDT) WBC 8.39 3.80 - 9.90 K/cumm Hgb 13.2 13.0 - 17.5 g/dL [facility] Hct 40.8 38.9 - 50.3 % [facility] Plt 157 150 - 400 K/cumm [facility] MPV 9.4 9.1 - 12.3 fL [facility] RBC 4.48 4.30 - 5.80 M/cumm [facility] MCV 91.1 81.3 - 96.4 fL [facility] MCH 29.5 27.1 - 33.3 pg [facility] MCHC 32.4 32.3 - 35.7 g/dL [facility] RDW CV 16.3(H) 11.1 - 14.9 % [facility] RDW SD 54.6(H) 35.7 - 48.1 fL [facility] NRBC abs 0.00 0.00 - 0.01 K/cumm [facility] Blood 11/25/2024 7:35 PM CDT 11/25/2024 7:53 PM CDT Shahla Winn MD LAB BLOOD ORDERABLES Final Result Performing Organization Address [place]/[facility] de Phone Number [facility] [place] [address] * aPTT (11/25/2024 7:35 PM CDT) aPTT 29 28 - 38 sec Comment: Interpretive Data Heparin therapeutic range: 66.0 - 100.0 seconds. Range based on correlation with therapeutic heparin activity range of 0.3 - 0.7 Units/mL. Current interpretive data was last revised on 2023. Blood 11/25/2024 7:35 PM CDT 11/25/2024 7:59 PM CDT Shahla Winn MD LAB BLOOD ORDERABLES Final Result Performing Organization Address [place]/[facility] Co de Phone Number [facility] Department [place] [address] * Protime-INR (11/25/2024 7:35 PM CDT) PT 12.8 9.7 - 13.0 sec INR 1.18 0.90 - 1.20 [facility] Comment: Interpretive data Oral anticoagulant therapeutic ranges: Venous thromboembolism prophylaxis or treatment: 2.0-3.0 CARDIOLOGY Standard range: 2.0-3.0 High-intensity range: 2.5-3.5 Refer to indication-specific guidelines for appropriate target ranges for prosthetic heart valve replacement. Current interpretive data was last revised on 2019. Blood 11/25/2024 7:35 PM CDT 11/25/2024 7:59 PM CDT Shahla Winn MD LAB BLOOD ORDERABLES Final Result Performing Organization Address [place]/[facility] Co de Phone Number [facility] [place] [address] * Type and screen (11/25/2024 7:35 PM CDT) Pathologist [facility] ABO Rh A Positive Kera, indirect Negative [facility] Blood 11/25/2024 7:35 PM CDT 11/25/2024 10:06 PM CDT Narrative [facility] - 11/25/2024 11:15 PM CDT Has the patient had Daratumumab or Isatuximab in the past 6 months?->Unknown Shahla Winn MD LAB BLOOD BANK TEST ORDERAB LES Final Result Performing Organization Address [facility] de Phone Number [facility] [place] [address] * Ethanol (11/25/2024 7:35 PM CDT) Ethanol <10 <=10 mg/dL Comment: Hemolyzed; result may be falsely decreased Interpretive Data Legal limit of intoxication > or = 80 mg/dL Levels > or = 400 mg/dL are potentially TOXIC. Current interpretive data was last revised on 2018. Blood 11/25/2024 7:35 PM CDT 11/25/2024 7:53 PM CDT Shahla Winn MD LAB BLOOD ORDERABLES Final Result Performing Organization Address [place]/[facility] Co de Phone Number [facility] Department [place] [address] * (ABNORMAL) Comprehensive metabolic panel (11/25/2024 7:35 PM CDT) Sodium 136 135 - 145 mmol/L Potassium, pl See Comment 3.3 - 4.9 mmol/L [facility] Comment:Credited; Hemolyzed Specimen Chloride 103 97 - 110 mmol/L [facility] CO2 24 22 - 32 mmol/L [facility] Anion gap 9 2 - 15 mmol/L [facility] BUN 19 6 - 25 mg/dL [facility] Creatinine 0.57(L) 0.80 - 1.30 mg/dL [facility] Glucose 134 70 - 199 mg/dL [facility] Comment: Interpretive Data Fasting glucose >/= [...] interpretive data was last revised 2022. Calcium 8.4(L) 8.5 - 10.3 mg/dL [facility] Bilirubin, total 1.6(H) 0.1 - 1.2 mg/dL [facility] Protein, pl 6.7 6.5 - 8.5 g/dL [facility] Albumin 3.3(L) 3.5 - 5.0 g/dL [facility] Alk phos 58 40 - 130 Units/L [facility] Comment:Hemolyzed; result ma y be falsely decreased ALT See Comment 7 - 55 Units/L [facility] Comment:Credited; Hemolyzed Specimen AST See Comment 10 - 50 Units/L [facility] Comment:Credited; Hemolyzed Specimen Blood 11/25/2024 7:35 PM CDT 11/25/2024 7:53 PM CDT us Shahla Winn MD LAB BLOOD ORDERABLES Final Result [facility] [place] [address] * DEVICE CHECK - REMOTE (11/15/2024 6:11 AM CDT) Anatomical Region Laterality Modality Other 11/15/2024 6:11 AM CDT Narrative 11/15/2024 11:49 AM CDT Interpretation Summary: Battery and Leads (BL) Normal parameters noted on battery and lead(s) --- 5.5 years remaining (this is an estimate based on prior usage) Presenting Rhythm (TN) Atrial Pacing-Ventricular Sensing (AP-VS) --- rate 60 [...] estimate based on prior usage) Presenting Rhythm (TN) Atrial Pacing-Ventricular Sensing (AP-VS) --- rate 60 Arrhythmic events (AE) Nonsustained SVT event(s) identified --- Three NS-SVT episodes. Fastest:170. Longest: 15 seconds Paroxysmal atrial fibrillation and/or flutter --- Nine AT/AF episodes.Longest: 3hrs 53min. V rates 60-110 during AF Anticoagulation (AC) Patient prescribed Apixaban (Eliquis) Patient on anticoagulant therapy Transmission Information (TI) Device Summary Report us Eddie James MD CV CARDIAC SERVICES PROCEDURES [...] BLOOD ORDERABLES Final Result Performing Organization Address City/[facility]/ZIP Co de Phone Number [facility] [place] [address] * (ABNORMAL) CBC without differential (10/10/2024 7:46 PM CDT) WBC 7.44 3.80 - 9.90 K/cumm Hgb 11.2(L) 13.0 - 17.5 g/dL [facility] Hct 34.3(L) 38.9 - 50.3 % [facility] Plt 161 150 - 400 K/cumm [facility] MPV 10.4 9.1 - 12.3 fL [facility] RBC 3.67(L) 4.30 - 5.80 M/cumm [facility] MCV 93.5 81.3 - 96.4 fL [facility] MCH 30.5 27.1 - 33.3 pg [facility] MCHC 32.7 32.3 - 35.7 g/dL [facility] RDW CV 13.1 11.1 - 14.9 % [facility] RDW SD 45.1 35.7 - 48.1 fL [facility] NRBC abs 0.00 0.00 - 0.01 K/cumm [facility] Blood 10/10/2024 7:46 PM CDT 10/10/2024 9:03 PM CDT us Clarice Pepe MD LAB BLOOD ORDERABLES Final Resu lt [facility] [place] [address] * Phosphorus (10/10/2024 7:46 PM CDT) [facility] Phosphorus, pl 3.0 2.3 - 4.5 mg/dL Blood 10/10/2024 7:46 PM CDT 10/10/2024 8:50 PM CDT Clarice Pepe MD LAB BLOOD ORDERABLES Final Resu lt Performing Organization Address [place]/[facility] [place] [address] * Magnesium (10/10/2024 7:46 PM CDT) [facility] Magnesium 2.2 1.4 - 2.5 mg/dL Blood 10/10/2024 7:46 PM CDT 10/10/2024 8:50 PM CDT Clarice Pepe MD LAB BLOOD ORDERABLES Final Resu lt Performing Organization Address City/[facility] Co de Phone Number [facility] [place] [address] * (ABNORMAL) Basic metabolic panel (10/10/2024 7:46 PM CDT) [facility] Sodium 135 135 - 145 mmol/L Potassium, pl 3.8 3.3 - 4.9 mmol/L [facility] Chloride 98 97 - 110 mmol/L [facility] CO2 29 22 - 32 mmol/L [facility] Anion gap 8 2 - 15 mmol/L [facility] BUN 17 6 - 25 mg/dL [facility] Creatinine 0.66(L) 0.80 - 1.30 mg/dL [facility] Glucose 151 70 - 199 mg/dL [facility] Comment: Interpretive Data Fasting glucose >/= [...] Calcium 8.6 8.5 - 10.3 mg/dL [facility] Blood 10/10/2024 7:46 PM CDT 10/10/2024 8:50 PM CDT us Jasmina Mendoza MD LAB BLOOD ORDERABLES Final Result [facility] [place] [address] * Critical Care (10/10/2024 7:12 PM CDT) [...] plan with the ICU team and other medical/crop consultant staff, making frequent assessments and decisions [...] us Santiago Lambert MD IN CLINIC/BEDSIDE BAKARI YANESLES Final Result * Critical Care (10/10/2024 6:25 [...] plan with the ICU team and other medical/crop consultant staff, making frequent assessments and decisions [...] 6:00 PM CDT 10/10/2024 6:00 PM CDT us Jasmina Mendoza MD LAB POCT ORDERABLES - DEVICE Final Result [facility] Department [place] [address] * POCT glucose (10/10/2024 11:39 AM CDT) Glucose, POC 124 70 - 199 mg/dL Blood 10/10/2024 11:3 9 AM CDT 10/10/2024 11:39 AM CDT us Jasmina Mendoza MD LAB POCT ORDERABLES - DEVICE Final Result Performing Organization Address City/[facility] Co de Phone Number [facility] [place] [address] * POCT glucose (10/10/2024 7:34 AM CDT) Glucose, POC 103 70 - 199 mg/dL Blood 10/10/2024 7:34 AM CDT 10/10/2024 7:34 AM CDT Jasimna Mendoza MD LAB POCT ORDERABLES - DEVICE Final Result Performing Organization Address [place]/[facility] Co de Phone Number [facility] [place] [address] * XR Chest 1 View (10/10/2024 7:08 [...] LAB BLOOD ORDERABLES Final Resu lt [facility] Department of Laboratories [place], [place] [id number] * POCT glucose (10/09/2024 8:54 PM CDT) Glucose, POC 127 70 - 199 mg/dL Blood 10/09/2024 8:54 PM CDT 10/09/2024 8:54 PM CDT us Jasmina Mendoza MD LAB POCT ORDERABLES - DEVICE Final Result Performing Organization Address [place]/[facility] de Phone Number [facility] [place] [address] * (ABNORMAL) CBC without differential (10/09/2024 8:54 PM CDT) [facility] WBC 7.25 3.80 - 9.90 K/cumm Hgb 10.9(L) 13.0 - 17.5 g/dL [facility] Hct 32.9(L) 38.9 - 50.3 % [facility] Plt 122(L) 150 - 400 K/cumm [facility] MPV 9.7 9.1 - 12.3 fL [facility] RBC 3.46(L) 4.30 - 5.80 M/cumm [facility] MCV 95.1 81.3 - 96.4 fL [facility] MCH 31.5 27.1 - 33.3 pg [facility] MCHC 33.1 32.3 - 35.7 g/dL [facility] RDW CV 13.4 11.1 - 14.9 % [facility] RDW SD 46.7 35.7 - 48.1 fL [facility] NRBC abs 0.00 0.00 - 0.01 K/cumm [facility] Blood 10/09/2024 8:54 PM CDT 10/09/2024 9:07 PM CDT us Clarice Pepe MD LAB BLOOD ORDERABLES Final Resu lt [facility] [place] [address] * Phosphorus (10/09/2024 8:54 PM CDT) Pathologist [facility] Phosphorus, pl 2.9 2.3 - 4.5 mg/dL Blood 10/09/2024 8:54 PM CDT 10/09/2024 9:07 PM CDT Clarice Pepe MD LAB BLOOD ORDERABLES Final Resu lt Performing Organization Address City/[facility] Co de Phone Number [facility] [place] [address] * Magnesium (10/09/2024 8:54 PM CDT) Magnesium 2.1 1.4 - 2.5 mg/dL Blood 10/09/2024 8:5 4 PM CDT 10/09/2024 9:07 PM CDT Clarice Pepe MD LAB BLOOD ORDERABLES Final Resu lt Performing Organization Address [place]/[facility] de Phone Number [facility] [place] [address] * Lipid panel (10/09/2024 8:54 PM CDT) [...] revised on 2018. Triglycerides 122 <=149 mg/dL [facility] Comment: Interpretive Data Ages < or = [...] on 2018. HDL 52 >=40 mg/dL [facility] Comment: Interpretive Data Ages < or = [...] 2018. LDL, calculated 24 <=129 mg/dL [facility] Comment: Interpretive Data Ages < or = [...] NCEP Expert Panel. Circulation 2004;110:227 3. Marino Arauz al. CELESTE Cardiol. 2020 October 28;5(5):540-548. doi: 10.1001/jamacardio.2020.0013 Current Interpretive Data was last revised on 2024. Non-HDL Cholesterol 46 mg/dL [facility] Comment: Interpretive Data Ages < or = [...] revised on 2018. Chol/HDL ratio 2 [facility] Blood 10/09/2024 8:54 PM CDT 10/09/2024 9:07 PM CDT us Jasmina Mendoza MD LAB BLOOD ORDERABLES Final Result [facility] [place] [address] * (ABNORMAL) Comprehensive metabolic panel (10/09/2024 8:54 PM CDT) Sodium 139 135 - 145 mmol/L Potassium, pl 4.3 3.3 - 4.9 mmol/L [facility] Chloride 105 97 - 110 mmol/L [facility] CO2 28 22 - 32 mmol/L [facility] Anion gap 6 2 - 15 mmol/L [facility] BUN 21 6 - 25 mg/dL [facility] Creatinine 0.75(L) 0.80 - 1.30 mg/dL [facility] Glucose 122 70 - 199 mg/dL [facility] Comment: Interpretive Data Fasting glucose >/= [...] Calcium 8.5 8.5 - 10.3 mg/dL [facility] Bilirubin, total 1.8(H) 0.1 - 1.2 mg/dL [facility] Protein, pl 6.1(L) 6.5 - 8.5 g/dL [facility] Albumin 3.5 3.5 - 5.0 g/dL [facility] Alk phos 52 40 - 130 Units/L [facility] ALT 33 7 - 55 Units/L [facility] AST 40 10 - 50 Units/L [facility] Blood 10/09/2024 8:54 PM CDT 10/09/2024 9:07 PM CDT us Clarice Pepe MD LAB BLOOD ORDERABLES Final Resu lt [facility] [place] [address] * Critical Care (10/09/2024 7:53 PM CDT) [...] plan with the ICU team and other medical/crop consultant staff, making frequent assessments and decisions [...] LAB POCT ORDERABLES - DEVICE Final Result [facility] [place] [address] * Critical Care (10/09/2024 5:49 PM CDT) [...] plan with the ICU team and other medical/crop consultant staff, making frequent assessments and decisions [...] LAB POCT ORDERABLES - DEVICE Final Result [facility] [place] [address] * POCT glucose (10/09/2024 11:21 AM CDT) Glucose, POC 108 70 - 199 mg/dL Blood 10/09/2024 11:2 1 AM CDT 10/09/2024 11:21 AM CDT Jasmina Mendoza MD LAB POCT ORDERABLES - DEVICE Final Result Performing Organization Address [place]/[facility] Co de Phone Number [facility] [place] [address] * POCT glucose (10/09/2024 8:23 AM CDT) Glucose, POC 105 70 - 199 mg/dL Blood 10/09/2024 8:23 AM CDT 10/09/2024 8:23 AM CDT Clarice Pepe MD LAB POCT ORDERABLES - DEVICE Fi nal Result Performing Organization Address [facility] [place] [address] * XR Outside Reference (10/09/2024 4:56 AM CDT) Impressions [facility] - 10/09/2024 4:56 AM CDT These images are for Reference purposes only and have not been reviewed by [facility] Radiology. There will be no report generated by a [facility] Radiologist. Narrative [facility] - 10/09/2024 4:56 AM CDT EXAMINATION: Images For Reference Purposes Only Debo Sweeney MD IMG XR PROCEDURES Fi nal Result Performing Organization Address [place]/[facility] Co de Phone Number [email or web address] * XR Outside Reference (10/09/2024 4:54 AM CDT) Impressions [facility] - 10/09/2024 4:54 AM CDT These images are for Reference purposes only and have not been reviewed by [facility] Radiology. There will be no report generated by a [facility] Radiologist. Narrative [facility] - 10/09/2024 4:54 AM [...] images may or may not represent the [place] source data set and thus may contain [...] IMAGING STUDY STUDY INITIALLY PERFORMED: 10/08/2024 at [facility]. TYPE OF STUDY: Multiple CT images of [...] IMAGING STUDY STUDY INITIALLY PERFORMED: 10/08/2024 at [facility]. TYPE OF STUDY: Multiple CT images of [...] images may or may not represent the [place] source data set and thus may contain [...] MD LAB BLOOD ORDERABLES Final Result [facility] Department of Laboratories [place], [place] [id number] * Differential, auto (10/09/2024 4:51 AM CDT) Neutrophil abs 4.47 1.50 - 6.50 K/cumm Imm gran abs 0.03 0.00 - 0.10 K/cumm [facility]ELLETI[facility] Lymphocyte abs 1.82 0.80 - 3.30 K/cumm [facility] Monocyte abs 0.73 0.20 - 0.80 K/cumm [facility] Eosinophil abs 0.19 0.00 - 0.50 K/cumm [facility] Basophil abs 0.02 0.00 - 0.10 K/cumm [facility] Neutrophil pct 61.5 % [facility] Comment: Interpretive Data Percent cell count reference ranges are not reported, since discordance with absolute values may lead to misinterpretation of CBC data. Current Interpretive Data was last revised on 2017. Imm gran pct 0.4 % [facility] Comment: Interpretive Data Percent cell count reference ranges are not reported, since discordance with absolute values may lead to misinterpretation of CBC data. Current Interpretive Data was last revised on 2017. Lymphocyte pct 25.1 % [facility] Comment: Interpretive Data Percent cell count reference ranges are not reported, since discordance with absolute values may lead to misinterpretation of CBC data. Current Interpretive Data was last revised on 2017. Monocyte pct 10.1 % [facility] Comment: Interpretive Data Percent cell count reference ranges are not reported, since discordance with absolute values may lead to misinterpretation of CBC data. Current Interpretive Data was last revised on 2017. Eosinophil pct 2.6 % [facility] Comment: Interpretive Data Percent cell count reference ranges are not reported, since discordance with absolute values may lead to misinterpretation of CBC data. Current Interpretive Data was last revised on 2017. Basophil pct 0.3 % [facility] Comment: Interpretive Data Percent cell count reference ranges are not reported, since discordance with absolute values may lead to misinterpretation of CBC data. Current Interpretive Data was last revised on 2017. Blood 10/09/2024 4:51 AM CDT 10/09/2024 5:00 AM CDT us Debo Sweeney MD LAB BLOOD ORDERABLES Final Result [facility] [place] [address] * (ABNORMAL) CBC with auto differential (10/09/2024 4:51 AM CDT) [facility] WBC 7.26 3.80 - 9.90 K/cumm Hgb 11.8(L) 13.0 - 17.5 g/dL [facility] Hct 35.1(L) 38.9 - 50.3 % [facility] Plt 119(L) 150 - 400 K/cumm [facility] MPV 9.8 9.1 - 12.3 fL [facility] RBC 3.75(L) 4.30 - 5.80 M/cumm [facility] MCV 93.6 81.3 - 96.4 fL [facility] MCH 31.5 27.1 - 33.3 pg [facility] MCHC 33.6 32.3 - 35.7 g/dL [facility] RDW CV 13.3 11.1 - 14.9 % [facility] RDW SD 45.4 35.7 - 48.1 fL [facility] NRBC abs 0.00 0.00 - 0.01 K/cumm [facility] Blood 10/09/2024 4:51 AM CDT 10/09/2024 5:00 AM CDT Debo Sweeney MD LAB BLOOD ORDERABLES Final Result [facility] [place] [address] * (ABNORMAL) aPTT (10/09/2024 4:51 AM CDT) [facility] aPTT 27(L) 28 - 38 sec Comment: Interpretive Data Heparin therapeutic range: 66.0 - 100.0 seconds. Range based on correlation with therapeutic heparin activity range of 0.3 - 0.7 Units/mL. Current interpretive data was last revised on 2023. Blood 10/09/2024 4:51 AM CDT 10/09/2024 5:06 AM CDT Debo Sweeney MD LAB BLOOD ORDERABLES Final Result Performing Organization Address [place] [place] de Phone Number [facility] Department [place] [address] * (ABNORMAL) Protime-INR (10/09/2024 4:51 AM CDT) PT 14.9(H) 9.7 - 13.0 sec INR 1.37(H) 0.90 - 1.20 [facility] Comment: Interpretive data Oral anticoagulant therapeutic ranges: Venous thromboembolism prophylaxis or treatment: 2.0-3.0 CARDIOLOGY Standard range: 2.0-3.0 High-intensity range: 2.5-3.5 Refer to indication-specific guidelines for appropriate target ranges for prosthetic heart valve replacement. Current interpretive data was last revised on 2019. Blood 10/09/2024 4:51 AM CDT 10/09/2024 5:06 AM CDT Debo Sweeney MD LAB BLOOD ORDERABLES Final Result Performing Organization Address [place] de Phone Number [facility] Department [place] [address] * (ABNORMAL) Basic metabolic panel (10/09/2024 4:51 AM CDT) Sodium 141 135 - 145 mmol/L Potassium, pl 4.1 3.3 - 4.9 mmol/L [facility] Chloride 105 97 - 110 mmol/L [facility] CO2 29 22 - 32 mmol/L [facility] Anion gap 7 2 - 15 mmol/L [facility] BUN 22 6 - 25 mg/dL [facility] Creatinine 0.62(L) 0.80 - 1.30 mg/dL [facility] Glucose 118 70 - 199 mg/dL [facility] Comment: Interpretive Data Fasting glucose >/= [...] 2022. Calcium 8.5 8.5 - 10.3 mg/dL [facility] Blood 10/09/2024 4:51 AM CDT 10/09/2024 5:00 AM CDT us Debo Sweeney MD LAB BLOOD ORDERABLES Final Result [facility] [place] [address] * Neuro CT Outside Consult (10/09/2024 4:49 [...] images may or may not represent the [place] source data set and thus may contain [...] IMAGING STUDY STUDY INITIALLY PERFORMED: 10/08/2024 at [facility]. TYPE OF STUDY: Multiple CT images of [...] IMAGING STUDY STUDY INITIALLY PERFORMED: 10/08/2024 at [facility]. TYPE OF STUDY: Multiple CT images of [...] images may or may not represent the [place] source data set and thus may contain [...] superiorly into the right neck outside the [id number]-[id number]. 2. Bilateral basilar predominant groundglass and consolidation [...] images may or may not represent the [place] source data set and thus may contain [...] IMAGING STUDY STUDY INITIALLY PERFORMED: 10/08/2024 at [facility]. TYPE OF STUDY: Multiple CT images of [...] IMAGING STUDY STUDY INITIALLY PERFORMED: 10/08/2024 at [facility]. TYPE OF STUDY: Multiple CT images of [...] superiorly into the right neck outside the [id number]-cd-dtod. 2. Bilateral basilar predominant groundglass and consolidation [...] images may or may not represent the [place] source data set and thus may contain [...] have not been reviewed by [facility] Radiology. There will be no report generated by a [facility] Radiologist. Narrative [facility] - 10/09/2024 4:44 AM CDT EXAMINATION: Images For Reference Purposes Only Debo Sweeney MD IMG XR PROCEDURES Fi nal Result [facility] * [place] CRITICAL CARE ILL/INJURED PATIENT INIT 30-74 MIN [...] have not been reviewed by [facility] Radiology. There will be no report generated by a [facility] Radiologist. Narrative [facility] - 10/09/2024 4:41 AM [...] Estimated battery longevity 5.5 years Presenting Rhythm (TN) Atrial Sensing-Ventricular Sensing (-VS) --- NSR 70 bpm. Anticoagulation (AC) Patient prescribed Apixaban (Eliquis) Patient on anticoagulant therapy Transmission Information (TI) Device Summary Report Procedure Note Duran Chase MD PhD - 09/19/2024 Interpretation Summary: Battery and Leads (BL) Normal parameters noted on battery and lead(s) --- Estimated batterylongevity 5.5 years Presenting Rhythm (TN) Atrial Sensing-Ventricular Sensing (-VS) --- NSR 70 bpm. Anticoagulation (AC) Patient prescribed Apixaban (Eliquis) Patient on anticoagulant therapy Transmission Information (TI) Device Summary Report Eddie James MD CV CARDIAC SERVICES PROCEDURES Final Result from Last 3 Months Insurance [facility] MEDICARE ADVANTAGE [facility] Address: [facility] [address] [place] [address] [facility] MEDICARE ADVANTAGE [facility] MEDICARE ADVANTAGE [facility] Address: [address] [address] [place] [address] Advance Directives For more information, please contact: [phone] * Full Code (Latest Code Status on File) Date Activated Date Inactivated Comments 11/26/2024 9:23 AM 12/01/2024 5:33 PM * Full Code Date Activated Date Inactivated Comments 11/26/2024 9:23 AM 11/26/2024 9:23 AM * Full Code Date Activated Date Inactivated Comments 10/09/2024 8:37 AM 10/11/2024 6:34 PM * Full Code Date Activated Date Inactivated Comments 03/19/2021 2:35 PM 03/21/2021 8:52 PM * Full Code Date Activated Date Inactivated Comments 03/15/2021 9:47 AM 03/16/2021 7:41 PM Care Teams Environmental Services Supervisor Relationship Specialty Start Date End Date Jony Sepulveda MD [address] [address] PCP - General Family Medicine 11/28/24 Ricardo Alegria MD [address] [facility] [address] [place] [id number] Referring Physician Cardiology 02/02/21 Peng Lozada MD [address] [address] Consulting Physician Cardiothoracic Surgery 03/16/21 Alphonso Tran MD [address] [address] Referring Physician Cardiology 03/16/21
--- OUTSIDE RECORDS SUMMARY | 2024-12-06 16:35 | XMS_ITS | Clinical Summary ---
Author Organization [facility] [address] Address [address] [place] [address] Care Team Providers Care Glaze Maker Name Role Phone Ricardo Alegria MD Unavailable [phone] Peng Lozada MD Unavailable Alphonso Tran MD Unavailable [phone] Jony Sepulveda MD Primary Care Provider Allergies Active Allergy Reactions Criticality Noted Date [...] block s/p pacemaker - Patient follows with [facility] cardiology - On ASA/Eliquis. Per patient, manages medications. Believes last took medications yesterday. - Hold home ASA/Eliquis - OK to restart eliquis on DC Complete heart block 03/19/2021 Overview (03/19/2021): Added automatically from request for surgery [id number] Assessment & Plan (12/01/2024 11:46 AM CDT): [...] BMI 29.27 Coronary artery disease invo lving [place] coronary artery of [place] heart without angina pectoris 04/09/2017 Assessment & Plan (03/15/2021 11:04 AM CDT): Hx of Bare metal stents placed to the RCA and LAD in [place] in 1998 in the setting of [place] followed by re-intervention to the LAD in 2012 at [place], [place] -continue asa -continue statin and zetia -start plavix for TAVR History of coronary artery stent placement 04/09 Aortic stenosis 04/09/2017 Assessment & Plan (12/01/2024 11:46 AM CDT): - s/p TAVR (2020), CAD w stents to LAD and BRADDISHER (2016) - Continue Zetia 10mg daily - Continue Atorvastatin 80mg daily - Hold Aspirin 81mg daily - Hold Eliquis - DANNY?DS?-VASc Score is 5, continue ASA and hold Eliquis on discharge Follow up with your PCP/grey roll man for further evaluation. Assessment & Plan (03/15/2021 11:00 AM CDT): TTE: Mild AR, moderate-severe , AV Area: 0.9 cm2 AV Pressure Gradient (mmHg): Mean: 27, Peak:46 -groin precautions -start asa and plavix -telemetry -PT/OT Heart murmur 04/09/2016 Overview (10/05/2016): Murmur Encounters Date Type Department Care Team Description 12/01/2024 Telephone [facility] [address] [place] [address] Ricardo Alegria MD 11/25/2024 7:28 PM CDT - 12/01/2024 1:28 PM CDT Hospital Encounter [facility] [address] [place] [address] Shahla Winn MD Hoofnagle MD Suman Bales, Savannah Crowell MD Fall, initial encounter (Primary Dx); Closed stable burst fracture of second lumbar vertebra, initial encounter (HCC); Hemothorax on right; Closed burst fracture of lumbar vertebra, initial encounter (HCC) Discharge Disposition: Discharge to home or self care 11/15/2024 Orders Only [facility] [address] [place] [address] [address]th [place] [address] [place] [address] Eddie James MD 10/09/2024 4:21 AM CDT - 10/11/2024 2:25 PM CDT Hospital Encounter [facility] [address] [place] [address] Karl Quesada MD Staszak, MD Afshin Porter Vidya, MD Traumatic pneumothorax, initial encounter (Primary Dx); Closed fracture of multiple ribs of right side, initial encounter; Fall, subsequent encounter Discharge Disposition: Discharge to home or self care 09/15/2024 1:00 PM CDT Office Visit [facility] [address] [place] [address] 8th [place] [address] [place] [address] Sheron Madden NP S/P TAVR (transcatheter aortic valve replacement) (Primary Dx); Pacemaker; Complete heart block (HCC) 09/15/2024 12:30 PM CDT Ancillary Procedure [facility] [address] [place] [address] 8th [place] [address] [place] [address] Complete heart block (HCC) (Primary Dx); Fitting or adjustment of cardiac pacemaker from Last 3 Months Immunizations Immunization Administration Dates Next Due Moderna SARS-CoV-2 Monovalen t Vaccination (12+ YRS) 08/29/2020 Tdap 11/25/2024(Deferred: Other) Medical History Medical History Date Comments Hypertension [...] on file Legal 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 Gender Identity Male 02/27/2021 9:36 AM CDT [...] 11/26/2024 11:18 AM CDT Plan of Treatment Health Maintenance Due Date Last Done Comments Hepatitis B Screening 1953 Well Visit 65+ 12/15/1999 Zoster Vaccine (2 of 2) 07/18/2018 05/23/2018 DTaP/Tdap/Td Vaccine (2 - Td or Tdap) 08/29/2023 08/28/2013, 03/15/2009, 06/30/1999 Covid-19 Vaccine (2023-2 5 season) 2024 08/29/2020, 07/27/2020 Influenza Vaccine (Season Ended) 2025 03/15/2020, 04/07/2019, 03/15/2018, Additional history exists Depression Screening 11/25/2025 11/25/2024, 11/26/19 25 Fall Risk Assessment 12/01/2025 12/01/2024 Pneumococcal vaccine 65+ Completed 03/17/2015, 06/2002 Medical Devices Implanted Type Area Dye Boarding Machine Operator Device Identifier Shelf Expiration Date Model / Serial / Lot [employer] Shira 7842 Lead 7842 Endocardial Pacing Mr Is-1 Bipolar Connection - [id number] - [id number] Implanted:Qty: 1 on 03/20/2021 by Eddie James MD at [facility] Lead Left: Heart [employer] Shira 01/09/2023 [id number] / [id number] / [employer] Shira 4470 Fineline Ii Sterox Ez 1.7mm 52cm Bipolar Active Fixation Screw - [id number] - [id number] Implanted:Qty: 1 on 03/20/2021 by Eddie James MD at [facility] Lead Left: Heart [employer] Shira 12/20/2022 4470 / [id number] / [employer] [id number] Perclose 6fr Suture Mediate Knot Push Vascular Device Closure - [id number] Implanted:Qty: 1 on 03/15/2021 by Peng Lozada MD at [facility] Other - see comments Right: Arterial [employer] [id number] / / Description:Perclose for rig ht femoral artery [employer] C.R.M. L111 Essentio 4.45x5.02cm 2 Chamber Is1 Connector .75cm Pacemaker 13.7 - [id number] - [id number] Implanted:Qty: 1 on 03/20/2021 by Eddie James MD at [facility] Pacemaker Left: Heart [employer] C.R.M. 02/05/2023 [id number] / [id number] / Stent N/A: Heart [employer] [id number] Valve Heart 26mm Chace 3 Transcatheter - [id number] - [id number] Implanted:Qty: 1 on 03/15/2021 by Peng Lozada MD at [facility] N/A: Heart [employer] 11/20/2022 [id number] / [id number] / Daig Shira/[employer] [id number] Angio-Seal Evolution 6fr .035in Guidewire Bypass Tube Suture - [id number] Implanted:Qty: 1 on 03/15/2021 by Peng Lozada MD at [facility] Right: Arterial [employer] Shira 09/27/2021 [id number] / / [id number] Procedures Procedure Name Priority Date/Time Associated Diagnosis [...] OUTSIDE FILMS Routine 11/25/2024 8:25 PM CDT CO CRITICAL CARE ILL/INJURED PATIENT INIT 30-74 MIN [...] CDT CT BODY OUTSIDE CONSULT Routine 10/10/19 4:46 AM CDT XR TRANSFER OF OUTSIDE FILMS Routine 10/09/2024 4:44 AM CDT CO CRITICAL CARE ILL/INJURED PATIENT INIT 30-74 MIN [...] aorta. Electronically signed by: Lai Cruz M.D. us Estevan Swan PhD IMG XR PROCEDURES Final [...] Electronically signed by: Mario Naranjo M.D. Savannah Will MD IMG MRI PROCEDURES Fi nal Result [...] by: Yuri Almodovar MD, PHD Kathia Cortes TILE LAYER SUPERVISOR IMG XR PROCEDURES Atiya l Result * [...] it. Electronically signed by: Tolu Valencia M.D. Kathia Cortes NP IMG XR PROCEDURES [...] by: Ricardo Tang D.O. Santiago Lambert MD IM XR PROCEDURES Atiya [...] signed by: Kayla Reza M.D. Kathia Agnieszka Sebastian TILE LAYER SUPERVISOR IMG XR PROCEDURES Atiya l Result * [...] LAB BLOOD ORDERABLES F inal Result [facility] [place] [address] * (ABNORMAL) CBC without differential (11/26/2024 9:15 PM CDT) WBC 8.21 3.80 - 9.90 K/cumm Hgb 13.0 13.0 - 17.5 g/dL [facility] Hct 38.7(L) 38.9 - 50.3 % [facility] Plt 184 150 - 400 K/cumm [facility] MPV 9.5 9.1 - 12.3 fL [facility] RBC 4.34 4.30 - 5.80 M/cumm [facility] MCV 89.2 81.3 - 96.4 fL [facility] MCH 30.0 27.1 - 33.3 pg [facility] MCHC 33.6 32.3 - 35.7 g/dL [facility] RDW CV 16.4(H) 11.1 - 14.9 % [facility] RDW SD 53.9(H) 35.7 - 48.1 fL [facility] NRBC abs 0.00 0.00 - 0.01 K/cumm [facility] Blood 11/26/2024 9:15 PM CDT 11/26/2024 10:07 PM CDT Santiago Lambert MD LAB BLOOD ORDERABLES F inal Result Performing Organization Address City/[facility]/ZIP Co de Phone Number [facility] [place] [address] * Phosphorus (11/26/2024 9:15 PM CDT) Phosphorus, pl 2.5 2.3 - 4.5 mg/dL Blood 11/26/2024 9:15 PM CDT 11/26/2024 10:06 PM CDT Santiago Lambert MD LAB BLOOD ORDERABLES F inal Result [facility] [place] [address] * Magnesium (11/26/2024 9:15 PM CDT) Magnesium 2.3 1.4 - 2.5 mg/dL Blood 11/26/2024 9:15 PM CDT 11/26/2024 10:06 PM CDT Santiago Lambert MD LAB BLOOD ORDERABLES F inal Result Performing Organization Address City/[facility]/ZIP Co de Phone Number [facility] Department [place] [address] * (ABNORMAL) Basic metabolic panel (11/26/2024 9:15 PM CDT) Sodium 138 135 - 145 mmol/L Potassium, pl 4.0 3.3 - 4.9 mmol/L [facility] Comment:Repeated and Verifie d Chloride 102 97 - 110 mmol/L [facility] CO2 25 22 - 32 mmol/L [facility] Anion gap 11 2 - 15 mmol/L [facility] BUN 13 6 - 25 mg/dL [facility] Creatinine 0.74(L) 0.80 - 1.30 mg/dL [facility] Glucose 170 70 - 199 mg/dL [facility] Comment: Interpretive Data Fasting glucose [...] Calcium 8.5 8.5 - 10.3 mg/dL [facility] Blood 11/26/2024 9:15 PM CDT 11/26/2024 10:06 PM CDT Santiago Lambert MD LAB BLOOD ORDERABLES F inal Result Performing Organization Address [facility] Co de Phone Number [facility] [place] [address] * XR Scoliosis Ap and Lateral (11/26/2024 [...] by: Caio Turner MD Santiago Lambert MD IMG XR PROCEDURES Atiya [...] 2023. Barbiturates, ur Not Detected CutOff 200ng/mL [facility] Comment: Interpretive Data - Barbiturates: Samples containing greater than 200 ng/mL secobarbital or other cross-reacting barbiturate compounds are reported as positive. False positive and false negative results are possible. Confirmatory testing required for definitive results. Current Interpretive Data was last reviewed 2023. Benzodiazepines, ur Screen Positive, presumptive (A) CutOff 100ng/mL [facility] Comment: Interpretive Data - Benzodiazepines: Samples containing greater than 100 ng/mL nordiazepam or other cross-reacting compounds are reported as positive. False positive and false negative results are possible. Confirmatory testing required for definitive results. Current Interpretive Data was last reviewed 2023. Cannabinoids, ur Not Detected CutOff 50 ng/mL [facility] Comment: Interpretive Data - Cannabinoids: Samples containing greater than 50 ng/mL delta-9 THC -COOH or other cross- reacting compounds are reported as positive. False positive and false negative results are possible. Confirmatory testing required for definitive results. Current Interpretive Data was last reviewed 2023. Cocaine, ur Not Detected CutOff 150ng/mL [facility] Comment: Interpretive Data - Cocaine: Samples containing greater than 150 ng/mL benzoylecgonine or other cross- reacting compounds are reported as positive. False positive and false negative results are possible. Confirmatory testing required for definitive results. Current Interpretive Data was last reviewed 2023. Fentanyl, Ur Not Detected CutOff 5 ng/mL [facility] Comment: Interpretive Data - Fentanyl: Samples containing greater than 5 ng/mL norfentanyl, fentanyl, or other cross-reacting fentanyl compounds are reported as positive. False positive and false negative results are possible. Confirmatory testing required for definitive results. Current Interpretive Data was last reviewed 2023. Methadone, ur Not Detected CutOff 300ng/mL [facility] Comment: Interpretive Data - Methadone: Samples containing greater than 300 ng/mL d,l-methadone or other cross-reacting compounds are reported as positive. False positive and false negative results are possible. Confirmatory testing required for definitive results. Current Interpretive Data was last reviewed 2023. Opiates, ur Not Detected CutOff 300ng/mL [facility] Comment: Interpretive Data - Opiates: Samples containing greater than 300 ng/mL morphine or other cross-reacting compounds are reported as positive. False positive and false negative results are possible. Confirmatory testing required for definitive results. Current Interpretive Data was last reviewed 2023. Oxycodone, ur Not Detected CutOff 100ng/mL [facility] Comment: Interpretive Data - Oxycodone: Samples containing greater than 100 ng/mL oxycodone or other cross-reacting compounds are reported as positive. False positive and false negative results are possible. Confirmatory testing required for definitive results. Current Interpretive Data was last reviewed 2023. Phencyclidine, ur Not Detected CutOff 25 ng/mL [facility] Comment: Interpretive Data - Phencyclidine: Samples containing greater than 25 ng/mL phencyclidine or other cross-reacting compounds are reported as positive. False positive and false negative results are possible. Confirmatory testing required for definitive results. Current Interpretive Data was last reviewed 2023. Urine Creatinine 54 mg/dL [facility] Comment: Interpretive Data Urine Creatinine: < 10 mg/dL is extremely dilute = or > 10 but < 20 mg/dL is dilute = or > 20 mg/dL is normal Current Interpretive Data was last revised on 2017. Urine 11/25/2024 9:10 PM CDT 11/25/2024 9:24 PM CDT Narrative [facility] - 11/25/2024 9:53 PM CDT Drug of Abuse screening is performed by immunoassay for medical purposes only. This is not to be used for Pain Management purposes. If Detected, confirmation testing will be performed for Amphetamines, Cocaine, Fentanyl, Methadone, Opiates, Oxycodone or Phencyclidine. us Shahla Winn MD LAB URINE ORDERABLES Final Result Performing Organization Address City/State/[facility] Co de Phone Number [facility] [place] [address] * CT Body Outside Consult (11/25/2024 8:35 [...] images may or may not represent the [place] source data set and thus may contain [...] INITIALLY PERFORMED: 11/25/2024 at 2:08 PM at [facility] TYPE OF STUDY: Multiple CT images of [...] INITIALLY PERFORMED: 11/25/2024 at 2:08 PM at [facility] TYPE OF STUDY: Multiple CT images of [...] images may or may not represent the [place] source data set and thus may contain changes that may lower the accuracy of this second-opinion interpretation. Dictated by: Farhana Silverio MD The radiology attending physician has personally reviewed this study, and had reviewed and/or edited this written report and agrees with it. Electronically signed by: Lai Cruz M.D. Araceli Reina MD IM CT PROCEDURES [...] images may or may not represent the [place] source data set and thus may contain [...] IMAGING STUDY STUDY INITIALLY PERFORMED: 11/25/2024 at [facility]. TYPE OF STUDY: Multiple CT images [...] IMAGING STUDY STUDY INITIALLY PERFORMED: 11/25/2024 at [facility]. TYPE OF STUDY: Multiple CT images [...] images may or may not represent the [place] source data set and thus may contain changes that may lower the accuracy of this second-opinion interpretation. Dictated by: Tiffany Baird MD The radiology attending physician has personally reviewed this study, and had reviewed and/or edited this written report and agrees with it. Electronically signed by: Silvano Betancourt M.D. Araceli Reina MD IMG CT PROCEDURES [...] images may or may not represent the [place] source data set and thus may contain [...] IMAGING STUDY STUDY INITIALLY PERFORMED: 11/25/2024 at [facility]. TYPE OF STUDY: Multiple CT images [...] IMAGING STUDY STUDY INITIALLY PERFORMED: 11/25/2024 at [facility]. TYPE OF STUDY: Multiple CT images [...] images may or may not represent the [place] source data set and thus may contain changes that may lower the accuracy of this second-opinion interpretation. Dictated by: Tiffany Baird MD The radiology attending physician has personally reviewed this study, and had reviewed and/or edited this written report and agrees with it. Electronically signed by: Silvano Betancourt M.D. us Shahla Winn MD IMG CT PROCEDURES Final Res ult * XR Outside Reference (11/25/2024 8:28 PM CDT) Impressions [facility] - 11/25/2024 8:28 PM CDT These images are for Reference purposes only and have not been reviewed by [facility]. There will be no report generated by a [facility] Radiologist. Narrative [facility] - 11/25/2024 8:28 PM CDT EXAMINATION: Images For Reference Purposes Only us Shahla Winn MD IMG XR PROCEDURES Final Res ult Performing Organization Address [facility] de Phone Number [email or web address] * XR Outside Reference (11/25/2024 8:27 PM CDT) Impressions [facility] - 11/25/2024 8:27 PM CDT These images are for Reference purposes only and have not been reviewed by [facility]. There will be no report generated by a [facility] Radiologist. Narrative [facility] - 11/25/2024 8:27 PM CDT EXAMINATION: Images For Reference Purposes Only us Shahla Winn MD IMG XR PROCEDURES Final Res ult Performing Organization Address [facility] de Phone Number [email or web address] * XR Outside Reference (11/25/2024 8:25 PM CDT) Impressions [facility] - 11/25/2024 8:25 PM CDT These images are for Reference purposes only and have not been reviewed by [facility]. There will be no report generated by a [facility] Radiologist. Narrative [facility] - 11/25/2024 8:25 PM CDT EXAMINATION: Images For Reference Purposes Only us Shahla Winn MD IMG XR PROCEDURES Final Res ult Performing Organization Address [facility] de Phone Number [email or web address] * CO CRITICAL CARE ILL/INJURED PATIENT INIT 30-74 MIN (11/25/2024 8:09 PM CDT) Shahla Alexander MD - 11/25/2024 8:09 PM CDT Shahla [...] Chemistries, Venous - (11/25/2024 7:40 PM CDT) [facility] pH, Christopher POC 7.28(L) 7.32 - 7.43 pCO2, christopher POC 64(H) 40 - 50 mmHg [facility] pO2, christopher POC 49 mmHg [facility] Na, POC 135 135 - 145 mmol/L [facility] K POC 5.3(H) 3.3 - 4.9 mmol/L [facility] Comment: Hemolyzed;K+ value may be falsely elevated 0.6-1.0 Interpretive Data Not all point of care methods assess for hemolysis. Confirm with instrument and retest K+ if not consistent with clinical signs and symptoms. Current Interpretive Data was last revised on 2023. Cl, POC 105 97 - 110 mmol/L [facility] Ionized Ca, POC 4.77 4.50 - 5.10 mg/dL [facility] Glucose, POC 150 70 - 199 mg/dL [facility] Lactate POC 1.8 0.7 - 2.0 mmol/L [facility] MetHb, Christopher POC <0.1 0.0 - 1.9 % [facility] O2 Sat, Christopher POC (Anderson) 81 % [facility] Base excess, POC 1.8 mmol/L [facility] Hct, POC 39.0(L) 41.4 - 51.6 % [facility] Total Hb, POC 13.0(L) 13.8 - 17.2 g/dL [facility] Blood 11/25/2024 7:40 PM CDT 11/25/2024 7:40 PM CDT Darnell Lira MD LAB POCT ORDERABLES - DEVICE Fin al Result Performing Organization Address City/[facility] Co de Phone Number [facility] [place] [address] * Thromboelastometry Panel - Heparin (11/25/2024 7:35 PM CDT) [facility] HEPTEM-CT 162 141 - 215 sec HEPTEM-A5 42 33 - 51 mm [facility] HEPTEM-A10 53 44 - 61 mm [facility] HEPTEM-A20 60 52 - 67 mm [facility] HEPTEM-MCF 61 54 - 69 mm [facility] Blood 11/25/2024 7:35 PM CDT 11/25/2024 7:41 PM CDT us Gelacio Perera MD LAB BLOOD ORDERABLES Edit ed Result - Final Performing Organization Address City/[facility]/ZIP Co de Phone Number [facility] [place] [address] * Thromboelastometry Panel - Intrinsic (11/25/2024 7:35 PM CDT) INTEM-CT 174 139 - 205 sec INTEM-A5 44 36 - 54 mm [facility] INTEM-A10 55 46 - 63 mm [facility] INTEM-A20 61 53 - 68 mm [facility] INTEM-MCF 62 55 - 70 mm [facility] INTEM-LI60 96 93 - 100 % [facility] INTEM-ML 4 0 - 7 % [facility] Blood 11/25/2024 7:35 PM CDT 11/25/2024 7:41 PM CDT Gelacio Perera MD LAB BLOOD ORDERABLES Edit ed Result - Final Performing Organization Address City/[facility]/ZIP Co de Phone Number [facility] [place] [address] * (ABNORMAL) Thromboelastometry Panel - Fibrinogen (11/25/2024 7:35 PM CDT) Pathologist [facility] FIBTEM-A5 19(H) 5 - 16 mm FIBTEM-A10 20(H) 6 - 17 mm [facility] FIBTEM-A20 22(H) 6 - 18 mm [facility] FIBTEM-MCF 22(H) 9 - 19 mm [facility] Blood 11/25/2024 7:35 PM CDT 11/25/2024 7:41 PM CDT Gelacio Perera MD LAB BLOOD ORDERABLES Edit ed Result - Final [facility] [place] [address] * (ABNORMAL) Thromboelastometry Panel - Extrinsic (11/25/2024 7:35 PM CDT) EXTEM-CT 94(H) 51 - 73 sec EXTEM-A5 47 33 - 52 mm [facility] EXTEM-A10 58 45 - 62 mm [facility] EXTEM-A20 64 54 - 69 mm [facility] EXTEM-MCF 65 57 - 72 mm [facility] EXTEM-LI60 96 94 - 100 % [facility] EXTEM-ML 5 0 - 6 % [facility] Blood 11/25/2024 7:35 PM CDT 11/25/2024 7:41 PM CDT us Gelacio Perera MD LAB BLOOD ORDERABLES Edit ed Result - Final [facility] [place] [address] * eGFR (11/25/2024 7:35 PM CDT) eGFR >90 >=60 mL/min/1. 73 m2 [...] BLOOD ORDERABLES Final Result [facility] [place] [address] * (ABNORMAL) Differential, auto (11/25/2024 7:35 PM CDT) Neutrophil abs 6.60(H) 1.50 - 6.50 K/cumm Imm gran abs 0.02 0.00 - 0.10 K/cumm [facility] Lymphocyte abs 1.00 0.80 - 3.30 K/cumm [facility] Monocyte abs 0.70 0.20 - 0.80 K/cumm [facility] Eosinophil abs 0.05 0.00 - 0.50 K/cumm [facility] Basophil abs 0.02 0.00 - 0.10 K/cumm [facility] Neutrophil pct 78.8 % [facility] Comment: Interpretive Data Percent cell count reference ranges are not reported, since discordance with absolute values may lead to misinterpretation of CBC data. Current Interpretive Data was last revised on 2017. Imm gran pct 0.2 % [facility] Comment: Interpretive Data Percent cell count reference ranges are not reported, since discordance with absolute values may lead to misinterpretation of CBC data. Current Interpretive Data was last revised on 2017. Lymphocyte pct 11.9 % [facility] Comment: Interpretive Data Percent cell count reference ranges are not reported, since discordance with absolute values may lead to misinterpretation of CBC data. Current Interpretive Data was last revised on 2017. Monocyte pct 8.3 % [facility] Comment: Interpretive Data Percent cell count reference ranges are not reported, since discordance with absolute values may lead to misinterpretation of CBC data. Current Interpretive Data was last revised on 2017. Eosinophil pct 0.6 % [facility] Comment: Interpretive Data Percent cell count reference ranges are not reported, since discordance with absolute values may lead to misinterpretation of CBC data. Current Interpretive Data was last revised on 2017. Basophil pct 0.2 % [facility] Comment: Interpretive Data Percent cell count reference ranges are not reported, since discordance with absolute values may lead to misinterpretation of CBC data. Current Interpretive Data was last revised on 2017. Blood 11/25/2024 7:35 PM CDT 11/25/2024 7:53 PM CDT us Gelacio Perera MD LAB BLOOD ORDERABLES Atiya l Result Performing Organization Address [facility] Co de Phone Number [facility] [place] [address] * (ABNORMAL) CBC with auto differential (11/25/2024 7:35 PM CDT) Pathologist [facility] WBC 8.39 3.80 - 9.90 K/cumm Hgb 13.2 13.0 - 17.5 g/dL [facility] Hct 40.8 38.9 - 50.3 % [facility] Plt 157 150 - 400 K/cumm [facility] MPV 9.4 9.1 - 12.3 fL [facility] RBC 4.48 4.30 - 5.80 M/cumm [facility] MCV 91.1 81.3 - 96.4 fL [facility] MCH 29.5 27.1 - 33.3 pg [facility] MCHC 32.4 32.3 - 35.7 g/dL [facility] RDW CV 16.3(H) 11.1 - 14.9 % [facility] RDW SD 54.6(H) 35.7 - 48.1 fL [facility] NRBC abs 0.00 0.00 - 0.01 K/cumm [facility] Blood 11/25/2024 7:35 PM CDT 11/25/2024 7:53 PM CDT us Shahla Winn MD LAB BLOOD ORDERABLES Final Result Performing Organization Address [facility]/ZIP Co de Phone Number [facility] [place] [address] * aPTT (11/25/2024 7:35 PM CDT) Pathologist [facility] aPTT 29 28 - 38 sec Comment: Interpretive Data Heparin therapeutic range: 66.0 - 100.0 seconds. Range based on correlation with therapeutic heparin activity range of 0.3 - 0.7 Units/mL. Current interpretive data was last revised on 2023. Blood 11/25/2024 7:35 PM CDT 11/25/2024 7:59 PM CDT Shahla Winn MD LAB BLOOD ORDERABLES Final Result Performing Organization Address [facility] de Phone Number [facility] [place] [place] [address] * Protime-INR (11/25/2024 7:35 PM CDT) PT 12.8 9.7 - 13.0 sec INR 1.18 0.90 - 1.20 [facility] Comment: Interpretive data Oral anticoagulant therapeutic ranges: Venous thromboembolism prophylaxis or treatment: 2.0-3.0 CARDIOLOGY Standard range: 2.0-3.0 High-intensity range: 2.5-3.5 Refer to indication-specific guidelines for appropriate target ranges for prosthetic heart valve replacement. Current interpretive data was last revised on 2019. Blood 11/25/2024 7:35 PM CDT 11/25/2024 7:59 PM CDT Shahla Winn MD LAB BLOOD ORDERABLES Final Result Performing Organization Address [facility] de Phone Number [facility] [place] [address] * Type and screen (11/25/2024 7:35 PM CDT) ABO Rh A Positive Kera, indirect Negative [facility] Blood 11/25/2024 7:35 PM CDT 11/25/2024 10:06 PM CDT N[facility]ative [facility] - 11/25/2024 11:15 PM CDT Has the patient had Daratumumab or Isatuximab in the past 6 months?->Unknown Shahla Winn MD LAB BLOOD BANK TEST ORDERAB LES Final Result Performing Organization Address [facility] [place] [address] * Ethanol (11/25/2024 7:35 PM CDT) Pathologist [facility] Ethanol <10 <=10 mg/dL Comment: Hemolyzed; result may be falsely decreased Interpretive Data Legal limit of intoxication > or = 80 mg/dL Levels > or = 400 mg/dL are potentially TOXIC. Current interpretive data was last revised on 2018. Blood 11/25/2024 7:35 PM CDT 11/25/2024 7:53 PM CDT Shahla Winn MD LAB BLOOD ORDERABLES Final Result Performing Organization Address [facility] de Phone Number [facility] [place] [address] * (ABNORMAL) Comprehensive metabolic panel (11/25/2024 7:35 PM CDT) [facility] Sodium 136 135 - 145 mmol/L Potassium, pl See Comment 3.3 - 4.9 mmol/L [facility] Comment:Credited; Hemolyzed Specimen Chloride 103 97 - 110 mmol/L [facility] CO2 24 22 - 32 mmol/L [facility] Anion gap 9 2 - 15 mmol/L [facility] BUN 19 6 - 25 mg/dL [facility] Creatinine 0.57(L) 0.80 - 1.30 mg/dL [facility] Glucose 134 70 - 199 mg/dL [facility] Comment: Interpretive Data Fasting glucose [...] Calcium 8.4(L) 8.5 - 10.3 mg/dL [facility] Bilirubin, total 1.6(H) 0.1 - 1.2 mg/dL [facility] Protein, pl 6.7 6.5 - 8.5 g/dL [facility] Albumin 3.3(L) 3.5 - 5.0 g/dL [facility] Alk phos 58 40 - 130 Units/L [facility] Comment:Hemolyzed; result ma y be falsely decreased ALT See Comment 7 - 55 Units/L [facility] Comment:Credited; Hemolyzed Specimen AST See Comment 10 - 50 Units/L [facility] Comment:Credited; Hemolyzed Specimen Blood 11/25/2024 7:35 PM CDT 11/25/2024 7:53 PM CDT us Shahla Winn MD LAB BLOOD ORDERABLES Final Result [facility] [place] [address] * DEVICE CHECK - REMOTE (11/15/2024 6:11 AM CDT) Anatomical Region Laterality Modality Other 11/15/2024 6:11 AM CDT Narrative 11/15/2024 11:49 AM CDT Interpretation Summary: Battery and Leads (BL) Normal parameters noted on battery and lead(s) --- 5.5 years remaining (this is an estimate based on prior usage) Presenting Rhythm (CO) Atrial Pacing-Ventricular Sensing (AP-VS) --- rate 60 [...] estimate based on prior usage) Presenting Rhythm (CO) Atrial Pacing-Ventricular Sensing (AP-VS) --- rate 60 [...] 7:46 PM CDT 10/10/2024 8:58 PM CDT Jasmina Mendoza MD LAB BLOOD ORDERABLES Final Result [facility] [place] [address] * (ABNORMAL) CBC without differential (10/10/2024 7:46 PM CDT) Pathologist [facility] WBC 7.44 3.80 - 9.90 K/cumm Hgb 11.2(L) 13.0 - 17.5 g/dL [facility] Hct 34.3(L) 38.9 - 50.3 % [facility] Plt 161 150 - 400 K/cumm [facility] MPV 10.4 9.1 - 12.3 fL [facility] RBC 3.67(L) 4.30 - 5.80 M/cumm [facility] MCV 93.5 81.3 - 96.4 fL [facility] MCH 30.5 27.1 - 33.3 pg [facility] MCHC 32.7 32.3 - 35.7 g/dL [facility] RDW CV 13.1 11.1 - 14.9 % [facility] RDW SD 45.1 35.7 - 48.1 fL [facility] NRBC abs 0.00 0.00 - 0.01 K/cumm [facility] Blood 10/10/2024 7:46 PM CDT 10/10/2024 9:03 PM CDT Clarice Pepe MD LAB BLOOD ORDERABLES Final Resu lt Performing Organization Address City/[facility]/ZIP Co de Phone Number [facility] [place] [place] [address] * Phosphorus (10/10/2024 7:46 PM CDT) Pathologist [facility] Phosphorus, pl 3.0 2.3 - 4.5 mg/dL Blood 10/10/2024 7:46 PM CDT 10/10/2024 8:50 PM CDT Clarice Pepe MD LAB BLOOD ORDERABLES Final Resu lt [facility] [place] [address] * Magnesium (10/10/2024 7:46 PM CDT) Pathologist [facility] Magnesium 2.2 1.4 - 2.5 mg/dL Blood 10/10/2024 7:46 PM CDT 10/10/2024 8:50 PM CDT us Clarice Pepe MD LAB BLOOD ORDERABLES Final Resu lt [facility] [place] [address] * (ABNORMAL) Basic metabolic panel (10/10/2024 7:46 PM CDT) Sodium 135 135 - 145 mmol/L Potassium, pl 3.8 3.3 - 4.9 mmol/L [facility] Chloride 98 97 - 110 mmol/L [facility] CO2 29 22 - 32 mmol/L [facility] Anion gap 8 2 - 15 mmol/L [facility] BUN 17 6 - 25 mg/dL [facility] Creatinine 0.66(L) 0.80 - 1.30 mg/dL [facility] Glucose 151 70 - 199 mg/dL [facility] Comment: Interpretive Data Fasting glucose [...] Calcium 8.6 8.5 - 10.3 mg/dL [facility] Blood 10/10/2024 7:46 PM CDT 10/10/2024 8:50 PM CDT us Jasmina Mendoza MD LAB BLOOD ORDERABLES Final Result Performing Organization Address [facility]/ZIP Co de Phone Number [facility] [place] [address] * Critical Care (10/10/2024 7:12 PM CDT) [...] plan with the ICU team and other medical/data communications software consultant staff, making frequent assessments and decisions [...] plan with the ICU team and other medical/data communications software consultant staff, making frequent assessments and decisions [...] life-threatening deterioration of the following conditions: Result [facility] Jamison Qureshi MD PhD IN CLINIC/BEDSIDE ORDERABLES Final Result * POCT glucose (10/10/2024 6:00 PM CDT) Glucose, POC 128 70 - 199 mg/dL Blood 10/10/2024 6:00 PM CDT 10/10/2024 6:00 PM CDT Jasmina Mendoza MD LAB POCT ORDERABLES - DEVICE Final Result Performing Organization Address [facility] Co de Phone Number [facility] [place] [place] [address] * POCT glucose (10/10/2024 11:39 AM CDT) Glucose, POC 124 70 - 199 mg/dL Blood 10/10/2024 11:3 9 AM CDT 10/10/2024 11:39 AM CDT Jasmina Mendoza MD LAB POCT ORDERABLES - DEVICE Final Result Performing Organization Address [facility] Co de Phone Number [facility] [place] [address] * POCT glucose (10/10/2024 7:34 AM CDT) Glucose, POC 103 70 - 199 mg/dL Blood 10/10/2024 7:34 AM CDT 10/10/2024 7:34 AM CDT Jasmina Mendoza MD LAB POCT ORDERABLES - DEVICE Final Result Performing Organization Address City/[facility] Co de Phone Number [facility] [place] [address] * XR Chest 1 View (10/10/2024 7:08 [...] Electronically signed by: Yuri Almodovar MD, PHD Jasmina Mendoza MD IMG XR PROCEDURES Fin [...] MD LAB BLOOD ORDERABLES Final Resu lt [facility] [place] [address] * POCT glucose (10/09/2024 8:54 PM CDT) Pathologist [facility] Glucose, POC 127 70 - 199 mg/dL Blood 10/09/2024 8:54 PM CDT 10/09/2024 8:54 PM CDT us Jasmina Mendoza MD LAB POCT ORDERABLES - DEVICE Final Result Performing Organization Address City/[facility]/ZIP Co de Phone Number [facility] [place] [address] * (ABNORMAL) CBC without differential (10/09/2024 8:54 PM CDT) [facility] WBC 7.25 3.80 - 9.90 K/cumm Hgb 10.9(L) 13.0 - 17.5 g/dL [facility] Hct 32.9(L) 38.9 - 50.3 % [facility] Plt 122(L) 150 - 400 K/cumm [facility] MPV 9.7 9.1 - 12.3 fL [facility] RBC 3.46(L) 4.30 - 5.80 M/cumm [facility] MCV 95.1 81.3 - 96.4 fL [facility] MCH 31.5 27.1 - 33.3 pg [facility] MCHC 33.1 32.3 - 35.7 g/dL [facility] RDW CV 13.4 11.1 - 14.9 % [facility] RDW SD 46.7 35.7 - 48.1 fL [facility] NRBC abs 0.00 0.00 - 0.01 K/cumm [facility] Blood 10/09/2024 8:54 PM CDT 10/09/2024 9:07 PM CDT us Clarice Pepe MD LAB BLOOD ORDERABLES Final Resu lt Performing Organization Address City/[facility] Co de Phone Number [facility] [place] [address] * Phosphorus (10/09/2024 8:54 PM CDT) Phosphorus, pl 2.9 2.3 - 4.5 mg/dL Blood 10/09/2024 8:54 PM CDT 10/09/2024 9:07 PM CDT us Clarice Pepe MD LAB BLOOD ORDERABLES Final Resu lt Performing Organization Address [facility] Co de Phone Number [facility] [place] [address] * Magnesium (10/09/2024 8:54 PM CDT) Magnesium 2.1 1.4 - 2.5 mg/dL Blood 10/09/2024 8:54 PM CDT 10/09/2024 9:07 PM CDT us Clarice Pepe MD LAB BLOOD ORDERABLES Final Resu lt Performing Organization Address City/[facility]/ZIP Co de Phone Number [facility] [place] [address] * Lipid panel (10/09/2024 8:54 PM CDT) [...] revised on 2018. Triglycerides 122 <=149 mg/dL [facility] Comment: Interpretive Data Ages < [...] revised on 2018. HDL 52 >=40 mg/dL [facility] Comment: Interpretive Data Ages < or [...] on 2018. LDL, calculated 24 <=129 mg/dL [facility] Comment: Interpretive Data Ages < or [...] revised on 2024. Non-HDL Cholesterol 46 mg/dL [facility] Comment: Interpretive Data Ages < or [...] revised on 2018. Chol/HDL ratio 2 [facility] Blood 10/09/2024 8:54 PM CDT 10/09/2024 9:07 PM CDT us Jasmina Mendoza MD LAB BLOOD ORDERABLES Final Result [facility] [place] [address] * (ABNORMAL) Comprehensive metabolic panel (10/09/2024 8:54 PM CDT) Sodium 139 135 - 145 mmol/L Potassium, pl 4.3 3.3 - 4.9 mmol/L [facility] Chloride 105 97 - 110 mmol/L [facility] CO2 28 22 - 32 mmol/L [facility] Anion gap 6 2 - 15 mmol/L [facility] BUN 21 6 - 25 mg/dL [facility] Creatinine 0.75(L) 0.80 - 1.30 mg/dL [facility] Glucose 122 70 - 199 mg/dL [facility] Comment: Interpretive Data Fasting glucose [...] Calcium 8.5 8.5 - 10.3 mg/dL [facility] Bilirubin, total 1.8(H) 0.1 - 1.2 mg/dL [facility] Protein, pl 6.1(L) 6.5 - 8.5 g/dL [facility] Albumin 3.5 3.5 - 5.0 g/dL [facility] Alk phos 52 40 - 130 Units/L [facility] ALT 33 7 - 55 Units/L [facility] AST 40 10 - 50 Units/L [facility] Blood 10/09/2024 8:54 PM CDT 10/09/2024 9:07 PM CDT us Clarice Pepe MD LAB BLOOD ORDERABLES Final Resu lt [facility] Department of Laboratories [place], [place] [id number] * Critical Care (10/09/2024 7:53 PM CDT) [...] plan with the ICU team and other medical/data communications software consultant staff, making frequent assessments and decisions [...] * POCT glucose (10/09/2024 6:09 PM CDT) [facility] Signature Glucose, POC 116 70 - 199 mg/dL Blood 10/09/2024 6:09 PM CDT 10/09/2024 6:09 PM CDT us Jasmina Mendoza MD LAB POCT ORDERABLES - DEVICE Final Result [facility] [place] [address] * Critical Care (10/09/2024 5:49 PM CDT) [...] plan with the ICU team and other medical/data communications software consultant staff, making frequent assessments and decisions [...] time documenting in the medical record Jamison Noé Qureshi MD PhD IN CLINIC/BEDSIDE ORDERABLES Final [...] Electronically signed by: Miguel A Adkins M.D. Result [facility] Clarice Pepe MD IMG XR PROCEDURES Final Result * POCT glucose (10/09/2024 2:58 PM CDT) Glucose, POC 146 70 - 199 mg/dL Blood 10/09/2024 2:58 PM CDT 10/09/2024 2:58 PM CDT Result [facility] Jasmina Mendoza MD LAB POCT ORDERABLES - DEVICE Final Result Performing Organization Address [facility] de Phone Number [facility] [place] [address] * POCT glucose (10/09/2024 11:21 AM CDT) Glucose, POC 108 70 - 199 mg/dL Blood 10/09/2024 11:2 1 AM CDT 10/09/2024 11:21 AM CDT Result [facility] Jasmina Mendoza MD LAB POCT ORDERABLES - DEVICE Final Result Performing Organization Address [facility] de Phone Number [facility] [place] [address] * POCT glucose (10/09/2024 8:23 AM CDT) Glucose, POC 105 70 - 199 mg/dL Blood 10/09/2024 8:23 AM CDT 10/09/2024 8:23 AM CDT Result [facility] Clarice Pepe MD LAB POCT ORDERABLES - DEVICE Fi nal Result Performing Organization Address [facility] de Phone Number [facility] [place] [address] * XR Outside Reference (10/09/2024 4:56 AM CDT) Impressions [email or web address] - 10/09/2024 4:56 AM CDT These images are for Reference purposes only and have not been reviewed by [facility]. There will be no report generated by a [facility] Radiologist. Narrative [email or web address] - 10/09/2024 4:56 AM CDT EXAMINATION: Images For Reference Purposes Only Debo Sweeney MD IMG XR PROCEDURES Fi nal Result Performing Organization Address [facility] de Phone Number [email or web address] * XR Outside Reference (10/09/2024 4:54 AM CDT) Impressions [email or web address] - 10/09/2024 4:54 AM CDT These images are for Reference purposes only and have not been reviewed by [facility]. There will be no report generated by a [facility] Radiologist. Narrative [email or web address] - 10/09/2024 4:54 AM CDT EXAMINATION: Images For Reference Purposes Only Debo Sweeney MD IMG XR PROCEDURES Fi nal Result Performing Organization Address [facility] de Phone Number [email or web address] * Neuro [...] images may or may not represent the [place] source data set and thus may contain [...] IMAGING STUDY STUDY INITIALLY PERFORMED: 10/08/2024 at [facility]. TYPE OF STUDY: Multiple [...] IMAGING STUDY STUDY INITIALLY PERFORMED: 10/08/2024 at [facility]. TYPE OF STUDY: Multiple [...] images may or may not represent the [place] source data set and thus may contain [...] MD LAB BLOOD ORDERABLES Final Result [facility] [place] [address] * Differential, auto (10/09/2024 4:51 AM CDT) Neutrophil abs 4.47 1.50 - 6.50 K/cumm Imm gran abs 0.03 0.00 - 0.10 K/cumm [facility] Lymphocyte abs 1.82 0.80 - 3.30 K/cumm [facility] Monocyte abs 0.73 0.20 - 0.80 K/cumm [facility] Eosinophil abs 0.19 0.00 - 0.50 K/cumm [facility] Basophil abs 0.02 0.00 - 0.10 K/cumm [facility] Neutrophil pct 61.5 % [facility] Comment: Interpretive Data Percent cell count reference ranges are not reported, since discordance with absolute values may lead to misinterpretation of CBC data. Current Interpretive Data was last revised on 2017. Imm gran pct 0.4 % [facility] Comment: Interpretive Data Percent cell count reference ranges are not reported, since discordance with absolute values may lead to misinterpretation of CBC data. Current Interpretive Data was last revised on 2017. Lymphocyte pct 25.1 % [facility] Comment: Interpretive Data Percent cell count reference ranges are not reported, since discordance with absolute values may lead to misinterpretation of CBC data. Current Interpretive Data was last revised on 2017. Monocyte pct 10.1 % [facility] Comment: Interpretive Data Percent cell count reference ranges are not reported, since discordance with absolute values may lead to misinterpretation of CBC data. Current Interpretive Data was last revised on 2017. Eosinophil pct 2.6 % [facility] Comment: Interpretive Data Percent cell count reference ranges are not reported, since discordance with absolute values may lead to misinterpretation of CBC data. Current Interpretive Data was last revised on 2017. Basophil pct 0.3 % [facility] Comment: Interpretive Data Percent cell count reference ranges are not reported, since discordance with absolute values may lead to misinterpretation of CBC data. Current Interpretive Data was last revised on 2017. Blood 10/09/2024 4:51 AM CDT 10/09/2024 5:00 AM CDT Debo Sweeney MD LAB BLOOD ORDERABLES Final Result [facility] [place] [address] * (ABNORMAL) CBC with auto differential (10/09/2024 4:51 AM CDT) WBC 7.26 3.80 - 9.90 K/cumm Hgb 11.8(L) 13.0 - 17.5 g/dL [facility] Hct 35.1(L) 38.9 - 50.3 % [facility] Plt 119(L) 150 - 400 K/cumm [facility] MPV 9.8 9.1 - 12.3 fL [facility] RBC 3.75(L) 4.30 - 5.80 M/cumm [facility] MCV 93.6 81.3 - 96.4 fL [facility] MCH 31.5 27.1 - 33.3 pg [facility] MCHC 33.6 32.3 - 35.7 g/dL [facility] RDW CV 13.3 11.1 - 14.9 % [facility] [facility] RDW SD 45.4 35.7 - 48.1 fL [facility] NRBC abs 0.00 0.00 - 0.01 K/cumm [facility] Blood 10/09/2024 4:51 AM CDT 10/09/2024 5:00 AM CDT Debo Sweeney MD LAB BLOOD ORDERABLES Final Result Performing Organization Address [facility] Co de Phone Number [facility] [place] [address] * (ABNORMAL) aPTT (10/09/2024 4:51 AM CDT) [...] BLOOD ORDERABLES Final Result Performing Organization Address [facility] de Phone Number [facility] [place] [address] * (ABNORMAL) Protime-INR (10/09/2024 4:51 AM CDT) PT 14.9(H) 9.7 - 13.0 sec INR 1.37(H) 0.90 - 1.20 [facility] Comment: Interpretive data Oral anticoagulant therapeutic ranges: Venous thromboembolism prophylaxis or treatment: 2.0-3.0 CARDIOLOGY Standard range: 2.0-3.0 High-intensity range: 2.5-3.5 Refer to indication-specific guidelines for appropriate target ranges for prosthetic heart valve replacement. Current interpretive data was last revised on 2019. Blood 10/09/2024 4:51 AM CDT 10/09/2024 5:06 AM CDT Debo Sweeney MD LAB BLOOD ORDERABLES Final Result [facility] Department [place] [address] * (ABNORMAL) Basic metabolic panel (10/09/2024 4:51 AM CDT) Sodium 141 135 - 145 mmol/L Potassium, pl 4.1 3.3 - 4.9 mmol/L [facility] Chloride 105 97 - 110 mmol/L [facility] CO2 29 22 - 32 mmol/L [facility] Anion gap 7 2 - 15 mmol/L [facility] BUN 22 6 - 25 mg/dL [facility] Creatinine 0.62(L) 0.80 - 1.30 mg/dL [facility] Glucose 118 70 - 199 mg/dL [facility] Comment: Interpretive Data Fasting glucose [...] Calcium 8.5 8.5 - 10.3 mg/dL [facility] Blood 10/09/2024 4:51 AM CDT 10/09/2024 5:00 AM CDT us Debo Sweeney MD LAB BLOOD ORDERABLES Final Result Performing Organization Address [facility] Co de Phone Number [facility] [place] [address] * Neuro CT Outside Consult (10/09/2024 4:49 [...] images may or may not represent the [place] source data set and thus may contain [...] IMAGING STUDY STUDY INITIALLY PERFORMED: 10/08/2024 at [facility]. TYPE OF STUDY: Multiple [...] IMAGING STUDY STUDY INITIALLY PERFORMED: 10/08/2024 at [facility]. TYPE OF STUDY: Multiple [...] images may or may not represent the [place] source data set and thus may contain [...] superiorly into the right neck outside the [id number]-ew-swnp. 2. Bilateral basilar predominant groundglass and consolidation [...] images may or may not represent the [place] source data set and thus may contain [...] IMAGING STUDY STUDY INITIALLY PERFORMED: 10/08/2024 at [facility]. TYPE OF STUDY: Multiple [...] IMAGING STUDY STUDY INITIALLY PERFORMED: 10/08/2024 at [facility]. TYPE OF STUDY: Multiple [...] superiorly into the right neck outside the afvfm-ml-[id number]. 2. Bilateral basilar predominant groundglass and consolidation [...] images may or may not represent the [place] source data set and thus may contain [...] only and have not been reviewed by [facility]. There will be no report generated by a [facility] Radiologist. Narrative [facility] - 10/09/2024 4:44 AM CDT EXAMINATION: Images For Reference Purposes Only Debo Sweeney MD IMG XR PROCEDURES Fi nal Result [facility] * CO CRITICAL CARE ILL/INJURED PATIENT INIT 30-74 MIN [...] only and have not been reviewed by [facility]. There will be no report generated by a [facility] Radiologist. Narrative [facility] - 10/09/2024 4:41 AM CDT EXAMINATION: Images [...] Estimated battery longevity 5.5 years Presenting Rhythm (CO) Atrial Sensing-Ventricular Sensing (-VS) --- NSR 70 bpm. Anticoagulation (AC) Patient prescribed Apixaban (Eliquis) Patient on anticoagulant therapy Transmission Information (TI) Device Summary Report Procedure Note Duran Chase MD PhD - 09/19/2024 Interpretation Summary: Battery and Leads (BL) Normal parameters noted on battery and lead(s) --- Estimated batterylongevity 5.5 years Presenting Rhythm (CO) Atrial Sensing-Ventricular Sensing (-VS) --- NSR 70 bpm. Anticoagulation (AC) Patient prescribed Apixaban (Eliquis) Patient on anticoagulant therapy Transmission Information (TI) Device Summary Report Eddie James MD CV CARDIAC SERVICES PROCEDURES Final Result from Last 3 Months Insurance [employer] MEDICARE ADVANTAGE Member Subscriber Plan / Payer (Ef fective 2018-Present) Name:Noé Seo Relation to Subscriber:Self Name:Noé Seo Payer ID:[id number] (NAIC) Type:[facility] MEDICARE Address: [place] [id number] [facility] MEDICARE ADVANTAGE [facility] MEDICARE ADVANTAGE Advance Directives For more information, please contact: [phone] * Full Code (Latest Code Status on [...] 9:47 AM 03/16/2021 7:41 PM Care Teams Glaze Maker Relationship Specialty Start Date End Date Jony Sepulveda MD [address] [place] [id number] PCP - General Family Medicine 11/28/24 Ricardo Alegria MD [address] [place] [address] Referring Physician Cardiology 02/02/21 Peng Lozada MD [address] [place] [address] Consulting Physician Cardiothoracic Surgery 03/16/21 Alphonso Tran MD [address] [place] [address] Referring Physician Cardiology 03/16/21
--- OUTSIDE RECORDS SUMMARY | 2024-12-06 16:35 | XMS_ITS | Encounter Summary ---
Author Organization [facility] Healthcare Address [address] [place] [address] Care Team Providers Care Hospital Recruiter Name Role Phone Ricardo Alegria MD Unavailable [phone] Peng Lozada MD Unavailable [phone] Alphonso Tran MD Unavailable [phone] Jony Sepulveda MD Primary Care Provider Encounter Details Date Type Department Care Team (Late st Contact Info) Description 12/01/2024 Telephone [facility] Cardiology [address] [place] [address] Ricardo Alegria MD [address] [place] [address] Social History Tobacco Use Types Packs/Day Years [...] on file 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 Spoke with pts , reviewed note from [facility], advised her to cont to follow those instructions and scheduled pt to see [facility] next week in office. verbalized understanding and appreciated the callback. * Telephone Encounter - Marla Rios - 12/01/2024 3:21 PM CDT Pts spouse requesting a call back to verify if the pt is okay to continue taking the Eliquis since he was released from [facility]. Please advise thank you Contact: documented in this encounter Plan of Treatment Not on file documented as of this encounter Visit Diagnoses Not on filedocumented in this encounter Care Teams Hospital Recruiter Relationship Specialty Start Date End Date Jony Sepulveda MD [address] [place] [address] PCP - General Family Medicine 11/28/24 Ricardo Alegria MD [address] [place] [address] Referring Physician Cardiology 02/02/21 Peng Lozada MD [address] [address] Consulting Physician Cardiothoracic Surgery 03/16/21 Alphonso Tran MD [address] [place] [address] Referring Physician Cardiology 03/16/21 documented as of this encounter
--- OUTSIDE RECORDS SUMMARY | 2024-12-06 16:35 | XMS_ITS | Encounter Summary ---
Author Organization [facility] Address [address] [place] [address] Phone Care Team Providers Care Stone Mason Name Role Phone Montserrat Sal MD Primary Care Provider Ricardo Alegria MD Unavailable [phone] Peng Lozada MD Unavailable [phone] Alphonso Tran MD Unavailable [phone] Jony Sepulveda MD Primary Care Provider Encounter Details Date Type Department Care Team (Late st Contact Info) Description 03/31/2023 Telephone [facility] Cardiology [address] [place] [address] [place] [address] Alphonso Tran MD [address] [facility] [address] [place] [address] Social History Tobacco Use Types [...] on file 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 Gender Identity Male 02/27/2021 9:36 AM CDT Sexual Orientation Not on file documented as of this encounter Plan of Treatment Not on file documented as of this encounter Visit Diagnoses Not on filedocumented in this encounter Care Teams Stone Mason Relationship Specialty Start Date End Date Montserrat Sal MD [address] [facility] [address] [place] [address] PCP - General Family Medicine 10/19/20 11/27/24 Jony Sepulveda MD [address] [place] [address] PCP - General Family Medicine 11/28/24 Ricardo Alegria MD [address] [address] Referring Physician Cardiology 02/02/21 Peng Lozada MD [address] [address] Consulting Physician Cardiothoracic Surgery 03/16/21 Alphonso Tran MD [address] [address] Referring Physician Cardiology 03/16/21 documented as of this encounter
[2024-12-06 16:51] LABS: Alanine Aminotransferase 51 U/L (6-50); Albumin Level 3.9 g/dL (3.5-5.1); Alkaline Phosphatase 107 U/L (38-126); Anion Gap 10 mmol/L (4-12); Aspartate Amino Transferase 55 U/L (17-59); Bilirubin,Total 1.1 mg/dL (0.2-1.3); Blood Urea Nitrogen 29 mg/dL (9-20); Calcium 9.3 mg/dL (8.4-10.2); Carbon Dioxide 23 mmol/L (22-30); Chloride 103 mmol/L (98-107); Estimated Glomerular Filt Rate > 60; Glucose 128 mg/dL (65-110); Potassium 3.9 mmol/L (3.4-5.0); Sodium 136 mmol/L (137-145); Total Protein 7.2 g/dL (6.3-8.2)
== END 2024-12-06 15:57 | disposition home or self-care (01) ==
PROVIDERS: PCP Family Medicine; Visit Provider Family Medicine
DX: I10 Essential (primary) hypertension (principal); R63.4 Abnormal weight loss
CPT/HCPCS: 36415; 80053; 82607; 85027